=== PATIENT | female | born 1975 | race Caucasian/White ===

== ENCOUNTER → 2021-02-23 11:59 | Outpatient (BNVA) | payer OTHER, SELFPAY | PROVIDERS: PCP Internal Medicine; Visit Provider Physician Assistant ==

== ENCOUNTER → 2021-02-25 08:08 | Outpatient (BNVA) | payer OTHER, SELFPAY | PROVIDERS: PCP Internal Medicine; Visit Provider Surgery ==

== ENCOUNTER 2021-03-12 07:37 | Outpatient (REF) | payer OTHER, SELFPAY ==
--- NOTE | ~2021-03-12 | XR_ITS ---
EXAMINATION: XR CHEST CLINICAL INFORMATION: Morbid obesity due to excess calories. COMPARISON: 04/19/2018 portable chest. TECHNIQUE: 2 views of the chest were obtained. FINDINGS: The lungs are clear. The heart and mediastinal structures are unremarkable. Widening and malalignment of the left acromioclavicular joint is again seen without significant change. XR/XR chest 2V IMPRESSION: No acute cardiopulmonary process.
--- NOTE | 2021-03-12 07:58 | ECG_ITS ---
Test Reason : E66.01 MOR OBS Blood Pressure : / mmHG Vent. Rate : 062 BPM Atrial Rate : 062 BPM P-R Int : 178 ms QRS Dur : 072 ms QT Int : 424 ms P-R-T Axes : 065 050 049 degrees QTc Int : 430 ms Normal sinus rhythm Normal ECG When compared with ECG of 19-APR-2018 08:04, No significant change was found Referred By: Winston Hernandez Electronically Signed By:Zaire Malik
[2021-03-12 08:23] LABS: MANUAL DIFF FLAG NO
[2021-03-12 08:30] LABS: Basophils Percent Auto 0.4 % (0-2); Eosinophils Absolute Auto 0.1 X10*3/uL (0.0-0.4); Eosinophils Percent Auto 2.2 % (0-4); Hematocrit 44.9 % (37-47); Hemoglobin 14.3 g/dl (12.0-16.0); Imm Gran Abs Auto 0.02 X10*3/uL (0.00-0.03); Imm Gran Pct Auto 0.4 % (0.0-0.4); Lymphocytes Absolute Auto 2.6 X10*3/uL (1.2-4.9); Lymphocytes Percent Auto 55.3 % (20-40); Mean Corpuscular HGB Conc 31.8 g/dl (31.0-35.0); Mean Corpuscular Hemoglobin 28.4 pg (27.0-33.0); Mean Corpuscular Volume 89.3 fL (80-98); Mean Platelet Volume 11.2 fL (9.4-12.3); Monocytes Absolute Auto 0.4 X10*3/uL (0.1-1.2); Monocytes Percent Auto 9.5 % (2-11); Neutrophils Absolute Auto 1.5 X10*3/uL (2.0-8.3); Neutrophils Percent Auto 32.2 % (45-73); Platelet Count 215 X10*3/uL (160-400); Red Blood Count 5.03 X10*6/uL (4.20-5.50); Red Cell Distribution Width 12.4 % (11.0-16.0); White Blood Count 4.6 X10*3/uL (4.8-10.8)
[2021-03-12 08:40] LABS: Estimated Average Glucose 111 mg/dL; Hemoglobin A1c % 5.5 %
[2021-03-12 09:02] LABS: Alanine Aminotransferase 71 U/L (0-31); Albumin Level 4.4 g/dL (3.5-5.0); Alkaline Phosphatase 128 U/L (39-117); Anion Gap 12 (12-20); Aspartate Amino Transferase 54 U/L (5-31); Bilirubin Total 0.8 mg/dL (0.0-1.0); Blood Urea Nitrogen 24 mg/dL (9-16); C Reactive Protein 2.33 mg/dL (< or = 0.50); Carbon Dioxide 26 mmol/L (22-29); Chloride 107 mmol/L (96-108); Cholesterol 181 mg/dL; Estimated Glomerular Filt Rate > 60; Glucose Random 108 mg/dL (60-115); HDL Cholesterol 43 mg/dL; Iron 78 mcg/dL (30-160); LDL Cholesterol Calculated 119 mg/dl; Percent Iron Saturation 19 % (15-50); Potassium 4.1 mmol/L (3.3-5.1); Sodium 141 mmol/L (135-145); Total Iron Binding Capacity 410 mcg/dL (228-428); Total Protein 7.6 g/dL (6.5-8.0); Triglycerides 97 mg/dL; Unsaturated Iron Binding 332 ug/dL
[2021-03-12 09:28] LABS: Ferritin 74 ng/mL (10-250); TSH reflex Free T4 2.38 uIU/mL (0.32-4.0); Vitamin D 25-OH Total 14.9 ng/mL (>30)
[2021-03-12 09:32] LABS: Folate 8.5 ng/mL (> or = 4.0); Vitamin B12 381 pg/mL (200-900)
[2021-03-13 13:41] LABS: H Pylori Breath Test NOT DETECTED (NOT DETECTED)
[2021-03-13 13:42] LABS: Calcium (PTHI) 9.8 mg/dL (8.6-10.2); PTHI 60 pg/mL (14-64)
[2021-03-15 17:27] LABS: Zinc 77 mcg/dL (60-130)
[2021-03-16 06:11] LABS: Vitamin B1 10 nmol/L (8-30)
[2021-03-17 21:36] LABS: Vitamin A 33 mcg/dL (38-98)
== END 2021-03-12 07:38 | disposition home or self-care (01) ==
LOC: HO.LAB 07:37
PROVIDERS: PCP Internal Medicine; Visit Provider Surgery
DX: Z01.818 Encounter for other preprocedural examination (principal); E66.01 Morbid (severe) obesity due to excess calories; I10 Essential (primary) hypertension; J45.909 Unspecified asthma, uncomplicated; K21.9 Gastro-esophageal reflux disease without esophagitis; K76.0 Fatty (change of) liver, not elsewhere classified; R73.03 Prediabetes
CPT/HCPCS: 36415; 71046; 80053; 80061; 82306; 82607; 82728; 82746; 83013; 83036; 83525; 83540; 83970; 84425; 84443; 84590; 84630; 85025; 86140; 93005; 99211

== ENCOUNTER 2021-03-19 09:26 | Outpatient (REF) | payer OTHER, SELFPAY ==
--- NOTE | ~2021-03-19 | FL_ITS ---
EXAMINATION: FL UPPER GI SERIES CLINICAL INFORMATION: Bariatric service evaluation. E66.01 COMPARISON: None TECHNIQUE: Upper GI series is performed using fluoroscopic evaluation in addition to multiple fluoroscopic spot views. The patient is imaged both upright and prone and using both thick and thin barium sulfate along with effervescent granules. Fluoroscopy time: 1.2 minutes DAP: 29.136 Gycm2 Fluoroscopic spot images: 19 FINDINGS: There is normal esophageal motility. There is no obstruction, stricture, ulceration, or reflux. There is borderline herniation at the esophagogastric junction with prone Valsalva maneuver, approximately 1.2 thoracic vertebral body height above the diaphragm (using thoracic vertebrae as an internal reference). No overt or fixed hernia. The stomach shows no thickened folds or ulcer crater or outlet obstruction. The duodenal bulb is pliable and without ulcer crater or scarring. The post bulbar duodenum the jejunal mucosal pattern are unremarkable. FL/FL upper GI series IMPRESSION: 1. Borderline herniation at the esophagogastric junction with prone Valsalva maneuver. 2. Otherwise unremarkable exam.
--- NOTE | ~2021-03-19 | US_ITS ---
EXAMINATION: US COMPLETE ABDOMEN WITH LIVER ELASTOGRAPHY CLINICAL INFORMATION: Obesity COMPARISON: MRI abdomen 03/09/[address], the most recent of which was 06/30/2018 TECHNIQUE: Real-time imaging of the abdominal viscera. Noninvasive ultrasound liver fibrosis assessment is performed using Anjana ElastPQ point quantification shear wave elastography (pSWE) with a C5-2 MHz transducer. Multiple elastography samples are obtained. FINDINGS: PANCREAS: Normal. The visualized pancreatic head and body are normal in appearance. The remainder of the pancreas is obscured from visualization by the overlying bowel gas. ABDOMINAL AORTA: The proximal, middle, and distal aortic segments are normal in caliber. INFERIOR VENA CAVA: Visualized portions are normal. LIVER: The liver demonstrates increased echogenicity suggesting hepatic steatosis. There is a large mass in the right lobe of the liver measuring up to 8.3 cm in greatest dimension. Although in the past, a 3.5 cm liver mass was seen which was thought to be a hemangioma on MRI, given the significant increase in size, a repeat dynamic liver MRI is recommended. No intrahepatic biliary duct dilatation. The right lobe measures 17.5 cm in length. The left lobe measures 10.7 cm in length. Portal flow is hepatopedal. Shear wave liver elastography median stiffness is 1.1 m/s (reference: normal median stiffness is 1.3 m/s or less). IQR/median stiffness to assess sampling precision is 1.2 (reference: good quality data set is IQR/median stiffness of 0.15 or less). GALLBLADDER: Status post cholecystectomy. COMMON BILE DUCT: Normal in caliber measuring 0.5 cm in diameter. RIGHT KIDNEY: . No hydronephrosis. No renal calculi or focal parenchymal lesions. The kidney measures 10.1 cm in maximum dimension. LEFT KIDNEY: No hydronephrosis. 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 This has not been noted previously but in retrospect I believe this can be seen on the prior CT scan 3:314 where a 6 mm mass measures -40 Hounsfield units. No renal calculi or worrisome focal parenchymal lesions. The kidney measures 11.1 cm in maximum dimension. SPLEEN: Normal. The spleen measures 11.8 cm in maximum dimension. FREE FLUID: None. US/US abdomen comp w elastography IMPRESSION: 1. Mildly enlarged echogenic liver consistent with hepatic steatosis. 2. Liver elastography: Very limited due to sampling error but not suggestive of liver disease. 3. New or enlarging mass in the right lobe of the liver now 8.3 cm in size. Dynamic liver MRI is recommended for further evaluation. REFERENCE: Society of Radiologists in Ultrasound Liver Stiffness Thresholds (2020): LIVER STIFFNESS THRESHOLDS: *Liver Stiffness equal or less than 1.3 m/s: High probability of being normal. *Liver Stiffness less than 1.7 m/s: In the absence of other known clinical signs, rules out compensated advanced chronic liver disease. *Liver Stiffness 1.7-2.1 m/s: Suggestive of compensated advanced chronic liver disease but need further test for confirmation. *Liver Stiffness over 2.1 m/s: Rules in compensated advanced chronic liver disease. *Liver Stiffness over 2.4 m/s: Suggestive of clinically significant portal hypertension. QUALITY OF DATA SET: *IQR/Median value equal or less than 0.15 implies a quality data set. *IQR/Median value over 0.15 implies a poor quality data set. SIGNIFICANT CHANGE FROM PRIOR EXAM: Significant change if liver stiffness measurement is 10% or greater from prior exam. OTHER CONSIDERATIONS: The stage of liver fibrosis may be overestimated in the setting of acute hepatitis, liver inflammation, elevated liver function tests, hepatic vascular congestion, obstructive cholestasis, non-fasting state, and infiltrative diseases such as amyloidosis and lymphoma. In some patients with NAFLD, the liver stiffness thresholds for compensated advanced chronic liver disease may be lower. In causes other than viral hepatitis and NAFLD, liver stiffness thresholds are not well established.
== END 2021-03-19 09:27 | disposition home or self-care (01) ==
LOC: HO.US 09:26
PROVIDERS: PCP Internal Medicine; Visit Provider Surgery
DX: Z01.818 Encounter for other preprocedural examination (principal); E66.01 Morbid (severe) obesity due to excess calories; K21.9 Gastro-esophageal reflux disease without esophagitis; K76.0 Fatty (change of) liver, not elsewhere classified; I10 Essential (primary) hypertension; J45.909 Unspecified asthma, uncomplicated; R73.03 Prediabetes
CPT/HCPCS: 74240; 76705; 76981

== ENCOUNTER → 2021-03-20 08:16 | Outpatient (BNVA) | payer OTHER, SELFPAY | PROVIDERS: PCP Internal Medicine; Visit Provider Dietitian, Registered | DX: E66.01 Morbid (severe) obesity due to excess calories (principal); Z68.43 Body mass index [BMI] 50.0-59.9, adult | CPT/HCPCS: 97802 ==

== ENCOUNTER → 2021-03-23 07:48 | Outpatient (BNVA) | payer OTHER, SELFPAY | PROVIDERS: PCP Internal Medicine; Visit Provider Surgery ==

== ENCOUNTER 2021-03-24 13:28 | Emergency (ER) | payer OTHER, SELFPAY ==
[2021-03-24 13:54] VITALS: BP 136/70; PULSE 78; RESP 16; TEMP 37; O2SAT 99; BMI 51.5
--- NOTE | 2021-03-24 13:54 | ED_ITS ---
HPI - Skin/Abscess/Foreign Bdy General Chief complaint: Wound/Laceration <Norma Morales NP - Last Filed: 03/24/21 14:22> Stated complaint: open Blister <Norma Morales NP - Last Filed: 03/24/21 14:22> Time Seen by Provider: 03/24/21 13:54 <Norma Morales NP - Last Filed: 03/24/21 14:22> Source: patient <Norma Morales NP - Last Filed: 03/24/21 14:22> Mode of arrival: ambulatory <Norma Morales NP - Last Filed: 03/24/21 14:22> Limitations: no limitations <Norma Morales NP - Last Filed: 03/24/21 14:22> History of Present Illness HPI narrative: 45 yo female here with right breast swelling, redness and pain x several days. Subjective fevers last few days. Initially had a blister from tanning bed and then opened and now painful, swollen, red. Does not check blood sugars with recent diagnosis of diabetes. Making dietary changes first working with PCP. <Norma Morales NP - Last Filed: 03/24/21 14:22> Related Data Home medications: Home Medications Medication Instructions Recorded Confirmed albuterol sulfate 90 mcg/actuation 2 puff INHALATION Q6H PRN 02/25/21 02/25/21 aerosol inhaler apixaban 5 mg tablet 5 mg PO BID 02/25/21 02/25/21 buprenorphine HCl 8 mg sublingual 8 mg SUBLINGUAL DAILY 02/25/21 02/25/21 tablet diphenhydramine HCl 50 mg capsule 50 mg PO BEDTIME 02/25/21 02/25/21 gabapentin 600 mg tablet 600 mg PO BEDTIME 02/25/21 02/25/21 omeprazole 40 mg capsule,delayed 40 mg PO DAILY 02/25/21 02/25/21 release prazosin 5 mg capsule 10 mg PO BEDTIME 02/25/21 02/25/21 topiramate 200 mg tablet 200 mg PO BEDTIME 02/25/21 02/25/21 Previous Rx's Medication Instructions Recorded cholecalciferol (vitamin D3) 125 125 mcg PO DAILY #30 cap 03/21/21 mcg (5,000 unit) capsule mecobalamin (vitamin B12) 1,000 1,000 mcg SUBLINGUAL DAILY #30 tab 03/21/21 mcg disintegrating tablet,sublingual vitamin A palmitate 10,000 unit 10,000 unit PO .COMPLEX #30 cap 03/21/21 capsule doxycycline monohydrate 100 mg PO BID #14 cap 03/24/21 fluconazole [Diflucan] 150 mg PO Q3D #2 tab 03/24/21 <Norma Morales NP - Last Filed: 03/24/21 14:22> Allergies/Adverse reactions: Allergies Allergy/AdvReac Type Severity Reaction Status Date / Time Iodinated Contrast Media Allergy Severe ANAPHYLAXIS Unverified 02/25/21 15:14 [IV CONTRAST] Penicillins [PENICILLINS] Allergy Severe THROAT Unverified 02/25/21 15:14 SWELLING vancomycin [VANCOMYCIN] Allergy Unknown ITCHING Unverified 02/25/21 15:14 ketorolac [From TORADOL] AdvReac Unknown I CANT Unverified 02/25/21 15:14 HAVE IT IM ON METHADONE tramadol [From ULTRAM] AdvReac Unknown I CANT Unverified 02/25/21 15:14 HAVE IT IM ON METHADONE STEROIDS Allergy Intermediate GI BLEED Uncoded 02/25/21 15:14 <Norma Morales NP - Last Filed: 03/24/21 14:22> Review of Systems Review of Systems: Yes all other systems are reviewed and are negative <Norma Morales NP - Last Filed: 03/24/21 14:22> Constitutional: Constitutional: Reports no additional constitutional complaints, Denies body ache(s), Denies chills, Reports fever(s) (subjective ), Denies headache(s) and Denies weakness <Norma Morales NP - Last Filed: 03/24/21 14:22> Eyes: Eyes: Reports no additional eye complaints and Denies change in vision <Norma Morales NP - Last Filed: 03/24/21 14:22> ENT: Reports system reviewed and no additional complaints, except as documented, Denies dizziness, Denies headache(s), Denies nasal congestion, Denies nasal discharge and Denies neck pain <Norma Morales NP - Last Filed: 03/24/21 14:22> Cardiovascular: Cardiovascular: Reports no additional cardiovascular complaints, Denies chest pain, Denies leg edema and Denies dyspnea <Norma Morales NP - Last Filed: 03/24/21 14:22> Respiratory: Respiratory: Reports no additional respiratory complaints, Denies cough and Denies dyspnea <Norma Morales NP - Last Filed: 03/24/21 14:22> Gastrointestinal: Gastrointestinal: Reports no additional gastrointestinal complaints, Denies abdominal pain, Denies diarrhea, Denies nausea and Denies vomiting <Norma Morales NP - Last Filed: 03/24/21 14:22> Genitourinary: Genitourinary: Reports no additional female genitourinary complaints and Denies urinary incontinence <Norma Morales NP - Last Filed: 03/24/21 14:22> Musculoskeletal: Musculoskeletal: Reports no additional musculoskeletal complaints, Denies back pain, Denies arthralgias, Denies joint swelling, Denies neck pain, Denies numbness and Denies tingling <Norma Morales NP - Last Filed: 03/24/21 14:22> Integumentary/Breasts: Skin/Breast: Reports system reviewed and no additional complaints, except as docu, Reports swelling, Reports erythema and Denies rash <Norma Morales NP - Last Filed: 03/24/21 14:22> Neurologic: Reports system reviewed and no additional complaints, except as documented, Denies Abnormal speech present, Denies dizziness, Denies headache(s), Denies numbness, Denies tingling and Denies weakness <Noram Morales NP - Last Filed: 03/24/21 14:22> PMFSH Past Medical History Attestation statement: The following information was validated with the patient. <Norma Morales NP - Last Filed: 03/24/21 14:22> Source: old records reviewed and nursing notes reviewed <Norma Morales NP - Last Filed: 03/24/21 14:22> Medical History: Medical History Anxiety Asthma Depression Fibromyalgia GERD (gastroesophageal reflux disease) History of ETOH abuse Hypertension Insomnia Morbid obesity Prediabetes PTSD (post-traumatic stress disorder) Seizure Steatosis, liver <Norma Morales NP - Last Filed: 03/24/21 14:22> Surgical History: Surgical History History of lung surgery History of total hysterectomy Hx of cholecystectomy Hx of colonoscopy Hx of wisdom tooth extraction <Norma Morales NP - Last Filed: 03/24/21 14:22> Family History Family History: Family History Mother Diabetes Hypertension Father Alcohol abuse Brother No problems noted. Brother No problems noted. Son No problems noted. Daughter No problems noted. <Norma Morales NP - Last Filed: 03/24/21 14:22> Social History Social History: Social History Alcohol intake: former Substance Use Type: Crack/Cocaine <Norma Morales NP - Last Filed: 03/24/21 14:22> Physical Exam Vital Signs: Vital Signs: Last Vital Signs Temp 98.6 F 03/24/21 13:54 Pulse 78 03/24/21 13:54 Resp 16 03/24/21 13:54 BP 136/70 03/24/21 13:54 Pulse Ox 99 03/24/21 13:54 Body Mass Index 51.5 <Norma Morales NP - Last Filed: 03/24/21 14:22> Vital Signs: Last Vital Signs Temp 98.6 F 03/24/21 13:54 Pulse 78 03/24/21 13:54 Resp 16 03/24/21 13:54 BP 136/70 03/24/21 13:54 Pulse Ox 99 03/24/21 13:54 Body Mass Index 51.5 <Adama Canseco MD - Last Filed: 04/29/21 17:31> Const: General: cooperative, healthy appearing, comfortable and no acute distress <Norma Morales NP - Last Filed: 03/24/21 14:22> Orientation/consciousness: patient oriented x3 <Norma Morales NP - Last Filed: 03/24/21 14:22> Limitations: no limitations <Norma Morales NP - Last Filed: 03/24/21 14:22> HENMT: Head: Yes normal to inspection <Norma Morales NP - Last Filed: 03/24/21 14:22> Ears: hearing grossly normal bilaterally <Norma Morales NP - Last Filed: 03/24/21 14:22> General nose exam: Normal external nose present <Norma Morales NP - Last Filed: 03/24/21 14:22> Face and sinus: Yes normal facial exam <Norma Morales NP - Last Filed: 03/24/21 14:22> Mouth: Normal oral and palatal mucosa present <Norma Morales NP - Last Filed: 03/24/21 14:22> Throat: Yes posterior oropharynx normal <Norma Morales NP - Last Filed: 03/24/21 14:22> Eyes: General: appearance normal, both eyes and all related structures <Norma Morales INTER[employer] MARKETING EXECUTIVE - Last Filed: 03/24/21 14:22> Pupils: Equal, round and reactive pupils present <Norma Morales NP - Last Filed: 03/24/21 14:22> Neck: Neck: Yes normal visual inspection <Norma Morales NP - Last Filed: 03/24/21 14:22> Chest: Chest palpation & inspection: normal inspection of the chest <Norma Morales NP - Last Filed: 03/24/21 14:22> Resp: Effort & Inspection: normal respiratory effort <Norma Morales NP - Last Filed: 03/24/21 14:22> Auscultation: clear to auscultation bilaterally <Norma Morales NP - Last Filed: 03/24/21 14:22> Cardio: Rate: regular rate <Norma Morales NP - Last Filed: 03/24/21 14:22> Rhythm: regular rhythm <Norma Morales INTERNATIONAL MARKETING EXECUTIVE - Last Filed: 03/24/21 14:22> Peripheral pulses: Peripheral pulses 2+ throughout <Norma Morales NP - Last Filed: 03/24/21 14:22> GI: Inspection: Yes normal to inspection <Norma Morales NP - Last Filed: 03/24/21 14:22> Palpation (GI): Soft to palpation and nontender <Norma Morales INTERNATIONAL MARKETING EXECUTIVE - Last Filed: 03/24/21 14:22> Auscultation: normal bowel sounds <Norma Morales INTERNATIONAL MARKETING EXECUTIVE - Last Filed: 03/24/21 14:22> Back/Spine/Pelvis: Thoracic/Lumbar Spine: thoracic and lumbar spine normal to inspection <Norma Morales NP - Last Filed: 03/24/21 14:22> Skin: Other: just under the right breast there is a open abrasion with local erythema, swelling but no induration or fluctuance or drainage. <Norma Morales NP - Last Filed: 03/24/21 14:22> General skin exam: no rashes or lesions noted <Norma Morales INTERNATIONAL MARKETING EXECUTIVE - Last Filed: 03/24/21 14:22> Neuro: General: patient oriented x3, no focal motor deficits and normal sensation to monofilament <Norma Morales INTERNATIONAL MARKETING EXECUTIVE - Last Filed: 03/24/21 14:22> Cranial nerves: Yes Equal, round and reactive pupils present <Norma Morales INTERNATIONAL MARKETING EXECUTIVE - Last Filed: 03/24/21 14:22> Cognition (Neuro): normal cognition <Norma Morales NP - Last Filed: 03/24/21 14:22> Speech: No Abnormal speech present <Norma Morales NP - Last Filed: 03/24/21 14:22> Gait exam (Neuro): Normal gait present <Norma Morales NP - Last Filed: 03/24/21 14:22> Motor exam (neuro): 5/5 motor strength present throughout <Norma Morales INTERNATIONAL MARKETING EXECUTIVE - Last Filed: 03/24/21 14:22> Extrem: General: Yes normal to inspection <Norma Morales INTERNATIONAL MARKETING EXECUTIVE - Last Filed: 03/24/21 14:22> Course Course Course Narrative: 45 yo female here with very small local cellulitis under right breast with no systemic s/s infection. POC in triage 99. WIll treat with course of antibiotics, discussed wound care at home. Reviewed worrisome signs/symptoms with patient and when to return to ED. Comfortable with discharge home. <Norma Morales NP - Last Filed: 03/24/21 14:22> I have reviewed the chart <Adama Canseco MD - Last Filed: 04/29/21 17:31> MDM - Skin/Abscess/Foreign Bdy Lab Data Labs: Lab Results 03/24/21 Range/Units 13:59 POC Glucose 99 (60-115) mg/dL <Norma Morales NP - Last Filed: 03/24/21 14:22> Lab Results 03/24/21 Range/Units 13:59 POC Glucose 99 (60-115) mg/dL <Adama Canseco MD - Last Filed: 04/29/21 17:31> Discharge Plan Discharge Clinical Impression: Cellulitis <Norma Morales NP - Last Filed: 03/24/21 14:22> Patient Disposition: Home, Self-Care <Norma Morales NP - Last Filed: 03/24/21 14:22> Instructions: Cellulitis (ED) <Norma Morales NP - Last Filed: 03/24/21 14:22> Additional Instructions: Keep dry Return for increasing redness, swelling as discussed <Norma Morales NP - Last Filed: 03/24/21 14:22> Prescriptions: New doxycycline monohydrate 100 mg capsule 100 mg PO BID Qty: 14 RF: 0 fluconazole [Diflucan] 150 mg tablet 150 mg PO Q3D Qty: 2 RF: 0 No Action vitamin A palmitate 10,000 unit capsule 10,000 unit PO .COMPLEX Qty: 30 RF: 1 mecobalamin (vitamin B12) 1,000 mcg tablet,disintegrating 1,000 mcg sublingual DAILY Qty: 30 RF: 2 cholecalciferol (vitamin D3) 125 mcg (5,000 unit) capsule 125 mcg PO DAILY Qty: 30 RF: 2 Eliquis 5 mg tablet 5 mg PO BID RF: 0 gabapentin 600 mg tablet 600 mg PO BEDTIME RF: 0 buprenorphine HCl 8 mg tablet, sublingual 8 mg sublingual DAILY RF: 0 diphenhydramine HCl 50 mg capsule 50 mg PO BEDTIME RF: 0 topiramate [Topamax] 200 mg tablet 200 mg PO BEDTIME RF: 0 prazosin 5 mg capsule 10 mg PO BEDTIME RF: 0 albuterol sulfate 90 mcg/actuation HFA aerosol inhaler 2 puff inhalation Q6H PRNRF: 0 omeprazole 40 mg capsule,delayed release(DR/EC) 40 mg PO DAILY RF: 0 <Norma Morales NP - Last Filed: 03/24/21 14:22> Referrals: Dinorah Wood MD [Primary Care Provider] - 2 days <Norma Morales NP - Last Filed: 03/24/21 14:22> Interventions: ED Discharge Assessment Last Done: 03/24/21 14:09 <Norma Morales NP - Last Filed: 03/24/21 14:22> Discharge Date/Time: 03/24/21 14:10 <Norma Morales NP - Last Filed: 03/24/21 14:22>
[2021-03-25 16:12] LABS: Glucose, Whole Blood 99 mg/dL (60-115)
== END 2021-03-24 14:10 | disposition home or self-care (01) ==
LOC: HO.ED 14:05
PROVIDERS: Emergency Provider Emergency Medicine; PCP Internal Medicine
DX: S20.311A Abrasion of right front wall of thorax, initial encounter (principal); L03.818 Cellulitis of other sites; W89.1XXA Exposure to tanning bed, initial encounter; Y93.89 Activity, other specified; Y92.513 Shop (commercial) as the place of occurrence of the external cause; Y99.9 Unspecified external cause status
CPT/HCPCS: 82947; 99283

== ENCOUNTER → 2021-03-26 10:49 | Outpatient (BNVA) | payer OTHER, SELFPAY | PROVIDERS: PCP Internal Medicine; Visit Provider Physician Assistant ==

== ENCOUNTER 2021-03-26 12:18 | Outpatient (REF) | payer OTHER, SELFPAY ==
--- NOTE | ~2021-03-26 | MR_ITS ---
EXAMINATION: MR ABDOMEN WITHOUT AND WITH CONTRAST CLINICAL INFORMATION: Followup liver lesion increasing in size. COMPARISON: Previous ultrasound 03/19/2021, CT of the abdomen and pelvis June 2018 and MRI of the abdomen February 2018 TECHNIQUE: MR abdomen was performed without and with use of 10 mL intravenous Gadavist gadolinium contrast. Postcontrast images are performed in multiphase dynamic sequences. Imaging was performed in 3 planes. FINDINGS: LUNG BASES: The visualized lung bases are unremarkable. LIVER, GALLBLADDER, AND BILIARY TREE: There is fatty infiltration of the liver. The liver is slightly enlarged, right lobe measuring 18 cm in length. There is a 2.8 x 3.1 cm lesion in the right lobe of the liver. This is low signal on T1-weighted sequences, high signal on T2-weighted sequences and demonstrates gradual peripheral puddling enhancement compatible with a benign hemangioma. This is similar appearing to February 2018 exam. There is a second smaller lesion in the anterior segment of the right lobe of the liver measuring 1 cm. This is low signal on T1-weighted sequences, high signal on T2-weighted sequences and demonstrates delayed peripheral puddling enhancement. This is suggestive of a hemangioma, as well. This is not as well appreciated on prior exam. No other focal liver lesion is seen. The gallbladder has been removed. There is no biliary duct dilatation. PANCREAS: Unremarkable. SPLEEN: Normal. ADRENAL GLANDS: Normal. KIDNEYS AND URETERS: The kidneys are normal in size, shape, and enhance symmetrically. No hydronephrosis. No perinephric stranding. GASTROINTESTINAL TRACT: No bowel obstruction. No ascites or fluid collection. ABDOMINAL WALL: Right lateral abdominal wall/spigelian hernia containing fat. Small umbilical hernia containing fat. Supraumbilical or ventral hernia containing fat to the right of midline. LYMPH NODES: No lymphadenopathy. VASCULAR: Unremarkable. OSSEOUS STRUCTURES: Marrow signal normal. MR/MR abdomen wo/w con IMPRESSION: Fatty liver. Two liver hemangiomas not appreciably changed from February 2018 MRI. Multiple abdominal wall hernias containing fat.
== END 2021-03-26 12:19 | disposition home or self-care (01) ==
LOC: HO.MRI 12:18
PROVIDERS: Visit Provider Surgery
DX: R16.0 Hepatomegaly, not elsewhere classified (principal)
CPT/HCPCS: 74183; A9585

== ENCOUNTER 2021-03-26 13:22 | Emergency (ER) | payer OTHER, SELFPAY ==
--- NOTE | ~2021-03-26 | US_ITS ---
EXAMINATION: US VENOUS ULTRASOUND WITH DOPPLER LOWER EXTREMITY, RIGHT CLINICAL INFORMATION: DVT. Swelling. Pain. Edema. COMPARISON: None TECHNIQUE: Ultrasound of the deep veins is performed from the hip to the calf with compression sonography and color and pulse Doppler assessment. Spectral analysis with color-flow imaging is performed. FINDINGS: There is normal venous compression and respiratory variation and augmented flow. The visualized common femoral vein, superficial femoral vein, profunda femoral vein, popliteal vein, and the trifurcation region shows no evidence of deep venous thrombosis. There is no significant popliteal fossa cyst. Targeted ultrasound was performed in the area indicated by palpation at the anterior knee. There is a small volume of anechoic fluid anterior to the patella. If the patient's symptoms persist, followup ultrasound in 5 days 7 days might be of value to exclude proximal propagation from a non-visualized calf vein. US/US venous duplex LE RT IMPRESSION: 1. No DVT demonstrated in the right lower extremity. 2. Small volume of fluid anterior to the patella.
[2021-03-26 13:32] VITALS: BP 120/70; PULSE 90; RESP 18; TEMP 36.4; O2SAT 96; BMI 51.7
--- NOTE | 2021-03-26 15:49 | ED_ITS ---
HPI - Extremity Problem General Chief complaint: Extremity Problem Stated complaint: leg pain Time Seen by Provider: 03/26/21 14:15 Source: patient Mode of arrival: ambulatory Limitations: no limitations History of Present Illness HPI Narrative: 45 yo female with past medical history of asthma, anxiety, depression, fibromyalgia, gerd, former alcohol and substance abuse, pre- diabetes, seizure disorder, htn, fatty liver with mass (had MRI today to eval further) here with complaints of LE swelling bilateral for one month. She is currently in weight management and has been encouraged to walk more. She has been walking daily and has noticed LE swelling since this. No SOB, CP, cough, fevers or chills. H/o DVT in RLE on eliquis. Has not missed any does. Does have worsening right calf pain and swelling x 3-4 days. Related Data Home Medications Medication Instructions Recorded Confirmed albuterol sulfate 90 mcg/actuation 2 puff INHALATION Q6H PRN 02/25/21 02/25/21 aerosol inhaler apixaban 5 mg tablet 5 mg PO BID 02/25/21 02/25/21 buprenorphine HCl 8 mg sublingual 8 mg SUBLINGUAL DAILY 02/25/21 02/25/21 tablet diphenhydramine HCl 50 mg capsule 50 mg PO BEDTIME 02/25/21 02/25/21 gabapentin 600 mg tablet 600 mg PO BEDTIME 02/25/21 02/25/21 omeprazole 40 mg capsule,delayed 40 mg PO DAILY 02/25/21 02/25/21 release prazosin 5 mg capsule 10 mg PO BEDTIME 02/25/21 02/25/21 topiramate 200 mg tablet 200 mg PO BEDTIME 02/25/21 02/25/21 Previous Rx's Medication Instructions Recorded cholecalciferol (vitamin D3) 125 125 mcg PO DAILY #30 cap 03/21/21 mcg (5,000 unit) capsule mecobalamin (vitamin B12) 1,000 1,000 mcg SUBLINGUAL DAILY #30 tab 03/21/21 mcg disintegrating tablet,sublingual vitamin A palmitate 10,000 unit 10,000 unit PO .COMPLEX #30 cap 03/21/21 capsule doxycycline monohydrate 100 mg PO BID #14 cap 03/24/21 fluconazole [Diflucan] 150 mg PO Q3D #2 tab 03/24/21 Allergies Allergy/AdvReac Type Severity Reaction Status Date / Time Iodinated Contrast Media Allergy Severe ANAPHYLAXIS Unverified 02/25/21 15:14 [IV CONTRAST] Penicillins [PENICILLINS] Allergy Severe THROAT Unverified 02/25/21 15:14 SWELLING vancomycin [VANCOMYCIN] Allergy Unknown ITCHING Unverified 02/25/21 15:14 ketorolac [From TORADOL] AdvReac Unknown I CANT Unverified 02/25/21 15:14 HAVE IT IM ON METHADONE tramadol [From ULTRAM] AdvReac Unknown I CANT Unverified 02/25/21 15:14 HAVE IT IM ON METHADONE STEROIDS Allergy Intermediate GI BLEED Uncoded 02/25/21 15:14 Review of Systems Review of Systems: Yes all other systems are reviewed and are negative Constitutional: Constitutional: Reports no additional constitutional complaints, Denies body ache(s), Denies chills, Denies fever(s), Denies headache(s) and Denies weakness Eyes: Eyes: Reports no additional eye complaints and Denies change in vision ENT: Reports system reviewed and no additional complaints, except as documented, Denies dizziness, Denies headache(s), Denies nasal congestion, Denies nasal discharge and Denies neck pain Cardiovascular: Cardiovascular: Reports no additional cardiovascular complaints, Denies chest pain, Reports leg edema and Denies dyspnea Respiratory: Respiratory: Reports no additional respiratory complaints, Denies cough and Denies dyspnea Gastrointestinal: Gastrointestinal: Reports no additional gastrointestinal complaints, Denies abdominal pain, Denies diarrhea, Denies nausea and Denies vomiting Genitourinary: Genitourinary: Reports no additional female genitourinary complaints and Denies urinary incontinence Musculoskeletal: Musculoskeletal: Reports no additional musculoskeletal complaints, Denies back pain, Denies arthralgias, Denies joint swelling, Denies neck pain, Denies numbness and Denies tingling Integumentary/Breasts: Skin/Breast: Reports system reviewed and no additional complaints, except as docu, Reports swelling and Denies rash Neurologic: Reports system reviewed and no additional complaints, except as documented, Denies Abnormal speech present, Denies dizziness, Denies headache(s), Denies numbness, Denies tingling and Denies weakness PMFSH Past Medical History Attestation statement: The following information was validated with the patient. Source: old records reviewed and nursing notes reviewed Medical History Anxiety Asthma Depression Fibromyalgia GERD (gastroesophageal reflux disease) History of ETOH abuse Hypertension Insomnia Morbid obesity Prediabetes PTSD (post-traumatic stress disorder) Seizure Steatosis, liver Surgical History History of lung surgery History of total hysterectomy Hx of cholecystectomy Hx of colonoscopy Hx of wisdom tooth extraction Family History Family History Mother Diabetes Hypertension Father Alcohol abuse Brother No problems noted. Brother No problems noted. Son No problems noted. Daughter No problems noted. Social History Social History Alcohol intake: former Substance Use Type: Crack/Cocaine Advance Directives: No Advance Directives Information Provided: Yes Patient : No Physical Exam Vital Signs: Vital Signs: Last Vital Signs Temp 97.5 F 03/26/21 13:32 Pulse 90 03/26/21 13:32 Resp 18 03/26/21 13:32 BP 120/70 03/26/21 13:32 Pulse Ox 96 03/26/21 13:32 Body Mass Index 51.7 Const: General: cooperative, healthy appearing, comfortable and no acute distress Orientation/consciousness: patient oriented x3 Limitations: no limitations HENMT: Head: Yes normal to inspection Ears: hearing grossly normal bilaterally General nose exam: Normal external nose present Face and sinus: Yes normal facial exam Mouth: Normal oral and palatal mucosa present Throat: Yes posterior oropharynx normal Eyes: General: appearance normal, both eyes and all related structures Pupils: Equal, round and reactive pupils present Neck: Neck: Yes normal visual inspection Chest: Chest palpation & inspection: normal inspection of the chest Resp: Effort & Inspection: normal respiratory effort Auscultation: clear to auscultation bilaterally Cardio: Rate: regular rate Rhythm: regular rhythm Peripheral pulses: Peripheral pulses 2+ throughout GI: Inspection: Yes normal to inspection Palpation (GI): Soft to palpation and nontender Auscultation: normal bowel sounds Back/Spine/Pelvis: Thoracic/Lumbar Spine: thoracic and lumbar spine normal to inspection Skin: General skin exam: no rashes or lesions noted Neuro: General: patient oriented x3, no focal motor deficits and normal sensation to monofilament Cranial nerves: Yes Equal, round and reactive pupils present Cognition (Neuro): normal cognition Speech: No Abnormal speech present Gait exam (Neuro): Normal gait present Motor exam (neuro): 5/5 motor strength present throughout Extrem: Other: bilateral trace edema LE non pitting Right calf posterior pain No pain left calf General: Yes normal to inspection Course Course Course Narrative: 45 yo female here with LE swelling x 1 month with right posterior calf pain and concern from patient for DVT although she has been compliant with her eliquis so less likely. NO SOB or CP. On exam trace bilateral LE swelling with right calf pain. Will check labs, US 1730-US shows no DVT. Patient apparently eloped after returning from US and did not have any labs done. Went out to waiting room and unable to find patient. MDM - Extremity (Nontraumatic) MDM Narrative Medical decision making narrative: chf, liver disease, dependent edema, dvt Medical Records Attestation: I reviewed the patient's medical records. Lab Data Attestation: I reviewed the patient's lab results. Imaging Data Venous US: Attestation: I personally reviewed and interpreted this imaging study as follows: Radiologist's impression: FINDINGS: There is normal venous compression and respiratory variation and augmented flow. The visualized common femoral vein, superficial femoral vein, profunda femoral vein, popliteal vein, and the trifurcation region shows no evidence of deep venous thrombosis. There is no significant popliteal fossa cyst. Targeted ultrasound was performed in the area indicated by palpation at the anterior knee. There is a small volume of anechoic fluid anterior to the patella. If the patient's symptoms persist, followup ultrasound in 5 days 7 days might be of value to exclude proximal propagation from a non-visualized calf vein. US/US venous duplex LE RT IMPRESSION: 1. No DVT demonstrated in the right lower extremity. 2. Small volume of fluid anterior to the patella. Discharge Plan Discharge Clinical Impression: Lower extremity edema Patient Disposition: Elopement Prescriptions: No Action vitamin A palmitate 10,000 unit capsule 10,000 unit PO .COMPLEX Qty: 30 RF: 1 mecobalamin (vitamin B12) 1,000 mcg tablet,disintegrating 1,000 mcg sublingual DAILY Qty: 30 RF: 2 cholecalciferol (vitamin D3) 125 mcg (5,000 unit) capsule 125 mcg PO DAILY Qty: 30 RF: 2 doxycycline monohydrate 100 mg capsule 100 mg PO BID Qty: 14 RF: 0 fluconazole [Diflucan] 150 mg tablet 150 mg PO Q3D Qty: 2 RF: 0 Eliquis 5 mg tablet 5 mg PO BID RF: 0 gabapentin 600 mg tablet 600 mg PO BEDTIME RF: 0 buprenorphine HCl 8 mg tablet, sublingual 8 mg sublingual DAILY RF: 0 diphenhydramine HCl 50 mg capsule 50 mg PO BEDTIME RF: 0 topiramate [Topamax] 200 mg tablet 200 mg PO BEDTIME RF: 0 prazosin 5 mg capsule 10 mg PO BEDTIME RF: 0 albuterol sulfate 90 mcg/actuation HFA aerosol inhaler 2 puff inhalation Q6H PRNRF: 0 omeprazole 40 mg capsule,delayed release(DR/EC) 40 mg PO DAILY RF: 0
--- NOTE | 2021-03-26 16:59 | PC.NURSE ---
PT REFUSING TO REMAIN IN HER ASSIGNED ROOM AFTER RETURN FORM US. SHE STATES SHE WILL WAIT IN THE WR FOR RESULTS.
== END 2021-03-26 17:00 | disposition left against medical advice (07) ==
PROVIDERS: Emergency Provider Emergency Medicine; PCP Internal Medicine
DX: R60.0 Localized edema (principal); M79.661 Pain in right lower leg; J45.909 Unspecified asthma, uncomplicated; I10 Essential (primary) hypertension; Z79.899 Other long term (current) drug therapy
CPT/HCPCS: 93971; 99283; 99284

== ENCOUNTER 2021-04-01 10:49 | Outpatient (REF) | payer OTHER, SELFPAY ==
[2021-04-02 13:57] LABS: H Pylori Breath Test NOT DETECTED (NOT DETECTED)
== END 2021-04-01 10:50 | disposition home or self-care (01) ==
LOC: HO.LNP 10:49
PROVIDERS: Physician Assistant; PCP Internal Medicine; Visit Provider Physician Assistant
DX: E66.01 Morbid (severe) obesity due to excess calories (principal)
CPT/HCPCS: 83013; 99211

== ENCOUNTER → 2021-04-29 07:24 | Outpatient (BNVA) | payer OTHER, SELFPAY | PROVIDERS: PCP Internal Medicine; Visit Provider Surgery ==

== ENCOUNTER → 2021-06-04 17:33 | Outpatient (BNVA) | payer OTHER, SELFPAY | PROVIDERS: PCP Internal Medicine; Visit Provider Surgery ==

== ENCOUNTER → 2021-06-05 12:26 | Outpatient (BNVA) | payer OTHER, SELFPAY | PROVIDERS: PCP Internal Medicine; Visit Provider Physician Assistant ==

== ENCOUNTER 2021-06-09 07:50 | Inpatient (IN) | payer OTHER, SELFPAY ==
[2021-06-03 11:10] VITALS: BMI 47.7
[2021-06-05 13:15] LABS: MANUAL DIFF FLAG NO
[2021-06-05 13:28] LABS: Basophils Percent Auto 0.5 % (0-2); Eosinophils Absolute Auto 0.1 X10*3/uL (0.0-0.4); Eosinophils Percent Auto 1.1 % (0-4); Hematocrit 47.5 % (37-47); Hemoglobin 15.5 g/dl (12.0-16.0); Lymphocytes Absolute Auto 1.9 X10*3/uL (1.2-4.9); Lymphocytes Percent Auto 44.1 % (20-40); Mean Corpuscular HGB Conc 32.6 g/dl (31.0-35.0); Mean Corpuscular Hemoglobin 28.3 pg (27.0-33.0); Mean Corpuscular Volume 86.7 fL (80-98); Mean Platelet Volume 11.4 fL (9.4-12.3); Monocytes Absolute Auto 0.3 X10*3/uL (0.1-1.2); Monocytes Percent Auto 7.1 % (2-11); Neutrophils Absolute Auto 2.1 X10*3/uL (2.0-8.3); Neutrophils Percent Auto 47.2 % (45-73); Platelet Count 194 X10*3/uL (160-400); Red Blood Count 5.48 X10*6/uL (4.20-5.50); Red Cell Distribution Width 13.3 % (11.0-16.0); White Blood Count 4.4 X10*3/uL (4.8-10.8)
[2021-06-05 13:34] LABS: Prothrombin Time 11.5 SEC (9.9-13.0)
[2021-06-05 13:36] LABS: Alanine Aminotransferase 36 U/L (0-31); Albumin Level 4.5 g/dL (3.5-5.0); Alkaline Phosphatase 99 U/L (39-117); Anion Gap 13 (12-20); Aspartate Amino Transferase 29 U/L (5-31); Bilirubin Total 0.6 mg/dL (0.0-1.0); Blood Urea Nitrogen 17 mg/dL (9-16); Carbon Dioxide 24 mmol/L (22-29); Chloride 107 mmol/L (96-108); Cholesterol 191 mg/dL; Creatinine Clr Calc Pharmacy 86.2; Estimated Average Glucose 111 mg/dL; Estimated Glomerular Filt Rate > 60; Glucose Random 105 mg/dL (60-115); HDL Cholesterol 44 mg/dL; Hemoglobin A1c % 5.5 %; LDL Cholesterol Calculated 125 mg/dl; Potassium 4.4 mmol/L (3.3-5.1); Sodium 140 mmol/L (135-145); Total Protein 7.9 g/dL (6.5-8.0); Triglycerides 113 mg/dL
[2021-06-05 13:37] LABS: Partial Thromboplastin Time 34.3 SEC (24.1-38.0)
--- NOTE | 2021-06-08 21:27 | MHC.SHP ---
Pre-Procedural Eval Section A Date of Service: 06/08/21 The patient is an INPATIENT: Yes The History & Physical has been completed within 30 days and I have reviewed it.: No Section B Chief Complaint: Morbid Severe Obesity Relevant Family History (Specify if Yes): No Relevant Social History: None Present Medications: see Short Stay Collaborative assessment Medical History: No relevant PMH History of Previous Operations: No relevant previous surgery Allergies: Allergies Allergy/AdvReac Type Severity Reaction Status Date / Time Iodinated Contrast Media Allergy Severe ANAPHYLAXIS Unverified 06/04/21 19:09 [IV CONTRAST] Penicillins [PENICILLINS] Allergy Severe THROAT Unverified 06/04/21 19:09 SWELLING vancomycin [VANCOMYCIN] Allergy Intermediate ITCHING Unverified 06/04/21 19:09 STEROIDS Allergy Intermediate GI BLEED Uncoded 06/04/21 19:09 Review of Systems Sugical H&P ROS: Negative: Constitution, Cardiovascular, Respiratory, Neurological, Psychiatric, Hem-Onc, Allergic/Immunologic, Gastrointestinal, Genitourinary, Musculoskeletal, Integumentary, Endocrine and Eyes/Ears/Nose/Throat Exam Surgical H&P Exam: Normal: HEENT, Normal: Heart, Normal: Lungs, Normal: Extremities, Normal: Abdomen, Normal: Skin and Normal: Neurological Plan Diagnosis/Plan: Unchanged I have reviewed the history and physical and performed a pertinent physical examination on my patient. No changes have occurred unless specified.
[2021-06-09] VITALS (16 sets, daily range): BP systolic 122–156; BP diastolic 56–99; PULSE 69–82; RESP 16–20; TEMP 36.2–37.5; O2SAT 95–100
[2021-06-09 01:36] LABS: Insulin Level Total 19.2 uIU/mL
--- NOTE | 2021-06-09 09:06 | HO.ANESPROP2 ---
[facility] Active Problems Active Problems: All Active Problems (Updated 06/04/21 @ 19:11 by Winston Hernandez MD) Nightmares (Acute) Vitamin A deficiency (Acute) Vitamin B12 deficiency (Acute) Vitamin D deficiency (Acute) Liver mass (Acute) Insomnia (Acute) Steatosis, liver (Acute) Prediabetes (Acute) GERD (gastroesophageal reflux disease) (Acute) Fibromyalgia (Acute) Asthma (Acute) Depression (Acute) Anxiety (Acute) PTSD (post-traumatic stress disorder) (Acute) Hypertension (Acute) Morbid obesity (Acute) Past Medical History Medical History (Updated 06/04/21 @ 19:11 by Winston Hernandez MD) Anxiety Arthritis Asthma Back pain Depression DVT (deep venous thrombosis) Fibromyalgia GERD (gastroesophageal reflux disease) Hepatitis History of ETOH abuse History of substance abuse Hx MRSA infection Hypertension Insomnia Morbid obesity Prediabetes PTSD (post-traumatic stress disorder) Seizure Steatosis, liver Family History Family History Mother Diabetes Hypertension Father Alcohol abuse Brother No problems noted. Brother No problems noted. Son No problems noted. Daughter No problems noted. Surgical History Surgical History (Updated 06/03/21 @ 11:09 by Stephanie Suarez RN) History of bronchoscopy History of total hysterectomy Hx of cholecystectomy Hx of colonoscopy Hx of wisdom tooth extraction Social History Social History (Updated 06/03/21 @ 11:17 by Stephanie Suarez RN) Household Members: None Housing: Apartment Are you a primary care aide to a significant other at home: No Do you presently have visiting nurse or other home services: No Alcohol intake: former Patient Tobacco Use Status: Former Tobacco user Quit Date: 2000 Tobacco use type: Cigarette Years Smoked: 20 Substance Use Type: Crack/Cocaine Substance Use Type Other:: clean since 11/2019 Have you been hit, kicked, punched, or otherwise hurt by someone within the past year? If so, by whom?: No Are you DNR?: No Advance Directives: No Advance Directives Information Provided: No (does not have a HCP-states children know her wishes) Advance Directives on File: No Recently lost weight without trying: No Eating poorly because of decreased appetite: No Nutrition Risks: No Nutritional Risk Patient : No (had hysterectomy) : No Poor oral hygiene: No Meds Allergies Allergy/AdvReac Type Severity Reaction Status Date / Time Iodinated Contrast Media Allergy Severe ANAPHYLAXIS Unverified 06/04/21 19:09 [IV CONTRAST] Penicillins [PENICILLINS] Allergy Severe THROAT Unverified 06/04/21 19:09 SWELLING vancomycin [VANCOMYCIN] Allergy Intermediate ITCHING Unverified 06/04/21 19:09 STEROIDS Allergy Intermediate GI BLEED Uncoded 06/04/21 19:09 Home Medications Medication Instructions Recorded Confirmed Last Taken Type albuterol sulfate 90 mcg/actuation 2 puff INHALATION Q6H PRN 02/25/21 06/04/21 Unknown History aerosol inhaler buprenorphine HCl 8 mg sublingual 8 mg SUBLINGUAL DAILY 02/25/21 06/04/21 Unknown History tablet diphenhydramine HCl 50 mg capsule 50 mg PO BEDTIME 02/25/21 06/04/21 Unknown History gabapentin 600 mg tablet 600 mg PO BEDTIME 02/25/21 06/04/21 Unknown History omeprazole 40 mg capsule,delayed 40 mg PO DAILY PRN 02/25/21 06/04/21 Unknown History release prazosin 5 mg capsule 10 mg PO BEDTIME 02/25/21 06/04/21 Unknown History topiramate 200 mg tablet (Topamax) 200 mg PO BEDTIME 02/25/21 06/04/21 Unknown History vitamin A palmitate 10,000 unit 10,000 unit PO DAILY 06/03/21 06/04/21 Unknown History capsule Exam Exam Date and Time: June 09, 2021 0906 Height,Weight and Vital Signs: Height 5 ft 1 in Weight 114.759 kg Pertinent Lab Results Pertinent Lab Results: Laboratory Tests 06/05/21 06/05/21 06/05/21 12:10 12:10 12:10 WBC 4.4 L RBC 5.48 Hgb 15.5 Hct 47.5 H MCV 86.7 MCH 28.3 MCHC 32.6 RDW 13.3 Plt Count 194 MPV 11.4 Immature Gran % (Auto) 0.0 Neut % (Auto) 47.2 Lymph % (Auto) 44.1 H [place] % (Auto) 7.1 Eos % (Auto) 1.1 Baso % (Auto) 0.5 Lymph # (Auto) 1.9 [place] # (Auto) 0.3 Eos # (Auto) 0.1 Baso # (Auto) 0.0 Abs Immat Gran (auto) 0.00 Absolute Neuts (auto) 2.1 Absolute Nucleated RBC 0.000 Nucleated RBC % (auto) 0.0 PT 11.5 INR 1.0 APTT 34.3 Sodium 140 Potassium 4.4 Chloride 107 Carbon Dioxide 24 Anion Gap 13 BUN 17 H Creatinine 0.96 Estim Creat Clear Calc 86.2 Estimated GFR > 60 Random Glucose 105 Estimat Average Glucose Hemoglobin A1c % Total Insulin Calcium 10.0 Total Bilirubin 0.6 AST 29 D ALT 36 H Alkaline Phosphatase 99 D C-Reactive Protein 0.60 H Total Protein 7.9 Albumin 4.5 Triglycerides 113 Cholesterol 191 LDL Cholesterol, Calc 125 HDL Cholesterol 44 TSH 1.90 Blood Type Antibody Screen 06/05/21 06/05/21 06/05/21 12:10 12:10 12:10 WBC RBC Hgb Hct MCV MCH MCHC RDW Plt Count MPV Immature Gran % (Auto) Neut % (Auto) Lymph % (Auto) [place] % (Auto) Eos % (Auto) Baso % (Auto) Lymph # (Auto) [place] # (Auto) Eos # (Auto) Baso # (Auto) Abs Immat Gran (auto) Absolute Neuts (auto) Absolute Nucleated RBC Nucleated RBC % (auto) PT INR APTT Sodium Potassium Chloride Carbon Dioxide Anion Gap BUN Creatinine Estim Creat Clear Calc Estimated GFR Random Glucose Estimat Average Glucose 111 Hemoglobin A1c % 5.5 Total Insulin 19.2 Calcium Total Bilirubin AST ALT Alkaline Phosphatase C-Reactive Protein Total Protein Albumin Triglycerides Cholesterol LDL Cholesterol, Calc HDL Cholesterol TSH Blood Type O Positive Antibody Screen NEGATIVE Airway Mallampati Class: II TM Dist: >3cm Neck ROM: Full
[2021-06-09] MEDS: levoFLOXacin/D5W 500 MG/100 ML PIGGYBACK 100 MG IV (09:13)
[2021-06-09] MEDS: Lactated Ringers 1,000 ML 100 ML IVCONT (09:14)
[2021-06-09] MEDS: Lactated Ringers 1,000 ML 999 ML IV (09:14)
[2021-06-09 09:20] LABS: COVID-19 Test Negative (Negative); IDNOW Serial# 55D5AD1C
--- NOTE | 2021-06-09 09:24 | PC.NURSE ---
Addendum entered by Santi Jackson RN 06/09/21 11:27: Dr. Yusuf at bedside. Verbal Orders received for Clindamycin 900mg IV to be given for pre op antibiotics. Addendum entered by Santi Jackson RN 06/09/21 09:38: Pt reporting itching and burning to Right arm where Levaquin IV is infusing. IV stopped at this time. Dr. Yusuf notified. awaiting new orders at this time. Original Note: Levaquin 500mg IV ordered and running. after about 5minutes patient reports itchiness to left upper arm above IV site that Levaquin is infusing through, IV stopped at this time. Dr. Hernandez and Dr. Yusuf notified. Dr. Yusuf at bedside to assess patient. Per Dr. Yusuf IV levaquin switch to secondary IV site on right forearm. pt educated on signs and symptoms of reaction and to notify this RN is reaction of itching reoccurs. Orders received form Dr. Yusuf to stop IV if patient reports itching.
--- NOTE | 2021-06-09 11:08 | PM.PNGS ---
Subjective Subjective Date of Service: 06/10/21 Interval history: Patient has mild incisional pain but was able to ambulate and use the incentive spirometer. She is tolerating phase 1 bariatric diet. Physical Exam Vital Signs: Vital Signs: Last Vital Signs Temp 97.2 F 06/09/21 09:16 Pulse 82 06/09/21 09:16 Resp 18 06/09/21 09:16 BP 142/99 H 06/09/21 09:16 Pulse Ox 95 06/09/21 09:16 Body Mass Index 47.7 GI: Inspection: Yes normal to inspection and Yes incision (clean, dry and intact) Extrem: Right lower extremity: normal to inspection (no calf tenderness) Left lower extremity: normal to inspection (no calf tenderness) Procedures Date of Service Date of Service: 06/10/21 Progress Note: A&P Assessment and plan (1) Morbid obesity: Status: Acute Assessment and Plan: s/p laparoscopic sleeve gastrectomy, and gastropexy Doing well Check am labs, If OK, will discharge patient home (2) Hypertension: Status: Acute (3) PTSD (post-traumatic stress disorder): Status: Acute (4) Anxiety: Status: Acute (5) Depression: Status: Acute (6) Asthma: Status: Acute (7) Fibromyalgia: Status: Acute (8) GERD (gastroesophageal reflux disease): Status: Acute (9) Prediabetes: Status: Acute (10) Steatosis, liver: Status: Acute (11) Diaphragmatic hernia: Status: Acute (12) DVT (deep venous thrombosis): Status: Acute (13) History of ETOH abuse: Status: Acute (14) History of substance abuse: Status: Acute (15) S/P laparoscopic sleeve gastrectomy: Status: Acute (16) Status post repair of paraesophageal diaphragmatic hernia: Status: Acute Fall Risk Details Current Medications: Current Medications Generic Name Dose Route Start Last Admin Trade Name Freq PRN Reason Stop Dose Admin Hydromorphone HCl 0.5 mg 06/09/21 09:07 Hydromorphone Hcl 0.5 Mg/0.5 Ml Syringe IVPUSH Q5M PRN Pain, Severe (Pain Scale 7-10) Protocol Lactated Ringer's 1,000 mls @ 100 mls/hr 06/09/21 09:15 06/09/21 09:14 Lr IVCONT 100 mls/hr .Q10H CELSA Administration Ondansetron HCl 4 mg 06/09/21 09:07 Ondansetron Hcl 4 Mg/2 Ml Vial IVPUSH ONCE PRN Nausea and Vomiting Time Spent With Patient Time: Total time spent is greater than 50% in coordination of care (as documented) at patient's floor/unit and/or counseling patient: Time with patient: less than 15 minutes Quality Stroke Does the patient have a stroke diagnosis?: No VTE Prior VTE?: Yes VTE Risk Level:: Surgical - moderate VTE Device Contraindication: N/A - Device Ordered VTE Drug Contraindication: Treatment Not Indicated
--- NOTE | 2021-06-09 11:09 | P.BOP_ITS ---
Brief Operative Note Date of Service: 06/09/21 Pre-op diagnosis: Morbid obesity and comorbidities (see below) Post-op diagnosis: same Procedure: INITIAL PATIENT BMI ON PRESENTATION AT OUR OFFICE: 53.2 kg/m2 LAST BMI BEFORE SURGERY: 48.2 kg/m2 COMORBIDITIES: Hyperinsulinemia, hypertension, GERD, history of DVT, depression, anxiety, PTSD, insomnia, fibromyalgia, diaphragmatic hernia, liver steatosis, asthma The patient participated in an intensive weekly lifestyle ?intervention and exercise program during which the patient ?has lost between the initial office visit and the last preoperative visit 30 lbs, or 10.64% of initial actual body weight. The patient met the BMI-criteria for bariatric surgery based on the BMI on initial presentation. The patient should not be penalized for achieving such weight loss because ?it is not sustainable long-term without surgical intervention and it was achieved in preparation for bariatric surgery ?under my direction and based on my published research ([email or web address] and? [email or web address] ) ?that a 10% preoperative weight loss improves long-term weight loss after surgery and reduces perioperative complications.? Insurance carriers such as [facility] have endorsed my recommendations ?and have included in their policies criteria to include a 10% preoperative weight loss requirement. PROCEDURE: Esophago-gastroscopy, laparoscopic repair of incarcerated diaphragmatic hernia, laparoscopic sleeve gastrectomy and laparoscopic gastropexy INDICATIONS: This is a 45 year-old female who was electively scheduled for laparoscopic, possibly open sleeve gastrectomy. The risks and complications of the procedure were discussed with the patient in advance, particularly the possibility of ; pulmonary embolism; staple line leak; bleeding; GERD; cardiac, pulmonary, or renal complications; as well as long-term problems such as insufficient weight loss, vitamin deficiency, strictures, or ulcers. The patient understood all the risks, and was in agreement to proceed with surgery. DESCRIPTION OF PROCEDURE: After informed consent was obtained from the patient, the patient was given preoperative antibiotics, and was transferred to the operating room. After successful induction of general anesthesia, pneumatic compressive devices were placed on both lower extremities. An upper endoscopy was performed next. The oropharynx and esophagus appeared to be within normal limits. There was a diaphragmatic hernia present of moderate size consistent with the findings of the preoperative upper GI. The stomach was entered. Then after all fluid and air were suctioned and the stomach was fully decompressed, the scope was withdrawn and secured in the mid esophagus. The patient was then prepped and draped in the usual sterile manner, and abdominal access was established at the right upper quadrant with the Lynne technique. A 12 mm blunt port was inserted, and the abdomen was insufflated with CO2 to a pressure of 15 mmHg. Under direct visualization, additional ports were placed, specifically two 5 mm Versi-step ports to the left upper quadrant, and a 5 mm Versi-Step port to the right upper quadrant. 1% lidocaine plain was used to infiltrate all port sites as well as all fascia defects. Following that, the patient was placed in a steep reverse Trendelenburg position. An additional 5 mm port was placed to the right flank for the Mediflex retractor that was used to retract the left lobe of the liver. The gastro-esophageal fat pad was opened with the ultrasonic device (Thunderbeat, Olympus) and the anterior esophagus and hiatus were exposed. The angle of His was opened with the ultrasonic device the fundus of the stomach from any diaphragmatic and splenic attachments. I then opened the gastrocolic ligament between the transverse colon and the greater curvature of the stomach with the ultrasonic device to enter the lesser sac and facilitate the ligation of the short gastric vessels. I started at a mid-point along the greater curvature and using the Thunderbeat, all short gastric vessels were divided all the way to the angle of His until the left robbie was completely dissected at its entirety. I then divided the gastro-colic ligament distally to a distance of about 3-4 cm proximal to the esophagus. There was an obvious significant-sized hiatal hernia. I continued dissecting along the hiatus toward the left robbie and the angle of His. I fully mobilized the fat pad that was incarcerated in the hernia. I then continued by dissecting even further into the posterior retro-esophageal space all the way to the angle of His. I continued to mobilize the esophagus into the mediastinum circumferentially. Both vagal nerves were seen and preserved. At that point, I was able to have at least 3 to 5 cm of esophagus into the abdomen.? After I completely mobilized the esophagus from both the left and right robbie and I had a good mobilization of the esophagus circumferentially, I closed the hernia defect with three interrupted #0 Surgidac sutures using the Endo Stitch device, two of which were placed posterior and one anterior to the esophagus. ? The stomach was then divided transversely with one Endo NEGIN-45 purple, one NEGIN- 45 orange and three NEGIN-60 articulating orange loads using the AEON stapler and loads. Every effort was made that the gastric sleeve had a tubular shape and an even caliber throughout. Once the sleeve resection was completed, the staple line of the gastric sleeve was reinforced with Hemoclips. The resected stomach was retrieved without difficulty from the Lynne port. A gastropexy was then performed in order to prevent postoperative GERD and partial gastric volvulus. Several interrupted 2.0 Surgidac sutures were placed between the sleeve's staple line and the previously divided greater omentum and gastro-colic ligament using the Endo-Stitch device. ?An upper endoscopy was performed. There was no narrowing at the GE junction. The scope was easily advanced all the way to the pylorus which was clearly visualized. There was no narrowing anywhere and the sleeve's caliber was even throughout. The sleeve's staple line was inspected and there was no evidence of ischemia, bleeding or dehiscence. At that point the gastroscope was withdrawn from the patient?s mouth while we were decompressing the bowel and the stomach from any remaining air. I looked into the lesser sac to see how the sleeve was situating and it was situating well. There was no bleeding from the staple line, spleen, or short gastric vessels. The Mediflex retractor was removed, and the undersurface of the liver was inspected and there was no bleeding. The patient was placed in supine position. I closed the fascial defect of the 12 mm port site with a figure of eight #1 Polysorb suture. Then 100 cc 0.25 % Marcaine plain with 10 mg of Dexamethasone were used to infiltrate the fascial closure as well as all skin incisions. At this point, the abdomen was deflated, all ports were removed under direct vision, and no bleeding was noted from any of the port sites. The skin incisions were irrigated with saline and were closed with 4-0 absorbable monofilament sutures. Steri-Strips and OpSites were used to cover all incisions. The patient was extubated and was transferred in stable condition to the recovery room for further care. I was present and performed all hdez parts of the procedure. Ms. Singh was the stonecutter assistant. There were no residents to assist with this case. Ranjit Hernandez MD, PhD, FACS Surgeon: Winston Hernandez MD Anesthesia: GETA, local and other (TAP block) Was an Rooming House Keeper used for this Procedure?: No Rooming House Keeper: Stella Singh Estimated blood loss (mL): 10 Urine output (mL): 0 (No Guerra to record) Pathology: other (Stomach) Condition: stable Disposition: PACU
[2021-06-09] MEDS: HYDROmorphone HCl 0.5 MG/0.5 ML SYRINGE IVPUSH ×4 (14:03→14:43)
--- NOTE | 2021-06-09 14:17 | PM.DS ---
DS: Providers Provider Date of Service: 06/10/21 Date of admission: 06/09/21 07:50 Primary care physician: Dinorah Wood MD DS: Diagnosis Discharge Diagnosis (1) Morbid obesity: Status: Acute (2) Hypertension: Status: Acute (3) PTSD (post-traumatic stress disorder): Status: Acute (4) Anxiety: Status: Acute (5) Depression: Status: Acute (6) Asthma: Status: Acute (7) Fibromyalgia: Status: Acute (8) GERD (gastroesophageal reflux disease): Status: Acute (9) Prediabetes: Status: Acute (10) Steatosis, liver: Status: Acute (11) Diaphragmatic hernia: Status: Acute (12) DVT (deep venous thrombosis): Status: Acute (13) History of ETOH abuse: Status: Acute (14) History of substance abuse: Status: Acute (15) S/P laparoscopic sleeve gastrectomy: Status: Acute (16) Status post repair of paraesophageal diaphragmatic hernia: Status: Acute DS: Medications Discharge Medications Home Medications: Home Medications Medication Instructions Recorded Confirmed albuterol sulfate 90 mcg/actuation 2 puff INHALATION Q6H PRN 02/25/21 06/04/21 aerosol inhaler buprenorphine HCl 8 mg sublingual 8 mg SUBLINGUAL DAILY 02/25/21 06/04/21 tablet diphenhydramine HCl 50 mg capsule 50 mg PO BEDTIME 02/25/21 06/04/21 gabapentin 600 mg tablet 600 mg PO BEDTIME 02/25/21 06/04/21 omeprazole 40 mg capsule,delayed 40 mg PO DAILY PRN 02/25/21 06/04/21 release prazosin 5 mg capsule 10 mg PO BEDTIME 02/25/21 06/04/21 topiramate 200 mg tablet (Topamax) 200 mg PO BEDTIME 02/25/21 06/04/21 vitamin A palmitate 10,000 unit 10,000 unit PO DAILY 06/03/21 06/04/21 capsule Previous Rx's Medication Instructions Recorded cholecalciferol (vitamin D3) 125 125 mcg PO DAILY #30 cap 03/21/21 mcg (5,000 unit) capsule mecobalamin (vitamin B12) 1,000 1,000 mcg SUBLINGUAL DAILY #30 tab 03/21/21 mcg disintegrating tablet,sublingual ondansetron HCl 4 mg tablet 4 mg PO Q12H #20 tab 06/05/21 (Zofran) pantoprazole 40 mg tablet,delayed 40 mg PO DAILY #30 tab 06/05/21 release polyethylene glycol 3350 17 gram 17 g PO DAILY #14 ea 06/05/21 oral powder packet (Miralax) prazosin 5 mg capsule 10 mg PO BEDTIME #30 cap 06/05/21 sucralfate 100 mg/mL oral 10 ml PO BID #400 ml 06/05/21 suspension DS: Summary Hospital Course Hospital Course: ADMITTING DIAGNOSIS: morbid obesity, HTN, Seizure do, PTSD, GERD, Fibromyalgia, Asthma DISCHARGE DIAGNOSIS: same, s/p laparoscopic sleeve gastrectomy and repair diaphragmatic hernia PAST SURGICAL HISTORY: Hysterectomy, Lap Cholecystectomy PROCEDURE: upper endoscopy, laparoscopic sleeve gastrectomy and repair of diaphragmatic hernia hernia DISCHARGE SUMMARY: History of Present Illness: The patient is a 45 year-old woman with a BMI of 53.2 kg/m2 and associated co-morbidities as described above. The patient had extensive work-up,lost 30 lbs preoperatively and was electively scheduled for laparoscopic, possible open sleeve gastrectomy and gastropexy. Risks and complications of the surgery were discussed with the patient in advance, particularly the possibility of , pulmonary embolism, anastomotic leak, bleeding, bowel injury, GERD, cardiac, renal or pulmonary complications. The patient understood all the risks and was in agreement with the surgical plan. Hospital Course: The patient underwent an uneventful laparoscopic sleeve gastrectomy with gastropexy and repair of diaphragmatic hernia on the day of admission. Postoperatively, the patient was transferred to the surgical floor. The patient received IV Acetaminophen and IV dilaudid for pain control. Patient was started on bariatric phase 1 diet POD #0. On postoperative day one, the patient was feeling well without nausea, vomiting, fevers, or tachycardia. The patient had some mild incisional pain and the abdomen was soft. On the morning of postoperative day one, the patient was continued on 1 ounce of water or ice every half hour. During the day, the patient did fairly well, having some incisional pain, but able to ambulate adequately and to tolerate liquids well. Since the patient is doing well, we decided that the patient was ready to be discharged. The patient was given instructions to follow-up with me next week and to call my office for any fever over 101, persistent abdominal pain, nausea, vomiting, GERD, symptoms of DVT such as calf tenderness, or leg swelling, or pulmonary embolism such as chest pain or shortness of breath. The patient was also instructed to drink 40-60 ounces of liquids per day using the 1-ounce cups. The patient had been given prescriptions for Tylenol for pain, Zofran prn for nausea, and pantoprazole and carafate previously. The patient was encouraged to ambulate and use the incentive spirometer. The patient was allowed to shower, but no baths, and encouraged to stay active at home. All of these instructions were given to the patient personally. All questions were answered and the patient understood all instructions, the instructions were also given to the patient in print. Time Spent with Patient Time attestation: Total time spent providing and/or coordinating discharge services: Discharge coordination time: Less than 30 minutes Quality: Stroke Does the patient have a stroke diagnosis?: No Physical Exam Vital Signs: Vital Signs: Last Vital Signs Temp 97.6 F 06/09/21 13:58 Pulse 74 06/09/21 14:08 Resp 20 06/09/21 14:08 BP 141/93 H 06/09/21 14:08 Pulse Ox 100 06/09/21 14:08 Body Mass Index 47.7 DS: Data Data Completed and Pending Pending studies at discharge: Pending at discharge 06/09/21 13:02 Surgical [PTH] Routine Labs on day of discharge: Laboratory Results - last 24 hr 06/05/21 06/09/21 12:10 08:39 Total Insulin 19.2 COVID-19 ([facility]) Negative COVID-19 Clin Com See Note Discharge Plan Discharge Anticipated Discharge Date/Time: 06/10/21 10:00 Patient Disposition: Home, Self-Care Discharge Diagnosis: s/p sleeve gastrectomy Referrals: Dinorah Wood MD [Primary Care Provider] - 1 Week Discharge Medications: Continued ondansetron HCl [Zofran] 4 mg tablet 4 mg PO Q12H Qty: 20 RF: 0 pantoprazole 40 mg tablet,delayed release (DR/EC) 40 mg PO DAILY Qty: 30 RF: 2 sucralfate 100 mg/mL suspension 10 ml PO BID Qty: 400 RF: 2 gabapentin 600 mg tablet 600 mg PO BEDTIME RF: 0 buprenorphine HCl 8 mg tablet, sublingual 8 mg sublingual DAILY RF: 0 diphenhydramine HCl 50 mg capsule 50 mg PO BEDTIME RF: 0 topiramate [Topamax] 200 mg tablet 200 mg PO BEDTIME RF: 0 prazosin 5 mg capsule 10 mg PO BEDTIME RF: 0 albuterol sulfate 90 mcg/actuation HFA aerosol inhaler 2 puff inhalation Q6H PRN (Reason: Wheezing) RF: 0 Discontinued mecobalamin (vitamin B12) 1,000 mcg tablet,disintegrating 1,000 mcg sublingual DAILY Qty: 30 RF: 2 cholecalciferol (vitamin D3) 125 mcg (5,000 unit) capsule 125 mcg PO DAILY Qty: 30 RF: 2 polyethylene glycol 3350 [Miralax] 17 gram powder in packet 17 g PO DAILY Qty: 14 RF: 0 prazosin 5 mg capsule 10 mg PO BEDTIME Qty: 30 RF: 0 vitamin A palmitate 10,000 unit capsule 10,000 unit PO DAILY RF: 0 omeprazole 40 mg capsule,delayed release(DR/EC) 40 mg PO DAILY PRN (Reason: Acid Reflux) RF: 0 Discharge Orders: Discharge Order (Routine); Ordered 06/10/21 Ordered By: Winston Hernandez Diet: other Activity on Discharge: No heavy lifting Stand Alone Forms: Patient Portal Discharge page Care Plan Goals: weight loss Health Concerns: obesity Plan of Treatment: No tub baths, sex or returning to work until discussed at first post op appointment. No exercise, alcohol, tobacco or illegal drug use. Continue to use incentive spirometer hourly while awake. Walk in home for 5- 10 minutes every 2 hours during the first week. Continue phase 1 diet today and start phase 2 diet tomorrow morning. Follow all instructions in the bariatric handbook and call with any questions. The patient's medical history has been reviewed and they are considered low risk for post op DVT and therefore DVT prophylaxis is not considered necessary. Travel after surgery was reviewed. The patient has not disclosed any travel plans during the first 30 days after surgery and they have been advised that within the first 30 days after surgery any bus, plane, train or car travel over 2 hours in duration is contraindicated due to the possibility of developing blood clots from immobility. Any travel, needs to include periods of ambulation of 10 minutes in duration every 2 hours. The patient was instructed to discuss any plans for travel during this period with their bariatric surgeon. Assessment: s/p sleeve gastrectomy Discharge Date/Time: 06/10/21 09:31
[2021-06-09] MEDS: HYDROmorphone HCl 2 MG/ML VIAL 1 MG IVPUSH (14:28)
[2021-06-09 14:52] LABS: Hematocrit 44.2 % (37-47); Hemoglobin 14.5 g/dl (12.0-16.0)
[2021-06-09 15:12] LABS: Anion Gap 15 (12-20); Blood Urea Nitrogen 20 mg/dL (9-16); Calcium 9.3 mg/dL (8.4-10.2); Carbon Dioxide 23 mmol/L (22-29); Chloride 103 mmol/L (96-108); Creatinine Clr Calc Pharmacy 71.9; Estimated Glomerular Filt Rate 51; Glucose Random 121 mg/dL (60-115); Potassium 4.2 mmol/L (3.3-5.1); Sodium 137 mmol/L (135-145)
[2021-06-09] MEDS: Lactated Ringers 1,000 ML 125 ML IVCONT ×2 (17:00→21:48)
[2021-06-09] MEDS: HYDROmorphone HCl 0.5 MG/0.5 ML SYRINGE 0.25 MG IVPUSH ×2 (18:13→22:14)
[2021-06-09] MEDS: diphenhydrAMINE HCL 25 MG TABLET 50 MG PO (22:15)
[2021-06-09] MEDS: Topiramate 100 MG TABLET 200 MG PO (22:15)
[2021-06-09] MEDS: ondansetron HCL 4 MG/2 ML VIAL IVPUSH (22:57)
[2021-06-09] MEDS: Clindamycin Phosphate/D5W 900 MG/50 ML PIGGYBACK 50 MG IV (22:58)
[2021-06-10] MEDS: HYDROmorphone HCl 0.5 MG/0.5 ML SYRINGE 0.25 MG IVPUSH ×2 (02:18→06:34)
[2021-06-10 03:27] VITALS: BP 142/70; PULSE 67; RESP 16; TEMP 37.2; O2SAT 95
[2021-06-10] MEDS: Lactated Ringers 1,000 ML 125 ML IVCONT (06:34)
[2021-06-10 07:18] LABS: MANUAL DIFF FLAG NO
[2021-06-10 07:28] LABS: Hematocrit 41.2 % (37-47); Hemoglobin 13.6 g/dl (12.0-16.0); Imm Gran Abs Auto 0.02 X10*3/uL (0.00-0.03); Imm Gran Pct Auto 0.3 % (0.0-0.4); Lymphocytes Percent Auto 13.1 % (20-40); Mean Corpuscular Hemoglobin 28.2 pg (27.0-33.0); Mean Corpuscular Volume 85.3 fL (80-98); Mean Platelet Volume 11.4 fL (9.4-12.3); Monocytes Absolute Auto 0.3 X10*3/uL (0.1-1.2); Monocytes Percent Auto 3.4 % (2-11); Neutrophils Absolute Auto 6.2 X10*3/uL (2.0-8.3); Neutrophils Percent Auto 83.2 % (45-73); Platelet Count 157 X10*3/uL (160-400); Red Blood Count 4.83 X10*6/uL (4.20-5.50); Red Cell Distribution Width 13.2 % (11.0-16.0); White Blood Count 7.4 X10*3/uL (4.8-10.8)
[2021-06-10] MEDS: Famotidine/PF 20 MG/2 ML VIAL IVPUSH (07:41)
[2021-06-10] MEDS: ondansetron HCL 4 MG/2 ML VIAL IVPUSH (07:41)
[2021-06-10 07:45] LABS: Anion Gap 12 (12-20); Blood Urea Nitrogen 13 mg/dL (9-16); Carbon Dioxide 23 mmol/L (22-29); Chloride 104 mmol/L (96-108); Creatinine Clr Calc Pharmacy 100.9; Estimated Glomerular Filt Rate > 60; Glucose Random 113 mg/dL (60-115); Potassium 4.1 mmol/L (3.3-5.1); Sodium 135 mmol/L (135-145)
[2021-06-10] MEDS: 0.9 % Sodium Chloride Flush 3 ML SYRINGE IVFLUSH (07:45)
[2021-06-10 07:57] VITALS: BP 125/59; PULSE 68; RESP 16; TEMP 36.4; O2SAT 97
--- NOTE | 2021-06-10 09:27 | HO.POSTANES ---
Post Anesthesia Evaluation Post Anesthesia Evaluation Vital Signs: Vital Signs Temp Pulse Resp BP Pulse Ox 06/10/21 07:57 97.6 F 68 16 125/59 L 97 06/10/21 03:27 99 F 67 16 142/70 H 95 06/09/21 23:29 99.5 F 77 16 137/66 97 Anesthesia: General Endotracheal-GETA Mental Status: Awake Pain Control: Satisfactory Nausea/Vomiting: None Hydration: Adequate Anesthesia-Related Issues: No Anes. Related Issues
--- NOTE | 2021-06-10 09:34 | MHC.CM.PN ---
EMR REVIEWED, PT ADMITTED S/P LAP SLEEVE GASTRECTOMY AND HERNIA REPAIR, CM MET W/PT WHO IS INDEPENDENT, HAS NO DME AND NO HOME SERVICES, PT VERIFIES PCP JAIR SCHULTZ, PT PROVIDED INFORMATION ON HCP AND IS CURRENTLY DECLINING ASSISTANCE TO COMPLETE. D/C PLAN: HOME TODAY SELF-CARE, PT TO ARRANGE TRANSPORT
== END 2021-06-10 09:31 | disposition home or self-care (01) | DRG 403 ==
LOC: HO.SSSA 14:16 → HO.S3 15:11
PROVIDERS: Physician Assistant; Admitting Provider Surgery; PCP Internal Medicine; Visit Provider Surgery
PROC: 0DB64Z3 Excision of Stomach, Percutaneous Endoscopic Approach, Vertical (ICD-10-PCS; CPT 43845; principal; 2021-06-09 10:10)
DX: E66.01 Morbid (severe) obesity due to excess calories (principal); K76.0 Fatty (change of) liver, not elsewhere classified; K44.0 Diaphragmatic hernia with obstruction, without gangrene; I10 Essential (primary) hypertension; Z20.822 Contact with and (suspected) exposure to COVID-19; K21.9 Gastro-esophageal reflux disease without esophagitis; Z86.718 Personal history of other venous thrombosis and embolism; M79.7 Fibromyalgia; Z68.42 Body mass index [BMI] 45.0-49.9, adult; Z87.891 Personal history of nicotine dependence; Z88.0 Allergy status to penicillin; Z79.899 Other long term (current) drug therapy
CPT/HCPCS: 36415; 80048; 80053; 80061; 83036; 83525; 84443; 85014; 85018; 85025; 85610; 85730; 86140; 86850; 86900; 86901; 87635; 88307; 88342; 99024; A4649; J0131; J1100; J1170; J1956; J2250; J2405; J3010; Q0163

== ENCOUNTER 2021-06-14 16:04 | Emergency (ER) | payer OTHER, SELFPAY ==
--- NOTE | ~2021-06-14 | CT_ITS ---
EXAMINATION: CT ABDOMEN AND PELVIS WITHOUT CONTRAST CLINICAL INFORMATION: abd pain, s/p gastric sleeve 06/10, diarrhea, fever . COMPARISON: 06/30/2018. TECHNIQUE: Multidetector volumetric imaging was performed from the superior aspect of the liver through the pubic symphysis without contrast per request. Sagittal and coronal reformatted images were obtained on the technologist workstation. This CT examination was performed using dose optimization techniques as appropriate, variously including the following: *Automated exposure control *Adjustment of mA and/or kV according to patient size (this includes techniques or standardized protocols for targeted exams where dose is matched to indication/reason for exam; i.e. extremities or head) *Use of iterative reconstruction technique DLP: 1345 mGy-cm. FINDINGS: LUNG BASES: Tiny left effusion and minimal basilar atelectasis LIVER, GALLBLADDER, BILIARY TREE: The non-contrast liver is normal in size, shape, and attenuation. No focal hepatic lesion or biliary ductal dilatation is present. Gallbladder is surgically absent PANCREAS: Unremarkable. SPLEEN: Unremarkable. ADRENAL GLANDS: Unremarkable. KIDNEYS AND URETERS: The kidneys are normal in size, shape, and attenuation. No hydronephrosis, hydroureter, or calculi seen. No perinephric stranding. BLADDER: Unremarkable. GASTROINTESTINAL TRACT: Few scattered colonic diverticula are seen but I do not appreciate any colonic wall thickening or pericolonic inflammatory change. Visualized small bowel is unremarkable. Postoperative changes from the patient's recent gastric sleeve surgery are noted. I do not appreciate any evidence for abnormal collection or significant soft tissue stranding along the gastric postoperative margin. ABDOMINAL WALL: There is soft tissue stranding and postoperative changes along the anterior abdominal wall. LYMPHOVASCULAR STRUCTURES: No lymphadenopathy. The aorta is unremarkable.. PELVIC VISCERA: Presumably surgically absent OSSEUS STRUCTURES: Degenerative changes more so at L5/S1 CT/CT abdomen pelvis wo con IMPRESSION: Postoperative changes status post gastric sleeve surgery. I do not appreciate any acute intra-abdominal process otherwise. Postoperative changes along the intra-abdominal wall.
[2021-06-14 16:10] VITALS: BP 164/98; PULSE 110; RESP 20; TEMP 36.9; O2SAT 98; BMI 46.6
[2021-06-14 17:32] VITALS: BP 139/98; PULSE 90; RESP 12; TEMP 36.9; O2SAT 98
[2021-06-14 17:44] LABS: Glucose Urine UA NEG (NEG); Leukocyte Esterase Urine NEG (NEG); Nitrite Urine NEG (NEG); PH 5.5 (5.0-8.0); Specific Gravity - Urine 1.015 (1.005-1.025); Urine Blood NEG (NEG); Urine Ketones NEG (NEG); Urine Protein NEG (NEG-TRACE)
[2021-06-14 17:48] LABS: Appearance Urine CLEAR; Color Urine YELLOW; UPreg QC Valid YES; Urine Pregnancy NEGATIVE (NEGATIVE)
[2021-06-14 18:00] VITALS: BP 147/98; PULSE 88; RESP 16; O2SAT 98
[2021-06-14 18:01] LABS: Amphetamine Screen Urine Not Detected (Not Detect); Barbiturates, Urine Not Detected (Not Detect); Benzodiazepines Screen Urine Not Detected (Not Detect); Cannabinoid Screen Urine Not Detected (Not Detect); Cocaine Screen Urine Not Detected (Not Detect); Fentanyl, urine Not Detected (Not Detect); Opiate Screen Urine Not Detected (Not Detect); Phencyclidine Screen Urine Not Detected (Not Detect)
[2021-06-14 18:05] LABS: MANUAL DIFF FLAG NO
[2021-06-14] MEDS: Morphine Sulfate 4 MG/ML CARTRIDGE IVPUSH (18:09)
[2021-06-14] MEDS: ondansetron HCL 4 MG/2 ML VIAL IVPUSH (18:09)
[2021-06-14] MEDS: 0.9 % Sodium Chloride 1,000 ML 999 ML IVCONT ×2 (18:10→22:16)
[2021-06-14 18:11] LABS: Basophils Percent Auto 0.5 % (0-2); Eosinophils Absolute Auto 0.2 X10*3/uL (0.0-0.4); Hematocrit 47.4 % (37-47); Hemoglobin 16.2 g/dl (12.0-16.0); Imm Gran Abs Auto 0.01 X10*3/uL (0.00-0.03); Imm Gran Pct Auto 0.2 % (0.0-0.4); Lymphocytes Absolute Auto 1.9 X10*3/uL (1.2-4.9); Lymphocytes Percent Auto 31.3 % (20-40); Mean Corpuscular HGB Conc 34.2 g/dl (31.0-35.0); Mean Corpuscular Hemoglobin 28.7 pg (27.0-33.0); Monocytes Absolute Auto 0.4 X10*3/uL (0.1-1.2); Monocytes Percent Auto 7.2 % (2-11); Neutrophils Absolute Auto 3.4 X10*3/uL (2.0-8.3); Neutrophils Percent Auto 56.8 % (45-73); Platelet Count 225 X10*3/uL (160-400); Red Blood Count 5.64 X10*6/uL (4.20-5.50); Red Cell Distribution Width 13.5 % (11.0-16.0)
[2021-06-14 18:18] LABS: Lactic Acid 1.3 mmol/L (0.5-2.0)
[2021-06-14 18:20] LABS: Ethanol < 10 mg/dL
[2021-06-14 18:22] LABS: Alanine Aminotransferase 37 U/L (0-31); Albumin Level 4.7 g/dL (3.5-5.0); Alkaline Phosphatase 99 U/L (39-117); Anion Gap 16 (12-20); Aspartate Amino Transferase 24 U/L (5-31); Bilirubin Direct 0.3 mg/dL (0.0-0.5); Bilirubin Total 0.9 mg/dL (0.0-1.0); Blood Urea Nitrogen 10 mg/dL (9-16); Calcium 10.2 mg/dL (8.4-10.2); Carbon Dioxide 22 mmol/L (22-29); Chloride 107 mmol/L (96-108); Creatinine Clr Calc Pharmacy 95.9; Estimated Glomerular Filt Rate > 60; Glucose Random 113 mg/dL (60-115); Lipase 18 U/L (8-78); Magnesium 2.1 mg/dL (1.6-2.6); Potassium 3.9 mmol/L (3.3-5.1); Sodium 141 mmol/L (135-145); Total Protein 8.4 g/dL (6.5-8.0)
[2021-06-14 18:29] LABS: COVID-19 Test Negative (Negative)
--- NOTE | 2021-06-14 18:49 | ED_ITS ---
HPI - Abdominal Pain General Chief Complaint: Abdominal Pain Stated Complaint: abd pain Time Seen by Provider: 06/14/21 17:20 Source: patient Mode of arrival: ambulatory Limitations: no limitations History of Present Illness HPI narrative: 45 y/o female with history of morbid obesity s/p laproscopic gastric sleeve w/ gastroplexy and repair of diaphragmatic hernia who presents to the ED with acute onset of lower abdominal pain that woke up her up from sleep at 2am today. She reports the pain is sharp and cramping. She feels better when she is curled up with her legs in, worse with her legs out straight or laying flat. She had a temp of 100 today. She has had ongoing diarrhea since before the surgery, no change in stools. MD elicited complaint: abdominal pain Pertinent past history: other (s/p recent gastric sleeve) Onset (ago): hour(s) (18) Pain Consistency: constant Location: RLQ and LLQ Severity: severe Pain scale (0-10): 10 Quality: cramping, stabbing and sharp Radiation: RUQ Migration to: no migration Exacerbating factors: movement Relieving factors: nothing Associated symptoms: nausea, diarrhea and fever Related Data Home Medications Medication Instructions Recorded Confirmed albuterol sulfate 90 mcg/actuation 2 puff INHALATION Q6H PRN 02/25/21 06/04/21 aerosol inhaler buprenorphine HCl 8 mg sublingual 8 mg SUBLINGUAL DAILY 02/25/21 06/04/21 tablet diphenhydramine HCl 50 mg capsule 50 mg PO BEDTIME 02/25/21 06/04/21 gabapentin 600 mg tablet 600 mg PO BEDTIME 02/25/21 06/04/21 prazosin 5 mg capsule 10 mg PO BEDTIME 02/25/21 06/04/21 topiramate 200 mg tablet (Topamax) 200 mg PO BEDTIME 02/25/21 06/04/21 Previous Rx's Medication Instructions Recorded ondansetron HCl 4 mg tablet 4 mg PO Q12H #20 tab 06/05/21 (Zofran) pantoprazole 40 mg tablet,delayed 40 mg PO DAILY #30 tab 06/05/21 release sucralfate 100 mg/mL oral 10 ml PO BID #400 ml 06/05/21 suspension fondaparinux 2.5 mg/0.5 mL 2.5 mg SUBCUT DAILY 10 Days #5 ml 06/14/21 subcutaneous solution syringe (Arixtra) oxycodone 5 mg tablet 5 mg PO Q6H PRN #8 tab 06/14/21 Allergies Allergy/AdvReac Type Severity Reaction Status Date / Time Iodinated Contrast Media Allergy Severe ANAPHYLAXIS Verified 06/09/21 09:18 [IV CONTRAST] Penicillins [PENICILLINS] Allergy Severe THROAT Verified 06/09/21 09:18 SWELLING vancomycin [VANCOMYCIN] Allergy Intermediate ITCHING Verified 06/09/21 09:18 STEROIDS Allergy Intermediate GI BLEED Uncoded 06/04/21 19:09 Review of Systems Review of Systems Constitutional: No Fever, No Chills ENT/Mouth: No sore throat, No Rhinorrhea, No Swallowing Difficulty Cardiovascular: No Chest Pain, No SOB, No Orthopnea, No Edema Respiratory: No Cough, No Sputum, No Wheezing, No dyspnea Gastrointestinal: + Nausea, No Vomiting, + Diarrhea, + abdominal Pain, No Hematochezia, No Melena Genitourinary: No Dysuria, No Urinary Frequency, No Hematuria Musculoskeletal: No joint pain, No Myalgias Skin: No Skin Lesions, No rash Neuro: No Weakness, No Numbness, No Dizziness, No Headache Psych: + Anxiety/Panic, No Depression Heme/Lymph: No Bruising, No Lymphadenopathy Endocrine: No Polyuria, No Polydipsia Physical Exam Vital Signs: Vital Signs: Last Vital Signs Temp 98.5 F 06/14/21 17:32 Pulse 75 06/14/21 21:49 Resp 16 06/14/21 21:49 BP 154/91 H 06/14/21 21:49 Pulse Ox 98 06/14/21 19:10 Body Mass Index 46.6 Appearance: Alert. Oriented X3. Appears uncomfortable Eyes: Pupils equal, round and reactive to light. ENT: Pharynx normal. Neck: Normal inspection. Neck supple. CVS: Normal heart rate and rhythm. Pulses normal. Respiratory: No respiratory distress. Breath sounds normal. Abdomen: morbidly obese, multiple surgical scars in the upper abdomen, mildly tender, small amount of ecchymosis surrounding, +BS x4 Skin: Skin warm and dry. Normal skin color. Normal skin turgor. No rashes. Extremities: No lower extremity edema. Neuro: Oriented X 3. No motor deficit. No sensory deficit. Course Course Course Narrative: 45 y/o female with history of morbid obesity s/p recent gastric sleeve on 06/09 presenting with severe 10/10 lower abdominal pain that radiates up into her right abdomen. No vomiting, diarrhea unchanged. No fevers, no skin changes. Will give IVF, zofran, morphine, and check labs and CT scan. Reevaluation(s) Reevaluation #1: Labs, CT and UA are unremarkable. She continues to have severe pain, will give dose of IV dilaudid and reassess. TT Charles DOUGLAS tower control operator Canelo Yen for recs, ?admission for pain control, will discuss. Reevaluation #2: Spoke with Canelo DOUGLAS from [facility] - recommended checking DDIMER to help assess for possible mesenteric vein thrombosis, a very rare complication of gastric sleeve surgery. DDIMER was 700, most likely still reactive from surgery, other cases have been 5,000+. Will trend a repeat DDIMER per [facility] recs. PO oxycodone ordered for continued pain but overall improving. Reevaluation #3: Pain is better. She feels well enough to go home. Will give short course of PO oxycodone with plan to continue PO tylenol and f/u with Dr. Guardado tomorrow. She has his number and he called her here in the ER [facility]. He is recommend 10 days of arixtra as well which was sent to her pharmacy. Stable for d/c home with close outpatient follow up. Consultations Consultation #1: [facility]ariat[facility] - Canelo DOUGLAS-Nicole MDM - Abdominal Pain Lab Data Result diagrams: 06/14/21 17:57 06/14/21 17:57 Labs: Lab Results 06/14/21 06/14/21 06/14/21 Range/Units 17:35 17:35 17:35 WBC (4.8-10.8) X10*3/uL RBC (4.20-5.50) X10*6/uL Hgb (12.0-16.0) g/dl Hct (37-47) % MCV (80-98) fL MCH (27.0-33.0) pg MCHC (31.0-35.0) g/dl RDW (11.0-16.0) % Plt Count (160-400) X10*3/uL MPV (9.4-12.3) fL Immature Gran % (Auto) (0.0-0.4) % Neut % (Auto) (45-73) % Lymph % (Auto) (20-40) % Eddy % (Auto) (2-11) % Eos % (Auto) (0-4) % Baso % (Auto) (0-2) % Lymph # (Auto) (1.2-4.9) X10*3/uL Eddy # (Auto) (0.1-1.2) X10*3/uL Eos # (Auto) (0.0-0.4) X10*3/uL Baso # (Auto) (0.0-0.2) X10*3/uL Abs Immat Gran (auto) (0.00-0.03) X10*3/uL Absolute Neuts (auto) (2.0-8.3) X10*3/uL Absolute Nucleated RBC (0.0-0.012) X10*3/uL Nucleated RBC % (auto) (0.0-0.2) /100WBC D-Dimer NG/ML Sodium (135-145) mmol/L Potassium (3.3-5.1) mmol/L Chloride (96-108) mmol/L Carbon Dioxide (22-29) mmol/L Anion Gap (12-20) BUN (9-16) mg/dL Creatinine (0.5-1.4) mg/dL Estim Creat Clear Calc Estimated GFR Random Glucose (60-115) mg/dL Lactic Acid (0.5-2.0) mmol/L Calcium (8.4-10.2) mg/dL Magnesium (1.6-2.6) mg/dL Total Bilirubin (0.0-1.0) mg/dL Direct Bilirubin (0.0-0.5) mg/dL AST (5-31) U/L ALT (0-31) U/L Alkaline Phosphatase (39-117) U/L Total Protein (6.5-8.0) g/dL Albumin (3.5-5.0) g/dL Lipase (8-78) U/L Urine Color YELLOW Urine Appearance CLEAR Urine pH 5.5 (5.0-8.0) Ur Specific [place] 1.015 (1.005-1.025) Urine Protein NEG (NEG-TRACE) MG/DL Urine Glucose (UA) NEG (NEG) MG/DL Urine Ketones NEG (NEG) MG/DL Urine Blood NEG (NEG) Urine Nitrite NEG (NEG) Ur Leukocyte Esterase NEG (NEG) Urine Test NEGATIVE (NEGATIVE) Urine Opiates Screen Not Detected (Not Detect) Urine Fentanyl Screen Not Detected (Not Detect) Ur Barbiturates Screen Not Detected (Not Detect) Ur Phencyclidine Scrn Not Detected (Not Detect) Ur Amphetamines Screen Not Detected (Not Detect) U Benzodiazepines Scrn Not Detected (Not Detect) Urine Cocaine Screen Not Detected (Not Detect) U Marijuana (THC) Screen Not Detected (Not Detect) Ethyl Alcohol mg/dL COVID-19 ([facility]) (Negative) COVID-19 Clin Com 06/14/21 06/14/21 06/14/21 Range/Units 17:57 17:57 17:57 WBC 6.0 (4.8-10.8) X10*3/uL RBC 5.64 H (4.20-5.50) X10*6/uL Hgb 16.2 H (12.0-16.0) g/dl Hct 47.4 H (37-47) % MCV 84.0 (80-98) fL MCH 28.7 (27.0-33.0) pg MCHC 34.2 (31.0-35.0) g/dl RDW 13.5 (11.0-16.0) % Plt Count 225 D (160-400) X10*3/uL MPV 11.0 (9.4-12.3) fL Immature Gran % (Auto) 0.2 (0.0-0.4) % Neut % (Auto) 56.8 (45-73) % Lymph % (Auto) 31.3 (20-40) % Eddy % (Auto) 7.2 (2-11) % Eos % (Auto) 4.0 (0-4) % Baso % (Auto) 0.5 (0-2) % Lymph # (Auto) 1.9 (1.2-4.9) X10*3/uL Eddy # (Auto) 0.4 (0.1-1.2) X10*3/uL Eos # (Auto) 0.2 (0.0-0.4) X10*3/uL Baso # (Auto) 0.0 (0.0-0.2) X10*3/uL Abs Immat Gran (auto) 0.01 (0.00-0.03) X10*3/uL Absolute Neuts (auto) 3.4 (2.0-8.3) X10*3/uL Absolute Nucleated RBC 0.000 (0.0-0.012) X10*3/uL Nucleated RBC % (auto) 0.0 (0.0-0.2) /100WBC D-Dimer NG/ML Sodium 141 (135-145) mmol/L Potassium 3.9 (3.3-5.1) mmol/L Chloride 107 (96-108) mmol/L Carbon Dioxide 22 (22-29) mmol/L Anion Gap 16 (12-20) BUN 10 (9-16) mg/dL Creatinine 0.85 (0.5-1.4) mg/dL Estim Creat Clear Calc 95.9 Estimated GFR > 60 Random Glucose 113 (60-115) mg/dL Lactic Acid 1.3 (0.5-2.0) mmol/L Calcium 10.2 D (8.4-10.2) mg/dL Magnesium 2.1 (1.6-2.6) mg/dL Total Bilirubin 0.9 (0.0-1.0) mg/dL Direct Bilirubin 0.3 (0.0-0.5) mg/dL AST 24 (5-31) U/L ALT 37 H (0-31) U/L Alkaline Phosphatase 99 (39-117) U/L Total Protein 8.4 H (6.5-8.0) g/dL Albumin 4.7 (3.5-5.0) g/dL Lipase 18 (8-78) U/L Urine Color Urine Appearance Urine pH (5.0-8.0) Ur Specific [place] (1.005-1.025) Urine Protein (NEG-TRACE) MG/DL Urine Glucose (UA) (NEG) MG/DL Urine Ketones (NEG) MG/DL Urine Blood (NEG) Urine Nitrite (NEG) Ur Leukocyte Esterase (NEG) Urine Test (NEGATIVE) Urine Opiates Screen (Not Detect) Urine Fentanyl Screen (Not Detect) Ur Barbiturates Screen (Not Detect) Ur Phencyclidine Scrn (Not Detect) Ur Amphetamines Screen (Not Detect) U Benzodiazepines Scrn (Not Detect) Urine Cocaine Screen (Not Detect) U Marijuana (THC) Screen (Not Detect) Ethyl Alcohol mg/dL COVID-19 ([facility]) (Negative) COVID-19 Clin Com 06/14/21 06/14/21 06/14/21 Range/Units 17:57 17:57 19:46 WBC (4.8-10.8) X10*3/uL RBC (4.20-5.50) X10*6/uL Hgb (12.0-16.0) g/dl Hct (37-47) % MCV (80-98) fL MCH (27.0-33.0) pg MCHC (31.0-35.0) g/dl RDW (11.0-16.0) % Plt Count (160-400) X10*3/uL MPV (9.4-12.3) fL Immature Gran % (Auto) (0.0-0.4) % Neut % (Auto) (45-73) % Lymph % (Auto) (20-40) % Eddy % (Auto) (2-11) % Eos % (Auto) (0-4) % Baso % (Auto) (0-2) % Lymph # (Auto) (1.2-4.9) X10*3/uL Eddy # (Auto) (0.1-1.2) X10*3/uL Eos # (Auto) (0.0-0.4) X10*3/uL Baso # (Auto) (0.0-0.2) X10*3/uL Abs Immat Gran (auto) (0.00-0.03) X10*3/uL Absolute Neuts (auto) (2.0-8.3) X10*3/uL Absolute Nucleated RBC (0.0-0.012) X10*3/uL Nucleated RBC % (auto) (0.0-0.2) /100WBC D-Dimer 700 NG/ML Sodium (135-145) mmol/L Potassium (3.3-5.1) mmol/L Chloride (96-108) mmol/L Carbon Dioxide (22-29) mmol/L Anion Gap (12-20) BUN (9-16) mg/dL Creatinine (0.5-1.4) mg/dL Estim Creat Clear Calc Estimated GFR Random Glucose (60-115) mg/dL Lactic Acid (0.5-2.0) mmol/L Calcium (8.4-10.2) mg/dL Magnesium (1.6-2.6) mg/dL Total Bilirubin (0.0-1.0) mg/dL Direct Bilirubin (0.0-0.5) mg/dL AST (5-31) U/L ALT (0-31) U/L Alkaline Phosphatase (39-117) U/L Total Protein (6.5-8.0) g/dL Albumin (3.5-5.0) g/dL Lipase (8-78) U/L Urine Color Urine Appearance Urine pH (5.0-8.0) Ur Specific [place] (1.005-1.025) Urine Protein (NEG-TRACE) MG/DL Urine Glucose (UA) (NEG) MG/DL Urine Ketones (NEG) MG/DL Urine Blood (NEG) Urine Nitrite (NEG) Ur Leukocyte Esterase (NEG) Urine Test (NEGATIVE) Urine Opiates Screen (Not Detect) Urine Fentanyl Screen (Not Detect) Ur Barbiturates Screen (Not Detect) Ur Phencyclidine Scrn (Not Detect) Ur Amphetamines Screen (Not Detect) U Benzodiazepines Scrn (Not Detect) Urine Cocaine Screen (Not Detect) U Marijuana (THC) Screen (Not Detect) Ethyl Alcohol < 10 mg/dL COVID-19 ([facility]) Negative (Negative) COVID-19 Clin Com See Note 06/14/21 Range/Units 23:03 WBC (4.8-10.8) X10*3/uL RBC (4.20-5.50) X10*6/uL Hgb (12.0-16.0) g/dl Hct (37-47) % MCV (80-98) fL MCH (27.0-33.0) pg MCHC (31.0-35.0) g/dl RDW (11.0-16.0) % Plt Count (160-400) X10*3/uL MPV (9.4-12.3) fL Immature Gran % (Auto) (0.0-0.4) % Neut % (Auto) (45-73) % Lymph % (Auto) (20-40) % Eddy % (Auto) (2-11) % Eos % (Auto) (0-4) % Baso % (Auto) (0-2) % Lymph # (Auto) (1.2-4.9) X10*3/uL Eddy # (Auto) (0.1-1.2) X10*3/uL Eos # (Auto) (0.0-0.4) X10*3/uL Baso # (Auto) (0.0-0.2) X10*3/uL Abs Immat Gran (auto) (0.00-0.03) X10*3/uL Absolute Neuts (auto) (2.0-8.3) X10*3/uL Absolute Nucleated RBC (0.0-0.012) X10*3/uL Nucleated RBC % (auto) (0.0-0.2) /100WBC D-Dimer 692 NG/ML Sodium (135-145) mmol/L Potassium (3.3-5.1) mmol/L Chloride (96-108) mmol/L Carbon Dioxide (22-29) mmol/L Anion Gap (12-20) BUN (9-16) mg/dL Creatinine (0.5-1.4) mg/dL Estim Creat Clear Calc Estimated GFR Random Glucose (60-115) mg/dL Lactic Acid (0.5-2.0) mmol/L Calcium (8.4-10.2) mg/dL Magnesium (1.6-2.6) mg/dL Total Bilirubin (0.0-1.0) mg/dL Direct Bilirubin (0.0-0.5) mg/dL AST (5-31) U/L ALT (0-31) U/L Alkaline Phosphatase (39-117) U/L Total Protein (6.5-8.0) g/dL Albumin (3.5-5.0) g/dL Lipase (8-78) U/L Urine Color Urine Appearance Urine pH (5.0-8.0) Ur Specific [place] (1.005-1.025) Urine Protein (NEG-TRACE) MG/DL Urine Glucose (UA) (NEG) MG/DL Urine Ketones (NEG) MG/DL Urine Blood (NEG) Urine Nitrite (NEG) Ur Leukocyte Esterase (NEG) Urine Test (NEGATIVE) Urine Opiates Screen (Not Detect) Urine Fentanyl Screen (Not Detect) Ur Barbiturates Screen (Not Detect) Ur Phencyclidine Scrn (Not Detect) Ur Amphetamines Screen (Not Detect) U Benzodiazepines Scrn (Not Detect) Urine Cocaine Screen (Not Detect) U Marijuana (THC) Screen (Not Detect) Ethyl Alcohol mg/dL COVID-19 ([facility]) (Negative) COVID-19 Clin Com Critical Care Time Critical Care Time Critical Care Time: Yes Total Critical Care Time: 40 Attestation: I have personally provided critical care time exclusive of time spent on separately billable procedures. Time includes review of lab data, radiology results, discussion with consultants, and monitoring for potential decompensation. Intervention performed as documented. Discharge Plan Discharge Clinical Impression: Abdominal pain Patient Disposition: Home, Self-Care Instructions: Acute Abdominal Pain (ED) Additional Instructions: Follow up with Dr. Hernandez tomorrow. Take the prescribed medication as needed for severe pain. Continue taking your liquid tylenol as directed. If you develop new or worsening symptoms call 911 or come back to the ER for further evaluation. Prescriptions: New oxycodone 5 mg tablet 5 mg PO Q6H PRN (Reason: pain) Qty: 8 RF: 0 fondaparinux [Arixtra] 2.5 mg/0.5 mL syringe 2.5 mg subcut DAILY 10 Days Qty: 5 RF: 0 No Action ondansetron HCl [Zofran] 4 mg tablet 4 mg PO Q12H Qty: 20 RF: 0 pantoprazole 40 mg tablet,delayed release (DR/EC) 40 mg PO DAILY Qty: 30 RF: 2 sucralfate 100 mg/mL suspension 10 ml PO BID Qty: 400 RF: 2 gabapentin 600 mg tablet 600 mg PO BEDTIME RF: 0 buprenorphine HCl 8 mg tablet, sublingual 8 mg sublingual DAILY RF: 0 diphenhydramine HCl 50 mg capsule 50 mg PO BEDTIME RF: 0 topiramate [Topamax] 200 mg tablet 200 mg PO BEDTIME RF: 0 prazosin 5 mg capsule 10 mg PO BEDTIME RF: 0 albuterol sulfate 90 mcg/actuation HFA aerosol inhaler 2 puff inhalation Q6H PRN (Reason: Wheezing) RF: 0 Referrals: Winston Hernandez MD [Physician] - 1 day Interventions: ED Discharge Assessment Last Done: 06/14/21 23:47 Discharge Date/Time: 06/14/21 23:48 [facility] Past Medical History Medical History (Updated 06/15/21 @ 00:02 by Rachel Guillen) Anxiety Arthritis Asthma Back pain Depression Diaphragmatic hernia DVT (deep venous thrombosis) Fibromyalgia GERD (gastroesophageal reflux disease) Hepatitis History of ETOH abuse History of substance abuse Hx MRSA infection Hypertension Insomnia Morbid obesity Prediabetes PTSD (post-traumatic stress disorder) Seizure Steatosis, liver Surgical History (Updated 06/09/21 @ 13:46 by Winston Hernandez MD) History of bronchoscopy History of total hysterectomy Hx of cholecystectomy Hx of colonoscopy Hx of wisdom tooth extraction Family History Family History Mother Diabetes Hypertension Father Alcohol abuse Brother No problems noted. Brother No problems noted. Son No problems noted. Daughter No problems noted. Social History Social History (Updated 06/03/21 @ 11:17 by Stephanie Suarez RN) Household Members: None Housing: Apartment Are you a primary respiratory care program director to a significant other at home: No Do you presently have visiting nurse or other home services: No Alcohol intake: former Patient Tobacco Use Status: Former Tobacco user Quit Date: 2000 Tobacco use type: Cigarette Years Smoked: 20 Substance Use Type: Crack/Cocaine Advance Directives: No Advance Directives Information Provided: No service: No Current occupational status: disabled
[2021-06-14 19:10] VITALS: BP 151/87; PULSE 73; RESP 20; O2SAT 98
[2021-06-14] MEDS: HYDROmorphone HCl 1 MG/ML SYRINGE IVPUSH (19:14)
--- NOTE | 2021-06-14 19:15 | PC.NURSE ---
Medicated per DEC. VSS. Awaiting plan from ED PA as she consults with GI.
[2021-06-14 20:01] LABS: D Dimer 700 NG/ML
[2021-06-14] MEDS: oxyCODONE HCl Immed Release 5 MG TABLET PO (21:46)
[2021-06-14] MEDS: Acetaminophen 325 MG TABLET 975 MG PO (21:46)
[2021-06-14 21:49] VITALS: BP 154/91; PULSE 75; RESP 16
--- NOTE | 2021-06-14 21:54 | PC.NURSE ---
Pt medicated per DEC. IV removed, VSS. Pt aware of plan for discharge.
--- NOTE | 2021-06-14 22:15 | PC.NURSE ---
IV reestablished, IVF infusing per MAR. Plan to hydrate and repeat DDimer.
--- NOTE | 2021-06-14 23:05 | PC.NURSE ---
IVFs infused, DDimer redrawn. Pt resting in bed, anxious for discharge.
[2021-06-14 23:21] LABS: D Dimer 692 NG/ML
== END 2021-06-14 23:48 | disposition home or self-care (01) ==
PROVIDERS: Physician Assistant; Emergency Provider Internal Medicine; PCP Internal Medicine
DX: R10.31 Right lower quadrant pain (principal); R10.32 Left lower quadrant pain; Z79.899 Other long term (current) drug therapy; Z20.822 Contact with and (suspected) exposure to COVID-19; Z98.84 Bariatric surgery status
CPT/HCPCS: 36415; 74176; 80048; 80076; 80307; 81003; 81025; 82077; 83605; 83690; 83735; 85025; 85379; 87040; 87635; 96365; 96375; 99285; 99291; J1170; J2270; J2405

== ENCOUNTER → 2021-06-17 09:00 | Outpatient (BNVA) | payer OTHER, SELFPAY | PROVIDERS: PCP Internal Medicine; Referring Provider Internal Medicine; Visit Provider Surgery | DX: E66.01 Morbid (severe) obesity due to excess calories (principal); Z68.42 Body mass index [BMI] 45.0-49.9, adult | CPT/HCPCS: 99212 ==

== ENCOUNTER 2021-07-09 15:27 | Emergency (ER) | payer OTHER, SELFPAY ==
--- NOTE | 2021-07-09 | ECG_ITS ---
Test Reason : CHEST PAIN Blood Pressure : / mmHG Vent. Rate : 092 BPM Atrial Rate : 092 BPM P-R Int : 156 ms QRS Dur : 080 ms QT Int : 360 ms P-R-T Axes : 052 046 033 degrees QTc Int : 445 ms Normal sinus rhythm Possible Left atrial enlargement Nonspecific T wave abnormality Cannot rule out Anterior infarct , age undetermined Abnormal ECG When compared with ECG of 12-MAR-2021 08:15, Vent. rate has increased BY 30 BPM Nonspecific T wave abnormality now evident in Inferior leads Nonspecific T wave abnormality now evident in Anterolateral leads Referred By: Generic ED Physician Electronically Signed By:ARJUN JENNINGS
--- NOTE | ~2021-07-09 | CT_ITS ---
EXAMINATION: CT ABDOMEN AND PELVIS WITHOUT CONTRAST CLINICAL INFORMATION: Nausea and abdominal distention. History of gastric sleeve. COMPARISON: 06/14/2021 TECHNIQUE: Multidetector volumetric imaging was performed from the superior aspect of the liver through the pubic symphysis. Sagittal and coronal reformatted images were obtained on the technologist's workstation. This CT examination was performed using dose optimization techniques as appropriate, variously including the following: *Automated exposure control *Adjustment of mA and/or kV according to patient size (this includes techniques or standardized protocols for targeted exams where dose is matched to indication/reason for exam; i.e. extremities or head) *Use of iterative reconstruction technique DLP: 1147 mGy-cm FINDINGS: LUNG BASES: Normal. No pulmonary consolidation or pleural effusion at either lung base. LIVER: Diffuse hepatic steatosis. A 3.5 cm area of relative increased attention in the right hepatic lobe corresponds to the hemangioma which is better depicted on MR imaging from 03/26/2021. No acute abnormalities in the liver. GALLBLADDER AND BILIARY TREE: Gallbladder is surgically absent. No bile duct dilatation. PANCREAS: Normal. No edema, pancreatic ductal dilatation or mass. SPLEEN: Normal. ADRENAL GLANDS: Normal. KIDNEYS AND URETERS: The kidneys have normal size and cortical thickness. No perinephric fluid collection. No urolithiasis or hydroureteronephrosis. Small, 0.6 cm focus of fat attenuation (angiomyolipoma) in the lateral lower pole of the left kidney. BLADDER: Normal. No calculi or wall thickening. BOWEL AND PERITONEUM: No dilated bowel loops. No gastric wall thickening or perigastric fluid, status post gastric sleeve procedure. The appendix is normal. No pericolonic fat stranding, ascites or pneumoperitoneum. ABDOMINAL WALL: A few foci of gas in superficial subcutaneous tissues of the left abdominal wall are likely from recent medication injections. Mild postoperative stranding of subcutaneous tissues in the midline of the upper abdominal wall. No abdominal wall abscess. Again noted is a fat-containing hernia in the anterior right abdominal wall (image 45, series 3). VASCULATURE: Unremarkable. LYMPH NODES: No pathologic sized lymph nodes in the abdomen or pelvis. No inguinal lymphadenopathy. PELVIC VISCERA: Uterus is surgically absent. Multiple phleboliths within the pelvis. No adnexal mass. No pelvic free fluid. SKELETAL: Degenerative disc disease at the lumbosacral junction. No suspicious osseous lesions. CT/CT abdomen pelvis wo con IMPRESSION: * No acute imaging abnormalities in the abdomen or pelvis compared to 06/14/2021. No evidence of inflammatory change or obstruction along the gastrointestinal tract, status post sleeve gastrectomy. * Diffuse hepatic steatosis. The hemangioma in the region of junction of segments 7 and 8 is better shown on MR images from 03/26/2021. * Stable fat-containing hernia in the anterior right abdominal wall. 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
[2021-07-09 15:39] VITALS: BP 146/107; PULSE 92; RESP 20; TEMP 36.7; O2SAT 100; BMI 40.4
--- NOTE | 2021-07-09 15:44 | PC.NURSE ---
paged for ekg to be performed
--- NOTE | 2021-07-09 18:12 | P.CONGS_ITS ---
History of Present Illness Consult details Consult date: 07/09/21 Reason for consult: other Narrative: Pt called Dr Hernandez earlier today with compliant of left shoulder, arm, neck and chest pain. She was advised to go to the ER for further care and work-up. (I was able to evaluate her prior to her admission into the ER and she had not yet been evaluated by the ED staff) S/P LSG with HH repair on 06/09/21. She has been tolerating 2 Celebrate 4:1 shakes with 2 scoops in 8 oz water, 1 pure protein shake with 1 scoop in 8 oz water and 1/2 zone perfect bar. She had 2 significant and forceful sneezing episodes yesterday at approximately 3pm and 6 pm. She developed significant left shoulder pain around 8 pm, described as sharp and stabbing. She took her prescribed 600 mg gabapentin, tried a hot shower, ice and had no significant relief. Throughout the night and into today the pain then radiated down her left arm and then up toards her neck and then around/under her left breast towards her chest. She did have associated nausea without vomiting or diaphoresis. No complaints of shortness of breath. She experienced a numbness and weakness to her left hand and felt as though her left hand was cooler than her right without noticible swelling or significant discoloration. She called Dr Hernandez and was directed to the ER. Initial VS were positive for elevated blood pressure and she felt anxious. Review of Systems Constitutional: Constitutional: Reports as per HPI Eyes: Eyes: Reports no additional eye complaints ENT: Reports system reviewed and no additional complaints, except as documented Cardiovascular: Cardiovascular: Reports as per HPI Respiratory: Respiratory: Reports no additional respiratory complaints Gastrointestinal: Gastrointestinal: Reports no additional gastrointestinal complaints, Denies abdominal pain, Denies change in stool character and Reports nausea Genitourinary: Genitourinary: Reports no additional female genitourinary complaints Musculoskeletal: Musculoskeletal: Reports as per HPI Integumentary/Breasts: Skin/Breast: Reports system reviewed and no additional complaints, except as docu Neurologic: Reports as per HPI Psychiatric: Psychiatric: Reports no additional psychiatric complaints PMFSH Past Medical History Medical History Anxiety Arthritis Asthma Back pain Depression Diaphragmatic hernia DVT (deep venous thrombosis) Fibromyalgia GERD (gastroesophageal reflux disease) Hepatitis History of ETOH abuse History of substance abuse Hx MRSA infection Hypertension Insomnia Morbid obesity Prediabetes PTSD (post-traumatic stress disorder) Seizure Steatosis, liver Family History Family History Mother Diabetes Hypertension Father Alcohol abuse Brother No problems noted. Brother No problems noted. Son No problems noted. Daughter No problems noted. Surgical History Surgical History History of bronchoscopy History of sleeve gastrectomy History of total hysterectomy Hx of cholecystectomy Hx of colonoscopy Hx of wisdom tooth extraction Social History Social History Household Members: None Housing: Apartment Are you a primary behavioral health care coordinator to a significant other at home: No Do you presently have visiting nurse or other home services: No Alcohol intake: former Patient Tobacco Use Status: Former Tobacco user Quit Date: 2000 Tobacco use type: Cigarette Years Smoked: 20 Substance Use Type: Crack/Cocaine Advance Directives: Yes Advance Directives Information Provided: Yes Advance Directives on File: No Patient : No service: No Current occupational status: disabled Meds Allergies Allergy/AdvReac Type Severity Reaction Status Date / Time Iodinated Contrast Media Allergy Severe ANAPHYLAXIS Verified 07/09/21 15:39 [IV CONTRAST] Penicillins [PENICILLINS] Allergy Severe THROAT Verified 07/09/21 15:39 SWELLING vancomycin [VANCOMYCIN] Allergy Intermediate ITCHING Verified 07/09/21 15:39 STEROIDS Allergy Intermediate GI BLEED Uncoded 06/17/21 09:09 Home Medications Medication Instructions Recorded Confirmed Last Taken Type albuterol sulfate 90 mcg/actuation 2 puff INHALATION Q6H PRN 02/25/21 06/04/21 Unknown History aerosol inhaler buprenorphine HCl 8 mg sublingual 8 mg SUBLINGUAL DAILY 02/25/21 06/04/21 Unknown History tablet diphenhydramine HCl 50 mg capsule 50 mg PO BEDTIME 02/25/21 06/04/21 Unknown History gabapentin 600 mg tablet 600 mg PO BEDTIME 02/25/21 06/04/21 Unknown History prazosin 5 mg capsule 10 mg PO BEDTIME 02/25/21 06/04/21 Unknown History topiramate 200 mg tablet (Topamax) 200 mg PO BEDTIME 02/25/21 06/04/21 Unknown History Physical Exam Vital Signs: Vital Signs: Last Vital Signs Temp 98.1 F 07/09/21 15:39 Pulse 92 07/09/21 15:39 Resp 20 07/09/21 15:39 BP 146/107 H 07/09/21 15:39 Pulse Ox 100 07/09/21 15:39 Body Mass Index 40.4 Const: General: no acute distress Orientation/consciousness: patient navdeep ented x3 Neck: Neck: Yes normal visual inspection and Yes other (decreased rotational ROM, tender left trapezius with muscle spasm) Cardio: Rate: regular rate Rhythm: regular rhythm Peripheral pulses: other (B equal radial/ulner pulses) GI: Palpation (GI): Soft to palpation and nontender Auscultation: normal bowel sounds Neuro: General: patient oriented x3 Motor exam (neuro): Other motor observations present (decr, strength left plastic finisher) Extrem: Right upper extremity: full ROM and normal capillary refill Left upper extremity: normal capillary refill and shoulder/upper arm Details: abnormal ROM Details: pain with active ROM Details: in ADduction, in ABduction, in extension and in flexion Results Labs Labs: All other labs normal. Assessment and Plan (1) Left upper limb pain: Status: Acute likely secondary to brachial plexus neuropathy from trapezius muscle spasm (2) Chest pain: Status: Acute unclear etiology, NE needs to be ruled out, possibly secondary to above. No evidence of rash to suggest HZV (3) Neck pain on left side: Status: Acute likely secondary to muscle spasm (4) S/P laparoscopic sleeve gastrectomy: Status: Acute S/p LSG with hiatal hernia repair 06/09/21. Continue meal plan as directed. There does not appear to be a correlation at this time based on pt H&P to suggest intra-abdominal etiology or problem. Certainly if further information warrents, an abdominal/pelvic CT with oral and IV contrast could be ordered for further abdominal evaluation. Certainly no contrast if evidence of ANGELO. Please do hesitate to call the bariatric team if any further questions or concerns. Procedures Date of Service Date of Service: 07/09/21
[2021-07-09 20:50] LABS: MANUAL DIFF FLAG NO
[2021-07-09 21:01] LABS: Basophils Percent Auto 0.4 % (0-2); Eosinophils Absolute Auto 0.2 X10*3/uL (0.0-0.4); Eosinophils Percent Auto 3.4 % (0-4); Hematocrit 44.5 % (37-47); Hemoglobin 15.1 g/dl (12.0-16.0); Imm Gran Abs Auto 0.01 X10*3/uL (0.00-0.03); Imm Gran Pct Auto 0.2 % (0.0-0.4); Lymphocytes Absolute Auto 2.7 X10*3/uL (1.2-4.9); Lymphocytes Percent Auto 53.8 % (20-40); Mean Corpuscular HGB Conc 33.9 g/dl (31.0-35.0); Mean Corpuscular Hemoglobin 28.7 pg (27.0-33.0); Mean Corpuscular Volume 84.4 fL (80-98); Mean Platelet Volume 12.1 fL (9.4-12.3); Monocytes Absolute Auto 0.6 X10*3/uL (0.1-1.2); Neutrophils Absolute Auto 1.6 X10*3/uL (2.0-8.3); Neutrophils Percent Auto 31.2 % (45-73); Platelet Count 156 X10*3/uL (160-400); Red Blood Count 5.27 X10*6/uL (4.20-5.50); Red Cell Distribution Width 15.1 % (11.0-16.0); White Blood Count 5.1 X10*3/uL (4.8-10.8)
[2021-07-09 21:06] LABS: Anion Gap 17 (12-20); Blood Urea Nitrogen 10 mg/dL (9-16); Calcium 9.5 mg/dL (8.4-10.2); Carbon Dioxide 23 mmol/L (22-29); Chloride 104 mmol/L (96-108); Estimated Glomerular Filt Rate > 60; Glucose Random 93 mg/dL (60-115); Potassium 3.3 mmol/L (3.3-5.1); Sodium 141 mmol/L (135-145)
[2021-07-09 21:11] LABS: Troponin-I High Sensitivity 7.1 ng/L (<3.5-17.0)
[2021-07-09 22:01] LABS: Appearance Urine CLEAR; Color Urine YELLOW; Glucose Urine UA NEG (NEG); Leukocyte Esterase Urine NEG (NEG); Nitrite Urine NEG (NEG); Urine Blood NEG (NEG); Urine Ketones 40 MG/DL (NEG); Urine Protein NEG (NEG-TRACE)
--- NOTE | 2021-07-09 22:01 | ED.CHESTPAIN ---
HPI - Chest Pain General Chief Complaint: Chest Pain Stated Complaint: CHEST AND L ARM PAIN Time Seen by Provider: 07/09/21 16:01 Source: patient Mode of arrival: ambulatory History of Present Illness HPI narrative: 45-year-old female with some chronic pain history but is status post a prior repair of paraesophageal diaphragmatic hernia as well as laparoscopic sleeve gastrectomy on 05/09 and now presents with nausea, abdominal bloating since last night that is not been associated with fevers but she describes chills as well as pain radiating up into her left shoulder and down the left arm. She denies any associated new cough for sore throat and denies any dysuria and has continued to pass flatus and have loose stools the latter of which she describes has been ongoing since her surgery. She denies any vomiting. Related Data Home Medications Medication Instructions Recorded Confirmed albuterol sulfate 90 mcg/actuation 2 puff INHALATION Q6H PRN 02/25/21 06/04/21 aerosol inhaler buprenorphine HCl 8 mg sublingual 8 mg SUBLINGUAL DAILY 02/25/21 06/04/21 tablet diphenhydramine HCl 50 mg capsule 50 mg PO BEDTIME 02/25/21 06/04/21 gabapentin 600 mg tablet 600 mg PO BEDTIME 02/25/21 06/04/21 prazosin 5 mg capsule 10 mg PO BEDTIME 02/25/21 06/04/21 topiramate 200 mg tablet (Topamax) 200 mg PO BEDTIME 02/25/21 06/04/21 Previous Rx's Medication Instructions Recorded ondansetron HCl 4 mg tablet 4 mg PO Q12H #20 tab 06/05/21 (Zofran) pantoprazole 40 mg tablet,delayed 40 mg PO DAILY #30 tab 06/05/21 release sucralfate 100 mg/mL oral 10 ml PO BID #400 ml 06/05/21 suspension fondaparinux 2.5 mg/0.5 mL 2.5 mg SUBCUT DAILY 10 Days #5 ml 06/14/21 subcutaneous solution syringe (Arixtra) oxycodone 5 mg tablet 5 mg PO Q6H PRN #8 tab 06/14/21 fondaparinux 2.5 mg/0.5 mL 2.5 mg SUBCUT Q24H #5 ml 06/26/21 subcutaneous solution syringe Allergies Allergy/AdvReac Type Severity Reaction Status Date / Time Iodinated Contrast Media Allergy Severe ANAPHYLAXIS Verified 07/09/21 15:39 [IV CONTRAST] Penicillins [PENICILLINS] Allergy Severe THROAT Verified 07/09/21 15:39 SWELLING vancomycin [VANCOMYCIN] Allergy Intermediate ITCHING Verified 07/09/21 15:39 STEROIDS Allergy Intermediate GI BLEED Uncoded 06/17/21 09:09 Review of Systems Review of Systems: Pertinent positives and negatives as stated in HPI 10 point review of systems otherwise negative. PMFSH Past Medical History Source: nursing notes reviewed Medical History Anxiety Arthritis Asthma Back pain Depression Diaphragmatic hernia DVT (deep venous thrombosis) Fibromyalgia GERD (gastroesophageal reflux disease) Hepatitis History of ETOH abuse History of substance abuse Hx MRSA infection Hypertension Insomnia Morbid obesity Prediabetes PTSD (post-traumatic stress disorder) Seizure Steatosis, liver Surgical History History of bronchoscopy History of sleeve gastrectomy History of total hysterectomy Hx of cholecystectomy Hx of colonoscopy Hx of wisdom tooth extraction Family History Family History Mother Diabetes Hypertension Father Alcohol abuse Brother No problems noted. Brother No problems noted. Son No problems noted. Daughter No problems noted. Social History Social History Household Members: None Housing: Apartment Are you a primary cattle care worker to a significant other at home: No Do you presently have visiting nurse or other home services: No Alcohol intake: former Patient Tobacco Use Status: Former Tobacco user Quit Date: 2000 Tobacco use type: Cigarette Years Smoked: 20 Substance Use Type: Crack/Cocaine service: No Current occupational status: disabled Physical Exam Vital Signs: Vital Signs: Last Vital Signs Temp 98.1 F 07/09/21 15:39 Pulse 92 07/09/21 15:39 Resp 20 07/09/21 15:39 BP 146/107 H 07/09/21 15:39 Pulse Ox 100 07/09/21 15:39 Body Mass Index 40.4 VITAL SIGNS: Reviewed. GENERAL: Well developed, well nourished, in no acute distress. HEAD: Normocephalic/atraumatic EYES: PERRLA, EOMI EARS: Ext canals without abnormality NOSE: Nares patent bilateral OROPHARYNX: no oral lesions noted, posterior pharynx clear NECK: Supple, no adenopathy LUNGS: Normal breath sounds. No adventitious sounds or accessory muscle use. SpO2<100>, no chest wall crepitus or tenderness on palpation CARDIOVASCULAR: Regular rate and rhythm without noted murmurs, no JVD or lower extremity edema. ABDOMEN: Obese, Soft, non-tender, non-distended with bowel sounds, left-sided CVA tenderness SKIN: Inspection of the skin reveals no rashes NEUROLOGIC: Alert and oriented x 4. Strength and sensation to light touch were grossly intact x 4. Course Course Course Narrative: 45-year-old female with Surgical history of gastric sleeve will rule out SBO, possible pyelo. Less likely felt to be cardiac or pulmonary in etiology. Review of all investigations without acute findings patient left prior to receiving results. MDM - Chest Pain Lab Data Result diagrams: 07/09/21 20:44 07/09/21 20:44 Labs: Lab Results 07/09/21 07/09/21 07/09/21 Range/Units 20:44 20:44 20:44 WBC 5.1 (4.8-10.8) X10*3/uL RBC 5.27 (4.20-5.50) X10*6/uL Hgb 15.1 (12.0-16.0) g/dl Hct 44.5 (37-47) % MCV 84.4 (80-98) fL MCH 28.7 (27.0-33.0) pg MCHC 33.9 (31.0-35.0) g/dl RDW 15.1 (11.0-16.0) % Plt Count 156 L D (160-400) X10*3/uL MPV 12.1 (9.4-12.3) fL Immature Gran % (Auto) 0.2 (0.0-0.4) % Neut % (Auto) 31.2 L (45-73) % Lymph % (Auto) 53.8 H (20-40) % Sharkey % (Auto) 11.0 (2-11) % Eos % (Auto) 3.4 (0-4) % Baso % (Auto) 0.4 (0-2) % Lymph # (Auto) 2.7 (1.2-4.9) X10*3/uL Sharkey # (Auto) 0.6 (0.1-1.2) X10*3/uL Eos # (Auto) 0.2 (0.0-0.4) X10*3/uL Baso # (Auto) 0.0 (0.0-0.2) X10*3/uL Abs Immat Gran (auto) 0.01 (0.00-0.03) X10*3/uL Absolute Neuts (auto) 1.6 L (2.0-8.3) X10*3/uL Absolute Nucleated RBC 0.000 (0.0-0.012) X10*3/uL Nucleated RBC % (auto) 0.0 (0.0-0.2) /100WBC Sodium 141 (135-145) mmol/L Potassium 3.3 (3.3-5.1) mmol/L Chloride 104 (96-108) mmol/L Carbon Dioxide 23 (22-29) mmol/L Anion Gap 17 (12-20) BUN 10 (9-16) mg/dL Creatinine 0.86 (0.5-1.4) mg/dL Estim Creat Clear Calc 87.0 Estimated GFR > 60 Random Glucose 93 (60-115) mg/dL Calcium 9.5 D (8.4-10.2) mg/dL Troponin I High Sens 7.1 (<3.5-17.0) ng/L Urine Color Urine Appearance Urine pH (5.0-8.0) Ur Specific [place] (1.005-1.025) Urine Protein (NEG-TRACE) MG/DL Urine Glucose (UA) (NEG) MG/DL Urine Ketones (NEG) MG/DL Urine Blood (NEG) Urine Nitrite (NEG) Ur Leukocyte Esterase (NEG) Urine Test (NEGATIVE) 07/09/21 07/09/21 Range/Units 21:53 21:53 WBC (4.8-10.8) X10*3/uL RBC (4.20-5.50) X10*6/uL Hgb (12.0-16.0) g/dl Hct (37-47) % MCV (80-98) fL MCH (27.0-33.0) pg MCHC (31.0-35.0) g/dl RDW (11.0-16.0) % Plt Count (160-400) X10*3/uL MPV (9.4-12.3) fL Immature Gran % (Auto) (0.0-0.4) % Neut % (Auto) (45-73) % Lymph % (Auto) (20-40) % Sharkey % (Auto) (2-11) % Eos % (Auto) (0-4) % Baso % (Auto) (0-2) % Lymph # (Auto) (1.2-4.9) X10*3/uL Sharkey # (Auto) (0.1-1.2) X10*3/uL Eos # (Auto) (0.0-0.4) X10*3/uL Baso # (Auto) (0.0-0.2) X10*3/uL Abs Immat Gran (auto) (0.00-0.03) X10*3/uL Absolute Neuts (auto) (2.0-8.3) X10*3/uL Absolute Nucleated RBC (0.0-0.012) X10*3/uL Nucleated RBC % (auto) (0.0-0.2) /100WBC Sodium (135-145) mmol/L Potassium (3.3-5.1) mmol/L Chloride (96-108) mmol/L Carbon Dioxide (22-29) mmol/L Anion Gap (12-20) BUN (9-16) mg/dL Creatinine (0.5-1.4) mg/dL Estim Creat Clear Calc Estimated GFR Random Glucose (60-115) mg/dL Calcium (8.4-10.2) mg/dL Troponin I High Sens (<3.5-17.0) ng/L Urine Color YELLOW Urine Appearance CLEAR Urine pH 6.0 (5.0-8.0) Ur Specific [place] 1.020 (1.005-1.025) Urine Protein NEG (NEG-TRACE) MG/DL Urine Glucose (UA) NEG (NEG) MG/DL Urine Ketones 40 (NEG) MG/DL Urine Blood NEG (NEG) Urine Nitrite NEG (NEG) Ur Leukocyte Esterase NEG (NEG) Urine Test NEGATIVE (NEGATIVE) ECG Data ECG #1: Attestation: I personally reviewed and interpreted this ECG as follows: Prior ECG tracings: available for review (04/08/2021) Interpretation: Normal sinus rhythm, HR-92, no STEMI, ND/QRS/QTC are within normal limits. Discharge Plan Discharge Clinical Impression: Atypical chest pain, Abdominal discomfort Patient Disposition: Elopement Prescriptions: No Action ondansetron HCl [Zofran] 4 mg tablet 4 mg PO Q12H Qty: 20 RF: 0 pantoprazole 40 mg tablet,delayed release (DR/EC) 40 mg PO DAILY Qty: 30 RF: 2 sucralfate 100 mg/mL suspension 10 ml PO BID Qty: 400 RF: 2 fondaparinux 2.5 mg/0.5 mL syringe 2.5 mg subcut Q24H Qty: 5 RF: 0 oxycodone 5 mg tablet 5 mg PO Q6H PRN (Reason: pain) Qty: 8 RF: 0 fondaparinux [Arixtra] 2.5 mg/0.5 mL syringe 2.5 mg subcut DAILY 10 Days Qty: 5 RF: 0 gabapentin 600 mg tablet 600 mg PO BEDTIME RF: 0 buprenorphine HCl 8 mg tablet, sublingual 8 mg sublingual DAILY RF: 0 diphenhydramine HCl 50 mg capsule 50 mg PO BEDTIME RF: 0 topiramate [Topamax] 200 mg tablet 200 mg PO BEDTIME RF: 0 prazosin 5 mg capsule 10 mg PO BEDTIME RF: 0 albuterol sulfate 90 mcg/actuation HFA aerosol inhaler 2 puff inhalation Q6H PRN (Reason: Wheezing) RF: 0 Interventions: ED Discharge Assessment Last Done: 07/09/21 22:50 Discharge Date/Time: 07/09/21 23:10
[2021-07-09 22:04] LABS: UPreg QC Valid YES; Urine Pregnancy NEGATIVE (NEGATIVE)
--- NOTE | 2021-07-09 23:08 | PC.NURSE ---
PT WAITING FOR CT RESULTS. PT HAS DIFFICULT PERIPHERAL ACCESS. ATTEMPT X 3 BY TWO RN'S. PT REPORTS SHE FEELS SHE CAN HYDRATE AT HOME, REFUSED ANOTHER ATTEMPT. PT UPSET ABOUT BEING IN HALLWAY BED, AND HAVING LABS DRAWN BEFORE IV ATTEMPT. PT PREFERS TO WAIT IN WR FOR UBER BEFORE BEING DISCHARGED, [employer] POLICY OFFICER SIDNEY WAS AT BEDSIDE SPEAKING WITH PATIENT. EXPLAINED TO PT THAT LABS WERE DRAWN SEPERATELY 90 MINUTES EARLIER THAT IV ATTEMPT, TO HAVE THE AVAILABLE FOR PROVIDER. RN WAS NOT AVAILABLE TO START IV EARLIER.
== END 2021-07-09 23:10 | disposition left against medical advice (07) ==
PROVIDERS: Emergency Provider Student in an Organized Health Care Education/Training Program; PCP Internal Medicine
DX: R07.9 Chest pain, unspecified (principal); M79.602 Pain in left arm; M54.2 Cervicalgia; R05 Cough; Z98.84 Bariatric surgery status; Z79.899 Other long term (current) drug therapy; F17.210 Nicotine dependence, cigarettes, uncomplicated; Z71.6 Tobacco abuse counseling
CPT/HCPCS: 36415; 74176; 80048; 81003; 81025; 84484; 85025; 93005; 96360; 99283; 99284

== ENCOUNTER → 2021-07-15 08:09 | Outpatient (BNVA) | payer OTHER, SELFPAY | PROVIDERS: PCP Internal Medicine; Visit Provider Surgery | DX: E66.01 Morbid (severe) obesity due to excess calories (principal); Z68.41 Body mass index [BMI] 40.0-44.9, adult | CPT/HCPCS: 99212 ==

== ENCOUNTER → 2021-08-17 08:05 | Outpatient (BNVA) | payer OTHER, SELFPAY | PROVIDERS: PCP Internal Medicine; Visit Provider Surgery | DX: E66.01 Morbid (severe) obesity due to excess calories (principal); Z68.37 Body mass index [BMI] 37.0-37.9, adult; Z98.84 Bariatric surgery status | CPT/HCPCS: 99212 ==

== ENCOUNTER → 2021-09-16 08:03 | Outpatient (BNVA) | payer OTHER, SELFPAY | PROVIDERS: PCP Internal Medicine; Visit Provider Surgery ==

== ENCOUNTER → 2021-10-13 08:00 | Outpatient (BNVA) | payer OTHER, SELFPAY | PROVIDERS: PCP Internal Medicine; Visit Provider Physician Assistant ==

== ENCOUNTER → 2021-10-26 08:08 | Outpatient (BNVA) | payer OTHER, SELFPAY | PROVIDERS: PCP Internal Medicine; Visit Provider Physician Assistant ==

== ENCOUNTER 2023-08-04 18:43 | Emergency (ER) | payer OTHER, SELFPAY ==
--- NOTE | ~2023-08-04 | XR_ITS ---
EXAMINATION: XR LUMBOSACRAL SPINE CLINICAL INFORMATION: Low back pain. COMPARISON: None available. TECHNIQUE: Three views of the lumbosacral spine. FINDINGS: There is normal lumbar lordosis. The vertebral heights, alignment and disc heights are normal. No visible acute fracture, dislocation or subluxation seen. There is mild bilateral L5-S1 facet joint arthropathy. The SI joints are symmetrical and normal. The paravertebral soft tissues are normal. XR/XR lumbar spine 2-3V IMPRESSION: Mild bilateral L5-S1 facet joint arthropathy. No visible acute fracture, dislocation or subluxation seen.
--- NOTE | ~2023-08-04 | CT_ITS ---
EXAMINATION: CT ABDOMEN AND PELVIS WITHOUT CONTRAST CLINICAL INFORMATION: Right flank pain. COMPARISON: Multiple priors, most recent CT abdomen/pelvis dated 07/09/2021. TECHNIQUE: Multidetector volumetric imaging was performed from the superior aspect of the liver through the pubic symphysis. Sagittal and coronal reformatted images were obtained on the technologist's workstation. This CT examination was performed using dose optimization techniques as appropriate, variously including the following: *Automated exposure control. *Adjustment of mA and/or kV according to patient size (this includes techniques or standardized protocols for targeted exams where dose is matched to indication/reason for exam; i.e. extremities or head). *Use of iterative reconstruction technique. DLP: 873 mGy-cm FINDINGS: LUNG BASES: The visualized lung bases are unremarkable. LIVER, GALLBLADDER, AND BILIARY TREE: The liver is normal in size and shape. Diffuse parenchymal hypoattenuation, consistent with steatosis. Redemonstration of a hyperdense focus within the right hepatic lobe, poorly evaluated but unchanged and likely indicating a hemangioma seen on prior imaging. No new focal hepatic lesion or biliary ductal dilatation is present. Status post cholecystectomy. PANCREAS: Unremarkable. SPLEEN: Unremarkable. ADRENAL GLANDS: Unremarkable. KIDNEYS AND URETERS: The kidneys are normal in size, shape, and attenuation. No hydronephrosis, hydroureter, or calculi seen. No perinephric stranding. BLADDER: Unremarkable. No wall thickening or inflammatory change. No calcification. GASTROINTESTINAL TRACT: Status post sleeve gastrectomy. No small or large bowel obstruction. No bowel wall thickening or inflammatory change. Unremarkable appendix. PERITONEAL CAVITY: No intra-abdominal free air or free fluid. No intra-abdominal mass or organized fluid collection/abscess formation. ABDOMINAL WALL: No significant hernia is appreciated. LYMPH NODES: No significant lymphadenopathy. VASCULAR: Unremarkable. PELVIC VISCERA: Status post hysterectomy. Phleboliths within the pelvis. OSSEOUS STRUCTURES: Unremarkable. CT/CT abdomen pelvis wo IV con IMPRESSION: 1. No renal or ureteral stone. No hydronephrosis or hydroureter. Unremarkable urinary bladder. 2. No bowel wall thickening or inflammatory change. No small or large bowel obstruction. Unremarkable appendix. 3. No intra-abdominal mass, lymphadenopathy, or ascites. 4. Additional chronic findings are unchanged. Fleischner guidelines were followed.
[2023-08-04 18:46] VITALS: BP 151/104; PULSE 100; RESP 20; TEMP 36.6; O2SAT 98; BMI 44.5
--- NOTE | 2023-08-04 18:48 | ED.GENADULT ---
HPI - General Adult General Chief complaint: General Medical Stated complaint: kidney/ hip pain. back to r flank Time Seen by Provider: 08/04/23 19:27 Source: patient Mode of arrival: ambulatory Limitations: no limitations History of Present Illness HPI narrative: Patient morbidly obese complaining of low back pain for last 2 days history of pain in the past but this time she feels little different stronger pain localized in lower lumbar and right lower back no nausea no vomiting no paresthesia no new leg weakness no urinary complaints history of kidney stone no hematuria pain get worse on ambulation and movement Related Data Home Medications Medication Instructions Recorded Confirmed albuterol sulfate 90 mcg/actuation 2 puff inhalation Q6H PRN Wheezing 02/25/21 06/04/21 aerosol inhaler buprenorphine HCl 8 mg sublingual 8 mg sublingual DAILY 02/25/21 06/04/21 tablet diphenhydramine HCl 50 mg capsule 50 mg PO BEDTIME 02/25/21 06/04/21 gabapentin 600 mg tablet 600 mg PO BEDTIME 02/25/21 06/04/21 prazosin 5 mg capsule 10 mg PO BEDTIME 02/25/21 06/04/21 topiramate 200 mg tablet (Topamax) 200 mg PO BEDTIME 02/25/21 06/04/21 Previous Rx's Medication Instructions Recorded ondansetron HCl 4 mg tablet 4 mg PO Q12H nausea and vomiting 06/05/21 (Zofran) #20 tabs pantoprazole 40 mg tablet,delayed 40 mg PO DAILY #30 tabs 06/05/21 release sucralfate 100 mg/mL oral 10 ml PO BID #400 mL 06/05/21 suspension fondaparinux 2.5 mg/0.5 mL 2.5 mg (0.5 mL) subcut DAILY 10 06/14/21 subcutaneous solution syringe days #5 mL (Arixtra) oxycodone 5 mg tablet 5 mg PO Q6H PRN pain #8 tabs 06/14/21 fondaparinux 2.5 mg/0.5 mL 2.5 mg (0.5 mL) subcut Q24H #5 mL 06/26/21 subcutaneous solution syringe cyclobenzaprine 10 mg tablet 10 mg PO Q8H #20 tabs 08/04/23 tramadol 50 mg tablet 50 mg PO Q6H PRN pain #20 tabs 08/04/23 Allergies Allergy/AdvReac Type Severity Reaction Status Date / Time Iodinated Contrast Media Allergy Severe ANAPHYLAXIS Verified 08/04/23 18:45 [IV CONTRAST] Penicillins [PENICILLINS] Allergy Severe THROAT Verified 08/04/23 18:45 SWELLING vancomycin [VANCOMYCIN] Allergy Intermediate ITCHING Verified 08/04/23 18:45 STEROIDS Allergy Intermediate GI BLEED Uncoded 06/17/21 09:09 Review of Systems Review of Systems: Yes all other systems are reviewed and are negative PMFSH Past Medical History Medical History Anxiety Arthritis Asthma Back pain Depression Diaphragmatic hernia DVT (deep venous thrombosis) Fibromyalgia GERD (gastroesophageal reflux disease) Hepatitis History of ETOH abuse History of substance abuse Hx MRSA infection Hypertension Insomnia Morbid obesity Prediabetes PTSD (post-traumatic stress disorder) Seizure Steatosis, liver Surgical History History of bronchoscopy History of sleeve gastrectomy History of total hysterectomy Hx of cholecystectomy Hx of colonoscopy Hx of wisdom tooth extraction Family History Family History Mother Diabetes Hypertension Father Alcohol abuse Brother No problems noted. Brother No problems noted. Son No problems noted. Daughter No problems noted. Social History Social History Household Members: None Housing: Apartment Are you a primary director of managed care to a significant other at home: No Do you presently have visiting nurse or other home services: No Alcohol intake: former Patient Tobacco Use Status: Former Tobacco user Quit Date: 2000 Tobacco use type: Cigarette Years Smoked: 20 Smoked in Last 30 Days: No Use of substances other than those prescribed or required for medical reasons: No Advance Directives: No Advance Directives Information Provided: No service: No Current occupational status: disabled Physical Exam ED Vital Signs: Vital Signs - 24 hr 08/04/23 18:46 08/04/23 19:30 08/04/23 20:12 Temperature 97.9 F 98.4 F Pulse Rate 100 90 80 Respiratory Rate 20 17 16 Blood Pressure 151/104 H 143/99 H 138/92 H Pulse Oximetry 98 97 97 Oxygen Delivery Method Room Air Room Air Room Air BMI result Body Mass Index 44.5 Appearance: Alert. Oriented X3. No acute distress. Obese Eyes: PERRLA, No Nystagmus ENT: Pharynx normal. Oral Mucosa moist Neck: Normal inspection. Neck supple. CVS: Normal heart rate and rhythm. Pulses normal. Respiratory: No respiratory distress. Equal air entry bilateral, Abdomen: Soft and nontender. Bowel sounds are present, no mass palpable, no CVA tenderness Skin: Skin warm and dry. Normal skin color. Normal skin turgor. back: Diffuse tenderness mid lumbar area and right iliac crest area patient able to ambulate SLR negative bilaterally Extremities: No lower extremity edema. No calf tenderness Neuro: Oriented X 3. No motor deficit. No sensory deficit.No cerebellar signs , cranial nerves II-XII intact Course Course Course Narrative: RME- 47-year-old female presents for evaluation of right flank pain that radiates around the right hip and right groin. She reports a history of kidney stones and states this feels similar. Plan for labs, UA, CT abdomen pelvis without contrast Medications Administered Discontinued Medications Generic Name Dose Route Start Last Admin Trade Name Brettq PRN Reason Stop Dose Admin Morphine Sulfate 15 mg 08/04/23 19:35 08/04/23 19:51 Morphine Sulfate Immed Release 15 Mg Tablet PO 08/04/23 19:36 15 mg ONCE ONE Administration Medical Decision Making Medical Decision Making [facility] Narrative: Patient's lab workup CT scan x-ray negative for acute patient felt better after pain medication Differential Diagnosis Differential Diagnoses: The differential diagnosis associated with the presentation includes Kidney stone/lumbar strain/sciatica Lab Data [facility] Lab Attestation statement: I reviewed the patient's lab results. 08/04/23 19:08 08/04/23 19:08 Labs: Lab Results 08/04/23 Range/Units 19:08 WBC 5.6 (4.8-10.8) X10*3/uL RBC 5.25 (4.20-5.50) X10*6/uL Hgb 15.3 (12.0-16.0) g/dl Hct 45.4 (37.0-47.0) % MCV 86.5 (80.0-98.0) fL MCH 29.1 (27.0-33.0) pg MCHC 33.7 (31.0-35.0) g/dl RDW 12.6 (11.0-16.0) % Plt Count 237 (160-400) X10*3/uL MPV 10.6 (9.4-12.3) fL Immature Gran % (Auto) 0.2 (0.0-0.4) % Neut % (Auto) 46.4 (45-73) % Lymph % (Auto) 44.8 H (20-40) % [place] % (Auto) 7.7 (2-11) % Eos % (Auto) 0.5 (0-4) % Baso % (Auto) 0.4 (0-2) % Lymph # (Auto) 2.5 (1.2-4.9) X10*3/uL [place] # (Auto) 0.4 (0.1-1.2) X10*3/uL Eos # (Auto) 0.0 (0.0-0.4) X10*3/uL Baso # (Auto) 0.0 (0.0-0.2) X10*3/uL Abs Immat Gran (auto) 0.01 (0.00-0.03) X10*3/uL Absolute Neuts (auto) 2.6 (2.0-8.3) x10*3/uL Absolute Nucleated RBC 0.000 (0.0-0.012) X10*3/uL Nucleated RBC % (auto) 0.0 (0.0-0.2) /100WBC Sodium 140 (135-145) mmol/L Potassium 3.9 (3.3-5.1) mmol/L Chloride 110 H (96-108) mmol/L Carbon Dioxide 19 L (22-29) mmol/L Anion Gap 15 (12-20) BUN 9 (9-16) mg/dL Creatinine 0.86 (0.5-1.4) mg/dL Estim Creat Clear Calc 90.2 Estimated GFR > 60 Random Glucose 105 (60-115) mg/dL Calcium 9.7 (8.4-10.2) mg/dL Urine Color Yellow Urine Appearance Clear Urine pH 5.5 (5.0-9.0) Ur Specific [place] <= 1.005 (1.005-1.025) Urine Protein Negative (Neg-Trace) mg/dL Urine Glucose (UA) Negative (Negative) mg/dL Urine Ketones Negative (Negative) mg/dL Urine Blood Negative (Negative) Urine Nitrite Negative (Negative) Ur Leukocyte Esterase Negative (Negative) Urine RBC 0-2 (0-2) /HPF Urine WBC 0-5 (0-5) /HPF Ur Squamous Epith Cells 0-2 (0-2) /HPF Urine Bacteria None Seen (None Seen) Hyaline Casts 0-2 (0-2) /LPF Radiology Impression Discussion of test interpretation with radiology: I have reviewed the radiologist's reading. Discharge Plan Discharge Clinical Impression: Low back pain Patient Disposition: Home, Self-Care Instructions: Acute Low Back Pain (ED), Chronic Back Pain (DC) Additional Instructions: Rest, apply ice pack Take pain medication and muscle relaxer as prescribed Your x-ray showed arthritis of lumbar spine CT scan is negative for kidney stones Prescriptions: New cyclobenzaprine 10 mg tablet 10 mg PO Q8H Qty: 20 0RF tramadol 50 mg tablet 50 mg PO Q6H PRN (Reason: pain) Qty: 20 0RF No Action ondansetron HCl [Zofran] 4 mg tablet 4 mg PO Q12H Qty: 20 0RF pantoprazole 40 mg tablet,delayed release (DR/EC) 40 mg PO DAILY Qty: 30 2RF sucralfate 100 mg/mL suspension 10 ml PO BID Qty: 400 2RF fondaparinux 2.5 mg/0.5 mL syringe 2.5 mg subcut Q24H Qty: 5 0RF oxycodone 5 mg tablet 5 mg PO Q6H PRN (Reason: pain) Qty: 8 0RF fondaparinux [Arixtra] 2.5 mg/0.5 mL syringe 2.5 mg subcut DAILY 10 Days Qty: 5 0RF gabapentin 600 mg tablet 600 mg PO BEDTIME buprenorphine HCl 8 mg tablet, sublingual 8 mg sublingual DAILY diphenhydramine HCl 50 mg capsule 50 mg PO BEDTIME topiramate [Topamax] 200 mg tablet 200 mg PO BEDTIME prazosin 5 mg capsule 10 mg PO BEDTIME albuterol sulfate 90 mcg/actuation HFA aerosol inhaler 2 puff inhalation Q6H PRN (Reason: Wheezing)
[2023-08-04 19:14] LABS: Basophils Percent Auto 0.4 % (0-2); Eosinophils Percent Auto 0.5 % (0-4); Hematocrit 45.4 % (37.0-47.0); Hemoglobin 15.3 g/dl (12.0-16.0); Imm Gran Abs Auto 0.01 X10*3/uL (0.00-0.03); Imm Gran Pct Auto 0.2 % (0.0-0.4); Lymphocytes Absolute Auto 2.5 X10*3/uL (1.2-4.9); Lymphocytes Percent Auto 44.8 % (20-40); MANUAL DIFF FLAG NO; Mean Corpuscular HGB Conc 33.7 g/dl (31.0-35.0); Mean Corpuscular Hemoglobin 29.1 pg (27.0-33.0); Mean Corpuscular Volume 86.5 fL (80.0-98.0); Mean Platelet Volume 10.6 fL (9.4-12.3); Monocytes Absolute Auto 0.4 X10*3/uL (0.1-1.2); Monocytes Percent Auto 7.7 % (2-11); Neutrophils Absolute Auto 2.6 x10*3/uL (2.0-8.3); Neutrophils Percent Auto 46.4 % (45-73); Platelet Count 237 X10*3/uL (160-400); Red Blood Count 5.25 X10*6/uL (4.20-5.50); Red Cell Distribution Width 12.6 % (11.0-16.0); White Blood Count 5.6 X10*3/uL (4.8-10.8)
[2023-08-04 19:16] LABS: Appearance Urine Clear; Color Urine Yellow; Glucose Urine UA Negative (Negative); Leukocyte Esterase Urine Negative (Negative); Nitrite Urine Negative (Negative); PH 5.5 (5.0-9.0); Specific Gravity - Urine <= 1.005 (1.005-1.025); Urine Blood Negative (Negative); Urine Ketones Negative (Negative); Urine Protein Negative (Neg-Trace)
[2023-08-04 19:18] LABS: Bacteria Urine None Seen (None Seen); Hyaline Casts Urine 0-2 /LPF (0-2); RBC Urine 0-2 /HPF (0-2); Squamous Epithelial Cell Urine 0-2 /HPF (0-2); WBC Urine 0-5 /HPF (0-5)
[2023-08-04 19:28] LABS: Anion Gap 15 (12-20); Blood Urea Nitrogen 9 mg/dL (9-16); Calcium 9.7 mg/dL (8.4-10.2); Carbon Dioxide 19 mmol/L (22-29); Chloride 110 mmol/L (96-108); Creatinine Clr Calc Pharmacy 90.2; Estimated Glomerular Filt Rate > 60; Glucose Random 105 mg/dL (60-115); Potassium 3.9 mmol/L (3.3-5.1); Sodium 140 mmol/L (135-145)
[2023-08-04 19:30] VITALS: BP 143/99; PULSE 90; RESP 17; TEMP 36.9; O2SAT 97
[2023-08-04] MEDS: Morphine Sulfate Immed Release 15 MG TABLET PO (19:51)
[2023-08-04 20:12] VITALS: BP 138/92; PULSE 80; RESP 16; O2SAT 97
[2023-08-04] MEDS: Cyclobenzaprine HCl 10 MG TABLET PO (21:10)
== END 2023-08-04 21:13 | disposition home or self-care (01) ==
PROVIDERS: Physician Assistant; Emergency Provider Internal Medicine
DX: M54.50 Low back pain, unspecified (principal); R10.2 Pelvic and perineal pain; Z87.891 Personal history of nicotine dependence; Z79.899 Other long term (current) drug therapy
CPT/HCPCS: 36415; 72100; 74176; 80048; 81001; 85025; 99284

== ENCOUNTER 2023-10-28 14:09 | Emergency (ER) | payer OTHER, SELFPAY ==
--- NOTE | ~2023-10-28 | XR_ITS ---
EXAMINATION: XR CHEST CLINICAL INFORMATION: Leg swelling, SOB, HUITRON and orthopnea. COMPARISON: None available. TECHNIQUE: 2 views of the chest were obtained. FINDINGS: No significant abnormality is noted involving the heart, lungs, mediastinum, bony thorax or soft tissues. XR/XR chest 2V IMPRESSION: Unremarkable chest examination.
--- NOTE | ~2023-10-28 | US_ITS ---
EXAMINATION: US VENOUS ULTRASOUND WITH DOPPLER LOWER EXTREMITY, RIGHT CLINICAL INFORMATION: Question DVT COMPARISON: None available. TECHNIQUE: Ultrasound of the deep veins is performed from the hip to the calf with compression sonography and color and pulse Doppler assessment. Spectral analysis with color-flow imaging is performed. FINDINGS: There is normal venous compression and respiratory variation and augmented flow. The visualized common femoral vein, superficial femoral vein, profunda femoral vein, popliteal vein, and the trifurcation region shows no evidence of deep venous thrombosis. There is no significant popliteal fossa cyst. If the patient's symptoms persist, followup ultrasound in 5 days 7 days might be of value to exclude proximal propagation from a non-visualized calf vein. US/US venous duplex LE RT IMPRESSION: No DVT demonstrated in the right lower extremity.
[2023-10-28 15:05] VITALS: BP 151/104; PULSE 88; RESP 18; TEMP 36; O2SAT 99; BMI 45.3
--- NOTE | 2023-10-28 15:06 | ED_ITS ---
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 Noticed swelling and pain in the right calf area for last 2 days no prolonged rest or any surgery patient ambulatory no shortness of breath Related Data Home Medications Medication Instructions Recorded Confirmed albuterol sulfate 90 mcg/actuation 2 puff inhalation Q6H PRN Wheezing 02/25/21 06/04/21 aerosol inhaler buprenorphine HCl 8 mg sublingual 8 mg sublingual DAILY 02/25/21 06/04/21 tablet diphenhydramine HCl 50 mg capsule 50 mg PO BEDTIME 02/25/21 06/04/21 gabapentin 600 mg tablet 600 mg PO BEDTIME 02/25/21 06/04/21 prazosin 5 mg capsule 10 mg PO BEDTIME 02/25/21 06/04/21 topiramate 200 mg tablet (Topamax) 200 mg PO BEDTIME 02/25/21 06/04/21 Previous Rx's Medication Instructions Recorded ondansetron HCl 4 mg tablet 4 mg PO Q12H nausea and vomiting 06/05/21 (Zofran) #20 tabs pantoprazole 40 mg tablet,delayed 40 mg PO DAILY #30 tabs 06/05/21 release sucralfate 100 mg/mL oral 10 ml PO BID #400 mL 06/05/21 suspension fondaparinux 2.5 mg/0.5 mL 2.5 mg (0.5 mL) subcut DAILY 10 06/14/21 subcutaneous solution syringe days #5 mL (Arixtra) oxycodone 5 mg tablet 5 mg PO Q6H PRN pain #8 tabs 06/14/21 fondaparinux 2.5 mg/0.5 mL 2.5 mg (0.5 mL) subcut Q24H #5 mL 06/26/21 subcutaneous solution syringe cyclobenzaprine 10 mg tablet 10 mg PO Q8H #20 tabs 08/04/23 tramadol 50 mg tablet 50 mg PO Q6H PRN pain #20 tabs 10/26/23 Allergies Allergy/AdvReac Type Severity Reaction Status Date / Time Iodinated Contrast Media Allergy Severe ANAPHYLAXIS Verified 10/28/23 15:05 [IV CONTRAST] Penicillins [PENICILLINS] Allergy Severe THROAT Verified 10/28/23 15:05 SWELLING vancomycin [VANCOMYCIN] Allergy Intermediate ITCHING Verified 10/28/23 15:05 STEROIDS Allergy Intermediate GI BLEED Uncoded 06/17/21 09:09 Review of Systems 2 Review of Systems: Yes all other systems are reviewed and are negative PMFSH Past Medical History Onset Date is defined in the Problem List Problems that require an onset date and time if occurred within 24 hrs of arrival to the ED Aortic Dissection and Rupture; Neurologic impairment; Cardiopulmonary Arrest; Endotracheal Intubation; Insertion or Replacement of Mechanical Circulatory Assist Device Medical History Anxiety Arthritis Asthma Back pain Depression Diaphragmatic hernia DVT (deep venous thrombosis) Fibromyalgia GERD (gastroesophageal reflux disease) Hepatitis History of ETOH abuse History of substance abuse Hx MRSA infection Hypertension Insomnia Morbid obesity Prediabetes PTSD (post-traumatic stress disorder) Seizure Steatosis, liver Surgical History History of bronchoscopy History of sleeve gastrectomy History of total hysterectomy Hx of cholecystectomy Hx of colonoscopy Hx of wisdom tooth extraction Family History Family History Mother Diabetes Hypertension Father Alcohol abuse Brother No problems noted. Brother No problems noted. Son No problems noted. Daughter No problems noted. Social History Social History Household Members: None Housing: Apartment Are you a primary healthcare liaison to a significant other at home: No Do you presently have visiting nurse or other home services: No Alcohol intake: former Patient Tobacco Use Status: Former Tobacco user Quit Date: 2000 Tobacco use type: Cigarette Years Smoked: 20 Advance Directives: No Advance Directives Information Provided: No service: No Current occupational status: disabled Physical Exam 2 Vital Signs: Vital Signs: Last Vital Signs Temp 97.0 F 10/28/23 20:53 Pulse 90 10/28/23 20:53 Resp 16 10/28/23 20:53 BP 170/97 H 10/28/23 20:53 Pulse Ox 95 10/28/23 20:53 O2 Del Method Room Air 10/28/23 20:53 BMI result Body Mass Index 45.3 Appearance: Alert. Oriented X3. No acute distress. ENT: Pharynx normal. Oral Mucosa moist Neck: Normal inspection. Neck supple. CVS: Normal heart rate and rhythm. Pulses normal. Respiratory: No respiratory distress. Equal air entry bilateral, no wheezing/rales/rhonchi Abdomen: Soft and nontender. Bowel sounds are present, no mass palpable, no CVA tenderness Skin: Skin warm and dry. Normal skin color. Normal skin turgor. Extremities: No lower extremity edema. + mild calf tenderness, Homans sign negative Neuro: Oriented X 3. No motor deficit. No sensory deficit.No cerebellar signs , cranial nerves II-XII intact Course Course Course Narrative: RME- 15:06PM 47yoF with a PMHx of DVT's presenting to the ER with complaints of right leg swelling/pain that started yesterday. She thought it could have been related to sleeping with her door open. She reports a blood clot was in the same leg in the past. She is currently not on any blood thinners. Reports prior history of drug usage has been sober for 4 years. Reports shortness of breath, HUITRON, Orthopnea. Denies any chest pain. Plan: Labs including BNP, troponin, chest x-ray, EKG and Ultrasound of right lower extremity ordered at this time. Patient will be sent back to the waiting room to be evaluated in ED Medications Administered Discontinued Medications Generic Name Dose Route Start Last Admin Trade Name Freq PRN Reason Stop Dose Admin Ibuprofen 600 mg 10/28/23 21:58 10/28/23 22:29 Ibuprofen 600 Mg Tablet PO 10/28/23 21:59 600 mg ONCE ONE Administration Medical Decision Making Medical Decision Making [facility] Narrative: Patient's right calf pain Homans sign negative no significant swelling noticed history of DVT in the past Doppler done which was negative for DVT advised patient to follow with rheumatology Differential Diagnosis Differential Diagnoses: The differential diagnosis associated with the presentation includes DVT Lab Data [facility] Lab Attestation statement: I reviewed the patient's lab results. 10/28/23 15:49 10/28/23 15:49 Labs: Lab Results 10/28/23 Range/Units 15:49 WBC 5.2 (4.8-10.8) X10*3/uL RBC 5.06 (4.20-5.50) X10*6/uL Hgb 14.8 (12.0-16.0) g/dl Hct 44.0 (37.0-47.0) % MCV 87.0 (80.0-98.0) fL MCH 29.2 (27.0-33.0) pg MCHC 33.6 (31.0-35.0) g/dl RDW 13.5 (11.0-16.0) % Plt Count 256 (160-400) X10*3/uL MPV 10.4 (9.4-12.3) fL Immature Gran % (Auto) 0.4 (0.0-0.4) % Neut % (Auto) 44.8 L (45-73) % Lymph % (Auto) 46.2 H (20-40) % [place] % (Auto) 6.6 (2-11) % Eos % (Auto) 1.4 (0-4) % Baso % (Auto) 0.6 (0-2) % Lymph # (Auto) 2.4 (1.2-4.9) X10*3/uL [place] # (Auto) 0.3 (0.1-1.2) X10*3/uL Eos # (Auto) 0.1 (0.0-0.4) X10*3/uL Baso # (Auto) 0.0 (0.0-0.2) X10*3/uL Abs Immat Gran (auto) 0.02 (0.00-0.03) X10*3/uL Absolute Neuts (auto) 2.3 (2.0-8.3) x10*3/uL Absolute Nucleated RBC 0.000 (0.0-0.012) X10*3/uL Nucleated RBC % (auto) 0.0 (0.0-0.2) /100WBC PT 10.4 L (11.1-13.3) SEC INR 0.9 (0.9-1.1) Sodium 142 (135-145) mmol/L Potassium 4.1 (3.3-5.1) mmol/L Chloride 107 (96-108) mmol/L Carbon Dioxide 28 (22-29) mmol/L Anion Gap 11 L (12-20) BUN 14 (9-16) mg/dL Creatinine 0.79 (0.5-1.4) mg/dL Estim Creat Clear Calc 99.3 Estimated GFR > 60 Random Glucose 94 (60-115) mg/dL Calcium 9.7 (8.4-10.2) mg/dL Magnesium 2.0 (1.6-2.6) mg/dL Total Bilirubin 0.6 (0.0-1.0) mg/dL AST 28 (5-31) U/L ALT 36 H (0-31) U/L Alkaline Phosphatase 96 (39-117) U/L Troponin I High Sens < 2.7 (<3.5-17.0) ng/L B-Natriuretic Peptide 20 (<100) pg/mL Total Protein 7.9 (6.5-8.0) g/dL Albumin 4.6 (3.5-5.0) g/dL Independent Interpretation I performed an independent interpretation of an: Ultrasound Interpretation: Negative Radiology Impression Discussion of test interpretation with radiology: I have reviewed the radiologist's reading. Discharge Plan Discharge Clinical Impression: Leg pain, right Patient Disposition: Home, Self-Care Instructions: Leg Pain (ED) Additional Instructions: Your test for blood clots is negative Tylenol/Motrin for pain Follow-up with pre press manager for further workup Prescriptions: No Action ondansetron HCl [Zofran] 4 mg tablet 4 mg PO Q12H Qty: 20 0RF pantoprazole 40 mg tablet,delayed release (DR/EC) 40 mg PO DAILY Qty: 30 2RF sucralfate 100 mg/mL suspension 10 ml PO BID Qty: 400 2RF fondaparinux 2.5 mg/0.5 mL syringe 2.5 mg subcut Q24H Qty: 5 0RF oxycodone 5 mg tablet 5 mg PO Q6H PRN (Reason: pain) Qty: 8 0RF fondaparinux [Arixtra] 2.5 mg/0.5 mL syringe 2.5 mg subcut DAILY 10 Days Qty: 5 0RF cyclobenzaprine 10 mg tablet 10 mg PO Q8H Qty: 20 0RF tramadol 50 mg tablet 50 mg PO Q6H PRN (Reason: pain) Qty: 20 0RF gabapentin 600 mg tablet 600 mg PO BEDTIME buprenorphine HCl 8 mg tablet, sublingual 8 mg sublingual DAILY diphenhydramine HCl 50 mg capsule 50 mg PO BEDTIME topiramate [Topamax] 200 mg tablet 200 mg PO BEDTIME prazosin 5 mg capsule 10 mg PO BEDTIME albuterol sulfate 90 mcg/actuation HFA aerosol inhaler 2 puff inhalation Q6H PRN (Reason: Wheezing) Referrals: Julio Stroud MD [Physician] - 1 week Interventions: ED Discharge Assessment Last Done: 10/28/23 22:32 Discharge Date/Time: 10/28/23 22:32
--- NOTE | 2023-10-28 15:08 | ECG_ITS ---
Test Reason : SWELLING Blood Pressure : / mmHG Vent. Rate : 086 BPM Atrial Rate : 086 BPM P-R Int : 154 ms QRS Dur : 080 ms QT Int : 362 ms P-R-T Axes : 052 014 047 degrees QTc Int : 433 ms Normal sinus rhythm Normal ECG When compared with ECG of 09-JUL-2021 16:32, No significant change was found Referred By: Lynn Mathis Electronically Signed By:NIKO IVORY
[2023-10-28 16:05] LABS: MANUAL DIFF FLAG NO
[2023-10-28 16:14] LABS: Basophils Percent Auto 0.6 % (0-2); Eosinophils Absolute Auto 0.1 X10*3/uL (0.0-0.4); Eosinophils Percent Auto 1.4 % (0-4); Hemoglobin 14.8 g/dl (12.0-16.0); Imm Gran Abs Auto 0.02 X10*3/uL (0.00-0.03); Imm Gran Pct Auto 0.4 % (0.0-0.4); Lymphocytes Absolute Auto 2.4 X10*3/uL (1.2-4.9); Lymphocytes Percent Auto 46.2 % (20-40); Mean Corpuscular HGB Conc 33.6 g/dl (31.0-35.0); Mean Corpuscular Hemoglobin 29.2 pg (27.0-33.0); Mean Platelet Volume 10.4 fL (9.4-12.3); Monocytes Absolute Auto 0.3 X10*3/uL (0.1-1.2); Monocytes Percent Auto 6.6 % (2-11); Neutrophils Absolute Auto 2.3 x10*3/uL (2.0-8.3); Neutrophils Percent Auto 44.8 % (45-73); Platelet Count 256 X10*3/uL (160-400); Red Blood Count 5.06 X10*6/uL (4.20-5.50); Red Cell Distribution Width 13.5 % (11.0-16.0); White Blood Count 5.2 X10*3/uL (4.8-10.8)
[2023-10-28 16:15] LABS: INTERNATIONAL NORM RATIO 0.9 (0.9-1.1); Prothrombin Time 10.4 SEC (11.1-13.3)
[2023-10-28 16:20] LABS: Alanine Aminotransferase 36 U/L (0-31); Albumin Level 4.6 g/dL (3.5-5.0); Alkaline Phosphatase 96 U/L (39-117); Anion Gap 11 (12-20); Aspartate Amino Transferase 28 U/L (5-31); Bilirubin Total 0.6 mg/dL (0.0-1.0); Blood Urea Nitrogen 14 mg/dL (9-16); Calcium 9.7 mg/dL (8.4-10.2); Carbon Dioxide 28 mmol/L (22-29); Chloride 107 mmol/L (96-108); Creatinine Clr Calc Pharmacy 99.3; Estimated Glomerular Filt Rate > 60; Glucose Random 94 mg/dL (60-115); Potassium 4.1 mmol/L (3.3-5.1); Sodium 142 mmol/L (135-145); Total Protein 7.9 g/dL (6.5-8.0)
[2023-10-28 16:26] LABS: B Type Natriuretic Peptide 20 pg/mL (<100)
[2023-10-28 16:32] LABS: Troponin-I High Sensitivity < 2.7 ng/L (<3.5-17.0)
[2023-10-28 18:39] VITALS: BP 154/109; PULSE 92; RESP 20; TEMP 36.1; O2SAT 99
[2023-10-28 20:53] VITALS: BP 170/97; PULSE 90; RESP 16; TEMP 36.1; O2SAT 95
--- NOTE | 2023-10-28 22:28 | MHC.EDTECH ---
PATIENT REFUSED VITALS ,RN AWARE.
[2023-10-28] MEDS: Ibuprofen 600 MG TABLET PO (22:29)
--- NOTE | 2023-10-28 22:29 | PC.NURSE ---
upon return from u/s pt given ibuprofen. Dr. Hamilton to bedside verbal d/c instructions pt stated she will f/u with pcp and left without d/c paperwork/vitals. pt axox4 ambulatory with steady gait.
== END 2023-10-28 22:32 | disposition home or self-care (01) ==
PROVIDERS: Physician Assistant Medical; Emergency Provider Internal Medicine
DX: M79.604 Pain in right leg (principal); R06.02 Shortness of breath; I10 Essential (primary) hypertension; Z86.718 Personal history of other venous thrombosis and embolism
CPT/HCPCS: 36415; 71046; 80053; 83735; 83880; 84484; 85025; 85610; 93005; 93971; 99284

== ENCOUNTER → 2023-10-28 15:08 | Outpatient (BNV) | payer OTHER, SELFPAY | PROVIDERS: Emergency Provider Internal Medicine; Visit Provider Internal Medicine | DX: R22.41 Localized swelling, mass and lump, right lower limb (principal) | CPT/HCPCS: 93010 ==

== ENCOUNTER 2024-04-07 09:30 | Emergency (ER) | payer OTHER, SELFPAY ==
--- NOTE | ~2024-04-07 | CT_ITS ---
EXAMINATION: CT abdomen pelvis wo IV con CLINICAL INFORMATION: Reason for Exam RLQ pain COMPARISON: Prior CT July 2023 TECHNIQUE: Multidetector volumetric imaging was performed from the superior aspect of the liver through the pubic symphysis a noncontrasted CT Sagittal and coronal reformatted images were obtained on the technologist's workstation. This CT examination was performed using dose optimization techniques as appropriate, variously including the following: *Automated exposure control *Adjustment of mA and/or kV according to patient size (this includes techniques or standardized protocols for targeted exams where dose is matched to indication/reason for exam; i.e. extremities or head) *Use of iterative reconstruction technique DLP: 819 mGy-cm FINDINGS: LOWER THORAX: Included lung bases are clear. HEPATOBILIARY: Heterogeneous liver texture, diffusely hypodense suggesting hepatic steatosis, liver is enlarged 25 x 17 cm. GALLBLADDER: Has been removed. SPLEEN: Top normal in size 12.2 cm. PANCREAS: No focal mass or ductal dilatation. STOMACH AND GASTROINTESTINAL TRACT: Postsurgical changes partial gastrectomy. There is no bowel distention or thickening. No CT evidence of appendicitis. ADRENALS: No adrenal nodules. KIDNEYS/URETERS: No hydronephrosis, stones or solid mass lesions. Small 8 mm hypodense lesion in the middle pole left kidney the attenuation of its matrix is bilateral facet suggesting a small AML. Unchanged from prior exam. URINARY BLADDER: Partially decompressed. PELVIC VISCERA: Unremarkable PERITONEUM: No free air or fluid. LYMPH NODES: No lymphadenopathy. VASCULAR:Abdominal aorta normal in size, no aneurysm found. BONES, ABDOMINAL WALL AND SOFT TISSUES: Age-appropriate changes of the spine and skeletal system, no destructive osteolytic or osteosclerotic bone lesion found CT/CT abdomen pelvis wo IV con IMPRESSION: 1. No CT evidence of acute intra-abdominal process to explain patient's pain symptoms. No evidence of appendicitis. 2. Stable 8 mm hypodense lesion middle pole left kidney unchanged from prior exam suggesting a small AML. 3. Hepatomegaly, diffusely hypodense liver suggesting hepatic steatosis. 4. Postsurgical changes partial gastrectomy. 5. Status post cholecystectomy.
[2024-04-07 09:48] VITALS: BP 110/78; PULSE 86; RESP 18; TEMP 36.8; O2SAT 99; BMI 45.4
--- NOTE | 2024-04-07 10:41 | ED_ITS ---
HPI - Female Genitourinary General Chief complaint: Urogenital-Female Stated complaint: abdominal pain Time Seen by Provider: 04/07/24 10:27 Source: patient Mode of arrival: ambulatory Limitations: no limitations History of Present Illness ED Provider: DR. Ching HPI Narrative: 48-year-old female history of recurrent UTI came in for evaluation of RLQ tenderness and right flank pain. Patient was self diagnosed with UTI had dysuria, frequency urination and self- treated buy [id number] medication, felt better for awhile and made an appointment with her OBGYN doctor in 2 weeks, come to the emergency department for worsening of pain in the right lower quadrant and right flank pain, no fever, no chills persistence of frequency urination and dysuria. Abdominal surgery is significant for total hysterectomy and tubal ligation. Related Data Home Medications ?Medication ?Instructions ?Recorded ?Confirmed albuterol sulfate 90 mcg/actuation 2 puff inhalation Q6H PRN Wheezing 02/25/21 06/04/21 aerosol inhaler buprenorphine HCl 8 mg sublingual 8 mg sublingual DAILY 02/25/21 06/04/21 tablet diphenhydramine HCl 50 mg capsule 50 mg PO BEDTIME 02/25/21 06/04/21 gabapentin 600 mg tablet 600 mg PO BEDTIME 02/25/21 06/04/21 prazosin 5 mg capsule 10 mg PO BEDTIME 02/25/21 06/04/21 topiramate 200 mg tablet (Topamax) 200 mg PO BEDTIME 02/25/21 06/04/21 Previous Rx's ?Medication ?Instructions ?Recorded ondansetron HCl 4 mg tablet 4 mg PO Q12H nausea and vomiting 06/05/21 (Zofran) #20 tabs pantoprazole 40 mg tablet,delayed 40 mg PO DAILY #30 tabs 06/05/21 release sucralfate 100 mg/mL oral 10 ml PO BID #400 mL 06/05/21 suspension fondaparinux 2.5 mg/0.5 mL 2.5 mg (0.5 mL) subcut DAILY 10 06/14/21 subcutaneous solution syringe days #5 mL (Arixtra) oxycodone 5 mg tablet 5 mg PO Q6H PRN pain #8 tabs 06/14/21 fondaparinux 2.5 mg/0.5 mL 2.5 mg (0.5 mL) subcut Q24H #5 mL 06/26/21 subcutaneous solution syringe cyclobenzaprine 10 mg tablet 10 mg PO Q8H #20 tabs 08/04/23 tramadol 50 mg tablet 50 mg PO Q6H PRN pain #20 tabs 08/04/23 levofloxacin 750 mg tablet 750 mg PO DAILY #10 tabs 04/07/24 phenazopyridine 100 mg tablet 100 mg PO TID PRN pain 6 doses #6 04/07/24 (Pyridium) tabs Allergies Allergy/AdvReac Type Severity Reaction Status Date / Time Iodinated Contrast Media Allergy Severe ANAPHYLAXIS Verified 04/07/24 09:49 [IV CONTRAST] Penicillins [PENICILLINS] Allergy Severe THROAT Verified 04/07/24 09:49 SWELLING vancomycin [VANCOMYCIN] Allergy Intermediate ITCHING Verified 04/07/24 09:49 STEROIDS Allergy Intermediate GI BLEED Uncoded 04/07/24 09:48 Review of Systems 2 Review of Systems: All other systems are reviewed and are negative Constitutional: Reports as per HPI and Reports no additional constitutional complaints Eyes: Reports as per HPI and Reports no additional eye complaints Reports system reviewed and no additional complaints, except as documented Cardiovascular: Reports as per HPI and Reports no additional cardiovascular complaints Respiratory: Reports as per HPI and Reports no additional respiratory complaints Gastrointestinal: Reports as per HPI and Reports no additional gastrointestinal complaints Genitourinary: Reports no additional female genitourinary complaints Musculoskeletal: Reports no additional musculoskeletal complaints Skin/Breast: Reports system reviewed and no additional complaints, except as docu Psychiatric: Reports no additional psychiatric complaints Endocrine: Reports no additional endocrine complaints Hematologic/Lymphatic: Reports no additional hematologic/lymphatic complaints Allergic/Immunologic: Reports no additional allergic/immunologic complaints Reports system reviewed and no additional complaints, except as documented and Reports Abnormal speech present FOR[facility]LY [facility] Past Medical History Medical History Diaphragmatic hernia History of substance abuse Hx MRSA infection Arthritis Back pain DVT (deep venous thrombosis) Hepatitis Insomnia Seizure History of ETOH abuse Steatosis, liver Prediabetes GERD (gastroesophageal reflux disease) Fibromyalgia Asthma Depression Anxiety PTSD (post-traumatic stress disorder) Hypertension Morbid obesity Surgical History History of sleeve gastrectomy History of bronchoscopy Hx of wisdom tooth extraction Hx of cholecystectomy History of total hysterectomy Hx of colonoscopy Family History Family History Mother Diabetes Hypertension Father Alcohol abuse Brother No problems noted. Brother No problems noted. Son No problems noted. Daughter No problems noted. Social History Social History Household Members: None Housing: Apartment Are you a primary career placement specialist to a significant other at home: No Do you presently have visiting nurse or other home services: No Alcohol intake: former Patient Tobacco Use Status: Former Tobacco user Tobacco use type: Cigarette Years Smoked: 20 Advance Directives: No Advance Directives Information Provided: Yes Do you have a plan to hurt others: No Plan service: No Current occupational status: disabled Physical Exam 2 Vital Signs: Vital Signs: Last Vital Signs Temp 97.6 F 04/07/24 13:51 Pulse 62 04/07/24 13:51 Resp 18 04/07/24 13:51 BP 130/80 04/07/24 13:51 Pulse Ox 97 04/07/24 13:51 O2 Del Method Room Air 04/07/24 13:51 BMI result Body Mass Index 45.4 Vital signs have been reviewed and appear to be correct. Blood pressure elevated. Heart rate normal. Respiratory rate normal. Temperature normal. Oxygen saturation normal. Appearance: Alert. Oriented X3. No acute distress. Head: Normal external exam. Normocephalic. Atraumatic. No [place] signs noted. No raccoon eyes noted Eyes: PERRLA. EOMI. Conjunctiva and sclera normal. Eyelids normal. ENT: TM's Normal. Pharynx normal. Uvula midline. Moist mucous membranes. No trismus noted. No drooling noted. No muffled voice noted. Neck: Normal inspection. Neck supple. FROM. No adenopathy. Thyroid Normal. No meningeal signs. No neck mass noted. CVS: Normal heart rate and rhythm. Heart sound normal. No murmurs noted. Pulses normal throughout. Respiratory: No respiratory distress. Painless inspiration. Breath sounds normal. No wheezes/rales/rhonchi noted. Chest nontender. No accessory muscle usage noted or decreased air movement noted. Abdomen: Soft, RLQ tenderness, no rebound tenderness. Bowel sounds normal in all 4 quadrants. No distention noted. No organomegaly noted. No visible injury noted. Back: R CVA tenderness. Full range of motion noted. Skin: Skin warm and dry. Normal skin color. Normal skin turgor. No rashes/lesions/lacerations noted. Extremities: No lower extremity edema. Extremities exhibit normal range of motion. Extremities nontender. Neuro: Oriented X 3. Cranial nerve exam: II-XII are grossly intact No motor deficit. No sensory deficit. Reflexes normal. Course Reevaluation(s) Reevaluation #1: Untreated UTI for 2 weeks now with right pyelonephritis, no sepsis, patient feels better after treated with fluids and [address] abdomen pelvis is revealing no acute intra-abdominal pathology. Will start the patient on Levaquin for 10 days, Pyridium, instructed to drink plenty of fluids. Time: 14:31 Medications Administered Discontinued Medications Generic Name Dose Route Start Last Admin Trade Name Freq PRN Reason Stop Dose Admin Levofloxacin 750 mg in 150 mls @ 100 mls/hr 04/07/24 10:40 04/07/24 13:15 Levaquin IV 04/07/24 12:09 Infused ONCE ONE Infusion Ketorolac Tromethamine 30 mg 04/07/24 11:23 04/07/24 11:50 Ketorolac Tromethamine 30 Mg/Ml Vial IVPUSH 04/07/24 11:24 30 mg ONCE ONE Administration Morphine Sulfate 2 mg 04/07/24 12:30 04/07/24 12:38 Morphine Sulfate 2 Mg/Ml Cartridge IVPUSH 04/07/24 12:31 2 mg ONCE ONE Administration Protocol Phenazopyridine HCl 100 mg 04/07/24 11:23 04/07/24 11:49 Phenazopyridine Hcl 100 Mg Tablet PO 04/07/24 11:24 100 mg ONCE ONE Administration Medical Decision Making Differential Diagnosis Differential Diagnoses: The differential diagnosis associated with the presentation includes (Obstructive uropathy, pyelonephritis, UTI, acute appendicitis, colitis, diverticulitis, pancreatitis, electrolyte derangement, severe anemia.) Admission/Observation Consideration of admission/observation: Escalation of care including admission/observation considered Lab Data MDM Lab Attestation statement: I reviewed the patient's lab results. 04/07/24 11:04 04/07/24 10:15 Labs: Lab Results 04/07/24 04/07/24 04/07/24 Range/Units 10:15 11:04 11:10 WBC 4.2 L (4.8-10.8) X10*3/uL RBC 4.35 (4.20-5.50) X10*6/uL Hgb 13.0 (12.0-16.0) g/dl Hct 39.4 (37.0-47.0) % MCV 90.6 (80.0-98.0) fL MCH 29.9 (27.0-33.0) pg MCHC 33.0 (31.0-35.0) g/dl RDW 14.0 (11.0-16.0) % Plt Count 201 (160-400) X10*3/uL MPV 10.0 (9.4-12.3) fL Immature Gran % (Auto) 0.5 H (0.0-0.4) % Neut % (Auto) 48.5 (45-73) % Lymph % (Auto) 40.0 (20-40) % [place] % (Auto) 8.6 (2-11) % Eos % (Auto) 1.7 (0-4) % Baso % (Auto) 0.7 (0-2) % Lymph # (Auto) 1.7 (1.2-4.9) X10*3/uL [place] # (Auto) 0.4 (0.1-1.2) X10*3/uL Eos # (Auto) 0.1 (0.0-0.4) X10*3/uL Baso # (Auto) 0.0 (0.0-0.2) X10*3/uL Abs Immat Gran (auto) 0.02 (0.00-0.03) X10*3/uL Absolute Neuts (auto) 2.0 (2.0-8.3) x10*3/uL Absolute Nucleated RBC 0.000 (0.0-0.012) X10*3/uL Nucleated RBC % (auto) 0.0 (0.0-0.2) /100WBC Sodium 141 (135-145) mmol/L Potassium 4.3 (3.3-5.1) mmol/L Chloride 118 H (96-108) mmol/L Carbon Dioxide 15 L (22-29) mmol/L Anion Gap 12 (12-20) BUN 12 (9-16) mg/dL Creatinine 0.79 (0.5-1.4) mg/dL Estim Creat Clear Calc 98.3 Estimated GFR > 60 Random Glucose 115 (60-115) mg/dL Calcium 8.7 D (8.4-10.2) mg/dL Total Bilirubin 0.3 (0.0-1.0) mg/dL AST 42 H (5-31) U/L ALT 51 H (0-31) U/L Alkaline Phosphatase 77 (39-117) U/L Total Protein 6.3 L (6.5-8.0) g/dL Albumin 3.4 L (3.5-5.0) g/dL Urine Color Yellow Urine Appearance Cloudy Urine pH 5.5 (5.0-9.0) Ur Specific [place] 1.025 (1.005-1.025) Urine Protein Negative (Neg-Trace) mg/dL Urine Glucose (UA) Negative (Negative) mg/dL Urine Ketones Negative (Negative) mg/dL Urine Blood Negative (Negative) Urine Nitrite Negative (Negative) Ur Leukocyte Esterase Large (3+) H (Negative) Urine RBC 0-2 (0-2) /HPF Urine WBC >50 H (0-5) /HPF Ur Squamous Epith Cells 3-5 (0-2) /HPF Urine Bacteria 1+ (None Seen) Hyaline Casts 0-2 (0-2) /LPF Independent Interpretation I performed an independent interpretation of an: CT Scan (Abdomen and pelvis:1. No CT evidence of acute intra-abdominal process to explain patient's pain symptoms. No evidence of appendicitis. 2. Stable 8 mm hypodense lesion middle pole left kidney unchanged from prior exam suggesting a small AML. 3. Hepatomegaly, diffusely hypodense liver suggestin) Radiology Impression Discussion of test interpretation with radiology: I have reviewed the radiologist's reading. Discharge Plan Discharge Clinical Impression: Pyelonephritis of right kidney Patient Disposition: Home, Self-Care Instructions: Kidney Infection (ED) Additional Instructions: Drink plenty of fluids. Use ibuprofen 200 mg tablet every 6 hours if needed for pain ([id number]). Prescriptions: New levofloxacin 750 mg tablet 750 mg PO DAILY Qty: 10 0RF phenazopyridine [Pyridium] 100 mg tablet 100 mg PO TID PRN (Reason: pain) Qty: 6 0RF No Action ondansetron HCl [Zofran] 4 mg tablet 4 mg PO Q12H Qty: 20 0RF pantoprazole 40 mg tablet,delayed release (DR/EC) 40 mg PO DAILY Qty: 30 2RF sucralfate 100 mg/mL suspension 10 ml PO BID Qty: 400 2RF fondaparinux 2.5 mg/0.5 mL syringe 2.5 mg subcut Q24H Qty: 5 0RF oxycodone 5 mg tablet 5 mg PO Q6H PRN (Reason: pain) Qty: 8 0RF fondaparinux [Arixtra] 2.5 mg/0.5 mL syringe 2.5 mg subcut DAILY 10 Days Qty: 5 0RF cyclobenzaprine 10 mg tablet 10 mg PO Q8H Qty: 20 0RF tramadol 50 mg tablet 50 mg PO Q6H PRN (Reason: pain) Qty: 20 0RF gabapentin 600 mg tablet 600 mg PO BEDTIME buprenorphine HCl 8 mg tablet, sublingual 8 mg sublingual DAILY diphenhydramine HCl 50 mg capsule 50 mg PO BEDTIME topiramate [Topamax] 200 mg tablet 200 mg PO BEDTIME prazosin 5 mg capsule 10 mg PO BEDTIME albuterol sulfate 90 mcg/actuation HFA aerosol inhaler 2 puff inhalation Q6H PRN (Reason: Wheezing) Print Language: [place]
[2024-04-07 10:47] LABS: Alanine Aminotransferase 51 U/L (0-31); Albumin Level 3.4 g/dL (3.5-5.0); Alkaline Phosphatase 77 U/L (39-117); Anion Gap 12 (12-20); Aspartate Amino Transferase 42 U/L (5-31); Bilirubin Total 0.3 mg/dL (0.0-1.0); Blood Urea Nitrogen 12 mg/dL (9-16); Calcium 8.7 mg/dL (8.4-10.2); Carbon Dioxide 15 mmol/L (22-29); Chloride 118 mmol/L (96-108); Creatinine Clr Calc Pharmacy 98.3; Estimated Glomerular Filt Rate > 60; Glucose Random 115 mg/dL (60-115); Potassium 4.3 mmol/L (3.3-5.1); Sodium 141 mmol/L (135-145); Total Protein 6.3 g/dL (6.5-8.0)
[2024-04-07 11:16] LABS: Basophils Percent Auto 0.7 % (0-2); Eosinophils Absolute Auto 0.1 X10*3/uL (0.0-0.4); Eosinophils Percent Auto 1.7 % (0-4); Hematocrit 39.4 % (37.0-47.0); Imm Gran Abs Auto 0.02 X10*3/uL (0.00-0.03); Imm Gran Pct Auto 0.5 % (0.0-0.4); Lymphocytes Absolute Auto 1.7 X10*3/uL (1.2-4.9); Mean Corpuscular Hemoglobin 29.9 pg (27.0-33.0); Mean Corpuscular Volume 90.6 fL (80.0-98.0); Monocytes Absolute Auto 0.4 X10*3/uL (0.1-1.2); Monocytes Percent Auto 8.6 % (2-11); Neutrophils Percent Auto 48.5 % (45-73); Platelet Count 201 X10*3/uL (160-400); Red Blood Count 4.35 X10*6/uL (4.20-5.50); White Blood Count 4.2 X10*3/uL (4.8-10.8)
[2024-04-07 11:18] LABS: Appearance Urine Cloudy; Color Urine Yellow; Glucose Urine UA Negative (Negative); Leukocyte Esterase Urine Large (3+) (Negative); Nitrite Urine Negative (Negative); PH 5.5 (5.0-9.0); Specific Gravity - Urine 1.025 (1.005-1.025); UMIC TRIGGER UACC YES; Urine Blood Negative (Negative); Urine Ketones Negative (Negative); Urine Protein Negative (Neg-Trace)
[2024-04-07] MEDS: levoFLOXacin/D5W 750 MG/150 ML PIGGYBACK 100 MG IV (11:20)
[2024-04-07 11:28] LABS: Bacteria Urine 1+ (None Seen); Hyaline Casts Urine 0-2 /LPF (0-2); RBC Urine 0-2 /HPF (0-2); UACC Culture Trigger YES; WBC Urine >50 /HPF (0-5)
[2024-04-07] MEDS: Phenazopyridine HCL 100 MG TABLET PO (11:49)
[2024-04-07] MEDS: Ketorolac Tromethamine 30 MG/ML VIAL IVPUSH (11:50)
--- NOTE | 2024-04-07 12:30 | PC.NURSE ---
pt a&ox4, vss, 20G PIV R AC, medicated per MAR for 8/10 lower abd/pelvic pain, cont's to report pain, provider aware.
[2024-04-07 12:38] VITALS: RESP 16
[2024-04-07] MEDS: Morphine Sulfate 2 MG/ML CARTRIDGE IVPUSH (12:38)
[2024-04-07 13:51] VITALS: BP 130/80; PULSE 62; RESP 18; TEMP 36.4; O2SAT 97
[2024-04-07 15:03] VITALS: BP 145/93; PULSE 64; RESP 16; TEMP 36.7; O2SAT 100
[2024-04-07] MEDS: oxyCODONE HCl Immed Release 5 MG TABLET PO (15:04)
[2024-04-07 15:12] VITALS: BP 145/93; PULSE 64; RESP 16; TEMP 36.7; O2SAT 100
== END 2024-04-07 15:12 | disposition home or self-care (01) ==
PROVIDERS: Emergency Provider Emergency Medicine
DX: N12 Tubulo-interstitial nephritis, not specified as acute or chronic (principal); R10.31 Right lower quadrant pain; Z79.899 Other long term (current) drug therapy
CPT/HCPCS: 36415; 74176; 80053; 81001; 85025; 87040; 87086; 87088; 87186; 96365; 96366; 96375; 99284; 99285; J1885; J1956; J2270

== ENCOUNTER 2025-02-07 15:19 | Emergency (ER) | payer OTHER, SELFPAY ==
--- NOTE | ~2025-02-07 | XR_ITS ---
CLINICAL HISTORY: back pain 3 views lumbar spine Comparison: CR/NE/SR - XR LUMBAR SPINE 2-3V - 08/04/23 19:48 EDT Findings: Normal alignment. No acute fractures or dislocation. Moderate degenerative disc disease at L5-S1. Mild degenerative disc disease at L4-L5. Facet osteoarthritis at L4-L5 and L5-S1. No significant change since the prior study. IMPRESSION: No acute findings. This document has been electronically signed by: Adriana Wood MD on 02/07/2025 17:00:28
[2025-02-07 16:27] VITALS: BP 131/89; PULSE 84; RESP 16; TEMP 36.9; O2SAT 96; BMI 39.3
--- NOTE | 2025-02-07 16:43 | ED.GENADULT ---
HPI - General Adult General Chief complaint: Back Pain/Injury Stated complaint: lower back pain Time Seen by Provider: 02/07/25 20:05 Source: patient Limitations: no limitations History of Present Illness ED Provider: Stephanie Guerra PA-C HPI narrative: 49-year-old female with significant arthritis of the lumbar spine, morbid obesity, fibromyalgia, hypertension, anxiety and depression presents with low back strain. 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 Patient now having radiation of pain down the right lower extremity and into her groin. Patient was also having muscle spasms with certain movements. Patient denies paresthesia, weakness of lower extremity, urinary retention or bowel incontinence. Related Data Home Medications ?Medication ?Instructions ?Recorded ?Confirmed albuterol sulfate 90 mcg/actuation 2 puff inhalation Q6H PRN Wheezing 02/25/21 06/04/21 aerosol inhaler buprenorphine HCl 8 mg sublingual 8 mg sublingual DAILY 02/25/21 06/04/21 tablet diphenhydramine HCl 50 mg capsule 50 mg PO BEDTIME 02/25/21 06/04/21 gabapentin 600 mg tablet 600 mg PO BEDTIME 02/25/21 06/04/21 prazosin 5 mg capsule 10 mg PO BEDTIME 02/25/21 06/04/21 topiramate 200 mg tablet (Topamax) 200 mg PO BEDTIME 02/25/21 06/04/21 Previous Rx's ?Medication ?Instructions ?Recorded ondansetron HCl 4 mg tablet 4 mg PO Q12H nausea and vomiting 06/05/21 (Zofran) #20 tabs pantoprazole 40 mg tablet,delayed 40 mg PO DAILY #30 tabs 06/05/21 release sucralfate 100 mg/mL oral 10 ml PO BID #400 mL 06/05/21 suspension fondaparinux 2.5 mg/0.5 mL 2.5 mg (0.5 mL) subcut DAILY 10 06/14/21 subcutaneous solution syringe days #5 mL (Arixtra) oxycodone 5 mg tablet 5 mg PO Q6H PRN pain #8 tabs 06/14/21 fondaparinux 2.5 mg/0.5 mL 2.5 mg (0.5 mL) subcut Q24H #5 mL 06/26/21 subcutaneous solution syringe cyclobenzaprine 10 mg tablet 10 mg PO Q8H #20 tabs 08/04/23 tramadol 50 mg tablet 50 mg PO Q6H PRN pain #20 tabs 08/04/23 levofloxacin 750 mg tablet 750 mg PO DAILY #10 tabs 04/07/24 phenazopyridine 100 mg tablet 100 mg PO TID PRN pain 6 doses #6 04/07/24 (Pyridium) tabs meloxicam 15 mg tablet 15 mg PO DAILY PRN pain #7 tabs 02/07/25 methocarbamol 750 mg tablet 1,500 mg (2 x 750 mg) PO Q8H PRN 02/07/25 pain, moderate #20 tabs Allergies Allergy/AdvReac Type Severity Reaction Status Date / Time Iodinated Contrast Media Allergy Severe ANAPHYLAXIS Verified 02/07/25 16:32 [IV CONTRAST] Penicillins [PENICILLINS] Allergy Severe THROAT Verified 02/07/25 16:32 SWELLING vancomycin [VANCOMYCIN] Allergy Intermediate ITCHING Verified 02/07/25 16:32 STEROIDS Allergy Intermediate GI BLEED Uncoded 04/07/24 09:48 Review of Systems Review of Systems: Yes all other systems are reviewed and are negative Constitutional: Constitutional: Denies fatigue and Denies fever(s) Cardiovascular: Cardiovascular: Denies chest pain and Denies dyspnea Respiratory: Respiratory: Denies cough and Denies dyspnea Gastrointestinal: Gastrointestinal: Denies abdominal pain, Denies nausea and Denies vomiting Genitourinary: Genitourinary: Reports dysuria Musculoskeletal: Musculoskeletal: Reports back pain, Denies muscle weakness, Denies numbness, Reports radiating pain into limb and Denies tingling Neurologic: Denies numbness and Denies tingling Endocrine: Endocrine: Denies fatigue PMFSH Past Medical History Attestation statement: The following information was validated with the patient. Medical History Diaphragmatic hernia History of substance abuse Hx MRSA infection Arthritis Back pain DVT (deep venous thrombosis) Hepatitis Insomnia Seizure History of ETOH abuse Steatosis, liver Prediabetes GERD (gastroesophageal reflux disease) Fibromyalgia Asthma Depression Anxiety PTSD (post-traumatic stress disorder) Hypertension Morbid obesity Surgical History History of sleeve gastrectomy History of bronchoscopy Hx of wisdom tooth extraction Hx of cholecystectomy History of total hysterectomy Hx of colonoscopy Family History Family History Mother Diabetes Hypertension Father Alcohol abuse Brother No problems noted. Brother No problems noted. Son No problems noted. Daughter No problems noted. Social History Social History Household Members: None Housing: Apartment Are you a primary home care administrator to a significant other at home: No Do you presently have visiting nurse or other home services: No Alcohol intake: former Patient Tobacco Use Status: Former Tobacco user Tobacco use type: Cigarette Years Smoked: 20 Smoked in Last 30 Days: No Use of substances other than those prescribed or required for medical reasons: No Advance Directives: No Advance Directives Information Provided: No Do you have a plan to hurt others: No Plan service: No Current occupational status: disabled Physical Exam ED Vital Signs: Vital Signs - 24 hr 02/07/25 16:27 02/07/25 19:38 02/07/25 20:00 Temperature 98.5 F 97.0 F Pulse Rate 84 90 76 Respiratory Rate 16 16 18 Blood Pressure 131/89 160/97 H 188/105 H Pulse Oximetry 96 100 100 Oxygen Delivery Method Room Air Room Air 02/07/25 21:45 Temperature 98.5 F Pulse Rate 75 Respiratory Rate 18 Blood Pressure 165/99 H Pulse Oximetry 100 Oxygen Delivery Method Room Air BMI result Body Mass Index 39.3 Const Other: Alert Orientation/consciousness: patient oriented x3 Resp Effort & Inspection: normal respiratory effort Cardio Other: Normal peripheral perfusion Skin Other: Warm dry no rash Neuro General: patient oriented x3, gait normal, no focal motor deficits and CN's II-XI intact bilaterally Psych Other: Cooperative Course Course Course Narrative: RME: 49 yold female presents to the ED for low back pain after hearing pop in back while crawling into dog kettle. patient also states dysuria. labs, xray, uA Ordered. positive low spine tendernessl Medications Administered Discontinued Medications Generic Name Dose Route Start Last Admin Trade Name Freq PRN Reason Stop Dose Admin Ketorolac Tromethamine 15 mg 02/07/25 21:27 02/07/25 21:37 Ketorolac Tromethamine 15 Mg/Ml Vial IM 02/07/25 21:28 15 mg ONCE ONE Administration Methocarbamol 1,500 mg 02/07/25 21:27 02/07/25 21:37 Methocarbamol 750 Mg Tablet PO 02/07/25 21:28 1,500 mg ONCE ONE Administration Medical Decision Making Medical Decision Making MDM Narrative: 49-year-old female with significant arthritis of the lumbar spine, morbid obesity, fibromyalgia, hypertension, anxiety and depression presents with low back strain. 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 Patient now having radiation of pain down the right lower extremity and into her groin. Patient was also having muscle spasms with certain movements. Patient denies paresthesia, weakness of lower extremity, urinary retention or bowel incontinence. Problem: Chronic pain, morbid obesity History: Per patient I have considered the following differential diagnoses: Lumbar strain, lumbar radiculopathy, cauda equina, compression fracture Plan: Labs and imaging ordered from triage, no acute injury. She is having radicular symptoms without red flag signs symptoms concerning for cord compression. We will treat with anti-inflammatories and muscle relaxant. The patient states she is having dysuria, however her urine is not infected, we will send with Pyridium. I have independently reviewed the following tests: Labs: No leukocytosis, not anemic, urine not infected not X-ray lumbar spine:Findings: Normal alignment. No acute fractures or dislocation. Moderate degenerative disc disease at L5-S1. Mild degenerative disc disease at L4-L5. Facet osteoarthritis at L4-L5 and L5-S1. No significant change since the prior study. IMPRESSION: No acute findings. Lab Data 02/07/25 17:00 02/07/25 17:00 Labs: Lab Results 02/07/25 Range/Units 17:00 WBC 8.4 (4.8-10.8) X10*3/uL RBC 4.81 (4.20-5.50) X10*6/uL Hgb 14.3 (12.0-16.0) g/dl Hct 42.1 (37.0-47.0) % MCV 87.5 (80.0-98.0) fL MCH 29.7 (27.0-33.0) pg MCHC 34.0 (31.0-35.0) g/dl RDW 12.9 (11.0-16.0) % Plt Count 282 D (160-400) X10*3/uL MPV 10.4 (9.4-12.3) fL Immature Gran % (Auto) 0.2 (0.0-0.4) % Neut % (Auto) 53.8 (45-73) % Lymph % (Auto) 37.7 (20-40) % [place] % (Auto) 6.0 (2-11) % Eos % (Auto) 1.6 (0-4) % Baso % (Auto) 0.7 (0-2) % Lymph # (Auto) 3.2 (1.2-4.9) X10*3/uL [place] # (Auto) 0.5 (0.1-1.2) X10*3/uL Eos # (Auto) 0.1 (0.0-0.4) X10*3/uL Baso # (Auto) 0.1 (0.0-0.2) X10*3/uL Abs Immat Gran (auto) 0.02 (0.00-0.03) X10*3/uL Absolute Neuts (auto) 4.5 (2.0-8.3) x10*3/uL Absolute Nucleated RBC 0.000 (0.0-0.012) X10*3/uL Nucleated RBC % (auto) 0.0 (0.0-0.2) /100WBC Sodium 139 (135-145) mmol/L Potassium 3.8 (3.3-5.1) mmol/L Chloride 108 (96-108) mmol/L Carbon Dioxide 22 (22-29) mmol/L Anion Gap 13 (12-20) BUN 23 H (9-16) mg/dL Creatinine 1.03 (0.5-1.4) mg/dL Estim Creat Clear Calc 76.7 Estimated GFR 57 Random Glucose 87 (60-115) mg/dL Calcium 9.6 D (8.4-10.2) mg/dL Total Bilirubin 0.7 (0.0-1.0) mg/dL AST 37 H (5-31) U/L ALT 37 H (0-31) U/L Alkaline Phosphatase 90 (39-117) U/L Total Protein 7.6 (6.5-8.0) g/dL Albumin 4.5 (3.5-5.0) g/dL Beta HCG, Quant 4 mIU/mL Urine Color Dark Yellow Urine Appearance Clear Urine pH 5.0 (5.0-9.0) Ur Specific Nenzel >= 1.030 H (1.005-1.025) Urine Protein 30 (1+) H (Neg-Trace) mg/dL Urine Glucose (UA) Negative (Negative) mg/dL Urine Ketones Trace (Negative) mg/dL Urine Blood Negative (Negative) Urine Nitrite Negative (Negative) Ur Leukocyte Esterase Negative (Negative) Urine RBC 0-2 (0-2) /HPF Urine WBC 0-5 (0-5) /HPF Ur Squamous Epith Cells 3-5 (0-2) /HPF Urine Bacteria None Seen (None Seen) Hyaline Casts 6-10 (0-2) /LPF Discharge Plan Discharge Clinical Impression: Lumbar radiculopathy, right Patient Disposition: Home, Self-Care Instructions: Lumbar Radiculopathy (ED) Additional Instructions: All of your screening labs were normal, you do not have a urinary tract infection. Use the Pyridium as needed for urinary pain. To note this medication will cause your urine return bright orange, it will resolve. Use the meloxicam as directed, take it with food, this is an anti-inflammatory. Use the methocarbamol, this is a muscle relaxant, as needed for further pain. To note this medication will cause drowsiness do not drive or operate machinery while taking this medication. Follow up with your primary care provider as needed. Prescriptions: New meloxicam 15 mg tablet 15 mg PO DAILY PRN (Reason: pain) Qty: 7 0RF methocarbamol 750 mg tablet 1,500 mg PO Q8H PRN (Reason: pain, moderate) Qty: 20 0RF No Action ondansetron HCl [Zofran] 4 mg tablet 4 mg PO Q12H Qty: 20 0RF pantoprazole 40 mg tablet,delayed release (DR/EC) 40 mg PO DAILY Qty: 30 2RF sucralfate 100 mg/mL suspension 10 ml PO BID Qty: 400 2RF fondaparinux 2.5 mg/0.5 mL syringe 2.5 mg subcut Q24H Qty: 5 0RF oxycodone 5 mg tablet 5 mg PO Q6H PRN (Reason: pain) Qty: 8 0RF fondaparinux [Arixtra] 2.5 mg/0.5 mL syringe 2.5 mg subcut DAILY 10 Days Qty: 5 0RF cyclobenzaprine 10 mg tablet 10 mg PO Q8H Qty: 20 0RF tramadol 50 mg tablet 50 mg PO Q6H PRN (Reason: pain) Qty: 20 0RF levofloxacin 750 mg tablet 750 mg PO DAILY Qty: 10 0RF phenazopyridine [Pyridium] 100 mg tablet 100 mg PO TID PRN (Reason: pain) Qty: 6 0RF gabapentin 600 mg tablet 600 mg PO BEDTIME buprenorphine HCl 8 mg tablet, sublingual 8 mg sublingual DAILY diphenhydramine HCl 50 mg capsule 50 mg PO BEDTIME topiramate [Topamax] 200 mg tablet 200 mg PO BEDTIME prazosin 5 mg capsule 10 mg PO BEDTIME albuterol sulfate 90 mcg/actuation HFA aerosol inhaler 2 puff inhalation Q6H PRN (Reason: Wheezing) Interventions: ED Discharge Assessment Last Done: 02/07/25 21:45 Discharge Date/Time: 02/07/25 21:46 Print Language: Brazilian
[2025-02-07 17:06] LABS: MANUAL DIFF FLAG NO
[2025-02-07 17:07] LABS: Basophils Absolute Auto 0.1 X10*3/uL (0.0-0.2); Basophils Percent Auto 0.7 % (0-2); Eosinophils Absolute Auto 0.1 X10*3/uL (0.0-0.4); Eosinophils Percent Auto 1.6 % (0-4); Hematocrit 42.1 % (37.0-47.0); Hemoglobin 14.3 g/dl (12.0-16.0); Imm Gran Abs Auto 0.02 X10*3/uL (0.00-0.03); Imm Gran Pct Auto 0.2 % (0.0-0.4); Lymphocytes Absolute Auto 3.2 X10*3/uL (1.2-4.9); Lymphocytes Percent Auto 37.7 % (20-40); Mean Corpuscular Hemoglobin 29.7 pg (27.0-33.0); Mean Corpuscular Volume 87.5 fL (80.0-98.0); Mean Platelet Volume 10.4 fL (9.4-12.3); Monocytes Absolute Auto 0.5 X10*3/uL (0.1-1.2); Neutrophils Absolute Auto 4.5 x10*3/uL (2.0-8.3); Neutrophils Percent Auto 53.8 % (45-73); Platelet Count 282 X10*3/uL (160-400); Red Blood Count 4.81 X10*6/uL (4.20-5.50); Red Cell Distribution Width 12.9 % (11.0-16.0); White Blood Count 8.4 X10*3/uL (4.8-10.8)
[2025-02-07 17:08] LABS: Appearance Urine Clear; Color Urine Dark Yellow; Glucose Urine UA Negative (Negative); Leukocyte Esterase Urine Negative (Negative); Nitrite Urine Negative (Negative); Specific Gravity - Urine >= 1.030 (1.005-1.025); UMIC TRIGGER UACC YES; Urine Blood Negative (Negative); Urine Ketones Trace mg/dL (Negative); Urine Protein 30 (1+) mg/dL (Neg-Trace)
[2025-02-07 17:25] LABS: Alanine Aminotransferase 37 U/L (0-31); Albumin Level 4.5 g/dL (3.5-5.0); Alkaline Phosphatase 90 U/L (39-117); Anion Gap 13 (12-20); Aspartate Amino Transferase 37 U/L (5-31); Bilirubin Total 0.7 mg/dL (0.0-1.0); Blood Urea Nitrogen 23 mg/dL (9-16); Calcium 9.6 mg/dL (8.4-10.2); Carbon Dioxide 22 mmol/L (22-29); Chloride 108 mmol/L (96-108); Creatinine Clr Calc Pharmacy 76.7; Estimated Glomerular Filt Rate 57; Glucose Random 87 mg/dL (60-115); Potassium 3.8 mmol/L (3.3-5.1); Sodium 139 mmol/L (135-145); Total Protein 7.6 g/dL (6.5-8.0)
[2025-02-07 17:26] LABS: HCG Quantitative 4 mIU/mL
[2025-02-07 18:37] LABS: Bacteria Urine None Seen (None Seen); RBC Urine 0-2 /HPF (0-2); WBC Urine 0-5 /HPF (0-5)
[2025-02-07 19:38] VITALS: BP 160/97; PULSE 90; RESP 16; TEMP 36.1; O2SAT 100
[2025-02-07 20:00] VITALS: BP 188/105; PULSE 76; RESP 18; O2SAT 100
--- OUTSIDE RECORDS SUMMARY | 2025-02-07 20:34 | XMS_ITS | Clinical Summary ---
Author Organization [employer] Address [address] [place] [address] Care Team Providers Care Cabin Service Agent Name Role Phone Unavailable Primary Care Provider Unavailabl e Allergies Active Allergy Reactions Criticality Noted Date Comments Buprenorphine-Naloxone 07/10/2024 reports mouth sores Corticosteroids Unknown 02/16/2024 Hepatitis B Vac Recombinant Unknown 07/10/20 Iodinated Contrast Media Unknown 07/10/2024 Ioversol 12/21/2017 Other Reaction(s): Slow respiration Penicillin G Unknown 12/09/2017 Penicillin V 07/10/2024 Penicillins Swelling 01/31/2023 Medications clotrimazole (Lotrimin) 1 % cream Apply topically every 12 (twelve) hours. 01/17/20 18 Active hydrOXYzine pamoate (Vistaril) 50 MG capsule 1 capsule in the morning and 1 capsule at noon and 1 capsule in the evening. Active hydrOXYzine HCl (Atarax) 25 MG tablet Take 1 tablet by mouth every 6 (six) hours. Active lactulose (Chronulac) 10 GM/15ML solution 15 mL in the morning. 04/05/20 19 Active loratadine (Claritin) 10 MG tablet 1 tablet in the morning. 07/03/20 19 Active methadone (Methadose) 40 MG dispersible tablet Take 1 tablet by mouth at bed time. Active methadone (Dolophine) 10 MG/5ML solution 48 mL in the morning. Active mirtazapine (Remeron) 7.5 MG tablet 1 tablet in the morning. 05/10/20 19 Active nicotine polacrilex (Nicorette) 2 MG gum 1 piece as needed Mouth/Throat upt to 8 times per day Active prazosin (Minipress) 2 MG capsule 3 capsules. Active rOPINIRole (Requip) 0.5 MG tablet 1 tablet in the morning and 1 tablet at noon and 1 tablet in the evening. Active venlafaxine XR (Effexor XR) 75 MG 24 hr capsule 1 capsule in the morning. 07/19/20 Active prazosin (Minipress) 5 MG capsule 01/29/20 Active cloNIDine (Catapres) 0.2 MG tablet 01/28/20 Active gabapentin (Neurontin) 600 MG tablet 01/28/20 Active topiramate (Topamax) 100 MG tablet 01/28/20 Active fluticasone (Flonase) 50 MCG/ACT nasal spray 01/19/20 Active doxepin (SINEquan) 10 MG capsule 02/03/20 Active busPIRone (Buspar) 10 MG tablet 01/28/20 Active azithromycin (Zithromax) 250 MG tablet Take two tabs on day one followed by one tablet once daily from day two until gone. 6 tablet 02/24/20 Active Albuterol Sulfate (ProAir RespiClick) 108 (90 Base) MCG/ACT aerosol powder Inhale. 08/28/20 Active atorvastatin (Lipitor) 20 MG tablet Take 20 mg by mouth Once per day. 12/26/19 Active cholecalciferol (Vitamin D-3) 50 MCG (2000 UT) capsule Take 2,000 Units by mouth Once per day. 12/26/19 25 Active cyanocobalamin (Vitamin B-12) 1000 MCG tablet Take 1,000 mcg by mouth Once per day. 12/26/19 25 Active SUMAtriptan (Imitrex) 50 MG tablet Take 50 mg by mouth 1 (one) time if needed. 12/26/19 25 026 Active acetaminophen (Tylenol 8 Hour) 650 MG ER tablet Take 1 tablet (650 mg) by mouth every 8 (eight) hours if needed for mild pain. Do not crush, chew, or split. 30 tablet 01/22/20 25 Active ibuprofen 600 MG tabletIndicatio ns:Alveolitis of maxilla,History of tooth extraction, unspecified edentulism class Take 1 tablet (600 mg) by mouth 3 times daily. 30 tablet 01/22/20 25 Active chlorhexidine (Peridex) 0.12 % solution Swish 15 mL morning and night for 1 minute. Spit, do not swallow. Do not eat or drink for 30 minutes following use. 473 mL 01/22/20 Active ibuprofen 600 MG tabletIndicatio ns:Pain due to dental caries Take 1 tablet (600 mg) by mouth 3 times daily. 30 tablet 01/08/20 25 025 Discontinued clindamycin (Cleocin) 300 MG capsuleIndicati ons:Pain due to dental caries Take 1 capsule (300 mg) by mouth 4 times daily for 7 days. 28 capsule 01/08/20 25 025 azithromycin (Zithromax) 250 MG tablet Take two tablets on day one followed by one tablet from day two until gone. 6 tablet 01/16/20 25 025 ibuprofen 600 MG tablet Take 1 tablet (600 mg) by mouth 3 times daily for 5 days. 15 tablet 01/16/20 25 025 acetaminophen (Tylenol) 500 MG tablet Take 1 tablet (500 mg) by mouth every 8 (eight) hours if needed for mild pain for up to 5 days. 15 tablet 01/16/20 25 025 clindamycin (Cleocin) 300 MG capsule Take 1 capsule (300 mg) by mouth 4 times daily for 7 days. 28 capsule 01/22/20 025 traMADol (Ultram) 50 MG tabletIndicatio ns:Alveolitis of maxilla,History of tooth extraction, unspecified edentulism class,Pain, dental Take 1 tablet (50 mg) by mouth every 6 (six) hours if needed for severe pain for up to 5 days. 15 tablet 01/22/20 25 025 oxyCODONE-aceta minophen (Percocet) 5-325 MG tabletIndicatio ns:Alveolitis of maxilla,History of tooth extraction, unspecified edentulism class,Pain, dental Take 1 tablet by mouth every 6 (six) hours if needed for severe pain for up to 5 days. 15 tablet 01/22/20 25 025 Discontinued oxyCODONE-aceta minophen (Percocet) 5-325 MG tabletIndicatio ns:Alveolitis of maxilla,History of tooth extraction, unspecified edentulism class,Pain, dental Take 1 tablet by mouth every 6 (six) hours if needed for severe pain for up to 5 days. 15 tablet 01/22/20 25 01/26/ 025 Active Problems Problem Noted Date Diagnosed Date Alveolitis of maxilla 01/21/2025 History of tooth extraction 01/21/2025 Pain, dental 01/21/2025 Xerostomia 07/11/2024 Dental plaque 07/11/2024 Missing teeth, acquired 07/11/2024 Localized gingival recession 07/11/2024 Pain due to dental caries 07/11/2024 Tooth sensitivity 07/11/2024 Encounters Date Type Department Care Team Description 01/21/2025 11:30 AM EDT Office Visit [facility] [address] [facility] [address] Yohannes Recio DDS Alveolitis of maxilla (Primary Dx); History of tooth extraction, unspecified edentulism class; Pain, dental 01/15/2025 10:00 AM EDT Office Visit [facility] [address] [place] [address] Erasmo Bryan DDS Pain, dental (Primary Dx); Acute apical periodontitis of pulpal origin; Pain due to dental caries 01/07/2025 1:00 PM EDT Office Visit [facility] [address] [place] [address] Yohannes Recio DDS Pain due to dental caries (Primary Dx) 12/28/2024 Telephone [facility] [address] [place] [address] Erasmo Bryan DDS cx same day ; unable to post insurance from Last 3 Months Social History Tobacco Use Types Packs/Day Years Used Date Smoking Tobacco: Former Cigarettes 3 20 0 01/18/1998 - 01/18/2018 Smokeless Tobacco: Never Alcohol Use Standard Drinks/Week Comments Not Currently 20 (1 standard drink = 0.6 oz pu re alcohol) Comments Unknown Sex and Gender Information Value Date Recorded Sex Assigned at Female 08/09/2022 10:33 AM EDT Legal Sex Female 10:33 AM EDT Gender Identity Female 01/31/2023 11:25 AM EDT Sexual Orientation Straight 01/31/2023 11 :25 AM EDT Last Filed Vital Signs Vital Sign Reading Time Taken Comments Blood Pressure 110/72 01/21/2025 10:57 AM EDT Pulse 65 01/21/2025 10:57 AM EDT Temperature - - Respiratory Rate - - Oxygen Saturation - - Inhaled Oxygen Concentration - - Weight - - Height - - Body Mass Index - - Plan of Treatment Upcoming Encounters Date Type Department Care Team (Late st Contact Info) Description 02/12/2025 9:00 AM EDT Office Visit [facility] [address] [place] [address] RandiSwapna sanchezErasmo, DDS [address] [place] [address] 02/19/2025 9:00 AM EDT Office Visit [facility] [address] [place] [address] Yohannes Recio, DD [address] [place] [address] 06/28/2025 3:00 PM EDT Office Visit [facility] [address] [place] [address] Chele Dowellaris [address] [place] [address] Health Maintenance Due Date Last Done Comments CT Colonography 1974 Colonoscopy 1974 Colorectal Cancer Screening 1974 Depression Screening 1974 FIT DNA/Cologuard 1974 FIT 1974 FOBT 1974 HIV Screening 1974 Lipid Panel 1974 SDOH Screening 1974 Sigmoidoscopy 1974 Alcohol/Substance Use Screening 1986 Family Planning (PISQ) 1989 Pap Smear 1995 Cervical Cancer Screening 2004 HPV/Cotest 2004 Mammogram 2014 Hepatitis B Vaccines (3 of 3 - 19+ 3-dose series) 05/21/2019 03/26/2019, 05/04/2018 Hepatitis A Vaccines (2 of 2 - Risk 2-dose series) 09/25/2019 03/26/2019 Pneumococcal Vaccine: 50+ Years (2 of 2 - PCV) 04/05/2020 04/05/2019 Dental Oral Exam 08/27/2023 02/23/2023 COVID-19 Vaccine (3 - 2023-2 5 season) 2024 07/23/2021, 06/29/2021 Influenza Vaccine (#1) 2024 , 06/19/2019 Lung Cancer Screening 2024 Zoster Vaccines (1 of 2) 2024 Dental Prophylaxis 01/10/2025 07/11/2024 Dental X-Ray: Bitewings 01/16/2026 01/16/20 25, 02/23/2023 Tobacco Screening 01/21/2026 01/21/2025 DTaP/Tdap/Td Vaccines (2 - T d or Tdap) 10/10/2026 10/10/2016 Dental X-Ray: Full Mouth 01/23/2028 025, 02/23/2023 RSV Patients and Patients Aged 60 years or older (1 - 1-dose 75+ series) 2049 HIB Vaccines Aged Out No longer eligi ble based on patient's age to complete this topic HPV Vaccines Aged Out No longer eligi ble based on patient's age to complete this topic IPV Vaccines Aged Out No longer eligi ble based on patient's age to complete this topic Meningococcal Vaccine Aged Out No clark ophelia eligible based on patient's age to complete this topic RSV under 20 months Aged Out No longe r eligible based on patient's age to complete this topic Rotavirus Vaccines Aged Out No longer eligible based on patient's age to complete this topic Procedures Procedure Name Priority Date/Time Associated Diagnosis Comments CASE PRESENTATION, DETAILED AND EXTENSIVE TREATMENT PLANNING Routine 01/21/2025 11:30 AM EDT PANORAMIC RADIOGRAPHIC IMAGE Routine 01/21/2025 11:30 AM EDT PALLIATIVE (EMERGENCY) TREATMENT OF DENTAL PAIN - MINOR PROCEDURE Routine 01/21/2025 11:30 AM EDT CASE PRESENTATION, DETAILED AND EXTENSIVE TREATMENT PLANNING Routine 01/15/2025 10:00 AM EDT 15 EXTRACTION, ERUPTED TOOTH OR EXPOSED ROOT (ELEVATION/FORCEPS REMOVAL) Routine 01/15/2025 10:00 AM EDT Acute apical periodontitis of pulpal origin 15 LIMITED ORAL EVALUATION - PROBLEM FOCUSED Routine 01/15/2025 10:00 AM EDT BITEWING - SINGLE RADIOGRAPHIC IMAGE Routine 01/15/2025 10:00 AM EDT 15 INTRAORAL - PERIAPICAL FIRST RADIOGRAPHIC IMAGE Routine 01/15/2025 10:00 AM EDT LIMITED ORAL EVALUATION - PROBLEM FOCUSED Routine 01/07/2025 1:00 PM EDT INTRAORAL - PERIAPICAL EACH ADDITIONAL RADIOGRAPHIC IMAGE Routine 01/07/2025 1:00 PM EDT CASE PRESENTATION, DETAILED AND EXTENSIVE TREATMENT PLANNING Routine 01/07/2025 1:00 PM EDT INTRAORAL - PERIAPICAL FIRST RADIOGRAPHIC IMAGE Routine 01/07/2025 1:00 PM EDT PROPHYLAXIS - ADULT Routine 07/11/2024 9 :00 AM EDT Xerostomia Dental plaque Dental caries COMPREHENSIVE ORAL EVALUATION - NEW OR ESTABLISHED PATIENT Routine 02/23/2023 2:00 PM EDT from Last 3 Months or Most Recently Relevant to Health Maintenance Insurance [facility] MEDICAID STAND ADULT
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
--- OUTSIDE RECORDS SUMMARY | 2025-02-07 20:34 | XMS_ITS | Encounter Summary ---
Author Organization [employer] Address [address] [facility] [address] [place] [address] Care Team Providers Care Tree Trimmer Name Role Phone Unavailable Primary Care Provider Unavailabl e Encounter Details Date Type Department Care Team (Late st Contact Info) Description 08/12/2023 Telephone [facility] ADULT DENTAL [address] [place], [place] [phone] Erasmo Bryan DDS [address] [place] [address] Social History Tobacco Use Types Packs/Day Years [...] Orientation Straight 01/31/2023 11 :25 AM EDT documented as of this encounter Miscellaneous Notes * Telephone Encounter - Eileen Rosales - 08/12/2023 12:06 PM EDT Patient called for emergency visit we had nothing open .patient will call Tuesday morning she only wants [place] documented in this encounter Plan of Treatment Upcoming Encounters Date Type Department Care Team (Late Contact Info) Description 02/12/2025 9:00 AM EDT Office Visit [facility] ADULT DENTAL [address] [place] [address] Erasmo Bryan DDS [address] [place] [address] 02/19/2025 9:00 AM EDT Office Visit [facility] ADULT DENTAL [address] [place], [place] [phone] Yohannes Recio DDS [address] [place], [place] [phone] 06/28/2025 3:00 PM EDT Office Visit [facility] ADULT DENTAL [address] [place], [place] [phone] Gerri Dowell [address] [place], [place] [phone] documented as of this encounter Visit Diagnoses Not on filedocumented in this encounter
--- OUTSIDE RECORDS SUMMARY | 2025-02-07 20:34 | XMS_ITS | Encounter Summary ---
Author Organization [employer] Address [address] [facility] [address] [place] [address] Care Team Providers Care Press Tender Star Signal Name Role Phone Unavailable Primary Care Provider Unavailabl e Reason for Visit * Reason Onset Date Comments Appointment 02/07/2023 Encounter Details Date Type Department Care Team (Late st Contact Info) Description 02/07/2023 Telephone [facility] ADULT DENTAL [address] [place], [place] [phone] Erasmo Bryan DDS [address] [place], [place] [phone] Appointment Social History Tobacco Use Types Packs/Day Years [...] Orientation Straight 01/31/2023 11 :25 AM EDT COVID-19 Exposure Response Date Recorded In the last 10 days, have yo u been in contact with someone who was confirmed or suspected to have Coronavirus/COVID-19? No / Unsure 02/08/2023 10:20 AM EDT documented as of this encounter Miscellaneous Notes * Telephone Encounter - Iesha Huggins - 02/07/2023 3:28 PM EDT Afia Mayfield 1975 Patient was seen on 02/04/2023 for Extraction and stated that medication that was given to her is not working and that her gums are swollen and she also having a lot of pain please advise documented in this encounter Plan of Treatment Upcoming Encounters Date Type Department Care Team (Late st Contact Info) Description 02/12/2025 9:00 AM EDT Office Visit [facility] ADULT DENTAL [address] [place] [address] Erasmo Bryan DDS [address] [place] [address] 02/19/2025 9:00 AM EDT Office Visit [facility] ADULT DENTAL [address] [place] [address] Yohannes Recio DDS [address] [place] [address] 06/28/2025 3:00 PM EDT Office Visit [facility] ADULT DENTAL [address] [place] [address] Gerri Dowell [address] [place] [address] documented as of this encounter Visit Diagnoses Not on filedocumented in this encounter
--- OUTSIDE RECORDS SUMMARY | 2025-02-07 20:34 | XMS_ITS | Encounter Summary ---
Author Organization [employer] Address [address] [place] [address] 7 [place] [address] Care Team Providers Care Web Content Specialist Name Role Phone Unavailable Primary Care Provider Unavailabl e Reason for Visit * Reason Onset Date Comments cx same day 12/28/2024 unable to post insurance 12/28/2024 Encounter Details Date Type Department Care Team ([facility] st Contact Info) Description 12/28/2024 Telephone [facility] ADULT DENTAL [address] [place], [place] [phone] Erasmo Bryan DDS [address] [place], [place] [phone] cx same day ; unable to post insurance Social History Tobacco Use Types Packs/Day Years [...] encounter Miscellaneous Notes * Telephone Encounter - Farzaneh Lira - 01/07/2025 8:55 AM EDT Patient is coming in for 1pm dental emergency. Unable to post insurance portal not running [facility] * Telephone Encounter - Farzaneh Lira - 12/28/2024 11:36 AM EDT Patient called in to cancel appt same day due to fever. Patient has been informed that she will receive a call from office to rs appt after waiting period. Patient understood DR documented in this encounter Plan of Treatment Upcoming Encounters Date Type Department Care Team (Late st Contact Info) Description 02/12/2025 9:00 AM EDT Office Visit [facility] ADULT DENTAL [address] [place] [address] Erasmo Bryan DD [address] [place] [address] 02/19/2025 9:00 AM EDT Office Visit [facility] ADULT DENTAL [address] [place] [address] Yohannes Recio DDS [address] [place] [address] 06/28/2025 3:00 PM EDT Office Visit [facility] [address] [facility] [place] [address] Gerri Dowell [address] [place] [address] documented as of this encounter Visit Diagnoses Not on filedocumented in this encounter
--- OUTSIDE RECORDS SUMMARY | 2025-02-07 20:34 | XMS_ITS | Encounter Summary ---
Author Organization [employer] Address [address] [place] [address] 7 [place] [address] Care Team Providers Care Predatory Animal Hunter Name Role Phone Unavailable Primary Care Provider Unavailabl e Reason for Visit * Reason Onset Date Comments New Patient Appt 05/12/2023 Encounter Details Date Type Department Care Team (Late st Contact Info) Description 05/12/2023 Telephone [facility] MEDICINE [address] [place], [place] [phone] Oswald Gifford MD [address] [place], [place] [phone] New Patient Appt Social History Tobacco Use Types Packs/Day Years [...] encounter Miscellaneous Notes * Telephone Encounter - Sugar Zhou - 05/12/2023 3:54 PM EDT New Patients Par Sugar Zamorano called to schedule New patient appt, pt did not answer left voicemail to give a call at [phone]. documented in this encounter Plan of Treatment Upcoming Encounters Date Type Department Care Team (Late Contact Info) Description 02/12/2025 9:00 AM EDT Office Visit [facility] ADULT DENTAL [address] [facility] [place] [address] Erasmo Bryan, DDS 230 [facility] [place] [address] 02/19/2025 9:00 AM EDT Office Visit [facility] ADULT DENTAL [address] [facility] [place] [address] Yohannes Recio DDS [address] [facility] [place] [address] 06/28/2025 3:00 PM EDT Office Visit [facility] ADULT DENTAL [address] [facility] [place] [address] Gerri Dowell 230 [facility] [place] [address] documented as of this encounter Visit Diagnoses Not on filedocumented in this encounter
[2025-02-07] MEDS: Ketorolac Tromethamine 15 MG/ML VIAL IM (21:37)
[2025-02-07] MEDS: methocarbamoL 750 MG TABLET 1500 MG PO (21:37)
[2025-02-07 21:45] VITALS: BP 165/99; PULSE 75; RESP 18; TEMP 36.9; O2SAT 100
== END 2025-02-07 21:46 | disposition home or self-care (01) ==
PROVIDERS: Emergency Provider Internal Medicine; PCP Internal Medicine
DX: M54.16 Radiculopathy, lumbar region (principal); M54.50 Low back pain, unspecified; I10 Essential (primary) hypertension; Z79.899 Other long term (current) drug therapy
CPT/HCPCS: 36415; 72100; 80053; 81001; 84702; 85025; 96372; 99284; J1885

== ENCOUNTER → 2025-02-07 16:35 | Outpatient (BNV) | payer OTHER, SELFPAY | PROVIDERS: PCP Internal Medicine; Visit Provider Radiology Diagnostic Radiology | DX: M54.50 Low back pain, unspecified (principal) | CPT/HCPCS: 72100 ==

== ENCOUNTER 2025-02-19 09:42 | Emergency (ER) | payer OTHER, SELFPAY ==
[2025-02-19 10:15] VITALS: BP 131/65; PULSE 66; RESP 18; TEMP 36.4; O2SAT 100; BMI 44.2
[2025-02-19 10:43] LABS: MANUAL DIFF FLAG NO
[2025-02-19 10:44] LABS: Basophils Percent Auto 0.8 % (0-2); Eosinophils Absolute Auto 0.1 X10*3/uL (0.0-0.4); Eosinophils Percent Auto 2.5 % (0-4); Hematocrit 41.6 % (37.0-47.0); Hemoglobin 13.9 g/dl (12.0-16.0); Imm Gran Abs Auto 0.01 X10*3/uL (0.00-0.03); Imm Gran Pct Auto 0.2 % (0.0-0.4); Lymphocytes Absolute Auto 2.7 X10*3/uL (1.2-4.9); Lymphocytes Percent Auto 50.5 % (20-40); Mean Corpuscular HGB Conc 33.4 g/dl (31.0-35.0); Mean Corpuscular Hemoglobin 29.4 pg (27.0-33.0); Mean Corpuscular Volume 87.9 fL (80.0-98.0); Mean Platelet Volume 10.7 fL (9.4-12.3); Monocytes Absolute Auto 0.4 X10*3/uL (0.1-1.2); Monocytes Percent Auto 7.4 % (2-11); Neutrophils Percent Auto 38.6 % (45-73); Platelet Count 229 X10*3/uL (160-400); Red Blood Count 4.73 X10*6/uL (4.20-5.50); Red Cell Distribution Width 13.2 % (11.0-16.0); White Blood Count 5.3 X10*3/uL (4.8-10.8)
[2025-02-19 11:23] LABS: Alanine Aminotransferase 34 U/L (0-31); Albumin Level 4.2 g/dL (3.5-5.0); Anion Gap 12 (12-20); Aspartate Amino Transferase 33 U/L (5-31); Bilirubin Total 0.5 mg/dL (0.0-1.0); Blood Urea Nitrogen 17 mg/dL (9-16); Calcium 9.5 mg/dL (8.4-10.2); Carbon Dioxide 21 mmol/L (22-29); Chloride 111 mmol/L (96-108); Creatinine Clr Calc Pharmacy 88.8; Estimated Glomerular Filt Rate > 60; Glucose Random 103 mg/dL (60-115); Potassium 4.2 mmol/L (3.3-5.1); Sodium 140 mmol/L (135-145); Total Protein 7.1 g/dL (6.5-8.0)
[2025-02-19 11:59] LABS: Appearance Urine Clear; Color Urine Yellow; Glucose Urine UA Negative (Negative); Leukocyte Esterase Urine Negative (Negative); Nitrite Urine Negative (Negative); PH 5.5 (5.0-9.0); Specific Gravity - Urine 1.015 (1.005-1.025); Urine Blood Negative (Negative); Urine Ketones Negative (Negative); Urine Protein Negative (Neg-Trace)
--- NOTE | 2025-02-19 11:59 | ED.FEMALEGU ---
HPI - Female Genitourinary General Chief complaint: Urogenital-Female Stated complaint: Lower back pain R side, sent by Time Seen by Provider: 02/19/25 11:06 Source: patient Mode of arrival: ambulatory Limitations: no limitations History of Present Illness ED Provider: Dr. 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 She told me she was here last week and had a negative urinalysis. She was here almost two weeks ago after hurting her back while bending. MD elicited complaint: dysuria, UTI and back pain Related Data Home Medications ?Medication ?Instructions ?Recorded ?Confirmed albuterol sulfate 90 mcg/actuation 2 puff inhalation Q6H PRN Wheezing 02/25/21 06/04/21 aerosol inhaler buprenorphine HCl 8 mg sublingual 8 mg sublingual DAILY 02/25/21 06/04/21 tablet diphenhydramine HCl 50 mg capsule 50 mg PO BEDTIME 02/25/21 06/04/21 gabapentin 600 mg tablet 600 mg PO BEDTIME 02/25/21 06/04/21 prazosin 5 mg capsule 10 mg PO BEDTIME 02/25/21 06/04/21 topiramate 200 mg tablet (Topamax) 200 mg PO BEDTIME 02/25/21 06/04/21 Previous Rx's ?Medication ?Instructions ?Recorded ondansetron HCl 4 mg tablet 4 mg PO Q12H nausea and vomiting 06/05/21 (Zofran) #20 tabs pantoprazole 40 mg tablet,delayed 40 mg PO DAILY #30 tabs 06/05/21 release sucralfate 100 mg/mL oral 10 ml PO BID #400 mL 06/05/21 suspension fondaparinux 2.5 mg/0.5 mL 2.5 mg (0.5 mL) subcut DAILY 10 06/14/21 subcutaneous solution syringe days #5 mL (Arixtra) oxycodone 5 mg tablet 5 mg PO Q6H PRN pain #8 tabs 06/14/21 fondaparinux 2.5 mg/0.5 mL 2.5 mg (0.5 mL) subcut Q24H #5 mL 06/26/21 subcutaneous solution syringe cyclobenzaprine 10 mg tablet 10 mg PO Q8H #20 tabs 08/04/23 tramadol 50 mg tablet 50 mg PO Q6H PRN pain #20 tabs 08/04/23 levofloxacin 750 mg tablet 750 mg PO DAILY #10 tabs 04/07/24 phenazopyridine 100 mg tablet 100 mg PO TID PRN pain 6 doses #6 04/07/24 (Pyridium) tabs meloxicam 15 mg tablet 15 mg PO DAILY PRN pain #7 tabs 02/07/25 methocarbamol 750 mg tablet 1,500 mg (2 x 750 mg) PO Q8H PRN 02/07/25 pain, moderate #20 tabs acetaminophen 325 mg tablet 325 mg PO QID PRN pain #90 tabs 02/19/25 (Tylenol) lidocaine 5 % topical patch 1 patch topical DAILY back pain 02/19/25 #30 ea prednisone 20 mg tablet 60 mg (3 x 20 mg) PO DAILY Asthma 02/19/25 5 days #15 tabs Allergies Allergy/AdvReac Type Severity Reaction Status Date / Time Iodinated Contrast Media Allergy Severe ANAPHYLAXIS Verified 02/19/25 10:17 [IV CONTRAST] Penicillins [PENICILLINS] Allergy Severe THROAT Verified 02/19/25 10:17 SWELLING vancomycin [VANCOMYCIN] Allergy Intermediate ITCHING Verified 02/19/25 10:17 STEROIDS Allergy Intermediate GI BLEED Uncoded 04/07/24 09:48 Review of Systems Review of Systems: Review of systems: General: Patient denies any fever chills recent illness or falls Musculoskeletal: back pain denies body aches or other injuries HEENT: denies headache, runny nose, ear pain Respiratory: denies shortness of breath, cough Cardiovascular: no chest pain or palpitations : dysuria, frequency Abdomen: no nausea vomiting denies abdominal pain Extremities: no swelling, no pain Skin: no diaphoresis Yes all other systems are reviewed and are negative PMFSH Past Medical History Medical History Diaphragmatic hernia History of substance abuse Hx MRSA infection Arthritis Back pain DVT (deep venous thrombosis) Hepatitis Insomnia Seizure History of ETOH abuse Steatosis, liver Prediabetes GERD (gastroesophageal reflux disease) Fibromyalgia Asthma Depression Anxiety PTSD (post-traumatic stress disorder) Hypertension Morbid obesity Surgical History History of sleeve gastrectomy History of bronchoscopy Hx of wisdom tooth extraction Hx of cholecystectomy History of total hysterectomy Hx of colonoscopy Family History Family History Mother Diabetes Hypertension Father Alcohol abuse Brother No problems noted. Brother No problems noted. Son No problems noted. Daughter No problems noted. Social History Social History Household Members: None Housing: Apartment Are you a primary manager home healthcare to a significant other at home: No Do you presently have visiting nurse or other home services: No Alcohol intake: former Patient Tobacco Use Status: Former Tobacco user Tobacco use type: Cigarette Years Smoked: 20 Smoked in Last 30 Days: No Use of substances other than those prescribed or required for medical reasons: No Advance Directives: No Advance Directives Information Provided: Yes service: No Current occupational status: disabled Physical Exam Vital Signs: Vital Signs: Last Vital Signs Temp 97.6 F 02/19/25 10:15 Pulse 66 02/19/25 10:15 Resp 18 02/19/25 10:15 BP 131/65 02/19/25 10:15 Pulse Ox 100 02/19/25 10:15 O2 Del Method Room Air 02/19/25 10:15 BMI result Body Mass Index 44.2 General: Well-appearing well-nourished in no signs of distress HEENT: Normocephalic atraumatic Neck: No signs of JVD, no masses no tenderness or lymphadenopathy Cardiovascular: Regular rate and rhythm Respiratory: Clear to auscultation bilaterally Abdomen: Soft nontender no masses CVA tenderness on the right she also stated the right side of her abdomen hurt but had no outward signs of pain with palpation. Extremities: Normal pedal pulses no signs of edema Skin: Dry warm no rashes Back: No tenderness full ROM Course Course Course Narrative: urine and labs are all unremarkable patient looks well think it is most likely back strain start the patient short course of prednisone and he can use Flexeril at night to help her sleep Medical Decision Making Medical Decision Making MDM Narrative: Sound like it could be pyelo vs UTI she is non toxic in appearance and pain is reproducible. I will check a ua and labs no indication for imaging as she has no fever WBC count and looks well. Differential Diagnosis Differential Diagnoses: The differential diagnosis associated with the presentation includes UTI pyelonephritis back strain radiculopathy Lab Data [facility] Lab Attestation statement: I reviewed the patient's lab results. 02/19/25 10:37 02/19/25 10:37 Labs: Lab Results 02/19/25 02/19/25 Range/Units 10:37 11:49 WBC 5.3 (4.8-10.8) X10*3/uL RBC 4.73 (4.20-5.50) X10*6/uL Hgb 13.9 (12.0-16.0) g/dl Hct 41.6 (37.0-47.0) % MCV 87.9 (80.0-98.0) fL MCH 29.4 (27.0-33.0) pg MCHC 33.4 (31.0-35.0) g/dl RDW 13.2 (11.0-16.0) % Plt Count 229 (160-400) X10*3/uL MPV 10.7 (9.4-12.3) fL Immature Gran % (Auto) 0.2 (0.0-0.4) % Neut % (Auto) 38.6 L (45-73) % Lymph % (Auto) 50.5 H (20-40) % [place] % (Auto) 7.4 (2-11) % Eos % (Auto) 2.5 (0-4) % Baso % (Auto) 0.8 (0-2) % Lymph # (Auto) 2.7 (1.2-4.9) X10*3/uL [place] # (Auto) 0.4 (0.1-1.2) X10*3/uL Eos # (Auto) 0.1 (0.0-0.4) X10*3/uL Baso # (Auto) 0.0 (0.0-0.2) X10*3/uL Abs Immat Gran (auto) 0.01 (0.00-0.03) X10*3/uL Absolute Neuts (auto) 2.0 (2.0-8.3) x10*3/uL Absolute Nucleated RBC 0.000 (0.0-0.012) X10*3/uL Nucleated RBC % (auto) 0.0 (0.0-0.2) /100WBC Sodium 140 (135-145) mmol/L Potassium 4.2 (3.3-5.1) mmol/L Chloride 111 H (96-108) mmol/L Carbon Dioxide 21 L (22-29) mmol/L Anion Gap 12 (12-20) BUN 17 H (9-16) mg/dL Creatinine 0.85 (0.5-1.4) mg/dL Estim Creat Clear Calc 88.8 Estimated GFR > 60 Random Glucose 103 (60-115) mg/dL Calcium 9.5 (8.4-10.2) mg/dL Total Bilirubin 0.5 (0.0-1.0) mg/dL AST 33 H (5-31) U/L ALT 34 H (0-31) U/L Alkaline Phosphatase 88 (39-117) U/L Total Protein 7.1 (6.5-8.0) g/dL Albumin 4.2 (3.5-5.0) g/dL Urine Color Yellow Urine Appearance Clear Urine pH 5.5 (5.0-9.0) Ur Specific [place] 1.015 (1.005-1.025) Urine Protein Negative (Neg-Trace) mg/dL Urine Glucose (UA) Negative (Negative) mg/dL Urine Ketones Negative (Negative) mg/dL Urine Blood Negative (Negative) Urine Nitrite Negative (Negative) Ur Leukocyte Esterase Negative (Negative) Radiology Impression Discussion of test interpretation with radiology: I have reviewed the radiologist's reading. Discharge Plan Discharge Clinical Impression: Back pain Patient Disposition: Home, Self-Care Instructions: Back Pain (ED) Additional Instructions: You were seen today for back pain. You were started on prednisone and will need to follow up with your doctor. Prescriptions: New acetaminophen [Tylenol] 325 mg tablet 325 mg PO QID PRN (Reason: pain) Qty: 90 0RF prednisone 20 mg tablet 60 mg PO DAILY 5 Days Qty: 15 0RF lidocaine 5 % adhesive patch,medicated 1 patch topical DAILY Qty: 30 0RF Rx Instructions: leave on most painful area for up to 12 hrs No Action ondansetron HCl [Zofran] 4 mg tablet 4 mg PO Q12H Qty: 20 0RF pantoprazole 40 mg tablet,delayed release (DR/EC) 40 mg PO DAILY Qty: 30 2RF sucralfate 100 mg/mL suspension 10 ml PO BID Qty: 400 2RF fondaparinux 2.5 mg/0.5 mL syringe 2.5 mg subcut Q24H Qty: 5 0RF oxycodone 5 mg tablet 5 mg PO Q6H PRN (Reason: pain) Qty: 8 0RF fondaparinux [Arixtra] 2.5 mg/0.5 mL syringe 2.5 mg subcut DAILY 10 Days Qty: 5 0RF cyclobenzaprine 10 mg tablet 10 mg PO Q8H Qty: 20 0RF tramadol 50 mg tablet 50 mg PO Q6H PRN (Reason: pain) Qty: 20 0RF meloxicam 15 mg tablet 15 mg PO DAILY PRN (Reason: pain) Qty: 7 0RF methocarbamol 750 mg tablet 1,500 mg PO Q8H PRN (Reason: pain, moderate) Qty: 20 0RF levofloxacin 750 mg tablet 750 mg PO DAILY Qty: 10 0RF phenazopyridine [Pyridium] 100 mg tablet 100 mg PO TID PRN (Reason: pain) Qty: 6 0RF gabapentin 600 mg tablet 600 mg PO BEDTIME buprenorphine HCl 8 mg tablet, sublingual 8 mg sublingual DAILY diphenhydramine HCl 50 mg capsule 50 mg PO BEDTIME topiramate [Topamax] 200 mg tablet 200 mg PO BEDTIME prazosin 5 mg capsule 10 mg PO BEDTIME albuterol sulfate 90 mcg/actuation HFA aerosol inhaler 2 puff inhalation Q6H PRN (Reason: Wheezing) Print Language: Slovenian
--- OUTSIDE RECORDS SUMMARY | 2025-02-19 12:32 | XMS_ITS | Encounter Summary ---
Author Organization [employer] Address [address] [facility] 7t [place] [address] Care Team Providers Care Linen Supervisor Name Role Phone Unavailable Primary Care Provider Unavailabl e Reason for Visit * Reason Comments Dental Exam Follow up Encounter Details Date Type Department Care Team (Late st Contact Info) Description 02/19/2025 9:00 AM EDT Office Visit [facility] ADULT DENTAL [address] [place], [place] [phone] Yohannes Recio DDS [address] [place], [place] [phone] Bone spicules of jaw (Primary Dx) Social History Tobacco Use Types Packs/Day Years [...] AM EDT documented as of this encounter Last Filed Vital Signs Vital Sign Reading Time Taken Comments Blood Pressure 100/78 02/19/2025 8:27 AM EDT Pulse 68 02/19/2025 8:27 AM EDT Temperature - - Respiratory Rate - - Oxygen Saturation - - Inhaled Oxygen Concentration - - Weight - - Height - - Body Mass Index - - documented in this encounter Progress Notes * Yohannes Recio DDS - 02/19/2025 9:00 AM EDT Pt presents with history of extraction of # 15 / post op follow up with chief complaint I feel something here pointing to buccal on extracted site # 15 region . On PA x ray taken / showed NSF healing is taking place normally. Very small bone spiculae, removed with cotton pliers after applying Benzocaine 20 % topical anesthesia and infiltrating 2 % Lidocaine with 1:100 K epi. Pt was dismissed walking in a good spirit. [place] Referred back to Dr. Bryan Yolk Spray Drier Kait Recio documented in this encounter Plan of Treatment Upcoming Encounters Date Type Department Care Team (Late st Contact Info) Description 06/28/2025 3:00 PM EDT Office Visit [facility] ADULT DENTAL [address] [place], [place] [phone] Delmer, Gerri [address] [place] [address] Scheduled Orders Name Type Priority Associated Diagnoses Orde r Schedule CONSULTATION - DIAGNOSTIC SERVICE PROVIDED BY DENTIST OR PHYSICIAN OTHER THAN REQUESTING DENTIST OR PHYSICIAN Dental Routine 1 Occurrenc es starting 02/19/2025 DENTURE IMPRESSION Dental Routine 1 Occu rrences starting 02/19/2025 documented as of this encounter Procedures Procedure Name Priority Date/Time Associated Diagnosis Comments NO CHARGE - REDO PROCEDURE Routine 02/19/2025 9:00 AM EDT 14 INTRAORAL - PERIAPICAL FIRST RADIOGRAPHIC IMAGE Routine 02/19/2025 9:00 AM EDT documented in this encounter Visit Diagnoses Diagnosis Bone spicules of jaw- Primary documented in this encounter
--- OUTSIDE RECORDS SUMMARY | 2025-02-19 12:32 | XMS_ITS | Encounter Summary ---
Author Organization [employer] [facility] Address [address] [facility] [address] [place] [address] Care Team Providers Care Engineering Professionals Name Role Phone Unavailable Primary Care Provider Unavailabl e Reason for Visit * Reason Onset Date Comments cx and rs appt 08/14/2024 Encounter Details Date Type Department Care Team (Late st Contact Info) Description 08/14/2024 Telephone [facility] ADULT DENT[facility] [address] [place] [address] Erasmo Bryan DDS [address] [place], [place] [phone] cx and rs appt Social History Tobacco Use Types Packs/Day Years [...] * Telephone Encounter - Farzaneh Lira - 08/14/2024 9:46 AM EST Patient woke up sick this morning with a bad sore throat and called in to cancel and rs appt. Currently provider does not have any appts available Please reach out to patient for elliott MONTERO documented in this encounter Plan of Treatment Upcoming Encounters Date Type Department Care Team (Late st Contact Info) Description 06/28/2025 3:00 PM EDT Office Visit [facility] ADULT DENTAL [address] [place] [address] Gerri Dowell [address] [place] [address] documented as of this encounter Visit Diagnoses Not on filedocumented in this encounter
--- OUTSIDE RECORDS SUMMARY | 2025-02-19 12:32 | XMS_ITS | Encounter Summary ---
Author Organization [employer] Address [address] [facility] [address]t [place] [address] Care Team Providers Care Finisher Fine Diamond Dies Name Role Phone Unavailable Primary Care Provider Unavailabl e Reason for Visit * Reason Onset Date Comments Appointment 02/07/2023 Encounter Details Date Type Department Care Team ([facility] st Contact Info) Description 02/07/2023 Telephone [facility] ADULT DENTAL [address] [place], [place] [phone] Erasmo Bryan DDS [address] [place], [place] [phone] Appointment Social History Tobacco Use Types Packs/Day [...] Description 06/28/2025 3:00 PM EDT Office Visit [facility] ADULT DENTAL [address] [place] [address] Gerri Dowell [address] [place] [address] documented as of this encounter Visit Diagnoses Not on filedocumented in this encounter
--- OUTSIDE RECORDS SUMMARY | 2025-02-19 12:32 | XMS_ITS | Encounter Summary ---
Author Organization [employer] Address [address] [facility] [address] [place] [address] Care Team Providers Care Stereotyper Helper Name Role Phone Unavailable Primary Care Provider Unavailabl e Reason for Visit * Reason Onset Date Comments New Patient Appt 05/12/2023 Encounter Details Date Type Department Care Team (Late st Contact Info) Description 05/12/2023 Telephone [facility] MEDICINE [address] [place] [address] Oswald Gifford MD [address] [place], [place] [phone] New Patient Appt Social History Tobacco Use [...] encounter Miscellaneous Notes * Telephone Encounter - Suagr Zhou - 05/12/2023 3:54 PM EDT New Patients Par Sugar Zamorano called to schedule New patient appt, pt did not answer left voicemail to give a call at [phone]. documented in this encounter Plan of Treatment Upcoming Encounters Date Type Department Care Team (Late st Contact Info) Description 06/28/2025 3:00 PM EDT Office Visit [facility] ADULT DENTAL [address] [place] [address] Gerri Dowell [address] [place], [place] [phone] documented as of this encounter Visit Diagnoses Not on filedocumented in this encounter
--- OUTSIDE RECORDS SUMMARY | 2025-02-19 12:32 | XMS_ITS | Encounter Summary ---
Author Organization [employer] Address [address] [facility] 7[address] [place] [address] Care Team Providers Care Die Finisher Forging Name Role Phone Unavailable Primary Care Provider Unavailabl e Encounter Details Date Type Department Care Team (Late st Contact Info) Description 08/12/2023 Telephone [facility] ADULT DENTAL [address] [place], [place] [phone] Erasmo Bryan DDS [address] [place], [place] [phone] Social History Tobacco Use Types Packs/Day Years [...] will call Tuesday morning she only wants Katja documented in this encounter Plan of Treatment Upcoming Encounters Date Type Department Care Team (Late Contact Info) Description 06/28/2025 3:00 PM EDT Office Visit [facility] ADULT DENTAL [address] [place], [place] [phone] Gerri Dowell [address] [place] [address] documented as of this encounter Visit Diagnoses Not on filedocumented in this encounter
--- OUTSIDE RECORDS SUMMARY | 2025-02-19 12:32 | XMS_ITS | Encounter Summary ---
Author Organization [employer] Address [address] [facility] 7[address] [place] [address] Care Team Providers Care Gullet Slitter Name Role Phone Unavailable Primary Care Provider Unavailabl e Reason for Visit * Reason Onset Date Comments cx same day 12/28/2024 unable to post insurance 12/28/2024 Encounter Details Date Type Department Care Team (Late st Contact Info) Description 12/28/2024 Telephone [facility] ADULT DENTAL 230 [place], [place] [phone] Erasmo Bryan DDS [address] [place], [place] [phone] cx same day ; unable to post [...] Unable to post insurance portal not running PAR aung MONTERO * Telephone Encounter - Farzaneh Lira - 12/28/2024 11:36 AM EDT Patient called in to cancel appt same day due to fever. Patient has been informed that she will receive a call from office to appt after waiting period. Patient understood DR documented in this encounter Plan of Treatment Upcoming Encounters Date Type Department Care Team (Late st Contact Info) Description 06/28/2025 3:00 PM EDT Office Visit [facility] ADULT DENTAL 230 [place], [place] [phone] Gerri Dowell 230 [place] [address] documented as of this encounter Visit Diagnoses Not on filedocumented in this encounter
--- OUTSIDE RECORDS SUMMARY | 2025-02-19 12:33 | XMS_ITS | Clinical Summary ---
Author Organization [address] Address [address] [place] [phone] Phone Care Team Providers Care Ship Manager Name Role Phone Herman Smiley MD Primary Care Provider [phone] Allergies Active Allergy Reactions Criticality Noted Date [...] disease without esophagi tis 12/24/2024 Rheumatoid arthritis ([facility] V24, [facility] V28) 12/24/2024 Mild intermittent asthma [...] migrainosus, not intract able 09/09/2023 Bipolar disorder ([facility] V24, [facility] V28) 10/2022 Anxiety and depression 09/09/2023 PTSD (post-traumatic stress disorder) 09/09/2023 Primary stress urinary incontinence 09/05/2023 Encounters Date Type Department Care Team Description 02/18/2025 Telephone Adult Medicine [address] [phone] Donna Burger MA FOUL SMELLING URINE; Back Pain; Abdominal Pain 01/02/2025 Telephone Adult Medicine [address] [phone] Herman Smiley MD fyi 12/25/2024 3:00 PM EDT Office Visit Adult [address] [phone] Herman Smiley MD Physical exam (Primary Dx); Mixed hyperlipidemia; Migraine without aura and without status migrainosus, not intractable; Gastroesophageal reflux disease without esophagitis; Constipation, unspecified constipation type; Mild intermittent asthma without complication; Rheumatoid arthritis, involving unspecified site, unspecified whether rheumatoid factor present ([facility] V24, [facility] V28); Bipolar affective disorder, current episode mixed, current episode severity unspecified ([facility] V24, [facility] V28); Chronic hepatitis C without hepatic coma ([facility] V24, [facility] V28); Encounter for screening mammogram for malignant neoplasm of breast; Encounter for gynecological examination without abnormal finding; B12 deficiency; Need for vaccination against Streptococcus pneumoniae 11/30/2024 Telephone Adult [address] [phone] Herman Smiley MD Medication Problem 11/29/2024 1:00 PM EST Office Visit [address] [phone] Jocelyn Phipps PA Acute otitis externa of left ear, unspecified type (Primary Dx); Acute bilateral low back pain without sciatica 11/27/[address] [phone] Herman Smiley MD Otitis Media from Last 3 Months Immunizations Name Administration Dates Next Due HepB-CpG (Heplisav-B) 18yo and older 03/26/2019 Hepatitis B (Pneeido-M-Wlorl , Recombivax HB-Adult) 19yo and older 05/04/2018 Pneumococcal polysaccharide 23 valent (Pneumovax 23) 2yo and older 04/05/2019 Tdap Tetanus diptheria acell ular pertussis (Boostrix; Adacel) 7yo and older 10/10/2016 Surgical History Surgery Date Site/Laterality Comments OTHER SURGICAL HISTORY 1997 PROCEDURE: CT LIG/TRNSXJ FLP TUBE ABDL/VAG APPR UNI/BI; COMMENT: [facility] CHOLECYSTECTOMY 2011 PROCEDURE: CT LAPAROSCOPY SURG CHOLECYSTECTOMY; COMMENT: CT CARPAL TUNNEL RELEASE 02/06/2018 Right PROCEDURE: CT NEUROPLASTY &/TRANSPOS MEDIAN NRV CARPAL TUNNE LEG SURGERY 06/22/2017 PROCEDURE: HISTORICAL LEG SURGERY; COMMENT: [place] HYSTERECTOMY PROCEDURE: HISTORICAL HYSTERECTOMY Medical History Medical [...] 11:00 AM EDT Office Visit Adult Medicine [place] - [address] [phone] Herman Smiley MD [address] [place] [address] 08/03/2025 10:00 AM EDT Appointment Radiology Department - [address] [phone] Health Maintenance Due Date Last Done Comments [...] (07/26/2024) Depression Screening Abstracted us Historical Provider HEALTH MAINTENANCE Final Result * (ABNORMAL) Lipid [...] AM EDT Narrative 04/26/2018 4:56 PM EDT [facility] Diagnostic Imaging Department [address] [place] [address] Patient: ??DRAKE RAY ?/Age/Sex: 1975 - 42 - F Unit#: ??[id number] ? Location/Status: ??SPDIMAM/REG CLI ? Mnemonic/Ordering Site: ??DIGSC/SPMAM Ordering Physician: ??ARABELLA BEAR CNM [facility] Screening Digital - 04/21/18848 EXAM: [facility] Screening Digital EXAM DATE AND TIME: 04/21/2018 8:51 AM HISTORY: ??Screening. Mother, maternal grandmother and maternal cousin have had breast carcinoma. COM[facility] [place] [place] TECHNIQUE: CC and MLO views of both breasts were obtained using full field digital mammography. Bilateral digital breast tomosynthesis was performed in the MLO projection. Computer aided detection with the LSEO.2-H was employed. TISSUE DENSITY: c. The breasts [...] Routine screening mammogram BILATERAL in 1 year. 38066, [address]332 3341F, 7070F Dictating Physician: ??KATY JOHNSON MD Electronically Signed by: ??KATY JOHNSON MD Dic Date/Time: ??04/26/181654 Sign date/Time: ??04/26/181655 Procedure Note Katy Johnson MD - 09/28/2022 [facility] Diagnostic Imaging Department [address] [place] [address] Patient: DRAKE RAY./Age/Sex: 1975 - 42 - F Unit#: [id number] [facility]Ordering [facility]: [facility] Ordering Physician: ARABELLA BEAR CNM [facility] Screening Digital - 04/21/18 - 0849 EXAM: [facility] Screening Digital EXAM DATE AND TIME: 04/21/2018 8:51 AM HISTORY: Screening. Mother, maternal grandmother and maternal cousin havehad breast carcinoma. COMPARISON: 01/22/14 ([facility] [place]) TECHNIQUE: CC and MLO views of both breasts were obtained using fullfield digital mammography. Bilateral digital breast tomosynthesis was performedin the MLO projection. Computer aided detection with the LSEO.2-Vikias employed. TISSUE DENSITY: c. The breasts are [...] Routine screening mammogram BILATERAL in 1 year. 64665, 48551 3341F, 7025F Dictating Physician: KATY JOHNSON MD Electronically Signed by: KATY JOHNSON MD Dic Date/Time: 04/26/181654 Sign date/Time: 04/26/181655 Arabella Bear [facility] IMG BI PROCEDURES Final Result * Hepatitis C Screening (02/24/2018) Hepatitis C Screening Abstracted Historical Provider HEALTH MAINTENANCE Final Result * Pap smear (02/24/2018) 02/24/2018 Narrative HISTORICAL TESTING LAB RESULTING AGENCY - 03/01/2018 11:50 AM EDT [id number] THINPREP PAP, IMAGED: NEGATIVE FOR SQUAMOUS INTRAEPITHELIAL [...] RESULTING AGENCY * HIV Screening (02/23/2018) Pathologist [facility] HIV Screening Abstracted us Historical Provider HEALTH MAINTENANCE Final Result from Last 3 Months or Most Recently Relevant to Health Maintenance [place] [address] [address] [place] [address] PLAN Care Teams Ship Manager Relationship Specialty Start Date End Date Herman Smiley MD [address] [place] [phone] PCP - General 03/18/23
--- OUTSIDE RECORDS SUMMARY | 2025-02-19 12:33 | XMS_ITS | Clinical Summary ---
Author Organization [employer] Address [address] [facility] [address] [place] [address] Care Team Providers Care Orthotics Prosthetics Technician Name Role Phone Unavailable Primary Care Provider [...] two until gone. 6 tablet 02/24/20 Active Additional Information Patient not taking.Reported on 02/19/2025 Albuterol Sulfate (ProAir RespiClick) 108 (90 Base) [...] daily. 30 tablet 01/08/20 25 025 Discontinued azithromycin (Zithromax) 250 MG tablet Take two [...] 5 days. 15 tablet 01/22/20 25 025 Active Problems Problem Noted Date Diagnosed Date Bone spicules of jaw 02/19/2025 Alveolitis of maxilla 01/21/2025 History of tooth extraction 01/21/2025 Pain, dental 01/21/2025 Xerostomia 07/11/2024 Dental plaque 07/11/2024 Missing teeth, acquired 07/11/2024 Localized gingival recession 07/11/2024 Pain due to dental caries 07/11/2024 Tooth sensitivity 07/11/2024 Encounters Date Type Department Care Team Description 02/19/2025 9:00 AM EDT Office Visit [facility] [address] [place] [address] Yohannes Recio DDS Bone spicules of jaw (Primary Dx) 01/21/2025 11:30 AM EDT Office Visit [facility] [address] [place] [address] Yohannes Recio DDS Alveolitis of maxilla (Primary Dx); History of tooth extraction, unspecified edentulism class; Pain, dental 01/15/2025 10:00 AM EDT Office Visit [facility] [address] [place] [address] Erasmo Bryan DDS Pain, dental (Primary Dx); Acute apical periodontitis of pulpal origin; Pain due to dental caries 01/07/2025 1:00 PM EDT Office Visit [facility] [address] [place] [address] Yohannes Recio DDS Pain due to dental caries (Primary Dx) 12/28/2024 Telephone [facility] [address] [place] [address] Erasmo Bryan DDS cx same day ; [...] Description 06/28/2025 3:00 PM EDT Office Visit [facility] [address] [place] [address] [place], Gerri [address] [place] [address] Health Maintenance Due Date Last Done Comments [...] Bitewings 01/16/2026 01/16/20 25, 02/23/2023 Tobacco Screening 02/19/2026 02/19/2025 DTaP/Tdap/Td Vaccines (2 - T d or [...] RADIOGRAPHIC IMAGE Routine 02/19/2025 9:00 AM EDT CASE PRESENTATION, DETAILED AND EXTENSIVE [...] Most Recently Relevant to Health Maintenance Insurance [facility] C3 DENTAL-[facility] MEDICAID STAND ADULT
--- OUTSIDE RECORDS SUMMARY | 2025-02-19 12:33 | XMS_ITS | Encounter Summary ---
Author Organization [facility] [place] [address] Care Team Providers Care Robot Technician Name Role Phone Herman Smiley MD Primary Care Provider [phone] Reason for Visit * Reason Onset Date Comments FOUL SMELLING URINE 02/18/2025 Back Pain 02/18/2025 Abdominal Pain 02/18/2025 Encounter Details Date Type Department Care Team (Late st Contact Info) Description 02/18/2025 Telephone Adult Medicine [address] [phone] Donna Burger MA FOUL SMELLING URINE; Back Pain; Abdominal Pain Social History Tobacco Use Types Packs/Day Years Used Date Smoking Tobacco: Former Smokeless Tobacco: Never Alcohol Use Standard Drinks/Week Comments Not Currently 0 (1 standard drink = 0.6 oz pur e alcohol) Comments No Sex and Gender Information Value Date Recorded Sex Assigned at Not on file Legal Sex Female 7:54 PM EST Gender Identity Not on file Sexual Orientation Not on file documented as of this encounter Progress Notes * Kofi Jaimes RN - 02/18/2025 11:38 AM EDT Called and spoke with pt. Pt c/o bilat flank pain and lower abd pain since Tuesday with foul smelling urine tried otc pyridium and cransbery juice no relief pt c/o fever and n/v also. No appts today left advised to go to local uc or er for evaluation today. * Donna Burger MA - 02/18/2025 10:44 AM EDT Patient call requires triage: Symptoms patient is presenting: Foul Smelling Urine/Back Pain/Abdominal Pain How long has patient had these symptoms?: started last night.Patient thinks she has a kidney infection For ALL patients calling to schedule any appointment (routine, sick visit, follow up, consult, etc.) in the outpatient setting please ask the following questions: Do you have fever of higher than 101, sore throat with difficulty swallowing or severe shortness ofbreath? no If YES to any of these above symptoms, send a message to triage and do not book. Red dot. If no, an audio or video visit should be booked. Have you had close contact with someone with Coronavirus in the last 14 days? no Have you traveled abroad? no Have you traveled recently to another state outside of [place], [place], [place], [place], [place], [place], [place]? no o If yes, did you quarantine for 14 days or have a negative covid test? no If yes to any of the above, patient is not to be scheduled in office until after 14 day quarantine or negative covid test. If pain or injury related was it due to an accident at work or from a motor vehicle accident? If yes, date of accident/Injury: No If yes, gather 3rd constitution party insurance information Third Green Party Information: not applicable PCP: Herman Smiley MD Payor: [employer] PLAN / Plan: [email or web address] MEDICAID / Product Type: *No Product type* / documented in this encounter Plan of Treatment Upcoming Encounters Date Type Department Care Team (Late st Contact Info) Description 03/27/2025 11:00 AM EDT Office Visit Adult Medicine [address] [phone] Herman Smiley MD [address] [place] [address] 08/03/2025 10:00 AM EDT Appointment Radiology Department - [address] [phone] documented as of this encounter Visit Diagnoses Not on filedocumented in this encounter Care Teams Robot Technician Relationship Specialty Start Date End Date Herman Smiley MD [address] [place] [phone] PCP - General 03/18/23 documented as of this encounter
[2025-02-19 12:51] LABS: Alkaline Phosphatase 88 U/L (39-117)
[2025-02-19] MEDS: Acetaminophen 325 MG TABLET 650 MG PO (13:13)
[2025-02-19 13:27] VITALS: BP 131/65; PULSE 66; RESP 18; TEMP 36.4; O2SAT 100
--- NOTE | 2025-02-19 13:27 | PC.NURSE ---
Pt up for D/C Pt medicated per MAR, however Pt refuses Prednisone. She states it will cause her to need hospitalization. Pt advised ED provider will be consulted--Pt declines and wishes to leave at this time. Pt takes ordered Tylenol and leaves ED. Dr. Cohen aware of Pts refusal of Prednisone.
== END 2025-02-19 13:27 | disposition home or self-care (01) ==
PROVIDERS: Emergency Provider Student in an Organized Health Care Education/Training Program; PCP Internal Medicine
DX: M54.50 Low back pain, unspecified (principal); E11.9 Type 2 diabetes mellitus without complications; I10 Essential (primary) hypertension; J45.909 Unspecified asthma, uncomplicated; Z79.899 Other long term (current) drug therapy
CPT/HCPCS: 36415; 80053; 81003; 85025; 99283; 99285

== ENCOUNTER 2025-03-18 10:57 | Outpatient (AMB) | payer OTHER, SELFPAY ==
--- NOTE | 2025-03-18 10:08 | A.OFFVIS_ITS ---
VS Expanded 03/18/25 10:10 Height 5 ft 1 in Weight 235 lb BMI 44.4 Intake Visit Reasons: TV PO LSG 06/09/2021 Allergies Iodinated Contrast Media [IV CONTRAST] Allergy (Severe, Verified 02/19/25 10:17) ANAPHYLAXIS Penicillins [PENICILLINS] Allergy (Severe, Verified 02/19/25 10:17) THROAT SWELLING vancomycin [VANCOMYCIN] Allergy (Intermediate, Verified 02/19/25 10:17) ITCHING STEROIDS Allergy (Intermediate, Uncoded 04/07/24 09:48) GI BLEED Medication List - Last Reconciled 03/18/25 by STELLA Mendez acetaminophen (Tylenol) 325 mg PO QID PRN albuterol sulfate 90 mcg/actuation 2 puffs inhalation Q6H PRN clonidine HCl 0.3 mg PO TID cyclobenzaprine 10 mg PO Q8H diphenhydramine HCl 50 mg PO BEDTIME gabapentin 600 mg PO BEDTIME lidocaine 5% 1 patch topical DAILY pantoprazole 40 mg PO DAILY prazosin 10 mg PO BEDTIME topiramate (Topamax) 200 mg PO BEDTIME HPI Comments Details: This?is a?49?yo F who is s/p LSG with hiatal hernia repair on?06/09/2021. Has not been seen in our office since 2020. At last visit in Sep 2021 weight/BMI- 203.8/38.4. No complaints of nausea, emesis, abdominal pain or reflux, or constipation. I'm stuck at my weight Present meal plan includes: coffee 11:30am shake- 30g [employer] meal 6:30pm- still feels restriction, I can only really eat chicken eats at nighttime after she takes meds- gets hungry Exercise routine includes: my back went out so can't exercise PFSH Medical History Diaphragmatic hernia History of substance abuse Hx MRSA infection Arthritis Back pain DVT (deep venous thrombosis) Hepatitis Insomnia Seizure History of ETOH abuse Steatosis, liver Prediabetes GERD (gastroesophageal reflux disease) Fibromyalgia Asthma Depression Anxiety PTSD (post-traumatic stress disorder) Hypertension Morbid obesity Surgical History History of sleeve gastrectomy History of bronchoscopy Hx of wisdom tooth extraction Hx of cholecystectomy History of total hysterectomy Hx of colonoscopy Family History Mother Diabetes Hypertension Father Alcohol abuse Brother No problems noted. Brother No problems noted. Son No problems noted. Daughter No problems noted. Social History Household Members: None Housing: Apartment Are you a primary medicare compliance auditor to a significant other at home: No Do you presently have visiting nurse or other home services: No Alcohol intake: former Patient Tobacco Use Status: Former Tobacco user Tobacco use type: Cigarette Years Smoked: 20 service: No Current occupational status: disabled Telehealth Telehealth Telehealth Platform: Telephone Location of provider rendering services: other Location of patient: address on file Patient Identification confirmed using: Name, : Yes Telehealth method: voice only Patient verbally consented to treatment: Yes Patient verbally consented to billing insurance company: Yes Patient informed of any privacy concerns related to visit: Yes Minutes spent on Phone/Video with Pt.: 20 Assessment & Plan Assessment & Plan (1) S/P laparoscopic sleeve gastrectomy: Code(s): Z98.84 - Bariatric surgery status Category: Surgical (2) Morbid obesity: Code(s): E66.01 - Morbid (severe) obesity due to excess calories Category: Medical Plan Sent pt download info for [facility]. Encouraged her to follow structured nutrition plan as her current plan is not adequate for weight loss. She recently had bloodwork done by PCP. Encouraged pt to text me between visits with any questions. If at next visit she is not making progress with weight loss can consider GLP1 agonists. RTC 6-8w.
[2025-03-18 10:10] VITALS: BMI 44.4
--- OUTSIDE RECORDS SUMMARY | 2025-03-18 12:29 | XMS_ITS | Encounter Summary ---
Author Organization [employer] [facility] Address [address] [facility] [address] [place] [address] Care Team Providers Care Associate Publisher Name Role Phone Unavailable Primary Care Provider Unavailabl e Reason for Visit * Reason Onset Date Comments cx and rs appt 08/14/2024 Encounter Details Date Type Department Care Team (Late st Contact Info) Description 08/14/2024 Telephone [facility] [address] [place] [address] Erasmo Bryan DDS [address] [place], [place] [phone] cx and rs appt Social History Tobacco [...] Description 06/28/2025 3:00 PM EDT Office Visit [facility] [address] [place] [address] Gerri Dowell [address] [place] [address] documented as of this encounter Visit Diagnoses Not on filedocumented in this encounter
== END 2025-03-18 11:00 | disposition home or self-care (01) ==
LOC: HO.HBS 10:57
PROVIDERS: PCP Internal Medicine; Visit Provider Physician Assistant Surgical
DX: E66.01 Morbid (severe) obesity due to excess calories (principal); Z68.41 Body mass index [BMI] 40.0-44.9, adult; Z90.3 Acquired absence of stomach [part of]; Z98.84 Bariatric surgery status
CPT/HCPCS: 99214; G2211

== ENCOUNTER 2025-05-15 09:26 | Outpatient (AMB) | payer OTHER, SELFPAY ==
--- NOTE | 2025-05-15 09:08 | MHC.OFFVISWM ---
VS Expanded 05/15/25 09:10 Height 5 ft 1 in Weight 240 lb BMI 45.3 Intake Visit Reasons: TELEPHONE PO LSG 06/09/21 Allergies Iodinated Contrast Media (IV CONTRAST) Allergy (Severe, Verified 02/19/25 10:17) ANAPHYLAXIS Penicillins (PENICILLINS) Allergy (Severe, Verified 02/19/25 10:17) THROAT SWELLING vancomycin (VANCOMYCIN) Allergy (Intermediate, Verified 02/19/25 10:17) ITCHING STEROIDS Allergy (Intermediate, Uncoded 04/07/24 09:48) GI BLEED Medication List - Last Reconciled 05/15/25 by STELLA Mendez acetaminophen (Tylenol) 325 mg PO QID PRN albuterol sulfate 90 mcg/actuation 2 puffs inhalation Q6H PRN clonidine HCl 0.3 mg PO TID cyclobenzaprine 10 mg PO Q8H diphenhydramine HCl 50 mg PO BEDTIME gabapentin 600 mg PO TID pantoprazole 40 mg PO DAILY prazosin 10 mg PO BEDTIME topiramate (Topamax) 200 mg PO BEDTIME HPI Comments Details: This?is a?49?yo F who is s/p LSG 06/09/2021. Presents for 4 year post op visit. Weight increase of 5lbs since last OV 2mo ago. No complaints of nausea, emesis, abdominal pain or reflux, or constipation. Has had to have biopsies done on thyroid recently- supposed to get results today. I've been getting in a lot of protein Present meal plan includes: taking powdered shake with water, sometimes blueberries 1 egg, protein waffles- 30g protein per pt Exercise routine includes: walks 30-45min 3x/day (with dogs) PFSH Medical History Diaphragmatic hernia History of substance abuse Hx MRSA infection Arthritis Back pain DVT (deep venous thrombosis) Hepatitis Insomnia Seizure History of ETOH abuse Steatosis, liver Prediabetes GERD (gastroesophageal reflux disease) Fibromyalgia Asthma Depression Anxiety PTSD (post-traumatic stress disorder) Hypertension Morbid obesity Surgical History History of sleeve gastrectomy History of bronchoscopy Hx of wisdom tooth extraction Hx of cholecystectomy History of total hysterectomy Hx of colonoscopy Family History Mother Diabetes Hypertension Father Alcohol abuse Brother No problems noted. Brother No problems noted. Son No problems noted. Daughter No problems noted. Social History Household Members: None Housing: Apartment Are you a primary early breastfeeding care specialist to a significant other at home: No Do you presently have visiting nurse or other home services: No Alcohol intake: former Patient Tobacco Use Status: Former Tobacco user Tobacco use type: Cigarette Years Smoked: 20 service: No Current occupational status: disabled Telehealth Telehealth Telehealth Platform: Telephone Location of provider rendering services: practice address Location of patient: address on file Patient Identification confirmed using: Name, : Yes Telehealth method: voice only Patient verbally consented to treatment: Yes Patient verbally consented to billing insurance company: Yes Patient informed of any privacy concerns related to visit: Yes Minutes spent on Phone/Video with Pt.: 15 Assessment & Plan Assessment & Plan (1) S/P laparoscopic sleeve gastrectomy: Code(s): Z98.84 - Bariatric surgery status Category: Surgical (2) Morbid obesity: Code(s): E66.01 - Morbid (severe) obesity due to excess calories Category: Medical Plan Pt is interested in starting GLP1. Reviewed contraindications, discussed dosing. Discussed need for adequate protein intake while on GLP1s as well as frequent communication with our office. Pt will check in with me weekly and is aware that subsequent Rx will be dependent on frequent communication. She will text me when she gets her thyroid biopsy results back.
[2025-05-15 09:10] VITALS: BMI 45.3
--- OUTSIDE RECORDS SUMMARY | 2025-05-15 09:47 | XMS_ITS | Encounter Summary ---
Author Organization [employer] [facility] Address [address] [facility] [address] [place] [address] Care Team Providers Care Electric Mule Operator Name Role Phone Unavailable Primary Care Provider Unavailabl e Reason for Visit * Reason Onset Date Comments cx and rs appt 08/14/2024 Encounter Details Date Type Department Care Team (Late st Contact Info) Description 08/14/2024 Telephone [facility] [address] [place] [address] Erasmo Bryan DDS [address] [place], [place] [phone] cx and rs appt Social History Tobacco [...] Care Team (Late st Contact Info) Description 05/17/2025 9:00 AM EDT Office Visit [facility] [address] [place] [address] Erasmo Bryan, JUAN JOSE [address] [place] [address] 06/28/2025 3:00 PM EDT Office Visit [facility] [address] [place], [place] [phone] Gerri Dowell [address] [place], [place] [phone] documented as of this encounter Visit Diagnoses Not on filedocumented in this encounter
--- OUTSIDE RECORDS SUMMARY | 2025-05-15 09:47 | XMS_ITS ---
Author Name [facility] Organization Unknown Care Team Organization Name Specialty Phone Email Start Date End Da te [facility] Darlin Hwang Primary Care 04/14/2023 4
== END 2025-05-15 09:36 | disposition home or self-care (01) ==
LOC: HO.HBS 09:26
PROVIDERS: PCP Internal Medicine; Visit Provider Physician Assistant Surgical
DX: E66.01 Morbid (severe) obesity due to excess calories (principal); Z68.42 Body mass index [BMI] 45.0-49.9, adult; Z90.3 Acquired absence of stomach [part of]; Z98.84 Bariatric surgery status
CPT/HCPCS: 98013

== ENCOUNTER 2025-05-18 09:17 | Emergency (ER) | payer OTHER, SELFPAY ==
--- NOTE | 2025-05-18 | ECG_ITS ---
Test Reason : CP Blood Pressure : */* mmHG Vent. Rate : 76 BPM Atrial Rate : 76 BPM P-R Int : 158 ms QRS Dur : 80 ms QT Int : 404 ms P-R-T Axes : 56 28 50 degrees QTcB Int : 454 ms Normal sinus rhythm Cannot rule out Anterior infarct , age undetermined Abnormal ECG When compared with ECG of 28-Oct-2023 17:54, No significant change was found Referred By: Generic ED Physician Electronically Signed By: NIKO IVORY
--- NOTE | ~2025-05-18 | US_ITS ---
CLINICAL HISTORY: right calf pain, pain behind right knee, hx dvt le Venous duplex ultrasound right lower extremity Comparison: None provided Findings: The visualized deep veins are fully compressible with normal Doppler color flow and spectral tracings. IMPRESSION: 1. Negative for right lower extremity deep vein thrombosis. This document has been electronically signed by: Evi Merrill MD on 05/18/2025 11:00:42
--- NOTE | ~2025-05-18 | XR_ITS ---
CLINICAL HISTORY: chest pain 2 view chest x-ray Comparison: CR/SR - XR CHEST 2 VIEWS - 10/28/23 15:33 EST Findings: The lungs are clear. Normal size heart. No acute fracture. IMPRESSION: 1. No acute findings. This document has been electronically signed by: Zak Nicolas MD on 05/18/2025 13:26:20
--- NOTE | ~2025-05-18 | NM_ITS ---
CLINICAL HISTORY: dyspnea, chest pain, hx of thromboemboli and CA --- Additional Notes or Special Instructions: high risk [place] Score NM on-call contacted at 1445 NM Lung Perfusion Comparison: CR - XR CHEST 2V - 05/18/25 12:42 EDT Findings: 3.94 mCi technetium 99m MAA used. No perfusion defects. IMPRESSION: No perfusion defects. This document has been electronically signed by: Jesse Rogers MD on 05/18/2025 18:06:13
[2025-05-18 09:41] VITALS: BP 151/80; PULSE 81; RESP 18; TEMP 36.8; O2SAT 93; BMI 45.2
[2025-05-18 10:14] LABS: Hematocrit 40.2 % (37.0-47.0); Hemoglobin 13.7 g/dl (12.0-16.0); Imm Gran Abs Auto 0.01 X10*3/uL (0.00-0.03); Imm Gran Pct Auto 0.3 % (0.0-0.4); Lymphocytes Absolute Auto 2.2 X10*3/uL (1.2-4.9); MANUAL DIFF FLAG NO; Mean Corpuscular HGB Conc 34.1 g/dl (31.0-35.0); Mean Corpuscular Hemoglobin 29.5 pg (27.0-33.0); Mean Corpuscular Volume 86.6 fL (80.0-98.0); NRBC Abs Auto 0.000 X10*3/uL (0.0-0.012); NRBC Pct Auto 0.0 /100WBC (0.0-0.2); Platelet Count 222 X10*3/uL (160-400); Red Blood Count 4.64 X10*6/uL (4.20-5.50); White Blood Count 3.7 X10*3/uL (4.8-10.8)
[2025-05-18 10:21] LABS: INTERNATIONAL NORM RATIO 0.9 (0.9-1.1); Prothrombin Time 10.3 SEC (10.9-12.4)
[2025-05-18 10:29] LABS: Alanine Aminotransferase 32 U/L (0-31); Albumin Level 4.5 g/dL (3.5-5.0); Alkaline Phosphatase 83 U/L (39-117); Anion Gap 11 (12-20); Aspartate Amino Transferase 31 U/L (5-31); Blood Urea Nitrogen 13 mg/dL (9-16); Calcium 9.0 mg/dL (8.4-10.2); Carbon Dioxide 26 mmol/L (22-29); Chloride 109 mmol/L (96-108); Creatinine Clr Calc Pharmacy 93.3; Estimated Glomerular Filt Rate > 60; Magnesium 2.0 mg/dL (1.6-2.6); Potassium 3.4 mmol/L (3.3-5.1); Sodium 143 mmol/L (135-145); Total Protein 7.3 g/dL (6.5-8.0)
[2025-05-18 10:36] LABS: Troponin-I High Sensitivity < 2.7 ng/L (<3.5-17.0)
--- OUTSIDE RECORDS SUMMARY | 2025-05-18 11:49 | XMS_ITS | Encounter Summary ---
Author Organization [facility] Address [address] [place] [address] Care Team Providers Care Natural Fabricator Name Role Phone Herman Smiley MD Primary Care Provider [phone] Reason for Referral * Consultation (Routine) - Closed Specialty Diagnoses / Procedures Referred By Lenin torres Referred To Contact Pain Medicine Diagnoses Chronic right-sided low back pain without sciatica Herman Smiley MD [address] [place] [phone] Phone: tel: fax: Matteo Cueva [address] [place] [address] [place] [address] fax: Referral ID Status Reason Start Date Expiration Date V isits Requested Visits Authorized [id number] Closed Specialty Services Required 05/17/2025 05/17/2026 1 1 Reason for Visit * Reason Onset Date Comments Advice Only 05/17/2025 Cancer 05/17/2025 Encounter Details Date Type Department Care Team (Late st Contact Info) Description 05/17/2025 Telephone Adult Medicine [address] [phone] Herman Smiley MD [address] [place] [address] [phone] Advice Only; Cancer Social History Tobacco Use Types Packs/Day Years Used Date Smoking Tobacco: Former Smokeless Tobacco: Never Alcohol Use Standard Drinks/Week Comments Not Currently 0 (1 standard drink = 0.6 oz pur e alcohol) Housing Instability Answer Date Recorde d Are you worried that in the next 2 months you may not have stable housing? Patient declined 04/02/2025 Food Access & Nutrition Answer Date Rec orded Do you have access to a vari ety of food including fruits and vegetables? Yes 04/02/2025 Access to Healthcare Answer Date Record ed Within the last 3 months, ho w many times did you visit the emergency department for your medical care? 2 04/02/2025 Health Literacy Answer Date Recorded How often do you need to hav e someone help you when you read instructions, pamphlets, or other written material from your doctor or pharmacy? Patient declined 04/02/2025 Caregiver: How often do you need to have someone help you when you read instructions, pamphlets, or other written material from your doctor or pharmacy? Not on file 025 Financial Risk Answer Date Recorded How hard is it for you to pa y for the very basics like food, housing, medical care, and air conditioning / heating? Patient declined 04/02/2025 Transportation Answer Date Recorded Has the lack of transportati on kept you from meetings, work, or from getting things needed for daily living? Yes Has the lack of transportati on kept you from medical appointments or from getting medications? No 04/02/2025 Social Isolation Answer Date Recorded How often do you feel lonely or isolated from those around you? Patient declined 04/02/2025 Food Risk Answer Date Recorded Within the past 12 months we worried whether our food would run out before we got money to buy more. Patient declined 025 Within the past 12 months th e food we bought just didn't last and we didn't have money to get more. Patient declined 03/11 Dependent Care Answer Date Recorded Do you need help finding or paying for care for your loved ones. For example, early childhood lead teacher or elderly care for an older adult? Patient declined 04/02/2025 Education Answer Date Recorded Do you think completing more education or training, like finishing a GED, going to college, or learning a trade, would be helpful for you? Patient declined 04/02/2025 Employment and Income Answer Date Recor ded During the last four weeks, have you been actively looking for work? Patient declined 04/02/2025 Living Situation Answer Date Recorded What is your living situation? 0 04/02/2025 Comments No Sex and Gender Information Value Date Recorded Sex Assigned at Not on file Legal Sex Female 7:54 PM EST Gender Identity Not on file Sexual Orientation Not on file documented as of this encounter Progress Notes * Kofi Jaimes RN - 05/17/2025 2:08 PM EDT Called pt advised referral placed * Herman Smiley MD - 05/17/2025 1:56 PM EDT Pain management referral is ordered. * Kofi Jaimes RN - 05/17/2025 12:24 PM EDT Called and spoke with pt. Pt doesn't have questions about thyroid CA discussed with endo and waiting call from surgeon pt looking for liver results and hep c results discuss with pt. Pt sts having a hard time sleeping pt does have a therapist and psychiatrist is in contact with them. Pt sts was referred to pain management in nov for back pain sts unable to do cortisone shots. Sts that all this placed would offer is asking for a different referral to another pain management. Please review and advise * Tomas Block - 05/17/2025 12:11 PM EDT Patient was recently diagnosed with thyroid cancer , states that she is worried , would like to speak to nurse or provider about what can be done , please advise patient as soon as possible documented in this encounter Plan of Treatment Upcoming Encounters Date Type Department Care Team (Late st Contact Info) Description 05/22/2025 10:30 AM EDT Clinical Support [address] [phone] 06/19/2025 10:30 AM EDT Clinical Support Adult [address] [phone] 07/17/2025 10:30 AM EDT Clinical Support [address] [phone] 08/03/2025 10:00 AM EDT Appointment Radiology Department [address] [phone] 08/06/2025 10:30 AM EDT Office Visit [address] [phone] Jocelyn Phipps PA [address] [place] [address] Scheduled Referrals Name Type Priority Associated Diagnoses Order Schedule Ambulatory referral to Pain Medicine Outpatient Referral Routine Chronic right-sided low back pain without sciatica 1 Occurrences starting 05/17/2025 until 05/17/2026 documented as of this encounter Visit Diagnoses Diagnosis Chronic right-sided low back pain without sciatica- Primary documented in this encounter Additional Health Concerns Assessment Noted Time PHQ-9 Depression Total Score: 0 04/02/20 3:38 PM EDT documented as of this encounter Care Teams Natural Fabricator Relationship Specialty Start Date End Date Herman Smilye MD [address] [place] [address] PCP - General 03/18/23 documented as of this encounter
[2025-05-18 11:51] VITALS: BP 163/108; PULSE 75; RESP 16; TEMP 36.4; O2SAT 100
--- NOTE | 2025-05-18 12:00 | ED.GENADULT ---
HPI - General Adult General Chief complaint: General Medical Stated complaint: CP Time Seen by Provider: 05/18/25 11:59 Source: patient, RN notes reviewed and old records reviewed Mode of arrival: ambulatory Limitations: no limitations History of Present Illness ED Provider: Sanjiv HPI narrative: Patient is a 49-year-old female with history of asthma, GERD, fibromyalgia, recent diagnosis of thyroid cancer, sees surgeon on the and plan is for surgical resection as well as radiation, DVT in 2019 of right lower extremity not currently anticoagulated, status post lap sleeve gastrectomy, status post repair of paraesophageal diaphragmatic hernia, hypertension, obesity presenting to the emergency department with complaint of midsternal chest pain radiating under left breast and up to left side of neck and shoulder which woke her from sleep at 4:00 a.m. today. She describes the pain as a squeezing sensation which waxes and wanes but never fully resolves. Also complains of recent nausea and diarrhea. States that her voice is more hoarse than normal since this morning and she is now having difficulty swallowing, states she tried to drink some fluid this morning and vomited it as she was unable to swallow. She is managing her secretions without difficulty during assessment. Also complains of pain to right calf and behind right knee for the past 2 days. States that she had leg swelling recently and had elevated her leg, then developed the calf and right posterior knee pain. States chest pain is 8/10 and complains of associated dyspnea, HUITRON and palpitations as well as headache and fatigue. MD complaint: chest pain, calf pain Related Data Home Medications ?Medication ?Instructions ?Recorded ?Confirmed albuterol sulfate 90 mcg/actuation 2 puff inhalation Q6H PRN Wheezing 02/25/21 03/18/25 aerosol inhaler diphenhydramine HCl 50 mg capsule 50 mg PO BEDTIME 02/25/21 03/18/25 prazosin 5 mg capsule 10 mg PO BEDTIME 02/25/21 03/18/25 topiramate 200 mg tablet (Topamax) 200 mg PO BEDTIME 02/25/21 03/18/25 clonidine HCl 0.3 mg tablet 0.3 mg PO TID 03/18/25 03/18/25 gabapentin 600 mg tablet 600 mg PO TID 05/15/25 05/15/25 Previous Rx's ?Medication ?Instructions ?Recorded pantoprazole 40 mg tablet,delayed 40 mg PO DAILY #30 tabs 06/05/21 release cyclobenzaprine 10 mg tablet 10 mg PO Q8H #20 tabs 08/04/23 acetaminophen 325 mg tablet 325 mg PO QID PRN pain #90 tabs 02/19/25 (Tylenol) Allergies Allergy/AdvReac Type Severity Reaction Status Date / Time Iodinated Contrast Media (IV Allergy Severe ANAPHYLAXIS Verified 05/18/25 09:47 CONTRAST) Penicillins (PENICILLINS) Allergy Severe THROAT Verified 05/18/25 09:47 SWELLING vancomycin (VANCOMYCIN) Allergy Intermediate ITCHING Verified 05/18/25 09:47 STEROIDS Allergy Intermediate GI BLEED Uncoded 05/18/25 09:47 Review of Systems Review of Systems: as per hpi Yes all other systems are reviewed and are negative Constitutional: Constitutional: Reports as per HPI PMFSH Past Medical History Medical History Diaphragmatic hernia History of substance abuse Hx MRSA infection Arthritis Back pain DVT (deep venous thrombosis) Hepatitis Insomnia Seizure History of ETOH abuse Steatosis, liver Prediabetes GERD (gastroesophageal reflux disease) Fibromyalgia Asthma Depression Anxiety PTSD (post-traumatic stress disorder) Hypertension Morbid obesity Surgical History History of sleeve gastrectomy History of bronchoscopy Hx of wisdom tooth extraction Hx of cholecystectomy History of total hysterectomy Hx of colonoscopy Family History Family History Mother Diabetes Hypertension Father Alcohol abuse Brother No problems noted. Brother No problems noted. Son No problems noted. Daughter No problems noted. Social History Social History Household Members: None Housing: Apartment Are you a primary hearing care practitioner to a significant other at home: No Do you presently have visiting nurse or other home services: No Alcohol intake: former Patient Tobacco Use Status: Former Tobacco user Tobacco use type: Cigarette Years Smoked: 20 Smoked in Last 30 Days: No Use of substances other than those prescribed or required for medical reasons: No Substance Use Type: Former Substance User Advance Directives: No Advance Directives Information Provided: Yes service: No Current occupational status: disabled Physical Exam ED Vital Signs: Vital Signs - 24 hr 05/18/25 09:41 05/18/25 11:51 05/18/25 16:34 Temperature 98.2 F 97.5 F 97.1 F Pulse Rate 81 75 74 Respiratory Rate 18 16 11 L Blood Pressure 151/80 H 163/108 H 176/83 H Pulse Oximetry 93 100 96 Oxygen Delivery Method Room Air Room Air Room Air BMI result Body Mass Index 45.2 Vital signs have been reviewed and appear to be correct. Blood pressure elevated. Heart rate normal. Respiratory rate normal. Temperature normal. Oxygen saturation normal. Const General: cooperative and no acute distress Nutritional Appearance: obese Orientation/consciousness: oriented to person, oriented to place, oriented to time and patient oriented x3 Limitations: no limitations HENMT Head: Yes normocephalic and Yes atraumatic Ears: external ears normal General nose exam: Normal external nose present Face and sinus: Yes face symmetric Mouth: Normal oral and palatal mucosa present, lip normal, tongue normal, oropharynx normal, moist mucous membranes, audible dysphonia, no drooling and no trismus Throat: Yes posterior oropharynx normal, Yes uvula midline, No peritonsillar mass and No uvular edema Eyes Pupils: Equal, round and reactive pupils present Neck Neck: Yes normal visual inspection, Yes no lymphadenopathy and Yes supple Resp Effort & Inspection: normal respiratory effort and able to speak in complete sentences Auscultation: clear to auscultation bilaterally Cardio Rate: regular rate Rhythm: regular rhythm Heart sounds: S1 normal heart sound present and S2 normal heart sound present GI Palpation (GI): Soft to palpation and nontender Auscultation: normoactive bowel sounds General: Yes no CVA tenderness Back/Spine/Pelvis Back: no CVA tenderness Skin General skin exam: elasticity normal and turgor normal Neuro General: oriented to person, oriented to place, oriented to time, patient oriented x3, moves all extremities, no focal motor deficits and CN's II-XI intact bilaterally Cranial nerves: Yes Equal, round and reactive pupils present Cognition (Neuro): normal cognition Extrem General: Yes full ROM, Yes no pedal edema and Yes no calf tenderness Right lower extremity: lower leg Details: normal to inspection, tenderness Location: of the posterior calf and no edema; no erythema and no palpable cords and foot Details: vascular exam Details: dorsalis pedis pulse present, posterior tibial pulse present and normal capillary refill Left lower extremity: foot Details: vascular exam Details: dorsalis pedis pulse present, posterior tibial pulse present and normal capillary refill Psych Mental Status: mental status grossly normal Affect: normal affect Thought process: Normal thought process present Medications Administered Discontinued Medications Generic Name Dose Route Start Last Admin Trade Name Dharmesh PRN Reason Stop Dose Admin Ketorolac Tromethamine 30 mg 05/18/25 16:07 05/18/25 16:09 Ketorolac Tromethamine 30 Mg/Ml Vial IVPUSH 05/18/25 16:08 30 mg ONCE ONE Administration Morphine Sulfate 4 mg 05/18/25 12:22 05/18/25 12:56 Morphine Sulfate 4 Mg/Ml Cartridge IVPUSH 05/18/25 12:23 4 mg ONCE ONE Administration Protocol Morphine Sulfate 2 mg 05/18/25 17:57 05/18/25 18:09 Morphine Sulfate 2 Mg/Ml Cartridge IVPUSH 05/18/25 17:58 2 mg ONCE ONE Administration Protocol Ondansetron HCl 4 mg 05/18/25 12:22 05/18/25 12:56 Ondansetron Hcl 4 Mg/2 Ml Vial IVPUSH 05/18/25 12:23 4 mg ONCE ONE Administration Medical Decision Making Medical Decision Making [facility] Narrative: Patient is a 49-year-old female with history of asthma, GERD, fibromyalgia, recent diagnosis of thyroid cancer, sees surgeon on the and plan is for surgical resection as well as radiation, DVT in 2020 of right lower extremity not currently anticoagulated, status post lap sleeve gastrectomy, status post repair of paraesophageal diaphragmatic hernia, hypertension, obesity presenting to the emergency department with complaint of midsternal chest pain radiating under left breast and up to left side of neck and shoulder which woke her from sleep at 4:00 a.m. today. On exam patient is awake, A+Ox3, BP elevated, VS otherwise WNL, afebrile, normal neurological exam without focal deficits, physical exam findings as above. Given reported symptoms and physical exam findings, initial differential includes but is not limited to ACS/CA, PE, GERD, fibromyalgia, mass/metastasis, musculoskeletal pain. EKG shows normal sinus rhythm, no significant change from prior. Given prior DVT, thyroid CA, and report of dyspnea/CP, high suspicion for PE. Case discussed with Dr. Wilkins, attending MD, who is in agreement with this. Unable to obtain CTA chest due to anaphylactic reaction to contrast dye. Labs notable for negative troponin x 2, normal TSH, no other significant abnormalities. U/S RLQ negative for DVT. X-ray chest notable for no evidence of pneumonia, pneumothorax. My interpretation is in agreement with the radiologist's interpretation. Added d-dimer which was negative, however, patient is high risk based on [place] score (15). Stat VQ scan ordered to rule out PE. VQ scan is without evidence of perfusion defects. Results discussed with patient and all questions answered. Patient able to tolerate PO food and fluids in the ED without difficulty. Advised follow up with PCP on Tuesday. Return precautions discussed. Patient verbalized understanding of and agreement with plan. Differential Diagnosis Differential Diagnoses: The differential diagnosis associated with the presentation includes As per [facility] Admission/Observation Consideration of admission/observation: Escalation of care including admission/observation considered Lab Data [facility] Lab Attestation statement: I reviewed the patient's lab results. [facility] 05/18/25 10:09 05/18/25 10:08 Labs: Lab Results 05/18/25 05/18/25 05/18/25 Range/Units 10:08 10:09 12:07 WBC 3.7 L (4.8-10.8) X10*3/uL RBC 4.64 (4.20-5.50) X10*6/uL Hgb 13.7 (12.0-16.0) g/dl Hct 40.2 (37.0-47.0) % MCV 86.6 (80.0-98.0) fL MCH 29.5 (27.0-33.0) pg MCHC 34.1 (31.0-35.0) g/dl RDW 13.3 (11.0-16.0) % Plt Count 222 (160-400) X10*3/uL MPV 9.9 (9.4-12.3) fL Immature Gran % (Auto) 0.3 (0.0-0.4) % Neut % (Auto) 30.9 L (45-73) % Lymph % (Auto) 58.3 H (20-40) % Nuckolls % (Auto) 7.3 (2-11) % Eos % (Auto) 2.4 (0-4) % Baso % (Auto) 0.8 (0-2) % Lymph # (Auto) 2.2 (1.2-4.9) X10*3/uL [place]olls # (Auto) 0.3 (0.1-1.2) X10*3/uL Eos # (Auto) 0.1 (0.0-0.4) X10*3/uL Baso # (Auto) 0.0 (0.0-0.2) X10*3/uL Abs Immat Gran (auto) 0.01 (0.00-0.03) X10*3/uL Absolute Neuts (auto) 1.2 L (2.0-8.3) x10*3/uL Absolute Nucleated RBC 0.000 (0.0-0.012) X10*3/uL Nucleated RBC % (auto) 0.0 (0.0-0.2) /100WBC PT 10.3 L (10.9-12.4) SEC INR 0.9 (0.9-1.1) D-Dimer High Sensitivty 163 NG/ML Sodium 143 (135-145) mmol/L Potassium 3.4 (3.3-5.1) mmol/L Chloride 109 H (96-108) mmol/L Carbon Dioxide 26 (22-29) mmol/L Anion Gap 11 L (12-20) BUN 13 (9-16) mg/dL Creatinine 0.82 (0.5-1.4) mg/dL Estim Creat Clear Calc 93.3 Estimated GFR > 60 Random Glucose 99 (60-115) mg/dL Calcium 9.0 (8.4-10.2) mg/dL Magnesium 2.0 (1.6-2.6) mg/dL Total Bilirubin 0.5 (0.0-1.0) mg/dL AST 31 (5-31) U/L ALT 32 H (0-31) U/L Alkaline Phosphatase 83 (39-117) U/L Troponin I High Sens < 2.7 < 2.7 (<3.5-17.0) ng/L Total Protein 7.3 (6.5-8.0) g/dL Albumin 4.5 (3.5-5.0) g/dL TSH 1.44 (0.32-4.0) uIU/mL Urine Color Urine Appearance Urine pH (5.0-9.0) Ur Specific [place] (1.005-1.025) Urine Protein (Neg-Trace) mg/dL Urine Glucose (UA) (Negative) mg/dL Urine Ketones (Negative) mg/dL Urine Blood (Negative) Urine Nitrite (Negative) Ur Leukocyte Esterase (Negative) 05/18/25 Range/Units 14:15 WBC (4.8-10.8) X10*3/uL RBC (4.20-5.50) X10*6/uL Hgb (12.0-16.0) g/dl Hct (37.0-47.0) % MCV (80.0-98.0) fL MCH (27.0-33.0) pg MCHC (31.0-35.0) g/dl RDW (11.0-16.0) % Plt Count (160-400) X10*3/uL MPV (9.4-12.3) fL Immature Gran % (Auto) (0.0-0.4) % Neut % (Auto) (45-73) % Lymph % (Auto) (20-40) % Nuckolls % (Auto) (2-11) % Eos % (Auto) (0-4) % Baso % (Auto) (0-2) % Lymph # (Auto) (1.2-4.9) X10*3/uL [place]olls # (Auto) (0.1-1.2) X10*3/uL Eos # (Auto) (0.0-0.4) X10*3/uL Baso # (Auto) (0.0-0.2) X10*3/uL Abs Immat Gran (auto) (0.00-0.03) X10*3/uL Absolute Neuts (auto) (2.0-8.3) x10*3/uL Absolute Nucleated RBC (0.0-0.012) X10*3/uL Nucleated RBC % (auto) (0.0-0.2) /100WBC PT (10.9-12.4) SEC INR (0.9-1.1) D-Dimer High Sensitivty NG/ML Sodium (135-145) mmol/L Potassium (3.3-5.1) mmol/L Chloride (96-108) mmol/L Carbon Dioxide (22-29) mmol/L Anion Gap (12-20) BUN (9-16) mg/dL Creatinine (0.5-1.4) mg/dL Estim Creat Clear Calc Estimated GFR Random Glucose (60-115) mg/dL Calcium (8.4-10.2) mg/dL Magnesium (1.6-2.6) mg/dL Total Bilirubin (0.0-1.0) mg/dL AST (5-31) U/L ALT (0-31) U/L Alkaline Phosphatase (39-117) U/L Troponin I High Sens (<3.5-17.0) ng/L Total Protein (6.5-8.0) g/dL Albumin (3.5-5.0) g/dL TSH (0.32-4.0) uIU/mL Urine Color Yellow Urine Appearance Clear Urine pH 6.5 (5.0-9.0) Ur Specific [place] 1.010 (1.005-1.025) Urine Protein Negative (Neg-Trace) mg/dL Urine Glucose (UA) Negative (Negative) mg/dL Urine Ketones Negative (Negative) mg/dL Urine Blood Negative (Negative) Urine Nitrite Negative (Negative) Ur Leukocyte Esterase Negative (Negative) Independent Interpretation I performed an independent interpretation of an: Plain X-Ray and Vq/Perfusion Scan Interpretation: CXR without evidence of pneumothorax or pneumonia. U/S RLE without evidence of DVT. VQ scan without perfusion defects. Radiology Impression Discussion of test interpretation with radiology: I have reviewed the radiologist's reading. Radiologist Impression: 2 view chest x-ray Comparison: CR/SR - XR CHEST 2 VIEWS - 10/28/23 15:33 EST Findings: The lungs are clear. Normal size heart. No acute fracture. IMPRESSION: 1. No acute findings. Venous duplex ultrasound right lower extremity Comparison: None provided Findings: The visualized deep veins are fully compressible with normal Doppler color flow and spectral tracings. IMPRESSION: 1. Negative for right lower extremity deep vein thrombosis. CLINICAL HISTORY: dyspnea, chest pain, hx of thromboemboli and CA --- Additional Notes or Special Instructions: high risk [place] Score NM on-call contacted at 1445 NM Lung Perfusion Comparison: CR - XR CHEST 2V - 05/18/25 12:42 EDT Findings: 3.94 mCi technetium 99m MAA used. No perfusion defects. IMPRESSION: No perfusion defects. External Record Review External record reviewed: Inpatient record, Office record and Outpatient record Critical Care Time Critical Care Time Critical Care Time: Yes Total Critical Care Time: 40 Attestation: I have personally provided critical care time exclusive of time spent on separately billable procedures. Time includes review of lab data, radiology results, discussion with consultants, and monitoring for potential decompensation. Intervention performed as documented. Discharge Plan Discharge Clinical Impression: Chest pain, Dyspnea Patient Disposition: Home, Self-Care Instructions: Chest Pain (DC) Additional Instructions: You were evaluated in the emergency department today for chest pain and shortness of breath. Your evaluation including chest x-ray, V/Q scan, labs, and ultrasound did not show evidence of any conditions requiring emergent medical treatment at this time. Your ultrasound did not show evidence of a DVT (blood clot) of your right leg. If your leg pain and swelling persists for greater than 7 days, you should follow up with your primary care provider as you may need a repeat ultrasound. We recommend that you follow-up with your primary care provider on Tuesday. Return to the emergency department if you experience worsening or uncontrolled chest pain, shortness of breath, lightheadedness, feeling faint, loss of consciousness, nausea, vomiting, or any other concerning symptoms. Prescriptions: No Action pantoprazole 40 mg tablet,delayed release (DR/EC) 40 mg PO DAILY Qty: 30 2RF cyclobenzaprine 10 mg tablet 10 mg PO Q8H Qty: 20 0RF acetaminophen [Tylenol] 325 mg tablet 325 mg PO QID PRN (Reason: pain) Qty: 90 0RF diphenhydramine HCl 50 mg capsule 50 mg PO BEDTIME topiramate [Topamax] 200 mg tablet 200 mg PO BEDTIME prazosin 5 mg capsule 10 mg PO BEDTIME albuterol sulfate 90 mcg/actuation HFA aerosol inhaler 2 puff inhalation Q6H PRN (Reason: Wheezing) gabapentin 600 mg tablet 600 mg PO TID clonidine HCl 0.3 mg tablet 0.3 mg PO TID Print Language: Maori
[2025-05-18 12:39] LABS: Troponin-I High Sensitivity < 2.7 ng/L (<3.5-17.0)
[2025-05-18 14:08] LABS: D Dimer High Sensitivity 163 NG/ML
[2025-05-18 14:23] LABS: Appearance Urine Clear; Glucose Urine UA Negative (Negative); PH 6.5 (5.0-9.0); Specific Gravity - Urine 1.010 (1.005-1.025)
[2025-05-18 16:34] VITALS: BP 176/83; PULSE 74; RESP 11; TEMP 36.2; O2SAT 96
[2025-05-18 18:37] VITALS: BP 164/85; PULSE 74; RESP 16; TEMP 36.2; O2SAT 96
== END 2025-05-18 18:38 | disposition home or self-care (01) ==
PROVIDERS: Registered Nurse Emergency; Emergency Provider Emergency Medicine Emergency Medical Services; PCP Internal Medicine
DX: R07.9 Chest pain, unspecified (principal); M79.604 Pain in right leg; R06.00 Dyspnea, unspecified; Z87.891 Personal history of nicotine dependence
CPT/HCPCS: 36415; 71046; 78580; 80053; 81003; 83735; 84443; 84484; 85025; 85379; 85610; 93005; 93971; 96374; 96375; 96376; 99285; A9540; J1885; J2270; J2405

== ENCOUNTER → 2025-05-18 09:22 | Outpatient (BNV) | payer OTHER, SELFPAY | PROVIDERS: Emergency Provider Emergency Medicine Emergency Medical Services; PCP Internal Medicine; Visit Provider Internal Medicine | DX: R94.31 Abnormal electrocardiogram [ECG] [EKG] (principal); R07.9 Chest pain, unspecified | CPT/HCPCS: 93010 ==

== ENCOUNTER → 2025-05-18 10:15 | Outpatient (BNV) | payer OTHER, SELFPAY | PROVIDERS: Emergency Provider Emergency Medicine Emergency Medical Services; PCP Internal Medicine; Visit Provider Radiology Diagnostic Radiology | DX: R06.00 Dyspnea, unspecified (principal); M79.661 Pain in right lower leg; R07.9 Chest pain, unspecified | CPT/HCPCS: 71046; 78580; 93971 ==

== ENCOUNTER 2025-06-11 09:07 | Outpatient (AMB) | payer OTHER, SELFPAY ==
--- NOTE | 2025-06-11 09:32 | A.OFFVIS_ITS ---
Vital Signs 06/11/25 09:43 Height 5 ft 1 in Weight 236 lb 6 oz BMI 44.7 BP 165/92 H Blood Pressure Location Rt brachial Position Sitting Pulse 84 Pulse Source Pulse Oximeter Pulse Oximetry (%) 97 Oxygen Delivery Method Room Air Intake Visit Reasons: CHRONIC RIGHT SIDED LOW BACK PAIN Intake Note: Pain today 7.510 Equipment Cleaner And Tester Required: No Accompanied by: Self / Same As Patient Allergies Iodinated Contrast Media (IV CONTRAST) Allergy (Severe, Verified 06/11/25 09:41) ANAPHYLAXIS Penicillins (PENICILLINS) Allergy (Severe, Verified 06/11/25 09:41) THROAT SWELLING vancomycin (VANCOMYCIN) Allergy (Intermediate, Verified 06/11/25 09:41) ITCHING prednisone Allergy (Unknown, Verified 06/11/25 09:49) gi bleed STEROIDS Allergy (Intermediate, Uncoded 05/18/25 09:47) GI BLEED HPI Comments Details: The patient is a 49-year-old female presenting with chronic low back pain. The pain is described as stabbing and radiating, primarily located in the lower back, extending to the hips and slightly to the groin on both sides. The pain is constant, worsens with cold weather and movements, walking, lifting, prolonged sitting and is partially alleviated by heat therapy and oral and topical medications. She has completed physical therapy in 2023 with worsening of her symptoms. The patient reports the pain affects her daily activities, personal care, and sleep, with a severity of 8/10 at night and upon awakening and 4/10 after a shower. She has tried physical therapy and injections in the past, which provided no lasting relief. The patient has a history of fibromyalgia, sleeve gastrectomy, anxiety, depression, seizures, h/o MRSA infection, bipolar disorder, PTSD, and rheumatoid arthritis, which may contribute to her overall health status. She has a history of alcohol use disorder, currently in remission for 5.5 years, and has undergone rehabilitation. The patient is currently managing her pain with gabapentin, prescribed by her Psychiatrist, and reports a history of using oxycodone and tramadol. She is allergic to steroids, which causes swelling and gastrointestinal bleeding, and is also allergic to iodine contrast. The patient has been diagnosed with degenerative disc disease and facet arthritis, as confirmed by an x-ray in February 2025. She is currently dealing with active thyroid cancer, with surgery scheduled for 08/26/25. - Onset and Timing: Chronic, constant pain, worse at night and upon waking. - Quality and Character: Stabbing, radiating, aching, hurting, burning, sharp, throbbing, pulling, twisting - Primary Location: Lower back, extending to hips and groin and buttocks - Exacerbating Factors: Cold weather, movement, walking, prolonged sitting, bending, lifting - Relieving Factors: Heat, Tylenol, cyclobenzaprine and topical medications, hot shower. - Interference: Affects daily activities, personal care, and sleep. - Affect: Pain impacts daily activities and sleep, contributing to anxiety and depression. - Analgesia: Current pain level is 8/10 at night, reduced to 4/10 after a sh ower; managed with gabapentin. - Adverse Effects: Allergic reactions to steroids causing swelling and gastrointestinal bleeding. - Activities of Daily Living: Pain interferes with personal care and daily functioning. - Aberrant Drug Related Behaviors: History of alcohol use disorder, currently in remission; no current misuse of prescribed medications. Oswestry Low Back Pain Disability Score=37 [facility] Medical History (Updated 06/12/25 @ 10:17 by MARILUZ Arthur) Rheumatoid arthritis Primary stress urinary incontinence Migraine without status migrainosus, not intractable Hepatitis C antibody positive GERD with apnea without esophagitis Constipation Venereal disease Disorder of liver Chronic gastric ulcer Anemia Diaphragmatic hernia History of substance abuse Hx MRSA infection Arthritis Back pain DVT (deep venous thrombosis) Hepatitis Insomnia Seizure History of ETOH abuse Steatosis, liver Prediabetes GERD (gastroesophageal reflux disease) Fibromyalgia Asthma Depression Anxiety PTSD (post-traumatic stress disorder) Hypertension Morbid obesity Surgical History (Updated 06/11/25 @ 09:35 by Tash Denton) H/O: hysterectomy History of surgery on lower extremity History of carpal tunnel release History of sleeve gastrectomy History of bronchoscopy Hx of wisdom tooth extraction Hx of cholecystectomy History of total hysterectomy Hx of colonoscopy Family History Mother Diabetes Hypertension Father Alcohol abuse Brother No problems noted. Brother No problems noted. Son No problems noted. Daughter No problems noted. Social History (Updated 06/11/25 @ 09:36 by Tash Denton) Household Members: None Housing: Apartment Are you a primary career coordinator to a significant other at home: No Do you presently have visiting nurse or other home services: No Alcohol intake: former Patient Tobacco Use Status: Former Tobacco user Tobacco use type: Cigarette Years Smoked: 20 Substance Use Type: Crack/Cocaine and Former Substance User Substance Use Type Other:: cocaine service: No Current occupational status: disabled Review of Systems Const Details: - Musculoskeletal: Reports chronic low back pain, muscle spasms in back and legs. - Neurological: Reports migraines. Denies bladder or bowel dysfunction or saddle anesthesia. - Psychiatric: Reports anxiety, depression, PTSD, and bipolar disorder. Reports h/o seizures. - Endocrine: Reports active thyroid cancer. All systems reviewed & are unremarkable except as noted in HPI and below Physical Exam Vital Signs: Last Vital Signs Pulse 84 06/11/25 09:43 BP 165/92 H 06/11/25 09:43 Pulse Ox 97 06/11/25 09:43 Oxygen Delivery Method Room Air 06/11/25 09:43 BMI result Body Mass Index 44.7 General: Appears afebrile. Morbidly obese. Alert and oriented. Mood and affect appropriate. Follows and participates in conversation appropriately. Respiratory effort is unlabored. No cough. Able to transition from sit to stand unassisted. Ambulates with bilaterally normal heel strike and toe off. General: Yes no CVA tenderness Back/Spine/Pelvis Other: Limited lumbar ROM due to pain. Lumbar extension and axial rotations reproduce [id number] pain. Lumbar flexion and bending reproduces [id number] pain. No midline tenderness in thoracic or lumbar spine. Demonstrates 5/5 strength of quadriceps bilaterally as well as flexion/dorsiflexion of bilateral feet against resistance. 2+ pedal pulses bilaterally. Straight leg rise with dorsiflexion negative bilaterally. +2 patellar and achilles reflexes bilater ally. Facet loading test positive bilaterally. Jamel sign, Rafael?s, Gaenslen, Pelvic compression and Stinchfield tests are positive bilaterally, right>left. No groin pain with I/E hip rotations. Valsalva maneuver negative. Multiple widespread TTPs 16/16 bilaterally, including upper and lower extremities. Back: no CVA tenderness Cervical Spine: cervical ROM normal, cervical muscular tenderness, No Cervical spine scars present and No Cervical spine tenderness Thoracic/Lumbar Spine: thoracic and lumbar spine normal to inspection, No Thoracic/lumbar spine scar(s), Lasegue's sign negative, straight leg raise negative bilaterally, pain with thoraco-lumbar ROM, paraspinal muscle tenderness, thoraco-lumbar ROM limited, No thoracic spinal tenderness and lumbar spinal tenderness at L4 and at L5 Pelvis: buttock tenderness bilaterally Sacroiliac joints: bilaterally tender to palpation Extrem General: Yes capillary refill normal, Yes no clubbing, cyanosis or edema and Yes no calf tenderness Results Reviewed Results Reviewed: XR lumbar spine 2-3V 02/07/25 CLINICAL HISTORY: back pain 3 views lumbar spine Comparison: CR/SC/SR - XR LUMBAR SPINE 2-3V - 08/04/23 19:48 EDT Findings: Normal alignment. No acute fractures or dislocation. Moderate degenerative disc disease at L5-S1. Mild degenerative disc disease at L4-L5. Facet osteoarthritis at L4-L5 and L5-S1. No significant change since the prior study. IMPRESSION: No acute findings. Assessment & Plan Assessment & Plan (1) Fibromyalgia: Code(s): M79.7 - Fibromyalgia Category: Medical (2) Lumbosacral spondylosis: Code(s): M47.817 - Spondylosis without myelopathy or radiculopathy, lumbosacral region Category: Medical (3) Lumbar degenerative disc disease: Code(s): M51.369 - Other intervertebral disc degeneration, lumbar region without mention of lumbar back pain or lower extremity pain Category: Medical (4) Morbid obesity: Code(s): E66.01 - Morbid (severe) obesity due to excess calories Category: Medical (5) Sacroiliac joint pain: Code(s): M53.3 - Sacrococcygeal disorders, not elsewhere classified Category: Medical Plan Patient's chronic low back pain is predominately axial in nature, facet- mediated, localized to lower back without radicular symptoms and with sacroiliac joint pain components. We are considering lumbar medial branch blocks as a diagnostic intervention for potential RFA procedure for a longer term pain management. We also reviewed Sprint PNS trial, however will avoid due to BMI>40 and h/o seizures. Schedule diagnostic bilateral L3-L4 DR L5 medial branch blocks with local and fluoroscopy. Expectations, risks and benefits were reviewed. Patient is aware she will be contacted to schedule this procedure. Given the patient's allergies to steroids and iodine contrast, non-steroidal and non-iodine contrast options will be utilized. The patient is advised to remain active for 6 hours following the diagnostic injections to accurately assess the effectiveness of the treatment. The patient will continue to manage her pain with gabapentin and is encouraged to maintain communication with her Psychiatrist for ongoing mental health support. All questions and concerns have been answered and patient agreed with the treatment plan. Follow up after injections and sooner as needed. Patient Instructions: - Stay active for 6 hours after receiving diagnostic injections to help assess their effectiveness. - Continue taking gabapentin as prescribed by your Psychiatrist. - continue daily physical activity as tolerated, adequate hydration, weight loss, and good posture. - Review the information provided on lumbar medial branch blocks and radiofrequency ablation. Patient was informed and verbally consented to the use of an ambient scribe for clinic note documentation during this visit. Coding Level of Care Code New Pt Level 4 (94966) Diagnoses Fibromyalgia M79.7 Lumbosacral spondylosis M47.817 Lumbar degenerative disc disease M51.369 Morbid obesity E66.01 Sacroiliac joint pain M53.3
[2025-06-11 09:43] VITALS: BP 165/92; PULSE 84; O2SAT 97; BMI 44.7
--- OUTSIDE RECORDS SUMMARY | 2025-06-11 09:59 | XMS_ITS | Encounter Summary ---
Author Organization [employer] Address [address] [facility] [address] [place] [address] Care Team Providers Care Global Marketing Specialist Name Role Phone Unavailable Primary Care Provider Unavailabl e Reason for Visit * Reason Onset Date Comments cx same day 12/28/2024 unable to post insurance 12/28/2024 Encounter Details Date Type Department Care Team (Late st Contact Info) Description 12/28/2024 Telephone [facility] [address] [place], [place] [phone] Erasmo Bryan DDS [address], [place] [phone] cx same day ; unable to post [...] Description 06/28/2025 3:00 PM EDT Office Visit [facility] [address], [place] [phone] Gerri Dowell [address] [place] [address] documented as of this encounter Visit Diagnoses Not on filedocumented in this encounter
--- OUTSIDE RECORDS SUMMARY | 2025-06-11 09:59 | XMS_ITS | Encounter Summary ---
Author Organization [employer] Address [address] [facility] [address] [place] [address] Care Team Providers Care Pyrotechnics Press Tender Name Role Phone Unavailable Primary Care Provider Unavailabl e Reason for Visit * Reason Onset Date Comments New Patient Appt 05/12/2023 Encounter Details Date Type Department Care Team (Late st Contact Info) Description 05/12/2023 Telephone [facility] [address] [place] [address] Oswald Gifford MD [address] [place], [place] [phone] New Patient Appt Social History Tobacco Use [...] left voicemail to give a call at [phone]. documented in this encounter Plan of Treatment Upcoming Encounters Date Type Department Care Team (Late st Contact Info) Description 06/28/2025 3:00 PM EDT Office Visit [facility] [address] [place] [address] Gerri Dowell [address] [place], [place] [phone] documented as of this encounter Visit Diagnoses Not on filedocumented in this encounter
--- OUTSIDE RECORDS SUMMARY | 2025-06-11 09:59 | XMS_ITS | Encounter Summary ---
Author Organization [employer] [facility] Address [address] [facility] [address] [place] [address] Care Team Providers Care Associate Professor Of Church Music Name Role Phone Unavailable Primary Care Provider Unavailabl e Reason for Visit * Reason Onset Date Comments cx and rs appt 08/14/2024 Encounter Details Date Type Department Care Team (Late st Contact Info) Description 08/14/2024 Telephone [facility] [address] [place] [address] Erasmo Bryan DDS [address] [place], [place] [phone] cx and rs appt Social History Tobacco [...] Visit [facility] [address] [place] [address] Gerri Dowell [address] [place] [address] documented as of this encounter Visit Diagnoses Not on filedocumented in this encounter
--- OUTSIDE RECORDS SUMMARY | 2025-06-11 09:59 | XMS_ITS | Encounter Summary ---
Author Organization [employer] Address [address] [facility] [address] [place] [address] Care Team Providers Care Splicer Helper Name Role Phone Unavailable Primary Care Provider Unavailabl e Reason for Visit * Reason Onset Date Comments rs no show visit 03/11/2025 Encounter Details Date Type Department Care Team (Late st Contact Info) Description 03/11/2025 Telephone [facility] [address] [place], [place] [phone] Erasmo Bryan DDS [address] [place], [place] [phone] rs no show visit Social History Tobacco Use Types Packs/Day Years [...] * Telephone Encounter - Farzaneh Lira - 03/11/2025 12:16 PM EDT Patient called in looking to rs a no show appt. Patient has been informed there is a waiting periodprior to rs a no show appt. Patient asked how long the waiting period is. Explained to patient thatit is a 60 day wait. IF she doesn't hear back by 04/15 which is the 60 day sachin she can certainly call in and we can check in on a visit. Patient asked if she is having an emergency with pain on the teeth that needed to be extracted. It was explained to patient that she is able to call in the morning for an emergency visit. However it is not guaranteed that work would be done same day. Emergency visits deal with the pain not necessarily the dental work. DR documented in this encounter Plan of Treatment Upcoming Encounters Date Type Department Care Team (Late st Contact Info) Description 06/28/2025 3:00 PM EDT Office Visit [facility] [address] [place] [address] Gerri Dowell [address] [place] [address] documented as of this encounter Visit Diagnoses Not on filedocumented in this encounter
--- OUTSIDE RECORDS SUMMARY | 2025-06-11 09:59 | XMS_ITS | Encounter Summary ---
Author Organization [employer] Address [address] [facility] [address] [place] [address] Care Team Providers Care Green Prize Packer Name Role Phone Unavailable Primary Care Provider Unavailabl e Reason for Visit * Reason Onset Date Comments Appointment 02/07/2023 Encounter Details Date Type Department Care Team ([facility] st Contact Info) Description 02/07/2023 Telephone [facility] [address] [place], [place] [phone] Erasmo Bryan DDS [address] [place], [place] [phone] Appointment Social History Tobacco Use Types Packs/Day [...] Description 06/28/2025 3:00 PM EDT Office Visit [facility] [address] [place] [address] Gerri Dowell [address] [place] [address] documented as of this encounter Visit Diagnoses Not on filedocumented in this encounter
--- OUTSIDE RECORDS SUMMARY | 2025-06-11 09:59 | XMS_ITS | Encounter Summary ---
Author Organization [employer] Address [address] [facility] [address] [place] [address] Care Team Providers Care Glass Cutting Machine Feeder Name Role Phone Unavailable Primary Care Provider Unavailabl e Encounter Details Date Type Department Care Team (Late st Contact Info) Description 08/12/2023 Telephone [facility] [address] [place], [place] [phone] Erasmo Bryan DDS [address] [place], [place] [phone] Social History Tobacco Use Types Packs/Day Years [...] 06/28/2025 3:00 PM EDT Office Visit [facility] [address] [place], [place] [phone] Gerri Dowell [address] [place] [address] documented as of this encounter Visit Diagnoses Not on filedocumented in this encounter
--- OUTSIDE RECORDS SUMMARY | 2025-06-11 10:00 | XMS_ITS | Clinical Summary ---
Author Organization [address] Address [address] [place] [phone] Phone Care Team Providers Care Manager Respiratory Care Name Role Phone Herman Smiley MD Primary Care Provider [phone] Allergies Active Allergy Reactions Criticality Noted Date [...] Leeanne Coronado Active incontinence pad, liner, disp padIndications:P rimary stress urinary incontinence 5 each 1 (one) time each day if needed (as neded). 150 each 11 09/21/20 24 025 Active ofloxacin (FLOXIN) 0.3 % otic solution Administer 4 drops into each ear 2 (two) times a day. 10 mL 11/29/19 25 Active atorvastatin (LIPITOR) 20 mg tablet Take 1 tablet (20 mg total) by mouth 1 (one) time each day. 90 tablet 1 12/26/19 25 Active SUMAtriptan (IMITREX) 50 mg tablet Take 1 tablet (50 mg total) by mouth 1 (one) time if needed for migraine. May repeat dose once in 2 hours if no relief. Do not exceed 2 doses in 24 hours. 9 tablet 5 02/26/20 25 026 Active senna-docusate (PERICOLACE) 8.6-50 mg per tablet Take 1 tablet by mouth 1 (one) time each day. 180 each 1 02/26/20 25 Active fluticasone propionate (FLONASE) 50 mcg/actuation nasal spray Administer 2 sprays into each nostril 1 (one) time each day. Shake gently. Before first use, prime pump. After use, clean tip and replace cap. 16 g 02/26/20 25 Active albuterol HFA (Proventil HFA) 90 mcg/actuation inhalerIndicatio ns:Mild intermittent asthma without complication Inhale 2 puffs by mouth every 4 (four) hours if needed for wheezing or shortness of breath. 6.7 g 3 03/27/20 25 026 Active lactulose (CHRONULAC) solution Take 10 mL (6.6667 g total) by mouth 1 (one) time each day if needed (constipation ). 300 mL 03/27/20 25 Active diclofenac (VOLTAREN) 1 % topical gel APPLY 2 GRAMS TOPICALLY 2 (TWO) TIMES A DAY. 100 g 04/30/20 25 Active chlorhexidine (PERIDEX) 0.12 % solution Swish 15 mL morning and night for 1 minute. Spit, do not swallow. Do not eat or drink for 30 minutes following use. 01/22/20 25 Active ibuprofen (ADVIL,MOTRIN) 600 mg tablet Take 1 tablet (600 mg total) by mouth. 01/22/20 25 Active cyclobenzaprine (FLEXERIL) 5 mg tablet TAKE 1 TABLET BY MOUTH TWICE A DAY NEEDED FOR MUSCLE SPASMS 45 tablet 3 05/29/20 25 Active Vitamin D3 50 mcg (2,000 unit) capsule TAKE 1 CAPSULE BY MOUTH DAILY 90 capsule 1 05/29/20 25 Active omeprazole (PriLOSEC) [address] capsule TAKE 1 CAPSULE BY MOUTH DAILY (DON'T CRUSH OR CHEW) 90 capsule 1 05/29/20 25 Active Pain Reliever, acetam-aspirin, 250-250-65 mg per tablet TAKE 1 TABLET BY MOUTH EVERY 6 (SIX) HOURS IF NEEDED FOR HEADACHES. 90 tablet 3 05/29/20 25 Active polyethylene glycol (PEG) 17 gram/dose oral powder DISSOLVE 17 GRAMS IN 8OZ OF LIQUID AND DRINK BY MOUTH DAILY 1530 g 1 05/29/20 25 Active cyanocobalamin (VITAMIN B-12) 1,000 mcg tablet TAKE 1 TABLET BY MOUTH DAILY 90 tablet 1 05/29/20 25 Active cholecalciferol (VITAMIN D-3) 50 mcg (2,000 unit) capsule Take 1 capsule (2,000 Units total) by mouth 1 (one) time each day. 90 each 1 12/26/19 025 Discontinued cyanocobalamin (VITAMIN B-12) 1,000 mcg tablet Take 1 tablet (1,000 mcg total) by mouth 1 (one) time each day. 90 tablet 1 12/26/19 025 Discontinued omeprazole (PriLOSEC) [address] capsule Take 1 capsule (40 mg total) by mouth 1 (one) time each day. Do not crush or chew. 90 each 1 12/26/19 025 Discontinued polyethylene glycol (MIRALAX) 17 gram packet Take 17 g by mouth 1 (one) time each day. 1530 g 12/26/19 025 Discontinued cyclobenzaprine (FLEXERIL) 5 mg tablet Take 1 tablet (5 mg total) by mouth 2 (two) times a day if needed for muscle spasms. for muscle spasms 45 tablet 3 02/26/20 025 Discontinued aspirin-acetamin ophen-caffeine (Excedrin Migraine) 250-250-65 mg per tablet Take 1 tablet by mouth every 6 (six) hours if needed for headaches. 90 tablet 1 03/27/20 025 Discontinued Hospital, Clinic, or Other Facility Administered Medication Ordered Dose Route Frequency Start Date End Date Status cyanocobalamin (VITAMIN B-12) injection 1,000 mcgIndications:B12 deficiency 1000 mcg IM See admin instructions 02/25/2025 Active Active Problems Problem Noted Date Diagnosed Date Constipation 03/27/2025 B12 deficiency 03/27/2025 Chronic right-sided low back pain without sciati ca 03/27/2025 Hepatitis C antibody positive 03/27/2025 Gastroesophageal reflux disease without esophagi tis 12/24/2024 Rheumatoid arthritis ([facility] V24, [facility] V28) 12/24/2024 Mild intermittent asthma without complication [...] migrainosus, not intract able 09/09/2023 Bipolar disorder ([facility] V24, [facility] V28) 120 10/2022 Anxiety and depression 09/09/2023 PTSD (post-traumatic stress disorder) 09/09/2023 Primary stress urinary incontinence 09/05/2023 Encounters Date Type Department Care Team Description 05/22/2025 10:30 AM EDT Clinical Support Adult Medicine [address] [phone] B12 deficiency (Primary Dx) 05/21/2025 Telephone [facility] [address] [phone] Grace Hastings MD 05/17/2025 Telephone Adult Medicine [address] [phone] Herman Smiley MD 05/15/2025 11:40 AM EDT Telemedicine Endocrinology [address] [phone] Grace Hastings MD Thyroid cancer (CMS/HCC V24, CMS/HCC V28) (Primary Dx) 05/08/2025 9:30 AM EDT Lab Draw Station - [address] Rheumatoid arthritis, involving unspecified site, unspecified whether rheumatoid factor present (CMS/HCC V24, CMS/HCC V28); Hepatitis C antibody positive; Chronic hepatitis C without hepatic coma ([facility]/HCC V24, CMS/HCC V28); B12 deficiency 05/08/2025 8:20 AM EDT Office Visit Endocrinology [address] [phone] Grace Hastings MD Nodular goiter (Primary Dx) 04/24/2025 11:00 AM EDT Consult Endocrinology [address] [phone] Grace Hastings MD Multiple thyroid nodules 04/24/2025 10:30 AM EDT Clinical Support Adult Medicine [address] [phone] B12 deficiency (Primary Dx) 04/17/2025 10:30 AM EDT Clinical Support [address] [phone] B12 deficiency (Primary Dx) 04/10/2025 10:30 AM EDT Clinical Support [address] [phone] B12 deficiency (Primary Dx) 04/03/2025 3:30 PM EDT Clinical Support [address] [phone] B12 deficiency (Primary Dx) 04/03/2025 3:11 PM EDT - 04/03/2025 11:59 PM EDT Hospital Encounter Radiology Department - [address] [phone] Goiter Discharge Disposition: Home or Self Care 03/27/2025 11:00 AM EDT Office Visit Adult Medicine [address] [phone] Herman Smiley MD Chronic right-sided low back pain without sciatica (Primary Dx); Rheumatoid arthritis, involving unspecified site, unspecified whether rheumatoid factor present (CMS/HCC V24, CMS/HCC V28); Constipation, unspecified constipation type; Gastroesophageal reflux disease without esophagitis; Migraine without aura and without status migrainosus, not intractable; Mixed hyperlipidemia; Mild intermittent asthma without complication; B12 deficiency; Bipolar affective disorder, current episode mixed, current episode severity unspecified (CMS/HCC V24, CMS/HCC V28); Hepatitis C antibody positive; Goiter from Last 3 Months Immunizations Name Administration Dates Next Due HepB-CpG (Heplisav-B) 18yo and older 03/26/2019 Hepatitis B (Ixukhwt-Y-Tfrye , Recombivax HB-Adult) 19yo and older 05/04/2018 Pneumococcal polysaccharide 23 valent (Pneumovax 23) 2yo and older 04/05/2019 Tdap Tetanus diptheria acell ular pertussis (Boostrix; Adacel) 7yo and older 10/10/2016 Surgical History Surgery Date Site/Laterality Comments OTHER SURGICAL HISTORY 1996 PROCEDURE: [place] LIG/TRNSXJ FLP TUBE ABDL/VAG APPR UNI/BI; COMMENT: [facility] [place] CHOLECYSTECTOMY 2011 PROCEDURE: [place] LAPAROSCOPY SURG CHOLECYSTECTOMY; COMMENT: CT CARPAL TUNNEL RELEASE 02/06/2018 Right PROCEDURE: [place] NEUROPLASTY &/TRANSPOS MEDIAN NRV CARPAL TUNNE LEG SURGERY 06/22/2017 PROCEDURE: HISTORICAL LEG SURGERY; COMMENT: [place] HYSTERECTOMY PROCEDURE: HISTORICAL HYSTERECTOMY Medical History Medical History Date Comments Anemia DX:Anemia Anxiety state DX:Anxiety state Essential hypertension DX:Essent ial hypertension Abnormal cytological finding in specimen from cervix 2013 DX:Abnormal cytological find ing in specimen from cervix; COMMENT: [facility] CT Disorder of liver DX:Disorder of liver [...] Kidney Stones Bipolar disorder (CMS/HCC V2 4, [facility]/HCC V28) DX:Bipolar disorder (HCC) Rheumatoid arthritis (CMS/ C V24, [facility] V28) DX:Rheumatoid arthritis (HCC ) Pancreatitis DX:Pancreatitis [...] care for your loved ones. For example, child adolescent care or elderly care for an older adult? [...] Sign Reading Time Taken Comments Blood Pressure 115/94 05/08/2025 9:23 AM EDT Pulse 75 05/08/2025 9:23 AM EDT Temperature 36.7 C (98.1 F) 05/08/2025 9:23 AM EDT Respiratory Rate 14 04/24/2025 10:37 AM EDT Oxygen Saturation 99% 11/29/2024 1:10 PM EST Inhaled Oxygen Concentration - - Weight 109 kg (240 lb) 04/24/2025 10:37 AM EDT Height 154.9 cm (5' 1 ) 04/24/2025 10:37 AM EDT Body Mass Index 45.35 04/24/2025 10:37 AM EDT Plan of Treatment Upcoming Encounters Date Type Department Care Team (Late st Contact Info) Description 06/19/2025 10:30 AM EDT Clinical Support Adult Medicine [address] [phone] 07/17/2025 10:30 AM EDT Clinical Support Adult Medicine [address] [phone] 08/03/2025 10:10 AM EDT Appointment Radiology Department - [address] [phone] 08/06/2025 10:30 AM EDT Office Visit Adult Medicine [facility] - [address] [phone] Jocelyn Phipps PA [address] [place], [place] 11/21/2025 10:00 AM EST Office Visit Obstetrics and Gynecology - [address] [phone] Emilee Chavez CNM [address] [place] [address] Health Maintenance Due Date Last Done Comments Zoster Vaccines (1 of 2) 1993 Hepatitis B Vaccines (3 of 3 - 19+ 3-dose series) 05/21/2019 03/26/2019, 05/04/2018 Hepatitis A Vaccines (2 of 2 - Risk 2-dose series) 09/25/2019 03/26/2019 Pneumococcal Vaccine: 50+ Years (2 of 2 - PCV) 04/05/2020 04/05/2019 Breast Cancer Screening 04/26/2020 04/26/2018 Cervical Cancer Screening: Pap Smear 02/24/2021 02/24/2018, 02/24/2018, 02/24/2018, Additional history exists COVID-19 Vaccine (3 - Moderna risk series) 08/20/2021 07/23/2021, 06/29/2021 Colorectal Cancer Screening: Colonoscopy 11/09/2023 Lung Cancer Screening (Low Dose CT) 11/09/2023 Influenza Vaccine (#1) 2025 06/29/2021, 2018 Social Influencers of Health Screening 04/02/2026 04/02/2025 DTaP,Tdap,and Td Vaccines (2 - Td or Tdap) 10/10/2026 10/10/2016 Cholesterol Screening (Lipid Panel) 02/25/2030 02/25/2025, 09/08/2023 HIV Screening Completed 02/23/2018 Hepatitis C Screening Completed 02/25/2025, 018 Depression Screening Completed 04/02/2025, 07/26/20 24 HIB Vaccines Aged Out No longer eligi [...] Procedure Name Priority Date/Time Associated Diagnosis Comments EXTERNAL VASCULAR ULTRASOUND 05/18/2025 EXTERNAL VASCULAR ULTRASOUND 05/18/2025 EXTERNAL NUC MED REPORT 05/18/2025 EXTERNAL NUC MED REPORT 05/18/2025 EXTERNAL XRAY REPORT 05/18/2025 EXTERNAL XRAY REPORT 05/18/2025 INTRINSIC FACTOR BLOCKING ANTIBODY Routine 05/08/2025 9:39 AM EDT B12 deficiency HEPATITIS C VIRAL RNA QUANTITATION, GENOTYPING WITH REFLEX TO NS5A DRUG RESISTANCE Routine 05/08/2025 9:39 AM EDT Chronic hepatitis C without hepatic coma (CMS/HCC V24, CMS/HCC V28) COMPREHENSIVE METABOLIC PANEL Routine 05/08/2025 9:39 AM EDT Rheumatoid arthritis, involving unspecified site, unspecified whether rheumatoid factor present (CMS/HCC V24, CMS/HCC V28) Hepatitis C antibody positive FINE NEEDLE ASPIRATION Routine 05/08/2025 9:20 AM EDT Nodular goiter FINE NEEDLE ASPIRATION Routine 05/08/2025 9:20 AM EDT Nodular goiter FINE NEEDLE ASPIRATION Routine 05/08/2025 9:20 AM EDT Nodular goiter BIOPSY THYROID Routine 05/08/2025 9:02 AM EDT Nodular goiter US HEAD NECK SOFT TISSUE Routine 04/03/2025 3:39 PM EDT Goiter HEPATITIS C ANTIBODY Routine 02/25/2025 8:44 AM EDT Chronic hepatitis C without hepatic coma ([facility]/HCC V24, CMS/HCC V28) LIPID PANEL WITH REFLEX TO DIRECT LDL Routine 02/25/2025 8:44 AM EDT Physical exam Mixed hyperlipidemia Migraine without aura and without status migrainosus, not intractable Gastroesophageal reflux disease without esophagitis Mild intermittent asthma without complication Rheumatoid arthritis, involving unspecified site, unspecified whether rheumatoid factor present (CMS/HCC V24, CMS/HCC V28) Bipolar affective disorder, current episode mixed, current episode severity unspecified (CMS/HCC V24, CMS/HCC V28) Encounter for screening mammogram for malignant neoplasm of breast Encounter for gynecological examination without abnormal finding B12 deficiency DEPRESSION SCREENING Routine 07/26/2024 ALEA SCREENING DIGITAL Routine 04/26/2018 4:56 PM EDT Encounter for screening mammogram for malignant neoplasm of breast PAP SMEAR Routine 02/24/2018 HIV SCREENING Routine 02/23/2018 from Last 3 Months or Most Recently Relevant to Health Maintenance Results * External Vascular Ultrasound (05/18/2025) Only the most recent of2 resultswithin the time period is included. Anatomical Region Laterality Modality Ultrasound us Provider [facility] CV VASCULAR PROCEDURES F inal Result * External Xray Report (05/18/2025) Only the most recent of2 resultswithin the time period is included. Anatomical Region Laterality Modality Radiographic Tiffanie ging us Provider [facility] IMG XR PROCEDURES Final Result * External Nuc Med Report (05/18/2025) Only the most recent of2 resultswithin the time period is included. Anatomical Region Laterality Modality Nuclear Medicine Provider [facility] IM NM PROCEDURES Final Result * Hepatitis C viral RNA confirmation, genotyping with reflex to NS5A drug resistance (05/08/2025 9:39AM EDT) Pathologist [facility] Hepatitis C Quantitation HCV Not Detected IU/mL 05/16/2025 2:05 AM EDT [facility] HCV log10 05/16/2025 2:05 AM EDT [facility] Comment: Unable to calculate result since non-numeric result obtained for component test. Test Information: Note 05/16/2025 2:05 AM EDT [facility] Comment:The quantitative ran ge of this assay is 15 IU/mL to 100 million IU/mL. HCV Genotype Reflex NS5A 05/16/2025 2:05 AM EDT [facility] Comment:Not indicated Blood Venous blood specimen / Unknown Venipuncture / Unknown 05/08/2025 9:39 AM EDT 05/08/2025 9:39 AM EDT Narrative [facility] - 05/16/2025 2:05 AM EDT Performed at: 01 - [facility] [address] [place] [id number] [employer] Machine Feeder: Vic Coronado MD, Phone: [phone] Herman Smiley MD LAB BLOOD ORDERABLES Final Result [facility] * Intrinsic factor blocking antibody (05/08/2025 9:39 AM EDT) [facility] Intrinsic Factor Blocking Antibody Negative Negative 05/10/2025 1:14 PM EDT [facility] Comment: Positive in 50% of persons with pernicious anemia. Very high serum levels of vitamin B12 may give false positive results for intrinsic factor antibody. No sample should be collected from a patient who has received vitamin B12 injection therapy within the past week. Test performed at [facility], [address] , [place], [place] [id number] Diamante Colon MD, PhD - Medical Associate Blood Venous blood specimen / Unknown Venipuncture / Unknown 05/08/2025 9:39 AM EDT 05/08/2025 9:39 AM EDT Herman Smiley MD LAB BLOOD ORDERABLES Final Result [facility] [address] [place] [address] * Comprehensive metabolic panel (05/08/2025 9:39 AM EDT) [facility] Sodium 139 133 - 145 mmol/L LAB CHEMISTRY METHOD 05/08/2025 12:57 PM [facility] Potassium 4.3 3.5 - 5.5 mmol/L LAB CHEMISTRY METHOD 05/08/2025 12:57 PM [facility] Chloride 108 96 - 110 mmol/L LAB CHEMISTRY METHOD 05/08/2025 12:57 PM [facility] CO2 26 21 - 32 mmol/L LAB CHEMISTRY METHOD 05/08/2025 12:57 PM [facility] Anion Gap 5 3 - 11 LAB CHEMISTRY METHOD 05/08/2025 12:57 PM [facility] Glucose 98 70 - 100 mg/dL LAB CHEMISTRY METHOD 05/08/2025 12:57 PM [facility] BUN 12 5 - 25 mg/dL LAB CHEMISTRY METHOD 05/08/2025 12:57 PM [facility] Creatinine 1.02 0.50 - 1.10 mg/dL LAB CHEMISTRY METHOD 05/08/2025 12:57 PM [facility] eGFR 67 >=60 mL/min/1. 73m2 LAB CHEMISTRY METHOD 05/08/2025 12:57 PM [facility] Comment:Calculation based on the Chronic Kidney Disease Epidemiology Collaboration (CKD-EPI) equation refit without adjustment for race. BUN/Creatinine Ratio 11.8 LAB CHEMISTRY METHOD 05/08/2025 12:57 PM EDT [facility] Calcium 9.3 8.5 - 10.5 mg/dL LAB CHEMISTRY METHOD 05/08/2025 12:57 PM EDT [facility] AST (SGOT) 30 10 - 42 unit/L LAB CHEMISTRY METHOD 05/08/2025 12:57 PM [facility] ALT (SGPT) 38 10 - 60 unit/L LAB CHEMISTRY METHOD 05/08/2025 12:57 PM EDT [facility] Alkaline Phosphatase 97 42 - 121 unit/L LAB CHEMISTRY METHOD 05/08/2025 12:57 PM EDT [facility] Total Protein 7.6 6.0 - 8.0 g/dL LAB CHEMISTRY METHOD 05/08/2025 12:57 PM [facility] Albumin 4.2 3.2 - 5.0 g/dL LAB CHEMISTRY METHOD 05/08[facility]2025 12:[facility] Total Bilirubin 0.5 0.0 - 1.4 mg/dL LAB CHEMISTRY METHOD 05/08/2025 12:57 PM [facility] Blood Venous blood specimen / Unknown Venipuncture / Unknown 05/08/2025 9:39 AM EDT 05/08/2025 9:39 AM EDT us Herman Smiley MD LAB BLOOD ORDERABLES Final Result [facility] [address] [place] [address], * Fine needle aspiration (05/08/2025 9:20 AM EDT) Only the most recent of3 resultswithin the time period is included. Final Diagnosis A. Thyroid, left mid pole -fine needle aspirate (ThinPrep, direct smears): Malignant (Wheeler category ) Papillary Carcinoma B. Thyroid, right mid pole -fine needle aspiration, (ThinPrep, direct smears): Malignant (Wheeler category ) Papillary Carcinoma C. Thyroid, Isthmus -fine needle aspiration, (ThinPrep, direct smears): Malignant (Wheeler category ) Papillary carcinoma Histiocytes and hemosiderin-lade n macrophages consistent with cystic change 05/14/2025 2:52 PM T [facility] Clinical Information Isthmus Cytology to ThyroSeq reflexed if AUS or SFN 05/14/2025 2:52 PM T [facility] Specimen A Adequacy Satisfactory for evaluation 05/14/2025 2:52 PM [facility] Specimen B Adequacy Satisfactory for evaluation 05/14/2025 2:52 PM [facility] Specimen C Adequacy Satisfactory for evaluation 05/14/2025 2:52 PM [facility] Gross Description A. Thyroid, Left, Left mid pole thyroid: Received 30ml dark cloudy pink cytolyt ,3 air dried, 3 alc fixed B. Thyroid, Right, Right mid pole thyroid: Received 30ml dark cloudy pink cytolyt ,3 air dried, 3 alc fixed C. Thyroid, Isthmus: Received 30ml dark cloudy pink cytolyt ,2 air dried, 2 alc fixed 05/14/2025 2:52 PM EDT [facility] Microscopic Description 05/14/2025 2:52 PM EDT [facility] Disclaimer Unless otherwise specified, all tissue is 10% NB formalin fixed and paraffin embedded. Technical cytopathology services provided by [facility], at [address] [place] [id number] (CLIA # [id number]/Manuel Albrecht MD, Medical Associate.) 05/14/2025 2:52 PM [facility] Fine Needle Aspirate Thyroid structure / Unknown Non-blood Collection / Unknown 05/08/2025 9:20 AM EDT 05/08/2025 9:20 AM EDT Comment:IsthmusCytology to T hyroSeq reflexed if AUS or SFN Specimen obtained by fine needle aspiration procedure (specimen) Structure of left lobe of thyroid gland / Unknown 05/08/2025 9:20 AM EDT 05/08/2025 9:20 AM EDT Specimen obtained by fine needle aspiration procedure (specimen) Structure of right lobe of thyroid gland / Unknown 05/08/2025 9:20 AM EDT 05/08/2025 9:20 AM EDT us Grace Hastings MD LAB PATHOLOGY ORDERABLES Final Result [facility] [address] [place] [address], * Biopsy thyroid (05/08/2025 9:02 AM EDT) Narrative Grace Hastings MD - 05/08/2025 9:02 AM EDT Grace Hastings MD 05/08/2025 9:11 AM Biopsy thyroid Date/Time: 05/08/2025 9:02 AM Performed by: Grace Hastings MD Authorized by: Grace Hastings MD Local anesthesia used: yes Anesthesia: Local anesthesia used: yes Local Anesthetic: lidocaine 2% without epinephrine Anesthetic total: 8 mL Sedation: Patient sedated: no Grace Hastings MD IN CLINIC/BEDSIDE ORDERABLES F inal Result * US Head Neck Soft Tissue (04/03/2025 3:39 PM EDT) Anatomical Region Laterality Modality Head and Neck Ultrasound 04/03/2025 3:48 PM EDT Impressions 04/03/2025 3:55 PM EDT Bilateral thyroid nodules as above. One-year follow-up is recommended per ACR TI-RADS TI-RADS 2017 reference: Se FN, Kali WD, Antonio EG, et al. ACR Thyroid Imaging, Reporting and Data System (TI-RADS): White Paper of the ACR TI-RADS Committee. J Am Noman Radiol. Volume 14, Issue 5 , 587 595. http://www.jacr.org/article/[email or web address](56)31600-2/fulltext ACR TI-RADS recommendations: TR1 and TR2: No FNA or follow-up. TR3: FNA if greater than 2.4 cm, follow-up if 1.5-2.4 cm in 1, 3 and 5 years. TR4: FNA if greater than 1.4 cm, follow-up if 1.0-1.4 cm in 1, 2, 3 and 5 years. TR5: FNA if greater than 0.9 cm, follow-up if 0.5-0.9 cm every year for 5 years. TI-RADS calculator: http://tiradscalculator.com/ -------- FINAL REPORT -------- Dictated By: Noah Wyatt Dictated Date: 04/03/2025 15:48 ET Assigned Physician: Noah Wyatt Reviewed and Electronically Signed By: Noah Wyatt Signed Date: 04/03/2025 15:55 ET Workstation ID: [id number] Transcribed By: Self Edit Transcribed Date: 04/03/2025 15:48 ET Narrative 04/03/2025 3:55 PM EDT THYROID ULTRASOUND INDICATION: Goiter TECHNIQUE: Ultrasound evaluation of the thyroid gland was performed with solomon scale and color Doppler imaging. COMPARISON: None FINDINGS: ACR TI-RADS criteria was utilized for nodule description and follow-up recommendations. RIGHT THYROID: Right thyroid lobe demonstrates homogeneous echotexture measuring 3.5 x 1.9 x 1.4 cm. Nodule(s) in the right lobe (greater than or equal to 0.5 cm) are as described: 1. Nodule in lower pole is solid (2), hypoechoic (2), wmjhp-olqt-[id number] (0), with ill-defined margins (0) and with macrocalcifications (1). Nodule measures 1.2 x 1.0 x 1.1 cm. As per ACR TI-RADS nodule is categorized as TR-4. Recommendation per ACR-TIRADS: One year follow up ultrasound is recommended. LEFT THYROID: Left thyroid lobe demonstrates homogeneous echotexture measuring 3.5 x 1.2 x 1.2 cm. Nodule(s) in the left lobe (greater than or equal to 0.5 cm) are as described: 1. Nodule in upper pole is solid (2), hypoechoic (2), [id number]-rvbq (0), with ill-defined margins (0) and with macrocalcifications (1). Nodule measures 0.9 x 0.6 x 0.3 cm. As per ACR TI-RADS nodule is categorized as TR-4. Recommendation per ACR-TIRADS: No specific follow up or fine needle aspiration is recommended. ISTHMUS: The isthmus measures 0.2 cm. VASCULARITY: Color doppler demonstrates normal blood flow to thyroid gland. Procedure Note Noah Wyatt MD - 04/03/2025 THYROID ULTRASOUND INDICATION: Goiter TECHNIQUE: Ultrasound evaluation of the thyroid gland was performed withgray scale and color Doppler imaging. COMPARISON: None FINDINGS: ACR TI-RADS criteria was utilized for nodule description and follow-uprecommendations. RIGHT THYROID: Right thyroid lobe demonstrates homogeneous echotexturemeasuring 3.5 x 1.9 x 1.4 cm. Nodule(s) in the right lobe (greater than orequal to 0.5 cm) are as described: 1. Nodule in lower pole is solid (2), hypoechoic (2), hwqqg-vjgj-hcxb(0), with ill-defined margins (0) and with macrocalcifications (1). Nodulemeasures 1.2 x 1.0 x 1.1 cm. As per ACR TI-RADS nodule is categorized asTR-4. Recommendation per ACR-TIRADS: One year follow up ultrasound isrecommended. LEFT THYROID: Left thyroid lobe demonstrates homogeneous echotexturemeasuring 3.5 x 1.2 x 1.2 cm. Nodule(s) in the left lobe (greater than orequal to 0.5 cm) are as described: 1. Nodule in upper pole is solid (2), hypoechoic (2), zlcsn-vlta-dsll(0), with ill-defined margins (0) and with macrocalcifications (1). Nodulemeasures 0.9 x 0.6 x 0.3 cm. As per ACR TI-RADS nodule is categorized asTR-4. Recommendation per ACR-TIRADS: No specific follow up or fine needleaspiration is recommended. ISTHMUS: The isthmus measures 0.2 cm. VASCULARITY: Color doppler demonstrates normal blood flow to thyroidgland. IMPRESSION: Bilateral thyroid nodules as above. One-year follow-up is recommended perACR TI- RADS TI-RADS 2017 reference: Se FN, Kali WD, Antonio EG, et al. ACR Thyroid Imaging, Reportingand Data System (TI-RADS): White Paper of the ACR TI-RADS Committee. J AmColl Radiol. Volume 14, Issue 5 , 587 - 338. http://www.jacr.org/article/X0971-1102(17)29004-5/fulltext ACR TI-RADS recommendations: TR1 and TR2: No FNA or follow-up. TR3: FNA if greater than 2.4 cm, follow-up if 1.5-2.4 cm in 1, 3 and 5years. TR4: FNA if greater than 1.4 cm, follow-up if 1.0-1.4 cm in 1, 2, 3 and 5years. TR5: FNA if greater than 0.9 cm, follow-up if 0.5-0.9 cm every year for 5years. TI-RADS calculator: http://tiradscalculator.com/ -------- FINAL REPORT -------- Dictated By: Noah Wyatt Dictated Date: 04/03/2025 15:48 ET Assigned Physician: Noah Wyatt Reviewed and Electronically Signed By: Noah Wyatt Signed Date: 04/03/2025 15:55 ET Workstation ID: [id number] Transcribed By: Self Edit Transcribed Date: 04/03/2025 15:48 ET us Herman Smiley MD IMG US PROCEDURES Final Res ult * (ABNORMAL) Hepatitis C antibody (02/25/2025 8:44 AM EDT) Hepatitis C Antibody Positive (A) Negative LAB CHEMISTRY METHOD 02/25/2025 5:07 PM EDT [facility] Comment:If confirmation of t his positive HCV Ab screening test is needed, please redraw and order HCV Viral Load. Note--> This test may not be added on due to different specimen requirements. Blood Venous blood specimen / Unknown Venipuncture / Unknown 02/25/2025 8:44 AM EDT 02/25/2025 8:44 AM EDT Herman Smiley MD LAB BLOOD ORDERABLES Final Result Performing Organization Address City/[facility]/ZIP Co de Phone Number [facility] [address] [place] [address], [place] [phone] * (ABNORMAL) Lipid panel with reflex to direct LDL (02/25/2025 8:44 AM EDT) Cholesterol 208(H) 0 - 200 mg/dL LAB CHEMISTRY METHOD 02/25/2025 2:47 PM EDT [facility] Triglycerides 107 0 - 150 mg/dL LAB CHEMISTRY METHOD 02/25/2025 2:47 PM EDT [facility] HDL 55 >=40 mg/dL LAB CHEMISTRY METHOD 02/25/2025 2:47 PM EDT [facility] LDL Calculated 132(H) 0 - 100 mg/dL LAB CHEMISTRY METHOD 02/25/2025 2:47 PM EDT [facility] VLDL Cholesterol Momo 21.4 mg/dL LAB CHEMISTRY METHOD 02/25/2025 2:47 PM EDT [facility] Non HDL Chol. (LDL+VLDL) 153(H) <145 mg/dL LAB CHEMISTRY METHOD 02/25/2025 2:47 PM EDT [facility] Chol/HDL Ratio 3.8 0.0 - 4.4 LAB CHEMISTRY METHOD 02/25/2025 2:47 PM EDT [facility] Blood Venous blood specimen / Unknown Venipuncture / Unknown 02/25/2025 8:44 AM EDT 02/25/2025 8:44 AM EDT Herman Smiley MD LAB BLOOD ORDERABLES Final Result [facility] [address] [place] [address], * Depression Screening (07/26/2024) Depression Screening Abstracted us Historical Provider HEALTH MAINTENANCE Final Result * ALEA SCREENING DIGITAL (04/26/2018 4:56 PM EDT) Anatomical Region Laterality Modality Mammography 04/21/2018 8:01 AM EDT Narrative 04/26/2018 4:56 PM EDT [facility] Diagnostic Imaging Department [address] [place] [address] Patient: DRAKE RAY./Age/Sex: 1975 - 42 - F Unit#: [id number] Location/Status: SPDIMAM/REG CLI Mnemonic/Ordering Site: [facility] Ordering Physician: ARABELLA BEAR CNM Alea Screening Digital - 04/21/18 - 0849 EXAM: Alea Screening Digital EXAM DATE AND TIME: 04/21/2018 8:51 AM HISTORY: Screening. Mother, maternal grandmother and maternal cousin have had breast carcinoma. COMPARISON: 01/22/14 ([facility], [place], [place]) TECHNIQUE: CC and MLO views of both breasts were obtained using full field digital mammography. Bilateral digital breast tomosynthesis was performed in the MLO projection. Computer aided detection with the iCAD SecondLook 7.2-H was employed. TISSUE DENSITY: c. The breasts are heterogeneously dense, which may obscure small masses. FINDINGS: No suspicious masses, grouped microcalcifications, or areas of architectural distortion are seen. The skin and vascularity are unremarkable. IMPRESSION: Stable mammographic appearance of the breasts. No evidence of malignancy is seen. A negative mammogram in the presence of a clinically suspicious palpable abnormality does not preclude the possibility of malignancy or alter the indications for biopsy. BI-RADS: Category 1: Negative RECOMMENDATION(S): 1: Routine screening mammogram BILATERAL in 1 year. 20788, 43754 3341F, 7025F Dictating Physician: KATY JOHNSON MD Electronically Signed by: KATY JOHNSON MD Dic Date/Time: 04/26/181654 Sign date/Time: 04/26/181655 Procedure Note Katy Johnson MD - 09/28/2022 [facility] Diagnostic Imaging Department [address] [place] [address] Patient: FLORDRAKE De La Garza/Age/Sex: 1975 - 42 - F Unit#: [id number] [facility]Ordering Site: [facility] Ordering Physician: ARABELLA BEAR CNM Alea Screening Digital - 04/21/18 - 0849 EXAM: [facility] Screening Digital EXAM DATE AND TIME: 04/21/2018 8:51 AM HISTORY: Screening. Mother, maternal grandmother and maternal cousin havehad breast carcinoma. COMPARISON: 01/22/14 ([facility],[place], [place]) TECHNIQUE: CC and MLO views of both breasts were obtained using fullfield digital mammography. Bilateral digital breast tomosynthesis was performedin the MLO projection. Computer aided detection with the [employer] 7.2-MyTradeas employed. TISSUE DENSITY: c. The breasts are [...] Routine screening mammogram BILATERAL in 1 year. 86624, 49757 3341F, 7025F Dictating Physician: KATY JOHNSON MD Electronically Signed by: KATY JOHNSON MD Dic Date/Time: 04/26/181654 Sign date/Time: 04/26/181655 Arabella Bear CNM IMG BI PROCEDURES Final Result * Pap smear (02/24/2018) 02/24/2018 Narrative HISTORICAL TESTING LAB RESULTING AGENCY - 03/01/2018 11:50 AM EDT [id number] THINPREP PAP, IMAGED: NEGATIVE FOR SQUAMOUS INTRAEPITHELIAL LESION AND MALIGNANCY . ABUNDANT RED BLOOD CELLS ARE PRESENT. RESULT OF APTIMA HIGH RISK HPV ASSAY: NEGATIVE (SEROTYPES 16,18,31,33,35,39,45,51,52,56,58,59,66,68) SUKUMAR PATRICK(ASCP) (CASE ELECTRONICALLY SIGNED 03 01 2018) ADEQUACY: SATISFACTORY. ENDOCERVICAL/TRANSFORMATION ZONE COMPONENT ABSENT. SOURCE: THINPREP PAP HPV ANY DX: REFLEX 16 AND 18, CERVICAL, IMAGED: CLINICAL INFORMATION: HPV ANY DIAGNOSIS. PAP HX POS, LMP 5//18, Z12.4, Z11.3 Shirin Shaw CNM LAB CYTOLOGY ORDERABLES Final Result HISTORICAL TESTING LAB RESULTING AGENCY * HIV Screening (02/23/2018) Pathologist [facility] HIV Screening Abstracted us Historical Provider HEALTH MAINTENANCE Final Result from Last 3 Months or Most Recently Relevant to Health Maintenance Insurance [facility] [employer] Care Teams Manager Respiratory Care Relationship Specialty Start Date End Date Herman Smiley MD [address] [place] [address] [phone] PCP - General 03/18/23
--- OUTSIDE RECORDS SUMMARY | 2025-06-11 10:00 | XMS_ITS | Encounter Summary ---
Author Organization [facility] [place] [address] Care Team Providers Care Exchange Teller Name Role Phone Herman Smiley MD Primary Care Provider [phone] Reason for Visit * Reason Onset Date Comments letter for housing 05/21/2025 Encounter Details Date Type Department Care Team (Late st Contact Info) Description 05/21/2025 [facility]phone [facility] [address] [phone] Grace Hastings MD [address] [place] [phone] Social History Tobacco Use Types Packs/Day Years [...] care for your loved ones. For example, children's institution attendant or elderly care for an older adult? 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 She states the original letter was blank and it needs to include her recent thyroid cancer diagnosis and treatment plan. documented in this encounter Plan of Treatment Upcoming Encounters Date Type Department Care Team (Late st Contact Info) Description 06/19/2025 10:30 AM EDT Clinical Support Adult Medicine [address] [phone] 07/17/2025 10:30 AM EDT Clinical Support [address] [phone] 08/03/2025 10:10 AM EDT Appointment Radiology Department - [address] [phone] 08/06/2025 10:30 AM EDT Office Visit Adult [address] [phone] Jocelyn Phipps PA [address] [place] [address] 11/21/2025 10:00 AM EST Office Visit Obstetrics and Gynecology - [address] [phone] Emilee Chavez CNM [address] [place] [address] documented as of this encounter Visit Diagnoses Not on filedocumented in this encounter Additional Health Concerns Assessment Noted Time PHQ-9 Depression Total Score: 0 04/02/20 25 3:38 PM EDT documented as of this encounter Care Teams Exchange Teller Relationship Specialty Start Date End Date Herman Smiley MD [address] [place] [address] PCP - General 03/18/23 documented as of this encounter
--- OUTSIDE RECORDS SUMMARY | 2025-06-11 10:00 | XMS_ITS | Clinical Summary ---
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 8 Active hydrOXYzine pamoate (Vistaril) 50 MG capsule 1 capsule in the morning and 1 capsule at noon and 1 capsule in the evening. Active hydrOXYzine HCl (Atarax) 25 MG tablet Take 1 tablet by mouth every 6 (six) hours. Active lactulose (Chronulac) 10 GM/15ML solution 15 mL in the morning. 9 Active loratadine (Claritin) 10 MG tablet 1 tablet in the morning. 9 Active methadone (Methadose) 40 MG dispersible tablet Take 1 tablet by mouth at bed time. Active methadone (Dolophine) 10 MG/5ML solution 48 mL in the morning. Active mirtazapine (Remeron) 7.5 MG tablet 1 tablet in the morning. 9 Active nicotine polacrilex (Nicorette) 2 MG gum 1 piece as needed Mouth/Throat upt to 8 times per day Active prazosin (Minipress) 2 MG capsule 3 capsules. Active rOPINIRole (Requip) 0.5 MG tablet 1 tablet in the morning and 1 tablet at noon and 1 tablet in the evening. Active venlafaxine XR (Effexor XR) 75 MG 24 hr capsule 1 capsule in the morning. 9 Active prazosin (Minipress) 5 MG capsule 3 Active cloNIDine (Catapres) 0.2 MG tablet 3 Active gabapentin (Neurontin) 600 MG tablet 3 Active topiramate (Topamax) 100 MG tablet 3 Active fluticasone (Flonase) 50 MCG/ACT nasal spray 3 Active doxepin (SINEquan) 10 MG capsule 3 Active busPIRone (Buspar) 10 MG tablet 3 Active azithromycin (Zithromax) 250 MG tablet Take two tabs on day one followed by one tablet once daily from day two until gone. 6 tablet 3 Active Additional Information Patient not taking.Reported on 02/19/2025 Albuterol Sulfate (ProAir RespiClick) 108 (90 Base) MCG/ACT aerosol powder Inhale. 0 Active atorvastatin (Lipitor) 20 MG tablet Take 20 mg by mouth Once per day. 5 Active cholecalciferol (Vitamin D-3) 50 MCG (2000 UT) capsule Take 2,000 Units by mouth Once per day. 5 Active cyanocobalamin (Vitamin B-12) 1000 MCG tablet Take 1,000 mcg by mouth Once per day. 5 Active SUMAtriptan (Imitrex) 50 MG tablet Take 50 mg by mouth 1 (one) time if needed. 5 12/26/19 26 Active acetaminophen (Tylenol 8 Hour) 650 MG ER tablet Take 1 tablet (650 mg) by mouth every 8 (eight) hours if needed for mild pain. Do not crush, chew, or split. 30 tablet 5 Active ibuprofen 600 MG tabletIndication s:Alveolitis of maxilla,History of tooth extraction, unspecified edentulism class Take 1 tablet (600 mg) by mouth 3 times daily. 30 tablet 5 Active chlorhexidine (Peridex) 0.12 % solution Swish 15 mL morning and night for 1 minute. Spit, do not swallow. Do not eat or drink for 30 minutes following use. 473 mL Active Active Problems Problem Noted Date Diagnosed Date Bone spicules of jaw 02/19/2025 Alveolitis of maxilla 01/21/2025 History of tooth extraction 01/21/2025 Pain, dental 01/21/2025 Xerostomia 07/11/2024 Dental plaque 07/11/2024 Missing teeth, acquired 07/11/2024 Localized gingival recession 07/11/2024 Pain due to dental caries 07/11/2024 Tooth sensitivity 07/11/2024 Encounters Date Type Department Care Team Description 05/13/2025 Travel 03/11/[address] [facility] [address] [place] [address] Erasmo Bryan DDS rs no show visit from Last 3 Months Social History Tobacco [...] Description 06/28/2025 3:00 PM EDT Office Visit [facility] [address] [place] [address] Gerri Dowell [address] [place] [address] Health Maintenance Due Date Last Done Comments CT Colonography 1975 Colonoscopy 1975 Colorectal Cancer Screening 1975 Depression Screening 1975 FIT DNA/Cologuard 1975 FIT 1975 FOBT 1975 HIV Screening 1975 Lipid Panel 1975 SDOH Screening 1975 Sigmoidoscopy 1975 Disability Screening 1974 Alcohol/Substance Use Screening 1986 Family Planning [...] - 2023-2 5 season) 2024 07/23/2021, 06/29/2021 Lung Cancer Screening 2024 Zoster Vaccines (1 of 2) 2024 Dental Prophylaxis 01/10/2025 07/11/2024 Influenza Vaccine (#1) 2025 , 06/19/2019 Dental X-Ray: Bitewings 01/16/2026 01/16/20, 02/23/2023 Tobacco Screening 02/19/2026 02/19/2025 DTaP/Tdap/Td Vaccines [...] Procedure Name Priority Date/Time Associated Diagnosis Comments PANORAMIC RADIOGRAPHIC IMAGE Routine 01/21/2025 11:30 AM EDT BITEWING - SINGLE RADIOGRAPHIC IMAGE Routine 01/15/2025 10:00 AM EDT PROPHYLAXIS - ADULT Routine 07/11/2024 9 :00 AM EDT Xerostomia Dental plaque Dental caries COMPREHENSIVE ORAL EVALUATION - NEW OR ESTABLISHED PATIENT Routine 02/23/2023 2:00 PM EDT from Last 3 Months or Most Recently Relevant to Health Maintenance Insurance [facility] [place] ST[place] AD[place]
== END 2025-06-11 10:04 | disposition home or self-care (01) ==
LOC: HO.PMC 09:07
PROVIDERS: PCP Internal Medicine; Visit Provider Nurse Practitioner Family
DX: M79.7 Fibromyalgia (principal); M47.817 Spondylosis without myelopathy or radiculopathy, lumbosacral region; M51.369 Other intervertebral disc degeneration, lumbar region without mention of lumbar back pain or lower extremity pain; E66.01 Morbid (severe) obesity due to excess calories; M53.3 Sacrococcygeal disorders, not elsewhere classified
CPT/HCPCS: 99204

== ENCOUNTER → 2025-06-11 09:07 | Outpatient (BNVA) | payer OTHER, SELFPAY | PROVIDERS: PCP Internal Medicine; Visit Provider Nurse Practitioner Family | DX: M79.7 Fibromyalgia (principal); M47.817 Spondylosis without myelopathy or radiculopathy, lumbosacral region; M51.369 Other intervertebral disc degeneration, lumbar region without mention of lumbar back pain or lower extremity pain; E66.01 Morbid (severe) obesity due to excess calories; M53.3 Sacrococcygeal disorders, not elsewhere classified | CPT/HCPCS: 99202 ==

== ENCOUNTER 2025-07-23 06:18 | Outpatient (REF) | payer OTHER, SELFPAY ==
--- NOTE | ~2025-07-23 | FL_ITS ---
EXAMINATION: FL GUIDANCE ONLY HISTORY: M47.817 - Spondylosis without myelopathy or radiculopathy, lumbosacral... COMPARISON: None available. TECHNIQUE: Fluoroscopy time: 8.0 seconds. Cumulative Dose: 3.7504 mGy. DAP: 1.4072 Gycm2 Images: 2. FINDINGS: Fluoroscopic spot films of the lumbar spine demonstrate a needle and contrast material in the region of the right L5-S1 facet joint. FL/FL guidance in treatment room IMPRESSION: Fluoroscopy during procedure. Please see procedure report for additional information. Electronically signed by: Kyler Amaya MD 07/23/2025 03:49 PM EDT
--- OUTSIDE RECORDS SUMMARY | 2025-07-23 06:20 | XMS_ITS | Clinical Summary ---
Author Organization [address] Address [address] [place] [phone] Phone Care Team Providers Care Social Staff Worker Name Role Phone Herman Smiley MD Primary Care Provider [phone] Allergies Active Allergy Reactions Criticality Noted Date Comments Other Wheezing High 02/23/2018 Iv Contrast Dye Penicillins Swelling High 02/23/2018 Swelling throat Prednisone Other High 02/23/2018 GI Bleed Medications prazosin HCl (PRAZOSIN ORAL) Take 11 mg [...] Leeanne Coronado Active incontinence pad, liner, disp padIndications: Primary stress urinary incontinence 5 each 1 (one) time each day if needed (as neded). 150 each 11 09/21/20 24 025 Active ofloxacin (FLOXIN) 0.3 % otic solution Administer 4 drops into each ear 2 (two) times a day. 10 mL 11/29/19 25 Active senna-docusate (PERICOLACE) 8.6-50 mg per tablet Take 1 tablet by mouth 1 (one) time each day. 180 each 02/26/20 25 Active albuterol HFA (Proventil HFA) 90 mcg/actuation inhalerIndicati ons:Mild intermittent asthma without complication Inhale 2 puffs by mouth every 4 (four) hours if needed for wheezing or shortness of breath. 6.7 g 3 03/27/20 25 026 Active lactulose (CHRONULAC) solution Take 10 mL (6.6667 g total) by mouth 1 (one) time each day if needed (constipation ). 300 mL 03/27/20 25 Active chlorhexidine (PERIDEX) 0.12 % solution Swish 15 mL morning and night for 1 minute. Spit, do not swallow. Do not eat or drink for 30 minutes following use. 01/22/20 25 Active ibuprofen (ADVIL,MOTRIN) 600 mg tablet Take 1 tablet (600 mg total) by mouth. 01/22/20 25 Active Vitamin D3 50 mcg (2,000 unit) capsule TAKE 1 CAPSULE BY MOUTH DAILY 90 capsule 05/29/20 25 Active omeprazole (PriLOSEC) [address] capsule TAKE 1 CAPSULE BY MOUTH DAILY (DON'T CRUSH OR CHEW) 90 capsule 05/29/20 25 Active Pain Reliever, acetam-aspirin, 250-250-65 mg per tablet TAKE 1 TABLET BY MOUTH EVERY 6 (SIX) HOURS IF NEEDED FOR HEADACHES. 90 tablet 3 05/29/20 25 Active polyethylene glycol (PEG) 17 gram/dose oral powder DISSOLVE 17 GRAMS IN 8OZ OF LIQUID AND DRINK BY MOUTH DAILY 1530 g 05/29/20 25 Active cyanocobalamin (VITAMIN B-12) 1,000 mcg tablet TAKE 1 TABLET BY MOUTH DAILY 90 tablet 05/29/20 25 Active SUMAtriptan (IMITREX) 50 mg tablet TAKE 1 TABLET BY MOUTH ONCE NEEDED FOR MIGRAINE MAY REPEAT ONCE IN 2 HOURS IF NO RELIEF NOT TO EXCEED 2 DOSES PER 9 tablet 06/19/20 25 Active atorvastatin (LIPITOR) 20 mg tablet TAKE 1 TABLET BY MOUTH DAILY 90 tablet 06/19/20 25 Active diclofenac (VOLTAREN) 1 % topical gel APPLY 2G TOPICALLY TO AFFECTED AREA TWICE A DAY 400 g 06/19/20 25 Active fluticasone propionate (FLONASE) 50 mcg/actuation nasal spray Administer 2 sprays into each nostril 1 (one) time each day. Shake gently. Before first use, prime pump. After use, clean tip and replace cap. 48 g 1 06/28/20 25 Active cyclobenzaprine (FLEXERIL) 5 mg tablet Take 1-2 tablets (5-10 mg total) by mouth 2 (two) times a day if needed for muscle spasms. 60 tablet 3 06/28/20 25 Active gabapentin (NEURONTIN) 600 mg tablet Take 1 tablet (600 mg total) by mouth 3 (three) times a day. Prescribed by mental health provider 025 Discontinued cyclobenzaprine (FLEXERIL) 5 mg tablet TAKE 1 TABLET BY MOUTH TWICE A DAY NEEDED FOR MUSCLE SPASMS 45 tablet 3 05/29/20 25 025 Discontinued(R eorder) fluticasone propionate (FLONASE) 50 mcg/actuation nasal spray INHALE 2 SPRAYS IN EACH NOSTIRL DAILY DIRECTED 48 g 1 06/19/20 25 025 Discontinued(R eorder) cyclobenzaprine (FLEXERIL) 5 mg tablet Take 1-2 tablets (5-10 mg total) by mouth 2 (two) times a day if needed for muscle spasms. 60 tablet 3 06/26/20 25 025 Discontinued(R eorder) Hospital, Clinic, or Other Facility Administered Medication [...] disease without esophagi tis 12/24/2024 Rheumatoid arthritis ([facility]/HCC V24, CMS/HCC V28) 12/24/2024 Mild intermittent asthma without complication [...] migrainosus, not intract able 09/09/2023 Bipolar disorder ([facility] V24, [facility] V28) 10/2022 Anxiety and depression 09/09/2023 PTSD (post-traumatic stress disorder) 09/09/2023 Primary stress urinary incontinence 09/05/2023 Encounters Date Type Department Care Team Description 07/17/2025 10:30 AM EDT Clinical Support Adult [address] [phone] B12 deficiency (Primary Dx) 06/26/2025 Telephone Adult [address] [phone] Herman Smiley MD 06/19/2025 10:30 AM EDT Clinical Support [address] [phone] B12 deficiency (Primary Dx) 05/22/2025 10:30 AM EDT Clinical Support [address] [phone] B12 deficiency (Primary Dx) 05/21/2025 Telephone [facility] [address] [phone] Grace Hastings MD 05/17/2025 Telephone Adult [address] [phone] Herman Smiley MD 05/15/2025 11:40 AM EDT Telemedicine Endocrinology [address] [phone] Grace Hastings MD Thyroid cancer ([facility] V24, [facility] V28) (Primary Dx) 05/08/2025 9:30 AM EDT Lab Draw Station - [address] Rheumatoid arthritis, involving unspecified site, unspecified whether rheumatoid factor present (CMS/HCC V24, CMS/HCC V28); Hepatitis C antibody positive; Chronic hepatitis C without hepatic coma (CMS/HCC V24, CMS/HCC V28); B12 deficiency 05/08/2025 8:20 AM EDT Office Visit Endocrinology - [address] [phone] Grace Hastings MD Nodular goiter (Primary Dx) 04/24/2025 11:00 AM EDT Consult [address] [phone] Grace Hastings MD Multiple thyroid nodules 04/24/2025 10:30 AM EDT Clinical Support Adult Medicine [address] [phone] B12 deficiency (Primary Dx) from Last 3 Months Immunizations Immunization Administration Dates Next Due HepB-CpG (Heplisav-B) 18yo and older 03/26/2019 Hepatitis B (Mmnkeog-U-Avmfo , Recombivax HB-Adult) 19yo and older 05/04/2018 Pneumococcal polysaccharide 23 valent (Pneumovax 23) 2yo and older 04/05/2019 Tdap Tetanus diptheria acell ular pertussis (Boostrix; Adacel) 7yo and older 10/10/2016 Surgical History Surgery Date Site/Laterality Comments OTHER SURGICAL HISTORY 1996 PROCEDURE: DE LIG/TRNSXJ FLP TUBE ABDL/VAG APPR UNI/BI; COMMENT: [facility] CHOLECYSTECTOMY 2011 PROCEDURE: DE LAPAROSCOPY SURG CHOLECYSTECTOMY; COMMENT: CT CARPAL TUNNEL RELEASE 02/06/2018 Right PROCEDURE: DE NEUROPLASTY &/TRANSPOS MEDIAN NRV CARPAL TUNNE LEG SURGERY 06/22/2017 PROCEDURE: HISTORICAL LEG SURGERY; COMMENT: [place] HYSTERECTOMY PROCEDURE: HISTORICAL HYSTERECTOMY Medical History Medical [...] ed Within the last 3 months, ho kimmy many times did you visit the emergency [...] for your loved ones. For example, child development assistant or elderly care for an older adult? [...] Date Recorded What is your living situation? Unrecognized valu e 04/02/2025 Comments No Sex and Gender Information [...] Care Team (Late st Contact Info) Description 08/03/2025 10:10 AM EDT Appointment Radiology Department - [address] [phone] 08/06/2025 10:30 AM EDT Office Visit [address] [phone] Jocelyn Phipps PA [address] [place] [address] 08/21/2025 9:30 AM EST Clinical Support [address] [phone] 11/21/2025 10:00 AM EST Office Visit Obstetrics and Gynecology - [address] [phone] Emilee Chavez, JOHNNIE[address] Health Maintenance Due Date Last Done Comments Colorectal Cancer Screening: Colonoscopy 1975 Zoster Vaccines (1 of 2) 1993 Hepatitis [...] - Moderna risk series) 08/20/2021 07/23/2021, 06/29/2021 Lung Cancer Screening (Low Dose CT) 11/09/2023 Influenza Vaccine (#1) 2025 06/29/2021, 2018 Social Influencers of Health Screening 04/02/2026 04/02/2025 DTaP,Tdap,and Td Vaccines (2 - Td or Tdap) 10/10/2026 10/10/2016 Cholesterol Screening (Lipid Panel) 02/25/2030 02/25/2025, 09/08/2023 RSV Immunization Adult Patients (1 - 1-dose 75+ series) 2049 HIV Screening Completed 02/23/2018 Hepatitis C Screening [...] Routine 05/08/2025 9:02 AM EDT Nodular goiter HEPATITIS C ANTIBODY Routine 02/25/2025 8:44 AM EDT Chronic hepatitis C without hepatic coma (CMS/HCC V24, CMS/HCC V28) LIPID PANEL WITH REFLEX [...] Anatomical Region Laterality Modality Radiographic Tiffanie ging Provider [facility] XR PROCEDURES Final Result * External Nuc Med Report (05/18/2025) Only the most recent of2 resultswithin the time period is included. Anatomical Region Laterality Modality Nuclear Medicine Provider [facility] NM PROCEDURES Final Result * Hepatitis C viral RNA confirmation, genotyping with reflex to NS5A drug resistance (05/08/2025 9:39AM EDT) [facility] Hepatitis C Quantitation HCV Not Detected IU/mL [...] - 05/16/2025 2:05 AM EDT Performed at: [facility] [address] [id number] Gig Tender: Vic Coronado MD, Phone: [phone] Herman Smiley MD LAB BLOOD ORDERABLES Final Result [facility] * Intrinsic factor blocking antibody (05/08/2025 9:39 AM EDT) [facility] Intrinsic Factor Blocking Antibody Negative Negative 05/10/2025 1:14 PM EDT [facility] Comment: Positive in 50% of persons with pernicious anemia. Very high serum levels of vitamin B12 may give false positive results for intrinsic factor antibody. No sample should be collected from a patient who has received vitamin B12 injection therapy within the past week. Test performed at [facility], [address], [place] [address] Diamante Colon MD, PhD - Bi Architect Blood Venous blood specimen / Unknown Venipuncture / Unknown 05/08/2025 9:39 AM EDT 05/08/2025 9:39 AM EDT us Herman Smiley MD LAB BLOOD ORDERABLES Final Result [facility] [address] [place] [address] * Comprehensive metabolic panel (05/08/2025 9:39 AM EDT) Sodium 139 133 - 145 mmol/L LAB CHEMISTRY METHOD 05/08/2025 12:57 PM [facility] Potassium 4.3 3.5 - 5.5 mmol/L LAB CHEMISTRY METHOD 05/08/2025 12:57 PM [facility] Chloride 108 96 - 110 mmol/L LAB CHEMISTRY METHOD 05/08/2025 12:57 PM [facility] CO2 26 21 - 32 mmol/L LAB CHEMISTRY METHOD 05/08/2025 12:57 PM [facility] Anion Gap 5 3 - 11 LAB CHEMISTRY METHOD 05/08/2025 12:57 PM [facility] Glucose 98 70 - 100 mg/dL LAB CHEMISTRY METHOD 05/08/2025 12:57 PM [facility] BUN 12 5 - 25 mg/dL LAB CHEMISTRY METHOD 05/08/2025 12:57 PM [facility] Creatinine 1.02 0.50 - 1.10 mg/dL LAB CHEMISTRY METHOD 05/08/2025 12:57 PM [facility] eGFR 67 >=60 mL/min/1. 73m2 LAB CHEMISTRY METHOD 05/08/2025 12:57 PM [facility] Comment:Calculation based on the Chronic Kidney Disease Epidemiology Collaboration (CKD-EPI) equation refit without adjustment for race. BUN/Creatinine Ratio 11.8 LAB CHEMISTRY METHOD 05/08/2025 12:[address] [facility] Calcium 9.3 8.5 - 10.5 mg/dL LAB CHEMISTRY METHOD 05/08/2025 12:57 PM [facility] AST (SGOT) 30 10 - 42 unit/L LAB CHEMISTRY METHOD 05/08/2025 12:57 PM [facility] ALT (SGPT) 38 10 - 60 unit/L LAB CHEMISTRY METHOD 05/08/2025 12:57 PM [facility] Alkaline Phosphatase 97 42 - 121 unit/L LAB CHEMISTRY METHOD 05/08/2025 12:57 PM [facility] Total Protein 7.6 6.0 - 8.0 g/dL LAB CHEMISTRY METHOD 05/08/2025 12:57 PM [facility] Albumin 4.2 3.2 - 5.0 g/dL LAB CHEMISTRY METHOD 05/08/2025 12:57 PM [facility] Total Bilirubin 0.5 0.0 - 1.4 mg/dL LAB CHEMISTRY METHOD 05/08/2025 12:57 PM [facility] Blood Venous blood specimen / Unknown Venipuncture / Unknown 05/08/2025 9:39 AM EDT 05/08/2025 9:39 AM EDT us Herman Smiley MD LAB BLOOD ORDERABLES Final Result [facility] [address] [place] [address], * Fine needle aspiration (05/08/2025 9:20 AM EDT) Only the most recent of3 resultswithin the time period is included. Final Diagnosis A. Thyroid, left mid pole -fine needle aspirate (ThinPrep, direct smears): Malignant ([place] category ) Papillary Carcinoma B. Thyroid, right mid pole -fine needle aspiration, (ThinPrep, direct smears): Malignant ([place]leton category ) Papillary Carcinoma C. Thyroid, Isthmus -fine needle aspiration, (ThinPrep, direct smears): Malignant (Kendleton category ) Papillary carcinoma Histiocytes and hemosiderin-lade n macrophages consistent with cystic change 05/14/2025 2:52 PM [facility] Clinical Information Isthmus Cytology to ThyroSeq reflexed if AUS or SFN 05/14/2025 2:52 PM [facility] Specimen A Adequacy Satisfactory for evaluation 05/14/2025 2:52 PM [facility] Specimen B Adequacy Satisfactory for evaluation 05/14/2025 2:52 PM [facility] Specimen C Adequacy Satisfactory for evaluation 05/14/2025 2:52 PM [facility] Gross Description A. Thyroid, Left, Left mid pole thyroid: Received 30ml dark cloudy pink cytolyt ,3 air dried, 3 alc fixed B. Thyroid, Right, Right mid pole thyroid: Received 30ml dark cloudy pink cytolyt ,3 air dried, 3 alc fixed C. Thyroid, Isthmus: Received 30ml dark cloudy pink cytolyt ,2 air dried, 2 alc fixed 05/14/2025 2:[address] [facility] Microscopic Description 05/14/2025 2:52 PM [facility] Disclaimer Unless otherwise specified, all tissue is 10% NB formalin fixed and paraffin embedded. Technical cytopathology services provided by [facility], at [address] [place] [address], [place] [address] (CLIA # [id number]/Manuel Albrecht MD, Bi Architect.) 05/14/2025 2:52 PM [facility] Fine Needle Aspirate Thyroid structure [...] 9:20 AM EDT 05/08/2025 9:20 AM EDT Grace Hastings MD LAB PATHOLOGY ORDERABLES Final Result [facility] [address] [place] [address], * Biopsy thyroid (05/08/2025 9:02 AM EDT) [...] IN CLINIC/BEDSIDE ORDERABLES F inal Result * (ABNORMAL) Hepatitis C antibody (02/25/2025 8:44 AM EDT) Hepatitis C Antibody Positive (A) Negative LAB CHEMISTRY METHOD 02/25/2025 5:[address] [facility] Comment:If confirmation of t his positive HCV Ab screening test is needed, please redraw and order HCV Viral Load. Note--> This test may not be added on due to different specimen requirements. Blood Venous blood specimen / Unknown Venipuncture / Unknown 02/25/2025 8:44 AM EDT 02/25/2025 8:44 AM EDT Herman Smiley MD LAB BLOOD ORDERABLES Final Result [facility] [address] [place] [address], [place] [phone] * (ABNORMAL) Lipid panel with reflex to direct LDL (02/25/2025 8:44 AM EDT) [facility] Cholesterol 208(H) 0 - 200 mg/dL LAB CHEMISTRY METHOD 02/25/2025 2:[address] [facility] Triglycerides 107 0 - 150 mg/dL LAB CHEMISTRY METHOD 02/25/2025 2:[address] [facility] HDL 55 >=40 mg/dL LAB CHEMISTRY METHOD 02/25/2025 2:[address] [facility] LDL Calculated 132(H) 0 - 100 mg/dL LAB CHEMISTRY METHOD 02/25/2025 2:[address] [facility] VLDL Cholesterol Momo 21.4 mg/dL LAB CHEMISTRY METHOD 02/25/2025 2:[address] [facility] Non HDL Chol. (LDL+VLDL) 153(H) <145 mg/dL LAB CHEMISTRY METHOD 02/25/2025 2:[address] [facility] Chol/HDL Ratio 3.8 0.0 - 4.4 LAB CHEMISTRY METHOD 02/25/2025 2:[address] [facility] Blood Venous blood specimen / Unknown Venipuncture / Unknown 02/25/2025 8:44 AM EDT 02/25/2025 8:44 AM EDT Herman Smiley MD LAB BLOOD ORDERABLES Final Result [facility] [address] [place] [address], [place] [phone] * Depression Screening (07/26/2024) Depression Screening Abstracted us Historical Provider HEALTH MAINTENANCE Final Result * ALEA SCREENING DIGITAL (04/26/2018 4:56 PM EDT) Anatomical Region Laterality Modality Mammography 04/21/2018 8:01 AM EDT Narrative 04/26/2018 4:56 PM EDT [facility] Diagnostic Imaging Department [address] [place] [address] Patient: DRAKE RAY./Age/Sex: 1975 - 42 - F Unit#: [id number] Location/Status: SPDIMAM/REG CLI Mnemonic/Ordering Site: [facility] Ordering Physician: ARABELLA CABALLERO CNM Alea Screening Digital - 04/21/18 - 0849 EXAM: Alea Screening Digital EXAM DATE AND TIME: 04/21/2018 8:51 AM HISTORY: Screening. Mother, maternal grandmother and maternal cousin have had breast carcinoma. COMPARISON: 01/22/14 ([facility], [place], [place]) TECHNIQUE: CC and MLO views of both breasts were obtained using full field digital mammography. Bilateral digital breast tomosynthesis was performed in the MLO projection. Computer aided detection with the [employer] 7.2-H was employed. TISSUE DENSITY: c. The [...] Routine screening mammogram BILATERAL in 1 year. [address]203, 99163 3341F, 7025F Dictating Physician: KATY JOHNSON MD Electronically Signed by: KATY JOHNSON MD Dic Date/Time: 04/26/181654 Sign date/Time: 04/26/181655 Procedure Note Katy Johnson MD - 09/28/2022 [facility] Diagnostic Imaging Department [address] [place] [address] Patient: DRAKE RAY/Age/Sex: 1975 - 42 - F Unit#: [id number] [facility] Ordering Physician: ARABELLA CABALLERO CNM [facility] Screening Digital - 04/21/18848 EXAM: [facility] Screening Digital EXAM DATE AND TIME: 04/21/2018 8:51 AM HISTORY: Screening. Mother, maternal grandmother and maternal cousin havehad breast carcinoma. COMPARISON: 01/22/14 ([facility],[place], [place]) TECHNIQUE: CC and MLO views of both breasts were obtained using fullfield digital mammography. Bilateral digital breast tomosynthesis was performedin the MLO projection. Computer aided detection with the [employer] 7.2-Bre[employer] Buildingsas employed. TISSUE DENSITY: c. The breasts are [...] Routine screening mammogram BILATERAL in 1 year. [address]857, 39379 3341F, 7025F Dictating Physician: KATY JOHNSON MD Electronically Signed by: KATY JOHNSON MD Dic Date/Time: 04/26/181654 Sign date/Time: 04/26/181655 Arabella Caballero CNM IMG BI PROCEDURES Final Result * Pap smear (02/24/2018) 02/24/2018 Narrative HISTORICAL TESTING LAB RESULTING AGENCY - 03/01/2018 11:50 AM EDT [id number] THINPREP PAP, IMAGED: NEGATIVE FOR SQUAMOUS INTRAEPITHELIAL LESION AND MALIGNANCY . ABUNDANT RED BLOOD CELLS ARE PRESENT. RESULT OF APTIMA HIGH RISK HPV ASSAY: NEGATIVE (SEROTYPES 16,18,31,33,35,39,45,51,52,56,58,59,66,68) SUKUMAR PATRICK(ASCP) (CASE ELECTRONICALLY SIGNED 03 01 2018) ADEQUACY: SATISFACTORY. ENDOCERVICAL/TRANSFORMATION ZONE COMPONENT ABSENT. SOURCE: THINPREP PAP HPV ANY DX: REFLEX 16 AND 18, CERVICAL, IMAGED: CLINICAL INFORMATION: HPV ANY DIAGNOSIS. PAP HX POS, LMP //18, Z12.4, Z11.3 Shiirn Shaw CNM LAB CYTOLOGY ORDERABLES Final Result HISTORICAL TESTING LAB RESULTING AGENCY * HIV Screening (02/23/2018) HIV Screening Abstracted us Historical Provider HEALTH MAINTENANCE Final Result from Last 3 Months or Most Recently Relevant to Health Maintenance Insurance [facility] [facility] Care Teams Social Staff Worker Relationship Specialty Start Date End Date Herman Smiley MD [address] [place] [phone] PCP - General 03/18/23
== END 2025-07-23 06:19 | disposition home or self-care (01) ==
LOC: CF 06:18
PROVIDERS: Visit Provider Anesthesiology
DX: M47.817 Spondylosis without myelopathy or radiculopathy, lumbosacral region (principal)
CPT/HCPCS: 64493; A9585; J2003; J2795

== ENCOUNTER 2025-07-23 09:44 | Outpatient (AMB) | payer OTHER, SELFPAY ==
[2025-07-23 09:50] VITALS: BP 159/77; PULSE 75; RESP 16; O2SAT 98; BMI 44.6
--- NOTE | 2025-07-23 09:50 | MHC.OFFVIS ---
Vital Signs 07/23/25 09:50 Height 5 ft 1 in Weight 236 lb BMI 44.6 BP 159/77 H Blood Pressure Location Lt radial Position Sitting Respiration 16 Pulse 75 Pulse Source Pulse Oximeter Pulse Oximetry (%) 98 Oxygen Delivery Method Room Air Intake Visit Reasons: B/L DX L3-L4-DR L5 MBB w/Gadavist Contrast Allergies Iodinated Contrast Media (IV CONTRAST) Allergy (Severe, Verified 06/11/25 09:41) ANAPHYLAXIS Penicillins (PENICILLINS) Allergy (Severe, Verified 06/11/25 09:41) THROAT SWELLING vancomycin (VANCOMYCIN) Allergy (Intermediate, Verified 06/11/25 09:41) ITCHING prednisone Allergy (Unknown, Verified 06/11/25 09:49) gi bleed STEROIDS Allergy (Intermediate, Uncoded 05/18/25 09:47) GI BLEED [facility] Medical History (Updated 06/12/25 @ 10:17 by MARILUZ Arthur) Rheumatoid arthritis Primary stress urinary incontinence Migraine without status migrainosus, not intractable Hepatitis C antibody positive GERD with apnea without esophagitis Constipation Venereal disease Disorder of liver Chronic gastric ulcer Anemia Diaphragmatic hernia History of substance abuse Hx MRSA infection Arthritis Back pain DVT (deep venous thrombosis) Hepatitis Insomnia Seizure History of ETOH abuse Steatosis, liver Prediabetes GERD (gastroesophageal reflux disease) Fibromyalgia Asthma Depression Anxiety PTSD (post-traumatic stress disorder) Hypertension Morbid obesity Surgical History (Updated 06/11/25 @ 09:35 by Tash Denton) H/O: hysterectomy History of surgery on lower extremity History of carpal tunnel release History of sleeve gastrectomy History of bronchoscopy Hx of wisdom tooth extraction Hx of cholecystectomy History of total hysterectomy Hx of colonoscopy Family History Mother Diabetes Hypertension Father Alcohol abuse Brother No problems noted. Brother No problems noted. Son No problems noted. Daughter No problems noted. Social History (Updated 06/11/25 @ 09:36 by Tash Denton) Household Members: None Housing: Apartment Are you a primary client care specialist to a significant other at home: No Do you presently have visiting nurse or other home services: No Alcohol intake: former Patient Tobacco Use Status: Former Tobacco user Tobacco use type: Cigarette Years Smoked: 20 Substance Use Type: Crack/Cocaine and Former Substance User service: No Current occupational status: disabled Physical Exam Vital Signs: Last Vital Signs Pulse 75 07/23/25 09:50 Resp 16 07/23/25 09:50 BP 159/77 H 07/23/25 09:50 Pulse Ox 98 07/23/25 09:50 Oxygen Delivery Method Room Air 07/23/25 09:50 BMI result Body Mass Index 44.6 Assessment & Plan Assessment & Plan (1) Lumbosacral spondylosis: Code(s): M47.817 - Spondylosis without myelopathy or radiculopathy, lumbosacral region Category: Medical Plan Attempted medial branch block L3-L4 dorsal ramus L5 bilateral. The patient came to the operating room and was positioned prone on operating table. The lower back was prepped with ChloraPrep and draped with sterile utility towels. C-arm was brought over the operating field and sq picture of upper pelvis with demonstrated on the screen. Attempt was made to inject 1st dorsal ramus L5 medial branch however patient reported severe intractable pain on minimal stimulation with needle insertion. The patient was offered to have the procedure done under minimal sedation in the operating room. The patient will be rescheduled. Orders: Orders FL guidance in treatment room Today M47.817 - Spondylosis without myelopathy or radiculopathy, lumbosacral region Coding Level of Care Code Procedure Only Diagnoses Lumbosacral spondylosis M47.817
--- OUTSIDE RECORDS SUMMARY | 2025-07-23 10:51 | XMS_ITS | Encounter Summary ---
Author Organization [employer] Address [address] [place] [address] Care Team Providers Care Religious Assistant Name Role Phone Unavailable Primary Care Provider Unavailabl e Reason for Visit * Reason Onset Date Comments New Patient Appt 05/12/2023 Encounter Details Date Type Department Care Team (Late st Contact Info) Description 05/12/2023 Telephone [facility] MEDICINE [address], [place] [phone] Oswald Gifford MD [address] [place], [place] [phone] New Patient Appt Social History Tobacco Use [...] left voicemail to give a call at [phone]. documented in this encounter Plan of Treatment Not on file documented as of this encounter Visit Diagnoses Not on filedocumented in this encounter
--- OUTSIDE RECORDS SUMMARY | 2025-07-23 10:51 | XMS_ITS | Encounter Summary ---
Author Organization [employer] Address [address] [facility] [address] [place] [address] Care Team Providers Care Transport Engineer Name Role Phone Unavailable Primary Care Provider Unavailabl e Reason for Visit * Reason Onset Date Comments cx same day 12/28/2024 unable to post insurance 12/28/2024 Encounter Details Date Type Department Care Team (Late st Contact Info) Description 12/28/2024 Telephone [facility] [address], [place] [phone] Erasmo Bryan DDS [address], [place] [phone] cx same day ; unable to post [...]
--- OUTSIDE RECORDS SUMMARY | 2025-07-23 10:51 | XMS_ITS | Encounter Summary ---
Author Organization [employer] Address [address] [facility] [address] [place] [address] Care Team Providers Care It Support Manager Name Role Phone Unavailable Primary Care Provider Unavailabl e Reason for Visit * Reason Onset Date Comments cx and rs appt 08/14/2024 Encounter Details Date Type Department Care Team (Late st Contact Info) Description 08/14/2024 Telephone [facility]ULT [facility] [address] [place], [place] [phone] Erasmo Bryan DDS [address] [place], [place] [phone] cx and rs appt Social History Tobacco [...]
--- OUTSIDE RECORDS SUMMARY | 2025-07-23 10:51 | XMS_ITS | Encounter Summary ---
Author Organization [employer] Address [address] [facility] [address] [place] [address] Care Team Providers Care Casting House Laborer Name Role Phone Unavailable Primary Care Provider Unavailabl e Reason for Visit * Reason Onset Date Comments rs no show visit 03/11/2025 Encounter Details Date Type Department Care Team (Late st Contact Info) Description 03/11/2025 Telephone [facility] [address] [place], [place] [phone] Erasmo Bryan DDS [address] [place], [place] [phone] rs no show visit Social History Tobacco [...]
--- OUTSIDE RECORDS SUMMARY | 2025-07-23 10:51 | XMS_ITS | Encounter Summary ---
Author Organization [employer] Address [address] [facility] 7[address] [place] [address] Care Team Providers Care Outpatient Services Director Name Role Phone Unavailable Primary Care Provider Unavailabl e Reason for Visit * Reason Onset Date Comments Appointment 02/07/2023 Encounter Details Date Type Department Care Team ([facility] st Contact Info) Description 02/07/2023 Telephone [facility] ADULT DENTAL [address] [place], [place] [phone] Erasmo Bryan DDS [address] [place], [place] [phone] Appointment Social History Tobacco Use Types Packs/Day [...]
--- OUTSIDE RECORDS SUMMARY | 2025-07-23 10:51 | XMS_ITS | Encounter Summary ---
Author Organization [employer] Address [address] [place] [address] Care Team Providers Care Trailhead Construction Worker Name Role Phone Unavailable Primary Care Provider Unavailabl e Encounter Details Date Type Department Care Team (Late st Contact Info) Description 08/12/2023 Telephone [facility] [address] [place] [address] Erasmo Bryan DDS [address] [place] [address] Social History Tobacco Use Types Packs/Day Years [...]
--- OUTSIDE RECORDS SUMMARY | 2025-07-23 10:51 | XMS_ITS | Clinical Summary ---
Author Organization [employer] Address [address] [facility] [address] [place] [address] Care Team Providers Care Low Emission Automobile Designer Name Role Phone Unavailable Primary Care Provider [...] Type Department Care Team Description 05/13/2025 Travel from Last 3 Months Social History Tobacco [...] Mass Index - - Plan of Treatment Health Maintenance Due Date Last Done Comments [...] 04/05/2020 04/05/2019 Dental Oral Exam 08/27/2023 02/23/2023 Lung Cancer Screening 2024 Zoster Vaccines (1 of 2) 2024 Dental Prophylaxis 01/10/2025 07/11/2024 COVID-19 Vaccine (3 - 2024-2 6 season) 2025 07/23/2021, 06/29/2021 Influenza Vaccine (#1) 2025 , 06/19/2019 Dental X-Ray: Bitewings 01/16/2026 01/16/20 25, 02/23/2023 [...] Most Recently Relevant to Health Maintenance Insurance [facility] C3 DENTAL-[facility] MEDICAID STAND ADULT
== END 2025-07-23 10:41 | disposition home or self-care (01) ==
LOC: HO.PMCPRC 09:44
PROVIDERS: PCP Internal Medicine; Visit Provider Anesthesiology
DX: M47.817 Spondylosis without myelopathy or radiculopathy, lumbosacral region (principal)
CPT/HCPCS: 64493

== ENCOUNTER 2025-07-26 11:26 | Outpatient (AMB) | payer OTHER, SELFPAY ==
--- NOTE | 2025-07-26 11:35 | MHC.OFFVIS ---
Vital Signs 07/26/25 11:40 07/26/25 11:40 Height 5 ft 1 in Weight 236 lb BMI 44.6 BP 198/133 H 175/115 H Blood Pressure Location Rt brachial Lt radial Position Sitting Sitting Pulse 98 Pulse Source Pulse Oximeter Pulse Oximetry (%) 98 Oxygen Delivery Method Room Air Comment bp recheck Intake Visit Reasons: S/P B/L DX L3-L4-DR L5 MBB Intake Note: Pain today 06/19 Glove Pairer Required: No Accompanied by: self Allergies Iodinated Contrast Media (IV CONTRAST) Allergy (Severe, Verified 07/26/25 11:41) ANAPHYLAXIS Penicillins (PENICILLINS) Allergy (Severe, Verified 07/26/25 11:41) THROAT SWELLING vancomycin (VANCOMYCIN) Allergy (Intermediate, Verified 07/26/25 11:41) ITCHING prednisone Allergy (Unknown, Verified 07/26/25 11:41) gi bleed STEROIDS Allergy (Intermediate, Uncoded 05/18/25 09:47) GI BLEED HPI Comments Details: The patient is a 49-year-old female presenting with lumbar pain following an attempt of diagnostic bilateral lumbar medial branch blocks. The procedure was not tolerated, and the patient experienced significant pain radiating from the injection site down to the tailbone and up to the neck on the right side. The pain was exacerbated by the injections, leading to increased discomfort and swelling in the area. The patient also reports hip pain, which she describes as radiating from the back through the hip, down to the groin, and into the inner side of the leg and calf. Patient reports, this pain was not present prior to the lumbar injections and has persisted despite the application of ice and Tylenol. The patient has a history of fibromyalgia, which may contribute to her low pain tolerance and difficulty with the procedure. She has tried various interventions, including physical therapy and injections, which have not provided lasting relief. Patient is no longer interested to proceed with interventional treatments, including injections under light sedation. Past Procedures: 07/23/25: Attempted Bilateral Diagnostic L3-L4 DR L5 MBB- 0% pain relief PRIOR: The patient a 49-year-old female presenting with chronic low back pain. The pain is described as stabbing and radiating, primarily located in the lower back, extending to the hips and slightly to the groin on both sides. The pain is constant, worsens with cold weather and movements, walking, lifting, prolonged sitting and is partially alleviated by heat therapy and oral and topical medications. She has completed physical therapy in 2023 with worsening of her symptoms. The patient reports the pain affects her daily activities, personal care, and sleep, with a severity of 8/10 at night and upon awakening and 4/10 after a shower. She has tried physical therapy and injections in the past, which provided no lasting relief. The patient has a history of fibromyalgia, sleeve gastrectomy, anxiety, depression, seizures, h/o MRSA infection, bipolar disorder, PTSD, and rheumatoid arthritis, which may contribute to her overall health status. She has a history of alcohol use disorder, currently in remission for 5.5 years, and has undergone rehabilitation. The patient is currently managing her pain with gabapentin, prescribed by her Psychiatrist, and reports a history of using oxycodone and tramadol. She is allergic to steroids, which causes swelling and gastrointestinal bleeding, and is also allergic to iodine contrast. The patient has been diagnosed with degenerative disc disease and facet arthritis, as confirmed by an x-ray in February 2025. She is currently dealing with active thyroid cancer, with surgery scheduled for 08/26/25. - Onset and Timing: Chronic, constant pain, worse at night and upon waking. - Quality and Character: Stabbing, radiating, aching, hurting, burning, sharp, throbbing, pulling, twisting - Primary Location: Lower back, extending to hips and groin and buttocks - Exacerbating Factors: Cold weather, movement, walking, prolonged sitting, bending, lifting - Relieving Factors: Heat, Tylenol, cyclobenzaprine and topical medications, hot shower. - Interference: Affects daily activities, personal care, and sleep. - Affect: Pain impacts daily activities and sleep, contributing to anxiety and depression. - Analgesia: Current pain level is 8/10 at night, reduced to 4/10 after a shower; managed with gabapentin. - Adverse Effects: Allergic reactions to steroids causing swelling and gastrointestinal bleeding. - Activities of Daily Living: Pain interferes with personal care and daily functioning. - Aberrant Drug Related Behaviors: History of alcohol use disorder, currently in remission; no current misuse of prescribed medications. Oswestry Low Back Pain Disability Score=37 [facility] Medical History Rheumatoid arthritis Primary stress urinary incontinence Migraine without status migrainosus, not intractable Hepatitis C antibody positive GERD with apnea without esophagitis Constipation Venereal disease Disorder of liver Chronic gastric ulcer Anemia Diaphragmatic hernia History of substance abuse Hx MRSA infection Arthritis Back pain DVT (deep venous thrombosis) Hepatitis Insomnia Seizure History of ETOH abuse Steatosis, liver Prediabetes GERD (gastroesophageal reflux disease) Fibromyalgia Asthma Depression Anxiety PTSD (post-traumatic stress disorder) Hypertension Morbid obesity Surgical History H/O: hysterectomy History of surgery on lower extremity History of carpal tunnel release History of sleeve gastrectomy History of bronchoscopy Hx of wisdom tooth extraction Hx of cholecystectomy History of total hysterectomy Hx of colonoscopy Family History Mother Diabetes Hypertension Father Alcohol abuse Brother No problems noted. Brother No problems noted. Son No problems noted. Daughter No problems noted. Social History Household Members: None Housing: Apartment Are you a primary care support representative to a significant other at home: No Do you presently have visiting nurse or other home services: No Alcohol intake: former Patient Tobacco Use Status: Former Tobacco user Tobacco use type: Cigarette Years Smoked: 20 Substance Use Type: Crack/Cocaine and Former Substance User service: No Current occupational status: disabled Review of Systems Const All systems reviewed & are unremarkable except as noted in HPI and below Physical Exam Vital Signs: Last Vital Signs Pulse 98 07/26/25 11:40 BP 175/115 H 07/26/25 11:40 Pulse Ox 98 07/26/25 11:40 Oxygen Delivery Method Room Air 07/26/25 11:40 BMI result Body Mass Index 44.6 General: Appears afebrile. Morbidly obese. Alert and oriented. Mood and affect appropriate. Follows and participates in conversation appropriately. Respiratory effort is unlabored. No cough. Able to transition from sit to stand unassisted. Ambulates with bilaterally normal heel strike and toe off. Back/Spine/Pelvis Cervical Spine: cervical ROM normal, cervical muscular tenderness, No Cervical spine scars present and No Cervical spine tenderness Thoracic/Lumbar Spine: thoracic and lumbar spine normal to inspection, No Thoracic/lumbar spine scar(s), Lasegue's sign negative, straight leg raise negative bilaterally, pain with thoraco-lumbar ROM, paraspinal muscle tenderness, thoraco-lumbar ROM limited, No thoracic spinal tenderness, lumbar spinal tenderness (L4-S1) and other (no swelling or ecchymosis noted) Results Reviewed Results Reviewed: XR lumbar spine 2-3V 02/07/25 CLINICAL HISTORY: back pain 3 views lumbar spine Comparison: CR/NH/SR - XR LUMBAR SPINE 2-3V - 08/04/23 19:48 EDT Findings: Normal alignment. No acute fractures or dislocation. Moderate degenerative disc disease at L5-S1. Mild degenerative disc disease at L4-L5. Facet osteoarthritis at L4-L5 and L5-S1. No significant change since the prior study. IMPRESSION: No acute findings. Assessment & Plan Assessment & Plan (1) Lumbosacral spondylosis: Code(s): M47.817 - Spondylosis without myelopathy or radiculopathy, lumbosacral region Category: Medical (2) Fibromyalgia: Code(s): M79.7 - Fibromyalgia Category: Medical (3) Sacroiliac joint pain: Code(s): M53.3 - Sacrococcygeal disorders, not elsewhere classified Category: Medical Plan The plan involves not repeating the lumbar medial branch blocks under sedation due to the patient's intolerance and adverse reaction to the procedure. No swelling or bruising is noted at the attempted injection site on the right. The patient is advised to consult with her primary care physician for further management options, as the current pain management interventional strategies have been ineffective. Alternative interventions may be considered, but the patient is not a suitable candidate for further interventional procedures at this office due to her low pain tolerance and previous experiences. All questions and concerns have been answered and patient agreed with the treatment plan. Follow up as needed. Patient was informed and verbally consented to the use of an ambient scribe for clinic note documentation during this visit. Coding Level of Care Code Est Pt Level 3 (66527) Diagnoses Lumbosacral spondylosis M47.817 Fibromyalgia M79.7 Sacroiliac joint pain M53.3
[2025-07-26 11:40] VITALS: BP 175/115; BP 198/133; PULSE 98; O2SAT 98; BMI 44.6
--- OUTSIDE RECORDS SUMMARY | 2025-07-26 14:12 | XMS_ITS | Encounter Summary ---
Author Organization [employer] Address [address] [place] [address] Care Team Providers Care Talent Development Manager Name Role Phone Unavailable Primary Care Provider Unavailabl e Encounter Details Date Type Department Care Team (Late st Contact Info) Description 08/12/2023 Telephone [facility] [address] [place] [address] Erasmo Bryan DDS [address] [facility] [place] [address] Social History Tobacco Use Types Packs/Day Years [...]
--- OUTSIDE RECORDS SUMMARY | 2025-07-26 14:12 | XMS_ITS | Clinical Summary ---
Author Organization [address] Address [address] [place] [phone] Phone Care Team Providers Care Filer Finish Name Role Phone Herman Smiley MD Primary Care Provider [phone] Allergies Active Allergy Reactions Criticality Noted Date [...] needed (as neded). 150 each 11 4 025 Active ofloxacin (FLOXIN) 0.3 % otic solution Administer 4 drops into each ear 2 (two) times a day. 10 mL 5 Active senna-docusate (PERICOLACE) 8.6-50 mg per tablet Take 1 tablet by mouth 1 (one) time each day. 180 each 1 5 Active albuterol HFA (Proventil HFA) 90 mcg/actuation inhalerIndicatio ns:Mild intermittent asthma without complication Inhale 2 puffs by mouth every 4 (four) hours if needed for wheezing or shortness of breath. 6.7 g 3 5 026 Active lactulose (CHRONULAC) solution Take 10 mL (6.6667 g total) by mouth 1 (one) time each day if needed (constipation) . 300 mL 3 5 Active chlorhexidine (PERIDEX) 0.12 % solution Swish 15 mL morning and night for 1 minute. Spit, do not swallow. Do not eat or drink for 30 minutes following use. 5 Active ibuprofen (ADVIL,MOTRIN) 600 mg tablet Take 1 tablet (600 mg total) by mouth. 5 Active Vitamin D3 50 mcg (2,000 unit) capsule TAKE 1 CAPSULE BY MOUTH DAILY 90 capsule 1 5 Active omeprazole (PriLOSEC) [address] capsule TAKE 1 CAPSULE BY MOUTH DAILY (DON'T CRUSH OR CHEW) 90 capsule 1 5 Active Pain Reliever, acetam-aspirin, 250-250-65 mg per tablet TAKE 1 TABLET BY MOUTH EVERY 6 (SIX) HOURS IF NEEDED FOR HEADACHES. 90 tablet 3 5 Active polyethylene glycol (PEG) 17 gram/dose oral powder DISSOLVE 17 GRAMS IN 8OZ OF LIQUID AND DRINK BY MOUTH DAILY 1530 g 1 5 Active cyanocobalamin (VITAMIN B-12) 1,000 mcg tablet TAKE 1 TABLET BY MOUTH DAILY 90 tablet 1 5 Active SUMAtriptan (IMITREX) 50 mg tablet TAKE 1 TABLET BY MOUTH ONCE NEEDED FOR MIGRAINE MAY REPEAT ONCE IN 2 HOURS IF NO RELIEF NOT TO EXCEED 2 DOSES PER 9 tablet 5 5 Active atorvastatin (LIPITOR) 20 mg tablet TAKE 1 TABLET BY MOUTH DAILY 90 tablet 1 5 Active diclofenac (VOLTAREN) 1 % topical gel APPLY 2G TOPICALLY TO AFFECTED AREA TWICE A DAY 400 g 1 5 Active fluticasone propionate (FLONASE) 50 mcg/actuation nasal spray Administer 2 sprays into each nostril 1 (one) time each day. Shake gently. Before first use, prime pump. After use, clean tip and replace cap. 48 g 1 5 Active cyclobenzaprine (FLEXERIL) 5 mg tablet Take 1-2 tablets (5-10 mg total) by mouth 2 (two) times a day if needed for muscle spasms. 60 tablet 3 5 Active fluticasone propionate (FLONASE) 50 mcg/actuation nasal spray INHALE 2 SPRAYS IN EACH NOSTIRL DAILY DIRECTED 48 g 1 5 025 Discontin ued(Reord er) cyclobenzaprine (FLEXERIL) 5 mg tablet Take 1-2 tablets (5-10 mg total) by mouth 2 (two) times a day if needed for muscle spasms. 60 tablet 3 5 025 Discontin ued(Reord er) Hospital, Clinic, or Other Facility Administered Medication [...] disease without esophagi tis 12/24/2024 Rheumatoid arthritis ([facility] V24, [facility] V28) 12/24/2024 Mild intermittent asthma without [...] migrainosus, not intract able 09/09/2023 Bipolar disorder ([facility]/HCC V24, [facility]/HCC V28) 12/0 10/2022 Anxiety and depression 09/09/2023 PTSD (post-traumatic stress disorder) 09/09/2023 Primary stress urinary incontinence 09/05/2023 Encounters Date Type Department Care Team Description 07/17/2025 10:30 AM EDT Clinical Support [address] [phone] B12 deficiency (Primary Dx) 06/26/[address] [phone] Herman Smiley MD 06/19/2025 10:30 AM EDT Clinical Support [address] [phone] B12 deficiency (Primary Dx) 05/22/2025 10:30 AM EDT Clinical Support [address] [phone] B12 deficiency (Primary Dx) 05/21/2025 Telephone [facility] [address] [phone] Grace Hastings MD 05/17/[address] [phone] Herman Smiley MD 05/15/2025 11:40 AM EDT Telemedicine Endocrinology [address] [phone] Grace Hastings MD Thyroid cancer ([facility]/HCC V24, [facility]/HCC V28) (Primary Dx) 05/08/2025 9:30 AM EDT Lab Draw Station [address] Rheumatoid arthritis, involving unspecified site, unspecified whether rheumatoid factor present (CMS/HCC V24, CMS/HCC V28); Hepatitis C antibody positive; Chronic hepatitis C without hepatic coma (CMS/HCC V24, CMS/HCC V28); B12 deficiency 05/08/2025 8:20 AM EDT Office Visit [address] [phone] Grace Hastings MD Nodular goiter (Primary Dx) from Last 3 Months Immunizations Immunization Administration Dates Next Due HepB-CpG (Heplisav-B) 18yo and older 03/26/2019 Hepatitis B (Tfrynrw-O-Vfkul , Recombivax HB-Adult) 19yo and older 05/04/2018 Pneumococcal polysaccharide 23 valent (Pneumovax 23) 2yo and older 04/05/2019 Tdap Tetanus diptheria acell ular pertussis (Boostrix; Adacel) 7yo and older 10/10/2016 Surgical History Surgery Date Site/Laterality Comments OTHER SURGICAL HISTORY 1996 PROCEDURE: ND LIG/TRNSXJ FLP TUBE ABDL/VAG APPR UNI/BI; COMMENT: [facility] CHOLECYSTECTOMY 2011 PROCEDURE: ND LAPAROSCOPY SURG CHOLECYSTECTOMY; COMMENT: CT CARPAL TUNNEL RELEASE 02/06/2018 Right PROCEDURE: ND NEUROPLASTY &/TRANSPOS MEDIAN NRV CARPAL TUNNE LEG SURGERY 06/22/2017 PROCEDURE: HISTORICAL LEG SURGERY; COMMENT: [place] HYSTERECTOMY PROCEDURE: HISTORICAL HYSTERECTOMY Medical History Medical [...] care for your loved ones. For example, director of early childhood or elderly care for an older adult? [...] 10:10 AM EDT Appointment Radiology Department - [address] [phone] 08/06/2025 10:30 AM EDT Office Visit Adult Medicine [address] [phone] Jocelyn Phipps PA [address] [place] [address] 08/21/2025 9:30 AM EST Clinical Support Adult Medicine [address] [phone] 11/21/2025 10:00 AM EST Office Visit Obstetrics and Gynecology - [address] [phone] Emilee Chavez, JOHNNIE [address] [place] [address] Health Maintenance Due Date Last Done Comments [...] Lung Cancer Screening (Low Dose CT) 11/09/2023 RSV Immunization Adult Patients (1 - Risk 50-74 years 1-dose series) 2024 Influenza Vaccine (#1) 2025 06/29/2021, 2018 Social [...] unspecified site, unspecified whether rheumatoid factor present ([facility] V24, [facility] V28) Bipolar affective disorder, current episode mixed, current episode severity unspecified ([facility] V24, [facility] V28) Encounter for screening mammogram for malignant [...] included. Anatomical Region Laterality Modality Nuclear Medicine us Provider [facility] NM PROCEDURES Final Result * Hepatitis C viral RNA confirmation, genotyping with reflex to NS5A drug resistance (05/08/2025 9:39AM EDT) Hepatitis C Quantitation HCV Not Detected IU/mL [...] - 05/16/2025 2:05 AM EDT Performed at: [facility] [address] [place] [phone] Retail Sales Professional: Vic Coronado MD, Phone: [phone] Herman Smiley MD LAB BLOOD ORDERABLES Final Result Performing Organization Address City/[facility]/ZIP Co de Phone Number [id number] * Intrinsic factor blocking antibody (05/08/2025 9:39 AM EDT) Pathologist [facility] Intrinsic Factor Blocking Antibody Negative Negative 05/10/2025 1:14 PM EDT [facility] Comment: Positive in 50% of persons with pernicious anemia. Very high serum levels of vitamin B12 may give false positive results for intrinsic factor antibody. No sample should be collected from a patient who has received vitamin B12 injection therapy within the past week. Test performed at [facility], [address] , [place], [place] [phone] Diamante Colon MD, PhD - Cycle Counter Blood Venous blood specimen / Unknown Venipuncture / Unknown 05/08/2025 9:39 AM EDT 05/08/2025 9:39 AM EDT Herman Smiley MD LAB BLOOD ORDERABLES Final Result [facility] [address] [place] [address] * Comprehensive metabolic panel (05/08/2025 9:39 AM EDT) Pathologist [facility] Sodium 139 133 - 145 mmol/L LAB [...] 11.8 LAB CHEMISTRY METHOD 05/08/2025 12:57 PM [facility] Calcium 9.3 8.5 - 10.5 mg/dL LAB CHEMISTRY METHOD 05/08/2025 12:57 PM [facility] AST (SGOT) 30 10 - 42 unit/L LAB CHEMISTRY METHOD 05/08/2025 12:57 PM [facility] ALT (SGPT) 38 10 - 60 unit/L LAB CHEMISTRY METHOD 05/08/2025 12:57 PM [facility] Alkaline Phosphatase 97 42 - 121 unit/L LAB CHEMISTRY METHOD 05/08/2025 12:57 PM EDT [facility] Total Protein 7.6 6.0 - 8.0 g/dL LAB CHEMISTRY METHOD 05/08/2025 12:57 PM EDT [facility] Albumin 4.2 3.2 - 5.0 g/dL LAB CHEMISTRY METHOD 05/08/2025 12:57 PM EDT [facility] Total Bilirubin 0.5 0.0 - 1.4 mg/dL LAB CHEMISTRY METHOD 05/08/2025 12:57 PM EDT [facility] Blood Venous blood specimen / Unknown Venipuncture / Unknown 05/08/2025 9:39 AM EDT 05/08/2025 9:39 AM EDT us Herman Smiley MD LAB BLOOD ORDERABLES Final Result [facility] [address] [place] [address], [place] [phone] * Fine needle aspiration (05/08/2025 9:20 AM EDT) Only the most recent of3 resultswithin the time period is included. Final Diagnosis A. Thyroid, left mid pole -fine needle aspirate (ThinPrep, direct smears): Malignant ([place] category ) Papillary Carcinoma B. Thyroid, right mid pole -fine needle aspiration, (ThinPrep, direct smears): Malignant ([place] category ) Papillary Carcinoma C. Thyroid, Isthmus -fine needle aspiration, (ThinPrep, direct smears): Malignant ([place] category ) Papillary carcinoma Histiocytes and hemosiderin-lade n macrophages consistent with cystic change 05/14/2025 2:52 PM EDT [facility] Clinical Information Isthmus Cytology to ThyroSeq reflexed if AUS or SFN 05/14/2025 2:52 PM EDT [facility] Specimen A Adequacy Satisfactory for evaluation 05/14/2025 2:52 PM EDT [facility] Specimen B Adequacy Satisfactory for evaluation 05/14/2025 2:52 PM EDT [facility] Specimen C Adequacy Satisfactory for evaluation 05/14/2025 2:52 PM EDT [facility] Gross Description A. Thyroid, Left, Left mid pole thyroid: Received 30ml dark cloudy pink cytolyt ,3 air dried, 3 alc fixed B. Thyroid, Right, Right mid pole thyroid: Received 30ml dark cloudy pink cytolyt ,3 air dried, 3 alc fixed C. Thyroid, Isthmus: Received 30ml dark cloudy pink cytolyt ,2 air dried, 2 alc fixed 05/14/2025 2:52 PM EDT [facility] Microscopic Description 05/14/2025 2:52 PM EDT [facility] Disclaimer Unless otherwise specified, all tissue is 10% NB formalin fixed and paraffin embedded. Technical cytopathology services provided by [facility], at [address] [place] [address] (CLIA # [id number]/Manuel Albrecht MD, Cycle Counter.) 05/14/2025 2:52 PM EDT [facility] Fine Needle Aspirate Thyroid structure [...] Hastings MD LAB PATHOLOGY ORDERABLES Final Result [facility] [address] [place] [address], [place] [phone] * Biopsy thyroid (05/08/2025 9:02 AM EDT) [...] Hepatitis C antibody (02/25/2025 8:44 AM EDT) Pathologist [facility] Hepatitis C Antibody Positive (A) Negative LAB CHEMISTRY METHOD 02/25/2025 5:07 PM EDT [facility] Comment:If confirmation of t his positive HCV Ab screening test is needed, please redraw and order HCV Viral Load. Note--> This test may not be added on due to different specimen requirements. Blood Venous blood specimen / Unknown Venipuncture / Unknown 02/25/2025 8:44 AM EDT 02/25/2025 8:44 AM EDT Herman Smiley MD LAB BLOOD ORDERABLES Final Result [facility] [address] [place] [address], [place] [phone] * (ABNORMAL) Lipid panel with reflex to direct LDL (02/25/2025 8:44 AM EDT) Cholesterol 208(H) 0 - 200 mg/dL LAB CHEMISTRY METHOD 02/25/2025 2:47 PM EDT [facility] Triglycerides 107 0 - 150 mg/dL LAB CHEMISTRY METHOD 02/25/2025 2:47 PM EDT [facility] HDL 55 >=40 mg/dL LAB CHEMISTRY METHOD 02/25/2025 2:47 PM EDT [facility] LDL Calculated 132(H) 0 - 100 mg/dL LAB CHEMISTRY METHOD 02/25/2025 2:47 PM EDT [facility] VLDL Cholesterol Momo 21.4 mg/dL LAB CHEMISTRY METHOD 02/25/2025 2:47 PM EDT [facility] Non HDL Chol. (LDL+VLDL) 153(H) <145 mg/dL LAB CHEMISTRY METHOD 02/25/2025 2:47 PM EDT [facility] Chol/HDL Ratio 3.8 0.0 - 4.4 LAB CHEMISTRY METHOD 02/25/2025 2:47 PM EDT [facility] Blood Venous blood specimen / Unknown Venipuncture / Unknown 02/25/2025 8:44 AM EDT 02/25/2025 8:44 AM EDT Herman Smiley MD LAB BLOOD ORDERABLES Final Result [facility] [address] [place] [address], * Depression Screening (07/26/2024) Depression Screening Abstracted Historical Provider HEALTH MAINTENANCE Final Result * ALEA SCREENING DIGITAL (04/26/2018 4:56 PM EDT) Anatomical Region Laterality Modality Mammography 04/21/2018 8:01 AM EDT Narrative 04/26/2018 4:56 PM EDT [facility] Diagnostic Imaging Department [address] [place] [address] Patient: DRAKE RAY /Age/Sex: 1975 - 42 - F Unit#: [id number] Location/Status: SPDIMAM/REG CLI Mnemonic/Ordering Site: [facility] Ordering Physician: ARABELLA CABALLERO CNM Alea Screening Digital - 04/21/18 - 848 EXAM: Alea Screening Digital EXAM DATE AND TIME: 04/21/2018 8:51 AM HISTORY: Screening. Mother, maternal grandmother and maternal cousin have had breast carcinoma. COMPARISON: 01/22/14 ([facility], [place], [place]) TECHNIQUE: CC and MLO views of both breasts were obtained using full field digital mammography. Bilateral digital breast tomosynthesis was performed in the MLO projection. Computer aided detection with the WireImage 7.2-H was employed. TISSUE DENSITY: c. The [...] Routine screening mammogram BILATERAL in 1 year. [address], [address]605 3341F, 7025F Dictating Physician: KATY JOHNSON MD Electronically Signed by: KATY JOHNSON MD Dic Date/Time: 04/26/181654 Sign date/Time: 04/26/181655 Procedure Note Katy Johnson MD - 09/28/2022 [facility] Diagnostic Imaging Department [address] [place] [id number] Patient: DRAKE RAY./Age/Sex: 1975 - 42 - F Unit#: [id number] Location/Status: SPDIMAM/REG CLI Mnemonic/Ordering Site: [facility] Ordering Physician: ARABELLA CABALLERO CNM Alea Screening Digital - 04/21/18 - 0849 EXAM: Alea Screening Digital EXAM DATE AND TIME: 04/21/2018 8:51 AM HISTORY: Screening. Mother, maternal grandmother and maternal cousin havehad breast carcinoma. COMPARISON: 01/22/14 ([facility],[place], [place]) TECHNIQUE: CC and MLO views of both breasts were obtained using fullfield digital mammography. Bilateral digital breast tomosynthesis was performedin the MLO projection. Computer aided detection with the WireImage 7.2-Hwas employed. TISSUE DENSITY: c. The breasts are [...] Routine screening mammogram BILATERAL in 1 year. [address], [address] 3341F, 7025F Dictating Physician: KATY JOHNSON MD Electronically Signed by: KATY JOHNSON MD Dic Date/Time: 04/26/181654 Sign date/Time: 04/26/181655 Arabella Caballero CNM IMG BI PROCEDURES Final Result * Pap smear (02/24/2018) 02/24/2018 Narrative HISTORICAL TESTING LAB RESULTING AGENCY - 03/01/2018 11:50 AM EDT [id number] THINPREP PAP, IMAGED: NEGATIVE FOR SQUAMOUS INTRAEPITHELIAL [...] RESULTING AGENCY * HIV Screening (02/23/2018) Pathologist [facility] HIV Screening Abstracted Historical Provider HEALTH MAINTENANCE Final Result from Last 3 Months or Most Recently Relevant to Health Maintenance Insurance [facility] Care Teams Filer Finish Relationship Specialty Start Date End Date Herman Smiley MD [address] [place] [phone] PCP - General 03/18/23
--- OUTSIDE RECORDS SUMMARY | 2025-07-26 14:12 | XMS_ITS | Encounter Summary ---
Author Organization [employer] Address [address] [facility] [address] [place] [address] Care Team Providers Care Cooking Appliance Repair Technician Name Role Phone Unavailable Primary Care Provider Unavailabl e Reason for Visit * Reason Onset Date Comments cx and rs appt 08/14/2024 Encounter Details Date Type Department Care Team (Late st Contact Info) Description 08/14/2024 Telephone [facility]ULT [facility] [address] [place], [place] [phone] Erasmo Bryan DDS [address] [place], [place] [phone] cx and rs appt Social History Tobacco [...]
--- OUTSIDE RECORDS SUMMARY | 2025-07-26 14:12 | XMS_ITS | Encounter Summary ---
Author Organization [employer] Address [address] [facility] [address] [place] [address] Care Team Providers Care Mammal Keeper Name Role Phone Unavailable Primary Care Provider Unavailabl e Reason for Visit * Reason Onset Date Comments New Patient Appt 05/12/2023 Encounter Details Date Type Department Care Team (Late st Contact Info) Description 05/12/2023 Telephone [facility] [address] [place], [place] [phone] Oswald Gifford MD [address] [place], [place] [phone] New Patient Appt Social History Tobacco Use [...] left voicemail to give a call at [phone]. documented in this encounter Plan of Treatment Not on file documented as of this encounter Visit Diagnoses Not on filedocumented in this encounter
--- OUTSIDE RECORDS SUMMARY | 2025-07-26 14:12 | XMS_ITS | Encounter Summary ---
Author Organization [employer] Address [address] [facility] 7t [place] [address] Care Team Providers Care Truck Driver Heavy Name Role Phone Unavailable Primary Care Provider Unavailabl e Reason for Visit * Reason Onset Date Comments cx same day 12/28/2024 unable to post insurance 12/28/2024 Encounter Details Date Type Department Care Team (Late st Contact Info) Description 12/28/2024 Telephone [facility] ADULT D[facility]AL [address] [place], [place] [phone] Erasmo Bryan DDS [address] [place], [place] [phone] cx same day ; unable to post [...]
--- OUTSIDE RECORDS SUMMARY | 2025-07-26 14:12 | XMS_ITS | Encounter Summary ---
Author Organization [employer] Address [address] [facility] 7t [place] [address] Care Team Providers Care Hand Candy Cutter Name Role Phone Unavailable Primary Care Provider Unavailabl e Reason for Visit * Reason Onset Date Comments rs no show visit 03/11/2025 Encounter Details Date Type Department Care Team (Late st Contact Info) Description 03/11/2025 Telephone [facility] [address] [place], [place] [phone] Erasmo Bryan DDS [address] [place], [place] [phone] rs no show visit Social History Tobacco [...]
--- OUTSIDE RECORDS SUMMARY | 2025-07-26 14:13 | XMS_ITS | Encounter Summary ---
Author Organization [employer] Address [address] [facility] [address] [place] [address] Care Team Providers Care Warehouse Supervisor Name Role Phone Unavailable Primary Care Provider Unavailabl e Reason for Visit * Reason Onset Date Comments Appointment 02/07/2023 Encounter Details Date Type Department Care Team ([facility] st Contact Info) Description 02/07/2023 Telephone [facility] ADULT DENTAL [address] [place], [place] [phone] Erasmo Bryan DDS [address] [place], [place] [phone] Appointment Social History Tobacco Use Types Packs/Day [...]
--- OUTSIDE RECORDS SUMMARY | 2025-07-26 14:13 | XMS_ITS | Clinical Summary ---
Author Organization [employer] Address [address] [facility] 7[address] [place] [address] Care Team Providers Care Consulting Project Director Name Role Phone Unavailable Primary Care [...] Most Recently Relevant to Health Maintenance Insurance [facility] C3 DENTAL-[facility] MEDICAID STAND ADULT
== END 2025-07-26 11:58 | disposition home or self-care (01) ==
LOC: HO.PMC 11:27
PROVIDERS: PCP Internal Medicine; Visit Provider Nurse Practitioner Family
DX: M47.817 Spondylosis without myelopathy or radiculopathy, lumbosacral region (principal); M79.7 Fibromyalgia; M53.3 Sacrococcygeal disorders, not elsewhere classified
CPT/HCPCS: 99213

== ENCOUNTER → 2025-07-26 11:26 | Outpatient (BNVA) | payer OTHER, SELFPAY | PROVIDERS: PCP Internal Medicine; Visit Provider Nurse Practitioner Family | DX: M47.817 Spondylosis without myelopathy or radiculopathy, lumbosacral region (principal); M79.7 Fibromyalgia; M53.3 Sacrococcygeal disorders, not elsewhere classified | CPT/HCPCS: 99212 ==

== ENCOUNTER 2025-09-01 13:39 | Emergency (ER) | payer OTHER, SELFPAY ==
--- OUTSIDE RECORDS SUMMARY | 2025-08-27 12:17 | XMS_ITS | Continuity of Care Document ---
Author Organization [facility] ter Address [address] [place] [id number]- Care Team Providers Care Registered Nurses Name Role Phone Baljit ANGLIN, Herman Pink Primary Care Physician [phone] Encounter [facility] Date(s): 08/26/25 - 08/27/[address] [address] Discharge Disposition: A-D/C Home Attending Physician: Beba Malave MD Admitting Physician: Beba Malave MD Referring Physician: Beba Malave MD Encounter Type: Disch IP Allergies, Adverse Reactions, Alerts Substance Criticality Severity Reaction Reaction Severity Status penicillin V potassium throat closes Active Contrast Dye throat closes/ hives Active Suboxone 1 fluid retention/swelling Active anabolic steroids GI bleed Ac tive 1reports mouth sores Functional Status Functional Status Assessment Assessment Assessment Component Result Effecti ve Date Unspecifed Functional Status Assessment Skin abnormality typ e (observable entity) Surgical incision 08/26/25 Functional Status Assessment Assessment Assessment Component Result Effecti ve Date Unspecifed Functional Status Assessment Skin abnormality typ e (observable entity) Surgical incision 08/26/25 Functional Status Assessment Assessment Assessment Component Result Effecti ve Date Total Falls Risk Score 0 08/26 Functional Status Assessment Assessment Assessment Component Result Effecti ve Date Total score [AUDIT] 0 08/26/25 Functional Status Assessment Assessment Assessment Component Result Effecti ve Date Rodolfo scale total score 20 Functional Status Assessment Assessment Assessment Component Result Effecti ve Date Rodolfo scale total score 21 Functional Status Assessment Assessment Assessment Component Result Effecti ve Date Total Falls Risk Score 0 08/27 Functional Status Assessment Assessment Assessment Component Result Effecti ve Unspecifed Functional Status Assessment Skin abnormality typ e (observable entity) Surgical incision 08/27/25 Functional Status Assessment Assessment Assessment Component Result Effecti ve Total Falls Risk Score 13 08/26 Functional Status Assessment Assessment Assessment Component Result Effecti ve Date Disability status [CUBS] I'm Vulnerable - I sometimes or periodically have acute or chronic symptoms affecting housing, employment, social interactions, etc. 08/26/25 Do you need any additional assistance or accommodations during your visit No 08/26/25 Do you have serious difficulty walking or climbing stairs No 08/26/25 Do you have difficul ty dressing or bathing No 08/26/25 Because of a physica l, mental, or emotional condition, do you have difficulty doing errands alone such as visiting a physician's office or shopping No 08/26/25 Difficulty communica ting in usual language No 08/26/25 Difficulty Reading O r Writing No 08/26/25 Are you deaf, or do you have serious difficulty hearing No 08/26/25 Are you blind, or do you have serious difficulty seeing, even when wearing glasses No 08/26/25 Because of a physica l, mental, or emotional condition, do you have serious difficulty concentrating, remembering, or making decisions No 08/26/25 Immunizations Given and Recorded Vaccine Date Status Refusal Reason hepatitis B adult vaccine 1 05/04/18 Given 1Admin Note: Heplisav-B Medications Acetaminophen Tablet 975 mg, Tablet, By Mouth, 08/27/25 7:00:00 AM EST Start Date: 08/27/25 Stop Date: 08/27/25 Status: Completed Medication Dispense Status: Completed Total Allowed Fills: 1 Fills Dispensed: 0 Alcohol Pads See Instructions, # 200 each, Refills 5, Tot. Refills 5, Maintenance, use as directed for Type 1 Diabetes Mellitus, 08/27/25 10:52:00 AM EST, Supply, 154.9, cm, 08/27/25 4:35:00 EST, Height, 110.4, kg, 08/26/25 14:27:00 EST, Dry Weight Start Date: 08/27/25 Stop Date: 02/23/26 Status: Ordered Medication Dispense Status: Completed Quantity: 200.0 Unit: each Total Allowed Fills: 6 Fills Dispensed: 0 atorvastatin 20 mg oral tablet 1 tablet = 20 mg, By Mouth, Daily, # 30 tablet, 0 Refills, Maintenance, 05/23/25 12:08:00 PM EDT, Tablet, Partial fill upon patient request if the prescription is for a schedule II opioid drug. Start Date: 05/23/25 Status: Ordered Medication Dispense Status: Completed Quantity: 30.0 Unit: tablet Total Allowed Fills: 1 Fills Dispensed: 0 Banophen 50 mg oral capsule 1 capsule = 50 mg, By Mouth, 2 times a day, 0 Refills, Maintenance, 05/23/25 12:10:00 PM EDT, Partial fill upon patient request if the prescription is for a schedule II opioid drug. Start Date: 05/23/25 Status: Ordered Medication Dispense Status: Completed Total Allowed Fills: 1 Fills Dispensed: 0 Chloraseptic Sore Throat + Cough mucous membrane lozenge 1 lozenge, By Mouth, Every 4 hours, PRN as needed for sore throat, # 15 each, 0 Refills, Maintenance, 08/27/25 10:53:00 AM EST, Lozenge, [facility], Partial fill upon patient request ifthe prescription is for a schedule II opioid drug., 1 lozenge By Mouth Every 4 hours,PRN:as needed for sore throat, 154.9, cm, 08/27/25 4:35:00 EST, Height, 110.4, kg, 08/26/25 14:27:00 EST, Dry Weight Start Date: 08/27/25 Status: Ordered Medication Dispense Status: Completed Quantity: 15.0 Unit: each Total Allowed Fills: 1 Fills Dispensed: 0 cloNIDine 0.1 mg oral tablet 0.1 mg, 1, tablet, By Mouth, 3 times a day, Refills 0, Maintenance, 12/29/20 9:58:00 AM EDT, Partialfill upon patient request if the prescription is for a schedule II opioid drug. Start Date: 12/29/20 Status: Ordered Medication Dispense Status: Completed Total Allowed Fills: 1 Fills Dispensed: 0 Colace sodium 100 mg oral capsule 100 mg, 1, capsule, By Mouth, 2 times a day, PRN, with plenty of water, # 20 capsule, Refills 1, Tot. Refills 1, Maintenance, for constipation, 08/27/25 10:50:00 AM EST, Route to Pharmacy Electronically, [facility], Partial fill upon patient request if the prescription is for a schedule II opioid drug., 154.9, cm, 08/27/25 4:35:00 EST, Height, 110.4, kg, 08/26/25 14:27:00 EST, Dry Weight Start Date: 08/27/25 Status: Ordered Medication Dispense Status: Completed Quantity: 20.0 Unit: capsule Total Allowed Fills: 2 Fills Dispensed: 0 cyclobenzaprine 10 mg oral tablet 5 mg, Tablet, By Mouth, 08/27/25 9:00:00 AM EST Start Date: 08/27/25 Stop Date: 08/27/25 Status: Completed Medication Dispense Status: Completed Total Allowed Fills: 1 Fills Dispensed: 0 cyclobenzaprine 5 mg oral tablet 1 tablet = 5 mg, By Mouth, 3 times a day, # 90 tablet, 0 Refills, Maintenance, 07/29/25 9:21:00 AM EDT, Partial fill upon patient request if the prescription is for a schedule II opioid drug. Start Date: 07/29/25 Status: Ordered Medication Dispense Status: Completed Quantity: 90.0 Unit: tablet Total Allowed Fills: 1 Fills Dispensed: 0 fluticasone 50 mcg/inh nasal spray 1 sprays = 50 mcg, Nares, Both, 2 times a day, 0 Refills, Maintenance, 05/23/25 12:09:00 PM EDT, Partial fill upon patient request if the prescription is for a schedule II opioid drug. Start Date: 05/23/25 Status: Ordered Medication Dispense Status: Completed Total Allowed Fills: 1 Fills Dispensed: 0 gabapentin 300 mg oral capsule 600 mg, Capsule, By Mouth, 08/27/25 9:00:00 AM EST Start Date: 08/27/25 Stop Date: 08/27/25 Status: Completed Medication Dispense Status: Completed Total Allowed Fills: 1 Fills Dispensed: 0 gabapentin 600 mg oral tablet 1 tablet = 600 mg, By Mouth, 3 times a day, 0 Refills, Maintenance, 02/03/20 8:35:00 AM EDT Start Date: 02/03/20 Status: Ordered Medication Dispense Status: Completed Total Allowed Fills: 1 Fills Dispensed: 0 lactulose 10 gm/15 ml oral syrup 15 mL = 10 Gm, By Mouth, Daily, PRN as needed for constipation, 0 Refills, Maintenance, 05/23/25 12:09:00 PM EDT, Partial fill upon patient request if the prescription is for a schedule II opioid drug. Start Date: 05/23/25 Status: Ordered Medication Dispense Status: Completed Total Allowed Fills: 1 Fills Dispensed: 0 levothyroxine 175 mcg (0.175 mg) oral tablet 1 tablet = 175 mcg, By Mouth, Daily, # 60 tablet, 1 Refills, Maintenance, 08/27/25 10:50:00 AM EST,Tablet, [facility], Partial fill upon patient request if the prescription is for a schedule II opioid drug., 154.9, cm, 08/27/25 4:35:00 EST, Height, 110.4, kg, 08/26/25 14:27:00 EST, Dry Weight Start Date: 08/27/25 Status: Ordered Medication Dispense Status: Completed Quantity: 60.0 Unit: tablet Total Allowed Fills: 2 Fills Dispensed: 0 Lovenox 40 mg/0.4 mL injectable solution = 40 mg, Subcutaneous Injection, Daily, for 30 days, # 30 each, 0 Refills, Acute 09/26/25 10:51:00 AM EST, 08/27/25 10:51:00 AM EST, [facility], Partial fill upon patient request if theprescription is for a schedule II opioid drug., 154.9, cm, 08/27/25 4:35:00 EST, Height, 110.4, kg,08/26/25 14:27:00 EST, Dry Weight Start Date: 08/27/25 Stop Date: 09/26/25 Status: Ordered Medication Dispense Status: Completed Quantity: 30.0 Unit: each Total Allowed Fills: 1 Fills Dispensed: 0 omeprazole 40 mg oral enteric coated capsule 1 capsule = 40 mg, By Mouth, Daily, 0 Refills, Maintenance, 05/23/25 12:09:00 PM EDT, Partial fill upon patient request if the prescription is for a schedule II opioid drug. Start Date: 05/23/25 Status: Ordered Medication Dispense Status: Completed Total Allowed Fills: 1 Fills Dispensed: 0 oxyCODONE 5 mg oral tablet 5 mg, Tablet, By Mouth, Every 4 hours, PRN for Pain , Severe, Routine, 08/26/25 11:25:00 AM EST Start Date: 08/26/25 Stop Date: 08/27/25 Status: Discontinued Medication Dispense Status: Completed Total Allowed Fills: 1 Fills Dispensed: 0 oxyCODONE 5 mg oral tablet 5 mg, 1, tablet, By Mouth, Every 6 hours, PRN, The patient may fill in an amount not to exceed the recommended full quantity indicated., # 5 tablet, Refills 0, Tot. Refills 0, Maintenance, for pain, 08/27/25 10:50:00 AM EST, Route to Pharmacy Electronically, [facility], Partial fill upon patient request if the prescription is for a schedule II opioid drug., 154.9, cm, 08/27/25 4:35:00 EST, Height, 110.4, kg, 08/26/25 14:27:00 EST, Dry Weight Start Date: 08/27/25 Status: Ordered Medication Dispense Status: Completed Quantity: 5.0 Unit: tablet Total Allowed Fills: 1 Fills Dispensed: 0 prazosin 5 mg oral capsule 5 mg, 1, capsule, By Mouth, Daily at bedtime, # 270 capsule, Refills 0, Maintenance, 05/23/25 12:08:00 PM EDT, Partial fill upon patient request if the prescription is for a schedule II opioid drug. Start Date: 05/23/25 Status: Ordered Medication Dispense Status: Completed Quantity: 270.0 Unit: capsule Total Allowed Fills: 1 Fills Dispensed: 0 risperiDONE 1 mg oral tablet 1 mg, 1, tablet, By Mouth, 2 times a day, # 60 tablet, Refills 0, Maintenance, 05/23/25 12:08:00 PM EDT, Partial fill upon patient request if the prescription is for a schedule II opioid drug. Start Date: 05/23/25 Status: Ordered Medication Dispense Status: Completed Quantity: 60.0 Unit: tablet Total Allowed Fills: 1 Fills Dispensed: 0 SUMAtriptan 50 mg oral tablet 1 tablet = 50 mg, By Mouth, Daily, PRN for migraine headache, may repeat dose after 2 hours up to amaximum of 2, # 18 tablet, 0 Refills, Maintenance, 05/23/25 12:08:00 PM EDT, Tablet, Partial fill upon patient request if the prescription is for a schedule II opioid drug. Start Date: 05/23/25 Status: Ordered Medication Dispense Status: Completed Quantity: 18.0 Unit: tablet Total Allowed Fills: 1 Fills Dispensed: 0 topiramate 100 mg oral tablet 2 tablet = 200 mg, By Mouth, Daily at bedtime, # 30 tablet, 0 Refills, Maintenance, 12/29/20 9:58:00AM EDT, Tablet, Partial fill upon patient request if the prescription is for a schedule II opioid drug. Start Date: 12/29/20 Status: Ordered Medication Dispense Status: Completed Quantity: 30.0 Unit: tablet Total Allowed Fills: 1 Fills Dispensed: 0 Tylenol Extra Strength 500 mg oral tablet 2 tablet = 1,000 mg, By Mouth, 3 times a day, PRN for pain, # 24 tablet, 0 Refills, Maintenance, 08/27/25 10:52:00 AM EST, Tablet, [facility], Partial fill upon patient request if the prescription is for a schedule II opioid drug., 154.9, cm, 08/27/25 4:35:00 EST, Height, 110.4, kg, 08/26/25 14:27:00 EST, Dry Weight Start Date: 08/27/25 Status: Ordered Medication Dispense Status: Completed Quantity: 24.0 Unit: tablet Total Allowed Fills: 1 Fills Dispensed: 0 Ventolin HFA 108 mcg/inh inhalation aerosol with adapter 0 Refills, Maintenance, 05/23/25 12:09:00 PM EDT, Partial fill upon patient request if the prescription is for a schedule II opioid drug. Start Date: 05/23/25 Status: Ordered Medication Dispense Status: Completed Total Allowed Fills: 1 Fills Dispensed: 0 Vitamin B-12 1000 mcg oral tablet 1,000 mcg, 1, tablet, By Mouth, Daily, Refills 0, Maintenance, 05/23/25 12:09:00 PM EDT, Partial fill upon patient request if the prescription is for a schedule II opioid drug. Start Date: 05/23/25 Status: Ordered Medication Dispense Status: Completed Total Allowed Fills: 1 Fills Dispensed: 0 Vitamin D3 2000 intl units oral capsule 1 capsule = 50 mcg, By Mouth, Daily, 0 Refills, Maintenance, 05/23/25 12:09:00 PM EDT, Partial fill upon patient request if the prescription is for a schedule II opioid drug. Start Date: 05/23/25 Status: Ordered Medication Dispense Status: Completed Total Allowed Fills: 1 Fills Dispensed: 0 Problem List Condition Confirmation Course Effective Dates Status H ealth Status Informant Chronic back pain Confirmed Active Chronic deep vein thrombosis (DVT) of right lower extremity 1 Confirmed Active Chronic kidney disease (CKD) Confirmed Active The COPD (chronic obstructive pulmonary disease) Confirmed Active Excessive weight gain Confirmed Active Hepatitis C antibody test positive Confirmed Active Chronic right hip pain Confirmed Active Chronic hip pain Confirmed Active History of substance use disorder Confirmed Active Abnormal results of liver function studies Confirmed Active Chronic anticoagulation Confirmed Active Severe obesity Confirmed Active 1Gastrocnemius vein Procedures Procedure Date Related Diagnosis Body Site Status Total Thyroidectomy with milagro tral neck dissection 08/26/25 Completed Vital Signs Most recent to oldest [Reference Range]: 1 2 3 4 Height 154.9 cm (08/27/25 4:35 AM) 154.9 cm (08/26/25 10:52 PM) 154.9 cm (08/26/25 8:44 PM) Weight 110.4 kg (08/26/25 2:21 PM) 108.8 kg (08/26/25 6:30 AM) 108.8 kg (08/16/25 12:20 PM) Oxygen Saturation [94-100 %] 98 % (08/27/25 10:00 AM) 100 % (08/27/25 7:00 AM) 95 % (08/27/25 4:35 AM) Pulse Rate [55-90 bpm] 82 bpm (08/27/25 10:00 AM) 66 bpm (08/27/25 7:00 AM) 58 bpm (08/27/25 4:35 AM) Body Mass Index [18.5-24.99 kg/m2] 46.01 kg/m2 *H* (08/26/25 2:21 PM) 45.34 kg/m2 *H* (08/26/25 6:30 AM) 45.34 kg/m2 *H* (08/16/25 12:20 PM) Blood Pressure [90-138/55-84 mm Hg] 107/78mm Hg (08/27/25 10:00 AM) 113/52mm Hg (08/27/25 7:00 AM) 108/62mm Hg (08/27/25 4:35 AM) Respiratory Rate [16-30 br/min] 18 br/min (08/27/25 10:00 AM) 18 br/min (08/27/25 9:23 AM) 18 br/min (08/27/25 9:23 AM) 18 br/min (08/27/25 9:23 AM) Temperature [96.8-100.4 DegF] 97.8 DegF (08/27/25 10:00 AM) 97.2 DegF (08/27/25 7:00 AM) 97.3 DegF (08/27/25 4:35 AM) Mode of Delivery (Oxygen) Room air (08/27/25 10:00 AM) Room air (08/27/25 7:00 AM) Room air (08/27/25 4:35 AM) Blood pressure sites Arm, left (08/27/25 10:00 AM) Arm, left (08/27/25 7:00 AM) Arm, right (08/27/25 4:35 AM) Temperature Route Oral (08/27/25 10:00 AM) Oral (08/27/25 7:00 AM) Oral (08/27/25 4:35 AM) Dry Weight 110.4 kg (08/26/25 2:21 PM) 110.4 kg (08/26/25 6:30 AM) 108.8 kg (08/16/25 12:20 PM) Weight Obtained Via Patient/family stated (08/26/25 2:21 PM) Dry Weight Obtained Via Patient/family stated (08/26/25 2:21 PM) Standing scale (08/26/25 6:30 AM) Social History Social History Type Response Smoking Status Former smoker, quit more than 30 days ago entered on: 02/04/20 Sexual Orientation Self described orien tation: ; Straight or heterosexual Sex Female Sex Representation Female (finding) Social Determinants of Health Assessment Assessment Assessment Component Result Effecti ve Date Unspecifed Social Determinants of Health Assessment Housing status I have housing 08/26/25 Are you worried abou t losing your housing [PRAPARE] No 08/26/25 Have you or any fami ly members you live with been unable to get any of the following when it was really needed in past 1 year [PRAPARE] Food 08/26/25 Has lack of transportation kept you from medical appointments, meetings, work, or from getting things needed for daily living Yes, it has kept me from medical appointments or from getting my medications 08/26/25 How often do you see or talk to people that you care about and feel close to [PRAPARE] 3 to 5 times a week 08/26/25 Do you feel physical ly and emotionally safe where you currently live [PRAPARE] Yes 08/26/25 Within the last year , have you been afraid of your partner or ex-partner No 08/26/25 History and physical note * Event Display: History and Physical Hospital Authored Date: Procedure * Event Display: Cardiac Rhythm Strips Authored Date: Hospital Progress note * Gem Stallings RN: PERFORM, SIGN, VERIFY Event Display: Progress Note Hospital Authored Date: Patient: DRAKE RAY Age: 49 years Sex: Female : 1975 Associated Diagnoses: None Author: Gem Stallings RN Findings Problem Related to Alteration in Comfort : Alteration in Comfort/new 08/27/2025 9:00 EST Alteration in Comfort Related to Surgery Goals & Outcomes: Comfort Pt will report acceptable level of comfort & pain control, Pt will state importance of adhering to pain strategy regime, Pt will demonstrate necessary skills to manage pain Interventions Implemented: Comfort Assess pain using appropriate pain scale/tools, Assess aggravating factors & prevent them accordingly, Assess alleviating factors & promote them accordingly BH Goals/Interventions, Comfort Yes Comfort, Problem Start 08/26/2025 14:57 Reviewed plan with, Comfort Patient Patient Progression, Comfort Pt progressing according to plan Comfort, Problem Ongoing Yes . Evaluation P: Alteration in Comfort I: See Care Plan. E: Pt reporting 8/10 pain, medicated with scheduled Tylenol, Gabapentin and Flexeril as well as PRNOxycodone with positive effect. Pt reporting pain is exacerbated by coughing. Pt AAOx4. Vital signs stable. Pt denies numbness and tingling. Pt denies hoarseness or difficulty swallowing. Lung sounds clear to auscultation bilaterally, on room air. Pt denies shortness of breath. Pt reporting occasional productive cough with yellow sputum. +PP. +CMS. No edema. Pt denies chest pain. Pt using Sequential Compression Devices to bilateral lower extremities when resting in bed. Abdomen soft, round and non-tender. Bowel sounds active x4. Pt reports passing gas and belching. Pt denies nausea and vomiting. Pt tolerating regular diet. Last bowel movement 08/26/2025. Pt voiding clear yellow urine without difficulty. Steri strips to the anterior neck incision, clean/dry/intact. Ptambulating independently without assistive devices, states she sometimes uses a walker for longerdistances. Pt ambulated approximately 250 feet. Pt call ortega & belongings in reach. Pt able to make needs known.. Electronically Signed on 08/27/25 09:25 AM Bishop BARRETT, Gme DOUGLAS, Keerthi: PERFORM Event Display: Progress Note Hospital Authored Date: [id number] Patient: ??DRAKE RAY ? Age:??49 Years?Sex:??Female?:??1975?LOC:??[facility]?? Subjective Pain not well controlled, meds adjusted. Sore throat, but tolerating diet. Ambulating, voiding. No fevers, dysphagia, hoarseness, numbness, tingling, nausea or vomiting?? Physical Exam Vitals & Measurements T:??97.3?F?? HR:??58??(Peripheral)?? RR:??17?? BP:??108/62?? SpO2:??95%?? HT:??154.9??cm?? WT:??110.4??kg?? BMI:??46.01?? Physical Exam: Constitutional:??In no acute distress, awake, and alert HEENT: Neck incision c/d/i. Soft, flat. No skin changes. ALESSANDRA with low serosang output Respiratory: Non-labored breathing on room air Cardiovascular: Regular rate. No LE edema. Neurologic:??Alert and oriented x3.??No focal neurological deficits. Moves all extremities spontaneously Assessment/Plan 49F with PTC now s/p total thyroidectomy with central compartment lymph node dissection (Frieda, 08/27). Postop pain, meds adjusted. No hematoma. Postop PTH/ical wnl. ALESSANDRA outut low,SS and was removed by medical surgical tech. ?? Plan: - Diet - Pain ctrl prn; tyl/oxy/ice - Home meds - Levothyroxine at dc - Dispo; SW to help??arrange home services for chronic issues, DC home today with dvt ppx ?? To be discussed with Dr. Frieda FAM [id number] Intake and Output Intake and Output Results?? This visit (24 hour periods starting at 07:00 EST)? 08/27/25 *?? 08/26/25?? 08/25/25?? Total Summary?Intake mL?? --?? 640?? --?Output mL?? --?? 2,145?? --?Fluid Balance ?? --?? -1,505?? --?? Intake (1)?Oral Fluids mL?? --?? 640?? --?Total?? --?? 640?? --?? Output (2)?Toño Siddiqui Neck mL?? --?? 45?? --?Urine Voided mL?? --?? 2,100?? --?Total?? --?? 2,145?? --?? Counts (2)?Oral Fluids mL?? --?? 640?? --?Urine Voided mL?? --?? 2,100?? --? * This column has not completed the indicated time period.?? Labs Last 24 Hours CHEM GENERAL ? Event Name?? Event Result?? Date/Time?? Calcium, Ionized pH Corrected 1.21 mmol/L 08/27/25 01:57:00 ? Electronically Signed on 08/27/25 07:15 AM Keerthi Holbrook * Beba Malave MD: PERFORM Event Display: Progress Note Hospital Authored Date: [id number] Seen and evaluated today. ??Normal voice and parathyroid function. ??No neck hematoma, ALESSANDRA removed. ??Postop PTH and??calcium??WNL. Will discharge home??today, no need for outpatient calcium supplements. Levothyroxine Rx 175 mcg daily provided. 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 f/u with me in 2-3 weeks Electronically Signed on 08/27/25 12:08 PM Beba Malave MD * Char Vaughan RN: VERIFY, PERFORM, SIGN Event Display: Progress Note Hospital Authored Date: [id number] Patient: DRAKE RAY Age: 49 years Sex: Female : 1975 Associated Diagnoses: None Author: Char Vaughan RN Findings Problem Related to Alteration in Comfort : Alteration in Comfort/new 08/26/2025 19:00 EST Alteration in Comfort Related to Surgery Goals & Outcomes: Comfort Pt will report acceptable level of comfort & pain control, Pt will state importance of adhering to pain strategy regime, Pt will demonstrate necessary skills to manage pain Interventions Implemented: Comfort Assess pain using appropriate pain scale/tools, Assess aggravating factors & prevent them accordingly, Assess alleviating factors & promote them accordingly Goals/Interventions, Comfort Yes Comfort, Problem Start 08/26/2025 14:57 Reviewed plan with, Comfort Patient Patient Progression, Comfort Pt progressing according to plan Comfort, Problem Ongoing Yes . Evaluation P: Alteration in Comfort I: See interventions listed in care plan above E: Patient is alert and oriented x4. Lung sounds clear. Positive bowel sounds, abdomen is soft, round, and nontender, last bm was 08/26. Anterior neck incision closed with steri strip and open to air, ALESSANDRA drain insertion site dressing is clean, dry, and intact, small amount of sanguineous drainage in ALESSANDRA. Voids clear yellow urine. Tylenol, Flexeril, gabapentin, and oxycodone given for pain management. See CIS for complete assessment. Progressing along plan of care.. Electronically Signed on 08/26/25 11:46 PM Char Vaughan RN Note * Gem Stallings RN: PERFORM Event Display: Discharge/Transfer Note Hospital Authored Date: [id number] Nursing Discharge Note Entered On: 08/27/2025 12:17 EST Performed On: 08/27/2025 12:17 EST by Gem Stallings RN Nursing Discharge Note 2 Discharge Time : 08/27/2025 12:17 EST Discharge Level of Care at Discharge : Home/Nursing Home/Foster Care Patient Left Unit Via : Wheelchair Patient Accompanied Off Unit with : Responsible adult DC Instructions Provided & Signed by Pt : Yes Patient Understands D/C Instructions : Yes Patient Instructions Discharge Signed : Yes Did Pt have Specialty Bed or Wound Vac : No Gem Stallings RN - 08/27/2025 12:17 EST Electronically Signed on 08/27/25 12:17 PM Gem Stallings RN * Keerthi Holbrook: PERFORM Event Display: Discharge/Transfer Note Hospital Authored Date: [id number] Patient: ??DRAKE RAY ? Age:??49 Years?Sex:??Female?:??1975?LOC:??[facility]?? Admit Date Admission Date: 08/26/2025 Discharge Date 08/27/25 Discharge Diagnoses Papillary thyroid carcinoma Hospital Course 49F with history of blood clots and PTC now s/p total thyroidectomy with central compartment lymph node dissection??performed on 08/27/[address] Malave, 08/27. The patient tolerated the procedure well and was transferred to PACU in stable, clinical condition with ALESSANDRA drain in place. Postop PTH and calcium was within normal limits. Diet was advanced as tolerated.??ALESSANDRA drain was removed. Pain was controlled with medications.??Upon discharge, she was in stable clinical condition ambulating, voiding,and tolerating a diet without nausea or vomiting. She was sent home with pain medication, Levothyroxine, stool softeners, DVT ppx (x30d per preop med) and instructions to follow up with?? Dr. Malave as scheduled as well as her Cumulative Effects Analyst in 1-2 months Objective/Physical Exam on Day of Discharge Vitals & Measurements T:??97.2?F?? HR:??66??(Peripheral)?? RR:??18?? BP:??113/52?? SpO2:??100%?? HT:??154.9??cm?? WT:??110.4??kg?? BMI:??46.01?? Physical Exam: Constitutional:??In no acute distress, awake, and alert HEENT: Neck incision c/d/i. Soft, flat. No skin changes. ALESSANDRA with low serosang output Respiratory: Non-labored breathing on room air Cardiovascular: Regular rate. No LE edema. Neurologic:??Alert and oriented x3.??No focal neurological deficits. Moves all extremities spontaneously Future Appointments 2024 1:40 PM EST ?? Type: Post-Op With: Frieda ANGLIN, Beba Where: [facility] General Surgery [address] [place] [address] Drive [address] [place] [address]- Status: Pending Procedures Performed This Visit Dissection Neck Central with Thyroidectomy Total Complex Inpatient Medications Medications (20) Active SCHEDULED: (13) Acetaminophen 325 mg Tablet (Acetaminophen Tablet) ??975 mg, By Mouth, Every 6 hours Atorvastatin 20 mg Tablet (atorvastatin 20 mg oral tablet) ??20 mg, By Mouth, Daily Clonidine 0.1 mg Tablet (cloNIDine 0.1 mg oral tablet) ??0.3 mg, By Mouth, 3 times a day Cyclobenzaprine 10 mg Tablet (cyclobenzaprine 10 mg oral tablet) ??5 mg, By Mouth, 3 times a day diphenhydrAMINE 25 mg Tablet (diphenhydrAMINE 25 mg oral tablet) ??50 mg, By Mouth, 2 times a day Fluticasone Propionate 50mcg/inh Nasal [place] (fluticasone 50 mcg/inh nasal spray) ??50 mcg 1 sprays, Nares, Both, 2 times a day Gabapentin 300 mg Capsule (gabapentin 300 mg oral capsule) ??600 mg, By Mouth, 3 times a day Pantoprazole 40 mg EC Tablet (pantoprazole 40 mg oral delayed release tablet) ??40 mg, By Mouth, Daily Prazosin 5 mg Capsule (prazosin 5 mg oral capsule) ??5 mg, By Mouth, Daily at bedtime Risperidone 1 mg Tablet (risperiDONE 1 mg oral tablet) ??1 mg, By Mouth, 2 times a day Topiramate 100 mg Tablet (Topiramate Tablet) ??200 mg, By Mouth, Daily at bedtime Vitamin B-12 ??1000 mcg Tablet (Vitamin B-12 1000 mcg oral tablet) ??1,000 mcg, By Mouth, Daily Vitamin D 1000 IU Tablet (cholecalciferol 1000 intl units oral tablet) ??2,000 International_Units,By Mouth, Daily CONTINUOUS: (0) PRN: (7) Calcium Carbonate 500 mg (Calcium 200 mg) Chewable Tablet (Tums 500 mg oral tablet, chewable) ??500mg 1 tablet, Chew, Every 4 hours Chloraseptic Lozenge ??1 lozenge, By Mouth, Every 3 hours Chloraseptic Throat [place] (Chloraseptic [place]) ??1 sprays, By Mouth, Every 4 hours Ondansetron 2mg/mL Inj (2mL Vial) (Zofran Inj) ??4 mg, IV Push, Every 6 hours OxyCODONE 5 mg IR Tablet (oxyCODONE 5 mg oral tablet) ??5 mg, By Mouth, Every 4 hours Polyvinyl Alcohol 1.4% Opthalmic Solution/Artificial Tears (Artificial Tears1.4%) ??2 drops, Eyes, Both, Every 4 hours Sumatriptan 25 mg tablet (SUMAtriptan 25 mg oral tablet) ??50 mg, By Mouth, Daily Discharge Medications Acetaminophen (Tylenol Extra Strength 500 mg oral tablet)??2 tab(s) 1,000 Milligram By Mouth 3 times a day as needed for pain Atorvastatin (atorvastatin 20 mg oral tablet)??1 tab(s) 20 Milligram By Mouth Daily benzocaine/dextromethorphan/menthol topical (Chloraseptic Sore Throat + Cough mucous membrane lozenge)??1 lozenge(s) By Mouth Every 4 hours as needed as needed for sore throat Cholecalciferol (Vitamin D3 2000 intl units oral capsule)??1 capsule 50 Microgram By Mouth Daily Clonidine (cloNIDine 0.1 mg oral tablet)??0.1 Milligram 1 tablet By Mouth 3 times a day Cyanocobalamin (Vitamin B-12 1000 mcg oral tablet)??1,000 Microgram 1 tablet By Mouth Daily Cyclobenzaprine (cyclobenzaprine 5 mg oral tablet)??1 tab(s) 5 Milligram By Mouth 3 times a day DiphenhydrAMINE (Banophen 50 mg oral capsule)??1 capsule 50 Milligram By Mouth 2 times a day Docusate (Colace sodium 100 mg oral capsule)??100 Milligram 1 capsule By Mouth 2 times a day as needed with plenty of water for constipation Durable Medical Equipment (Alcohol Pads)??See Instructions for 30 Days use as directed for Type 1 Diabetes Mellitus Enoxaparin (Lovenox 40 mg/0.4 mL injectable solution)??40 Milligram Subcutaneous Injection Daily for 30 Days Fluticasone Nasal (fluticasone 50 mcg/inh nasal spray)??1 spray(s) 50 Microgram Nares, Both 2 timesa day Gabapentin (gabapentin 600 mg oral tablet)??1 tab(s) 600 Milligram By Mouth 3 times a day Lactulose (lactulose 10 gm/15 ml oral syrup)??15 Milliliter 10 gram By Mouth Daily as needed as needed for constipation Levothyroxine (levothyroxine 175 mcg (0.175 mg) oral tablet)??1 tab(s) 175 Microgram By Mouth Daily Omeprazole (omeprazole 40 mg oral enteric coated capsule)??1 capsule 40 Milligram By Mouth Daily Oxycodone (oxyCODONE 5 mg oral tablet)??5 Milligram 1 tablet By Mouth Every 6 hours as needed The patient may fill in an amount not to exceed the recommended full quantity indicated. for pain Prazosin (prazosin 5 mg oral capsule)??5 Milligram 1 capsule By Mouth Daily at bedtime Risperidone (risperiDONE 1 mg oral tablet)??1 Milligram 1 tablet By Mouth 2 times a day Sumatriptan (SUMAtriptan 50 mg oral tablet)??1 tab(s) 50 Milligram By Mouth Daily as needed for migraine headache may repeat dose after 2 hours up to a maximum of 2 Topiramate (topiramate 100 mg oral tablet)??2 tab(s) 200 Milligram By Mouth Daily at bedtime Labs Last 24 Hours CHEM GENERAL ? Event Name?? Event Result?? Date/Time?? Calcium, Ionized pH Corrected 1.21 mmol/L 08/27/25 01:57:00 ? Patient Instructions Postoperative Instructions for Thyroidectomy ?? You have undergone endocrine surgery with Dr. Malave. The instructions here should help answer common questions and guide you through the first steps of healing and recovery. ?? Activity: Get plenty of rest after surgery, however we would still like you to be active and walk several times a day.?? Increase your walking distance as you feel able.?? Continue with light activities for 1 to 2 weeks then ease yourself back into regular activities.?? No strenuous exercise until 4 weeks after surgery.? Driving: No driving until you are off pain medications and feel comfortable turning your head and neck [id number]. ?? Medication Instructions: ?? Thyroid hormone replacement: ?? -levothyroxine (???Synthroid?? ) a thyroid hormone replacement. Take levothyroxine 175mcg on an empty stomach (acidity increases absorption) one hour before breakfast. Do not take levothyroxine within 4 hours of any products that may contain iron or calcium. Do not take levothyroxine at the sametime as antacids or proton pump inhibitors ? If you were taking Methimazole or Propylthiouracil (PTU) prior to your thyroid surgery, you willno longer need the medication and should stop taking it. ?? Begin Lovenox injections TOMORROW for 30 days to prevent blood clots after surgery ?? Pain medications:?? -Tylenol: 1000mg every 6 hours for the first 2 days after surgery. After the first few days you cancontinue to take Tylenol as needed for pain.?? Opioid pain medication: Oxycodone, this is typically only needed for a few days after surgery. TakeTylenol prior to taking the opioid pain medication. Do not take it if not needed.? -Stool softener: Opioid pain medications can cause constipation so drink plenty of fluids. Take Colace or MiraLAX twice a day when on opioids to prevent constipation. If you don't have a bowel movement in 2-3 days take Milk of Magnesia 30mg twice a day until you have a bowel movement. ?? Incision care: For the first two days after surgery keep your neck elevated and apply ice to minimize swelling. Swelling is normal after surgery, and it will take several weeks for the neck to completely flatten out again. ?? -Showering: it is okay to shower and get your incision wet 1 day after surgery. Water can run over the incision and just pat the incision dry afterwards. No saunas, hot tubs, or soaking the incision until one month after surgery.? -Steri-strips: may be removed from your incision by gently pealing them off 7 days after surgery. ?? What to watch for: ?? If you develop fever, chills, increased pain, bleeding, increased swelling, increased redness or pus around the surgical site please call the office at [phone]. After hours or on weekends call [phone] and have the on-call physician paged. ?? You should have a follow-up appointment scheduled approximately 2 weeks after your surgery date. Please call the office at [phone] with any questions or concerns. ?? Please call Cumulative Effects Analyst to schedule follow up in 1-2 months?? Electronically Signed on 08/27/25 10:59 AM Keerthi Holbrook * Beba Malave MD: PERFORM Event Display: Discharge/Transfer Note Hospital Authored Date: [id number] d/c summary reviewed AJ Electronically Signed on 08/27/25 12:09 PM Beba Malave MD * Pretty BARRETT [place]: PERFORM Event Display: Patient Education/Instruction Authored Date: [id number] Inpatient Adult Discharge Instructions. [address] [address] Name: DRAKE RAY : 1975?? Visit: 08/26/2025 07:31?? Current Date: 08/27/2025 11:13 ?? Account: [id number]?? Inpatient Adult Discharge Instructions We would like to thank you for allowing us to assist you with your healthcare needs. The following includes patient education materials and information regarding your injury/illness. Our entire staffstrives to provide an excellent experience for our patients and their families. PLEASE ENSURE YOU FOLLOW-UP PER THE INSTRUCTIONS BELOW! ?? YOUR OPINION IS IMPORTANT TO US! Please complete the survey you may receive by mail or email. Your feedback will be used to make improvements to the healthcare experiences of our patients and their families. Surveys are administered by [employer] ?? If further treatment with your primary care physician or another doctor is recommended, it is important for you to keep the appointment. Call your primary care physician or return to the Emergency Department immediately if your condition worsens, fails to improve, or new symptoms develop. If you need to find a doctor, you can call [facility] for a referral at [phone] or toll free at [phone] or log in to [email or web address].. ?? [facility], in keeping with [facility] guidance, no longer requires face masks for staff, patientsor visitors in most situations. Similiar to time spent indoors at other locations, there is the chance that you were exposed to repiratory viruses during your time with us (such as flu or COVID-19). If you develop symptoms concerning for a viral respiratory infection, please seek testing (and treatment if indicated) from your medical provider or home test kit. ?? You can view and manage your care through the patient portal or by using a health care [facility] of your choosing. [employer] is a website that allows you to securely view your medical information including your hospital discharge summary, office visit summaries, medications and follow-up visits. You can also request appointments, renew medications, and request access to your medical information using a health care [facility] of your choosing, or just ask a question. You are entitled to know the individuals who participated in your treatment. This information is available within your medical record and will be provided upon your request. You can enroll at [email or web address] or register d uring your next office visit. You have been discharged from [facility], Patient Care Unit: SW6??. If you have any questions regarding these instructions, including results of studies pending, afteryou leave, please call us and we will be happy to assist you 02/05. [facility] Your Care Team Attending Physician Beba Malave MD?? Consulting Providers Beba Malave MD?? Discharging Providers Keerthi Holbrook Your Diagnosis Papillary thyroid carcinoma Tests Performed Below is a partial list of the tests performed during your hospitalization. You may have had other tests and procedures not included in this list. Please discuss all test results with your provider. Calcium Ionized PTH Intact Ionized Calcium (Calcium Ionized)?? PTH Intact?? Pathology Tissue Request ()?? Primary Care Provider Herman Smiley MD? Advance Directive Health Care Proxy on File Yes - Health Care Proxy Discharge Vitals Temperature: 97.8 DegF Height: 154.9 cm Pulse Rate: 82 bpm Weight: 110.4 kg Respiratory Rate: 18 br/min Body Mass Index:??46.01 kg/m2??High Systolic Blood Pressure: 107 mm Hg Body surface area: 2.18 Diastolic Blood Pressure: 78 mm Hg ?? Oxygen Saturation: 98 % ?? Studies Pending All studies ordered during this hospital stay have been completed unless listed below. Please discuss all pending results with your provider listed above in these instructions. ?? Pathology Tissue Request ()?? What to do next Instructions From Your Doctor Postoperative Instructions for Thyroidectomy ?? You have undergone endocrine surgery with Dr. Malave. The instructions here should help answer common questions and guide you through the first steps of healing and recovery. ?? Activity: Get plenty of rest after surgery, however we would still like you to be active and walk several times a day.?? Increase your walking distance as you feel able.?? Continue with light activities for 1 to 2 weeks then ease yourself back into regular activities.?? No strenuous exercise until 4 weeks after surgery.? Driving: No driving until you are off pain medications and feel comfortable turning your head and neck [id number]. ?? Medication Instructions: ?? Thyroid hormone replacement: ?? -levothyroxine (???Synthroid?? ) a thyroid hormone replacement. Take levothyroxine 175mcg on an empty stomach (acidity increases absorption) one hour before breakfast. Do not take levothyroxine within 4 hours of any products that may contain iron or calcium. Do not take levothyroxine at the sametime as antacids or proton pump inhibitors ? If you were taking Methimazole or Propylthiouracil (PTU) prior to your thyroid surgery, you willno longer need the medication and should stop taking it. ?? Begin Lovenox injections TOMORROW for 30 days to prevent blood clots after surgery ?? Pain medications:?? -Tylenol: 1000mg every 6 hours for the first 2 days after surgery. After the first few days you cancontinue to take Tylenol as needed for pain.?? Opioid pain medication: Oxycodone, this is typically only needed for a few days after surgery. TakeTylenol prior to taking the opioid pain medication. Do not take it if not needed.? -Stool softener: Opioid pain medications can cause constipation so drink plenty of fluids. Take Colace or MiraLAX twice a day when on opioids to prevent constipation. If you don't have a bowel movement in 2-3 days take Milk of Magnesia 30mg twice a day until you have a bowel movement. ?? Incision care: For the first two days after surgery keep your neck elevated and apply ice to minimize swelling. Swelling is normal after surgery, and it will take several weeks for the neck to completely flatten out again. ?? -Showering: it is okay to shower and get your incision wet 1 day after surgery. Water can run over the incision and just pat the incision dry afterwards. No saunas, hot tubs, or soaking the incision until one month after surgery.? -Steri-strips: may be removed from your incision by gently pealing them off 7 days after surgery. ?? What to watch for: ?? If you develop fever, chills, increased pain, bleeding, increased swelling, increased redness or pus around the surgical site please call the office at [phone]. After hours or on weekends call [phone] and have the on-call physician paged. ?? You should have a follow-up appointment scheduled approximately 2 weeks after your surgery date. Please call the office at [phone] with any questions or concerns. ?? Please call Cumulative Effects Analyst to schedule follow up in 1-2 months? Orders?? seen by SW, ??08/27/25 10:59:00 EST?? Prescriptions??, ??08/27/25 10:59:00 EST?? Scheduled Follow-Up Appointments 2024 1:40 PM EST ?? Type: Post-Op With: Beba Malave MD Where: [address] [place] [address]- Status: Pending Discharge Medications DRAKE RAY :1975 Visit Date:08/26/2025 Medications: Please continue your medications until treatment is completed or stopped by your provider. Medications not listed below should be discontinued. Discuss any questions related to medications with your provider. What How Much When Instructions Next Dose New benzocaine/ dextromethorphan/ menthol topical (Chloraseptic Sore Throat + Cough mucous membrane lozenge) 1 lozenge(s) Oral Every 4 hours as needed for as needed for sore throat Ordering Physician: Keerthi [place]up [place] [address] as needed New Docusate (Colace sodium 100 mg oral capsule) 1 capsule Oral Twice a day as needed for for constipation Refills: 1 Special Instructions: with plenty of water Ordering Physician: Keerthi Holbrook ?? Pickup at [place] [address] as needed New Durable Medical Equipment (Alcohol Pads) See instructions Duration: 30 Days Refills: 5 Special Instructions: use as directed for Type 1 Diabetes Mellitus Ordering Physician: Keerthi Holbrook ?? Pickup at [place] [address] New Enoxaparin (Lovenox 40 mg/ 0.4 mL injectable solution) 40 Milligram Subcutaneous Injection Daily Duration: 30 Days Ordering Physician: Keerthi Holbrookup at [facility] 3 as directed New Levothyroxine (levothyroxine 175 mcg (0.175 mg) oral tablet) 1 tab(s) Oral Daily Refills: 1 Ordering Physician: Keerthi Holbrookup at [place] [address] 6a New Oxycodone (oxyCODONE 5 mg oral tablet) 1 tab(s) Oral Every 6 hours as needed for for pain Special Instructions: The patient may fill in an amount not to exceed the recommended full quantityindicated. Ordering Physician: Keerthi Holbrook ?? Pickup at [facility] 3 as needed last given at 0900 Changed Acetaminophen (Tylenol Extra Strength 500 mg oral tablet) 2 tab(s) Oral 3 times a day as needed for for pain Ordering Physician: Keerthi Holbrook Pickup at [facility] 3 as needed last given at 0800 Unchanged Albuterol (Ventolin HFA 108 mcg/ inh inhalation aerosol with adapter) as directed Unchanged Atorvastatin (atorvastatin 20 mg oral tablet) 1 tab(s) Oral Daily 8a Unchanged Cholecalciferol (Vitamin D3 2000 intl units oral capsule) 1 capsule Oral Daily 8a Unchanged Clonidine (cloNIDine 0.1 mg oral tablet) 1 tab(s) Oral 3 times a day 8a 3p 8p Unchanged Cyanocobalamin (Vitamin B-12 1000 mcg oral tablet) 1 tab(s) Oral Daily 8a Unchanged Cyclobenzaprine (cyclobenzaprine 5 mg oral tablet) 1 tab(s) Oral 3 times a day 8a 3p 8p Unchanged DiphenhydrAMINE (Banophen 50 mg oral capsule) 1 capsule Oral Twice a day 8a 8p Unchanged Fluticasone Nasal (fluticasone 50 mcg/ inh nasal spray) 1 spray(s) Nares, Both Twice a day 8a 8p Unchanged Gabapentin (gabapentin 600 mg oral tablet) 1 tab(s) Oral 3 times a day 8a 3p 8p Unchanged Lactulose (lactulose 10 gm/ 15 ml oral syrup) 15 Milliliter Oral Daily as needed for as needed for constipation as needed Unchanged Omeprazole (omeprazole 40 mg oral enteric coated capsule) 1 capsule Oral Daily 8a Unchanged Prazosin (prazosin 5 mg oral capsule) 1 capsule Oral Daily at Bedtime 8p Unchanged Risperidone (risperiDONE 1 mg oral tablet) 1 tab(s) Oral Twice a day 8a 8p Unchanged Sumatriptan (SUMAtriptan 50 mg oral tablet) 1 tab(s) Oral Daily as needed for for migraine headache Special Instructions: may repeat dose after 2 hours up to a maximum of 2 ?? as needed Unchanged Topiramate (topiramate 100 mg oral tablet) 2 tab(s) Oral Daily at Bedtime 8p Pharmacy Information [facility] 3: [address], [place] [id number] [phone] Prescription Given During Visit Acetaminophen (Tylenol Extra Strength 500 mg oral tablet) - 2 tablet = 1,000 mg, By Mouth, 3 times a day, # 24 tablet, 0 Refills, [place] [address] [phone]?? Docusate (Colace sodium 100 mg oral capsule) - 1 capsule = 100 mg, By Mouth, 2 times a day, # 20 capsule, 1 Refills, with plenty of water, [place] [address] [phone]?? Durable Medical Equipment (Alcohol Pads) - , # 200 each, 5 Refills, use as directed for Type 1 Diabetes Mellitus, [place] [address] [phone]?? Enoxaparin (Lovenox 40 mg/0.4 mL injectable solution) - 40 mg, Subcutaneous Injection, Daily, # 30 each, 0 Refills, [place] [address] [phone]?? Levothyroxine (levothyroxine 175 mcg (0.175 mg) oral tablet) - 1 tablet = 175 mcg, By Mouth, Daily,# 60 tablet, 1 Refills, [place] [address] [phone]?? Oxycodone (oxyCODONE 5 mg oral tablet) - 1 tablet = 5 mg, By Mouth, Every 6 hours, # 5 tablet, 0 Refills, The patient may fill in an amount not to exceed the recommended full quantity indicated., [place] [address] [phone]?? benzocaine/dextromethorphan/menthol topical (Chloraseptic Sore Throat + Cough mucous membrane lozenge) - 1 lozenge, By Mouth, Every 4 hours, # 15 each, 0 Refills, [place] [address] [phone]?? Laboratory Results Below is a partial list of the most recent Laboratory test results done prior to this discharge. You may have had other tests and procedures not included in this list. Please discuss all test resultswith your provider. Calcium Ionized (08/27/2025) ???Calcium, Ionized pH Corrected - 1.21 mmol/L PTH Intact (08/26/2025) ???PTH, Intact - 61 pg/mL Allergies (NKA means No Known Allergies) Contrast Dye??throat closes/ hives Suboxone??fluid retention/swelling anabolic steroids??GI bleed penicillin V potassium??throat closes Problems Active Problems??(12) Abnormal results of liver function studies?? Chronic anticoagulation?? Chronic back pain?? Chronic deep vein thrombosis (DVT) of right lower extremity?? Chronic hip pain?? Chronic kidney disease (CKD)?? Chronic right hip pain?? Excessive weight gain?? Hepatitis C antibody test positive?? History of substance use disorder?? Severe obesity?? The COPD (chronic obstructive pulmonary disease)?? Education Materials Below is the list of Educational Leaflet Providered with your Discharge Instructions. Valuables and Belongings I fully understand and agree that [facility] accepts no responsibility for all my personal property including clothing, toilet articles, radios, jewelry, dentures, hearing aids, rings, money, or any other property that is in my possession or is brought to me after admission. I understand certain valuables may be placed in a hospital safe for a short period of time. I understand that the hospital is not liable for loss or damage due to accident, fire, or other natural occurrence while said property is in the safe. I accept full responsibility for any personal property that I keep with me, and will not hold the hospital responsible in case of loss or disappearance. I acknowledge that i have been encouraged to send valuables and belongings home. ?? Review of Valuable and Belonging List: With patient, With witness Disposition of Belongings: Valuables Locked Date for Pt to Sign Valuables/Belongings: 08/27/25 09:56:00 ?? Other Discharge Information ? Pulmonary Rehab Status?? Pulmonary Rehab Discharge Status?? Respiratory Rate: 18 br/min ? Common Emergency Awareness Tips IS IT A STROKE? Act FAST and Check for these signs: FACE Does the face look uneven? ARM Does one arm drift down? SPEECH Does their speech sound strange? TIME Call at any sign of stroke ?? Heart Attack Signs Chest discomfort: Most heart attacks involve discomfort in the center of the chest and lasts more than a few minutes, or goes away and comes back. It can feel like uncomfortable pressure, squeezing, fullness or pain. Discomfort in upper body: Symptoms can include pain or discomfort in one or both arms, back, neck, jaw or stomach. Shortness of breath: With or without discomfort. Other signs: Breaking out in a cold sweat, nausea, or lightheaded. Remember, MINUTES DO MATTER. If you experience any of these heart attack warning signs, call to get immediate medical attention! ?? Smoking can increase your chances of developing chronic health problems and can cause harmful effects to other family members in your house. If you smoke, you are strongly encouraged to quit. Please call [facility] at [phone] or [phone]-[phone] ([phone]) or log in to [email or web address] for referrals to smoking cessation programs. ?? 449 Suicide & Crisis Lifeline is available 02/05 if you or someone you know needs to find a reason to keep living. By calling 841 you'll be connected to a skilled, trained counselor at a crisis center in your area. INPATIENT DISCHARGE INSTRUCTIONS SIGNATURE DRAKE ROBERT Location:[facility] Registration Date and Time:08/26/2025 07:31 EST Primary Care Physician: Baljit ANGLIN, Herman Pink, Attending Physician: Frieda ANGLIN, Beba, I DRAKE RAY, have received the above patient education materials/instructions and have verbalized understanding. If ambulance or transport services are being used I further acknowledge being given a choice of service. ?? If you need to contact me, please call me at this number: . Patient/Retail Presentation Specialist Name: Patient/Retail Presentation Specialist Signature: Relationship to Patient: Witness Name/Signature: Date: Patient Care team information Care Team Personnel Name: Abraham Sneed RN Position: Srinivas RN Member Role: Primary Care Nurse Name: Herman Smiley MD Position: Reference Physician Member Role: PCP Address: [address] [place] [address] [facility] [place], [place] [address] Telecom: Name: Bernardino Victoria MD Position: Srinivas Renal Member Role: Lifetime Consulting Physician Address: [address] [place], [place] [id number] [facility] [place], [place] [address] Telecom: Name: Char Vaughan RN Position: Srinivas RN Member Role: Primary Care Nurse Care Team Related Persons Name: ARSALAN NORRIS Name: TRAVON RAY Name: ARIA RAY Name: DALLIN CORONEL Insurance Providers Guarantor name: DRAKE RAY Health Plan Information #: 1 Payer: [employer] Payer Identifier: TYRELL Member Number: [id number] Group Number: [id number] Subscriber Identifier: [id number] Relationship to Subscriber: self Coverage Type: NA Coverage Verification Date: NA Telecom: Address:
--- OUTSIDE RECORDS SUMMARY | 2025-08-28 23:59 | XMS_ITS | Continuity of Care Document ---
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 Name Role Phone Baljit ANGLIN, Herman Pink Primary Care Physician Encounter [facility] Date(s): 07/29/25 - 08/28/25 [facility] [address] [place], [place] [address] Attending Physician: Admtr, Ar8 Admitting Physician: Admtr, Ar8 Referring Physician: Admtr, Ar8 Encounter Type: Triage Allergies, Adverse Reactions, Alerts Substance Criticality Severity Reaction Reaction Severity Status penicillin V potassium throat closes Active Contrast Dye throat closes/ hives Active Suboxone 1 fluid retention/swelling Active anabolic steroids GI bleed Ac tive 1reports mouth sores Immunizations Given and Recorded Vaccine Date Status Refusal Reason hepatitis B adult vaccine 1 05/04/18 Given 1Admin Note: Heplisav-B Medications Alcohol Pads See Instructions, # 200 each, [...] Refills, Maintenance, 08/27/25 10:53:00 AM EST, [place], [facility], Partial fill upon patient request ifthe [...] 10:50:00 AM EST, Route to Pharmacy Electronically, [facility], Partial fill upon patient request if the prescription is for a schedule II opioid drug., 154.9, cm, 08/27/25 4:35:00 EST, Height, 110.4, kg, 08/26/25 14:27:00 EST, Dry Weight Start Date: 08/27/25 Status: Ordered Medication Dispense Status: Completed Quantity: 20.0 Unit: capsule Total Allowed Fills: 2 Fills Dispensed: 0 cyclobenzaprine 5 mg oral [...] 1 Refills, Maintenance, 08/27/25 10:50:00 AM EST,Tablet, [facility], Partial fill upon patient [...] 10:51:00 AM EST, 08/27/25 10:51:00 AM EST, [facility], Partial fill upon patient [...] 10:50:00 AM EST, Route to Pharmacy Electronically, [facility], Partial fill upon patient [...] Refills, Maintenance, 08/27/25 10:52:00 AM EST, Tablet, [facility], Partial fill upon patient [...] Active Severe obesity Confirmed Active 1Gastrocnemius vein Social History Social History Type Response Smoking Status Former smoker, quit more than 30 days ago entered on: 02/04/20 Sexual Orientation Self described orien tation: ; Straight or heterosexual Sex Female Sex Representation Female (finding) Patient Care team information Care Team Personnel Name: Abraham Sneed RN Position: S RN Member Role: Primary Care Nurse Name: Herman Smiley MD Position: Reference Physician Member Role: PCP Address: [address] [place] [address] [place] [address]- Telecom: Name: Bernardino Victoria MD Position: [facility] Renal MD Member Role: Lifetime Consulting Physician Address: [address] [place], [place] [id number] [facility] [place] [address]- Telecom: Name: Char Vaughan RN Position: S RN Member Role: Primary Care Nurse Care Team Related Persons Name: ARSALAN NORRIS Name: TRAVON RAY Name: ARIA RAY Name: DALLIN CORONEL Insurance Providers Guarantor name: DRAKE RAY Health Plan Information #: 1 Payer: [employer] Payer Identifier: TYRELL Member Number: [id number] Group Number: [id number] Subscriber Identifier: TYRELL Relationship to Subscriber: self Coverage Type: NA Coverage Verification Date: NA Telecom: NA Address: NA
--- NOTE | ~2025-09-01 | XR_ITS ---
CLINICAL HISTORY: pain, injury Two views of the left clavicle. COMPARISON: XR left shoulder dated 09/01/25 at 14:30 EST FINDINGS: Widening of the acromioclavicular joints and elevation of the coracoclavicular joint space consistent with a type 3 acromioclavicular joint injury. Small well corticated bone fragments present along the distal aspect of the clavicle. Visualized portions of the left lung are clear. IMPRESSION: 1. Type 3 acromioclavicular joint injury. 2. Small bone fragments present along the distal aspect of the clavicle may represent small avulsion injuries, age-indeterminate. This document has been electronically signed by: Ken To MD on 09/01/2025 15:21:55
--- NOTE | ~2025-09-01 | XR_ITS ---
CLINICAL HISTORY: pain, injury Four views of the left shoulder. COMPARISON: None provided. FINDINGS: There is widening of the acromioclavicular space measuring 1.9 cm. There is widening of the coracoclavicular space measuring 2.3 cm. Small bone fragments present along the distal aspect of the clavicle. Visualized portions of the proximal humerus and scapula appear intact. Visualized portions of the left lung are clear. IMPRESSION: 1. Type 3 acromioclavicular joint injury. 2. Small bone fragments present along the distal aspect of the clavicle may represent small avulsion injuries, age-indeterminate. This document has been electronically signed by: Ken To MD on 09/01/2025 15:19:41
--- NOTE | ~2025-09-01 | CT_ITS ---
CLINICAL HISTORY: fall, head strike, on lovenox CT head without contrast. COMPARISON: None provided. FINDINGS: The visualized paranasal sinuses are clear. The mastoid air cells are clear. No calvarial fracture. No evidence for mass or mass effect. No intracranial hemorrhage or abnormal extra-axial fluid collection. No evidence of hydrocephalus. The basilar cisterns are patent. Posterior fossa appears unremarkable. IMPRESSION: 1. No acute intracranial findings. This document has been electronically signed by: Ken To MD on 09/01/2025 17:10:07
--- NOTE | ~2025-09-01 | XR_ITS ---
CLINICAL HISTORY: pain, injury AP pelvis, Single view of the left hip. COMPARISON: None provided. FINDINGS: Pelvic ring appears intact. Pelvic phleboliths present. Visualized lower lumbar spine is unremarkable. Visualized portions of the contralateral right hip appear intact. Left hip: Visualized portions of the proximal left femur appears intact. No trabecular disruption or cortical discontinuity. Femoral head is appropriately seated in the acetabulum. IMPRESSION: 1. No radiographic evidence of acute injury to the pelvis and left hip. This document has been electronically signed by: Ken To MD on 09/01/2025 15:20:43
[2025-09-01 13:52] VITALS: BP 182/101; PULSE 98; RESP 16; TEMP 36.8; O2SAT 98; BMI 38.3
--- NOTE | 2025-09-01 13:55 | ED_ITS ---
HPI - General Adult General Chief complaint: Extremity Injury, Upper Stated complaint: Injury Time Seen by Provider: 09/01/25 16:02 Source: patient and other (patient's friend Eloina) Mode of arrival: ambulatory Limitations: no limitations History of Present Illness ED Provider: Mena Jones PA-C HPI narrative: Patient is a 49 year old assigned female at with a history of HTN, anxie ty, depression, asthma, fibromyalgia, GERD, and recent thyroidectomy for which she is on post-operative lovenox presenting to the emergency department today with left shoulder and hip pain after a slip and fall. Patient states that she was in the shower and slipped, injuring her left should and hip. Patient denies any head strike or loss of consciousness with the incident. Patient denies any other complaints at this time. Related Data Home Medications ?Medication ?Instructions ?Recorded ?Confirmed albuterol sulfate 90 mcg/actuation 2 puff inhalation Q 6H PRN Wheezing 02/25/21 03/18/25 aerosol inhaler diphenhydramine HCl 50 mg capsule 50 mg PO BEDTIME 03/18/25 prazosin 5 mg capsule 10 mg PO BEDTIME 02/25/21 clonidine HCl 0.3 mg tablet 0.3 mg PO TID 03/18/2507/04 gabapentin 600 mg tablet 600 mg PO TID 05/15/2505/15 kkihsqf-wvrfkagfbqkbj-bjidhgaf 250 tab PO 06/11/25 mg-250 mg-65 mg tablet (Pain Reliever (gvvyfnoxxbjhj-ppkoban-faxx)) atorvastatin 20 mg tablet 20 mg PO DAILY 06/11/25 cholecalciferol (vitamin D3) 50 50 mcg PO DAILY mcg (2,000 unit) capsule (Vitamin D3) diclofenac sodium 1 % topical gel topical 06/11/25 fluticasone propionate 50 spray intranasal 06/11/25 mcg/actuation nasal spray,suspension omeprazole 40 mg capsule,delayed 40 mg PO DAILY release polyethylene glycol 3350 17 17 g PO DAILY 06/11/25 gram/dose oral powder prazosin 1 mg capsule 1 mg PO BEDTIME 06/11/25 risperidone 1 mg tablet 1 mg PO BID PRN 06/11/25 sennosides 8.6 mg-docusate sodium 1 tab PO DAILY 06/11 50 mg tablet (Senna Plus) sumatriptan succinate 50 mg tablet mg PO 06/11/25 cyanocobalamin (vitamin B-12) 1,000 mcg PO DAILY 07/26 1,000 mcg tablet cyclobenzaprine 5 mg tablet mg PO 07/26/25 topiramate 100 mg tablet mg PO 07/26/25 Previous Rx's ?Medication ?Instructions ?Recorded acetaminophen 325 mg tablet 325 mg PO QID PRN pain #90 tabs 02/19/25 (Tylenol) Allergies Allergy/AdvReac Type Severity Reaction Status Date / Time Iodinated Contrast Media (IV Allergy Severe ANAPHYLAXIS Verified 09/01/25 13:55 CONTRAST) Penicillins (PENICILLINS) Allergy Severe THROAT Verified 09/01/25 13:55 SWELLING vancomycin (VANCOMYCIN) Allergy Intermediate ITCHING Verified 09/01/25 13:55 prednisone Allergy Unknown gi bleed Verified 09/01/25 13:55 STEROIDS Allergy Intermediate GI BLEED Uncoded 05/18/25 09:47 Review of Systems Constitutional: Constitutional: Reports as per HPI Eyes: Eyes: Reports as per HPI ENT: Reports as per HPI Cardiovascular: Cardiovascular: Reports as per HPI Respiratory: Respiratory: Reports as per HPI Gastrointestinal: Gastrointestinal: Reports as per HPI Genitourinary: Genitourinary: Reports as per HPI Musculoskeletal: Musculoskeletal: Reports as per HPI Integumentary/Breasts: Skin/Breast: Reports as per HPI Neurologic: Reports as per HPI Psychiatric: Psychiatric: Reports as per HPI Endocrine: Endocrine: Reports as per HPI Hematologic/Lymphatic: Hematologic/Lymphatic: Reports as per HPI Allergic/Immunologic: Allergic/Immunologic: Reports as per HPI [facility] Past Medical History Attestation statement: The following information was validated with the patient. (all information validated with the patient's friend Eloina) Source: old records reviewed, nursing notes reviewed and other (patient's friend Eloina provided additional history and confirmed the history provided by the patient. ) Medical History Rheumatoid arthritis Primary stress urinary incontinence Migraine without status migrainosus, not intractable Hepatitis C antibody positive GERD with apnea without esophagitis Constipation Venereal disease Disorder of liver Chronic gastric ulcer Anemia Diaphragmatic hernia History of substance abuse Hx MRSA infection Arthritis Back pain DVT (deep venous thrombosis) Hepatitis Insomnia Seizure History of ETOH abuse Steatosis, liver Prediabetes GERD (gastroesophageal reflux disease) Fibromyalgia Asthma Depression Anxiety PTSD (post-traumatic stress disorder) Hypertension Morbid obesity Surgical History H/O: hysterectomy History of surgery on lower extremity History of carpal tunnel release History of sleeve gastrectomy History of bronchoscopy Hx of wisdom tooth extraction Hx of cholecystectomy History of total hysterectomy Hx of colonoscopy Family History Family History Mother Diabetes Hypertension Father Alcohol abuse Brother No problems noted. Brother No problems noted. Son No problems noted. Daughter No problems noted. Social History Social History Household Members: None Housing: Apartment Are you a primary nurse healthcare manager to a significant other at home: No Do you presently have visiting nurse or other home services: No Alcohol intake: former Patient Tobacco Use Status: Former Tobacco user Tobacco use type: Cigarette Years Smoked: 20 Smoked in Last 30 Days: No Use of substances other than those prescribed or required for medical reasons: No Substance Use Type: Crack/Cocaine and Former Substance User Advance Directives: Yes Advance Directives Information Provided: Yes Advance Directives on File: No service: No Current occupational status: disabled Physical Exam ED Vital Signs: Vital Signs - 24 hr 09/01/25 13:52 Temperature 98.2 F Pulse Rate 98 Respiratory Rate 16 Blood Pressure 182/101 H Pulse Oximetry 98 Oxygen Delivery Method Room Air BMI result Body Mass Index 38.3 Const General: cooperative, no acute distress, alert and awake Nutritional Appearance: well nourished Orientation/consciousness: patient oriented x3 HENMT Head: Yes normal to inspection and Yes atraumatic Ears: hearing grossly normal bilaterally and external ears normal General nose exam: Normal external nose present, no nasal discharge noted and no epistaxis Face and sinus: Yes normal facial exam, No abrasion and No laceration Mouth: Normal oral and palatal mucosa present, no drooling and no muffled voice Eyes General: appearance normal, both eyes and all related structures Periorbital: periorbital findings normal Eyelids: Yes eyelids normal Conjunctivae: conjunctivae normal Pupils: Equal, round and reactive pupils present EOM: EOMs intact bilaterally Neck Other: surgical scar present to anterior neck s/p thyroidectomy Neck: Yes full ROM Resp Effort & Inspection: normal respiratory effort and able to speak in complete sentences Neuro General: patient oriented x3, moves all extremities and CN's II-XI intact bilaterally Cranial nerves: Yes Equal, round and reactive pupils present Cognition (Neuro): normal cognition Extrem Other: Limited ROM of the left shoulder secondary to pain General: Yes normal to inspection and Yes capillary refill normal Psych Appearance: grossly normal Mental Status: mental status grossly normal Affect: normal affect Attitude: cooperative Thought process: Normal thought process present Thought content: Normal thought content present Insight: Good insight present (Psych) Course Course Course Narrative: Rapid medical examination performed in triage by Mena Jones PA-C: Patient is a 49 year old assigned male at presenting to the emergency depa rtment with left shoulder pain after a slip and a fall. Detailed physical exam and review of systems are deferred to the electrical maintenance engineer. Imaging ordered. Patient placed back in the waiting room pending room availability and results. Medications Administered Discontinued Medications Generic Name Dose Route Start Last Admin Trade Name Freq PRN Reason Stop Dose Admin Oxycodone HCl 10 mg 09/01/25 17:26 09/01/25 17:51 Oxycodone Hcl Immed Release 5 Mg Tablet PO 09/01/25 17:27 10 mg ONCE ONE Administration Procedures Orthopedic Splinting/Casting L clavicle fracture / AC separation : Side: left Upper Extremity Injury Location: clavicle and shoulder Upper Extremity Immobilizer: sling/shoulder immobilizer Medical Decision Making Medical Decision Making MDM Narrative: Patient is a 49 year old assigned female at with a history of HTN, anxiety, depression, asthma, fibromyalgia, GERD, and recent thyroidectomy for which she is on post-operative lovenox presenting to the emergency department today with left shoulder and hip pain after a slip and fall. Patient's physical exam was as noted in the physical exam portion of this note. Patient's left shoulder and clavicle x-rays showed a type 3 acromioclavicular joint injury as well as small bone fragments present along the distal aspect of the clavicle which may be avulsion injuries (age indeterminate). Patient's left hip and pelvis x-ray showed no acute process. Given patient's history of lovenox use and recent trauma, a CT head was obtained to confirm no intracranial bleeding. Patient's CT head showed no acute process. I explained my physical exam findings as well as all test results to the patient and the patient's friend Eloina. I answered all questions asked by the patient and the patient's friend Eloina. Patient's left upper extremity was placed in a sling, without incident. Patient's PMS was intact prior to and after sling placement. I stressed the importance of the patient taking her medication as directed (either prescribed or as the over the counter packaging recommends). I stressed the importance of the patient following up with her primary care provider and the orthopedic team. I stressed the importance of the patient returning to the emergency department immediately if her symptoms were to worsen or if she were to develop any dizziness, shortness of breath, difficulty breathing, chest pain, blurry vision, loss of vision, nausea, vomiting, abdominal pain, fever, chills, back pain, or any other complaints. Patient and the patient's friend Eloina verbalized agreement and understanding with this treatment plan and discharge. Differential Diagnosis Differential Diagnoses: The differential diagnosis associated with the presentation includes Left should sprain Left shoulder strain Left clavicle fracture Left hip contusion Left hip fracture Admission/Observation Consideration of admission/observation: Escalation of care including admission/observation considered Patient would have been admitted to the hospital had her work up had any findings where hospital admission was appropriate and her clinical presentation warranted hospital admission. Independent Interpretation I performed an independent interpretation of an: Plain X-Ray (left shoulder + left clavicle + left hip / pelvis) and CT Scan (head) Interpretation: My interpretation is in agreement with the radiologist's impression of these imaging studies as written below. CLINICAL HISTORY: pain, injury Four views of the left shoulder. COMPARISON: None provided. FINDINGS: There is widening of the acromioclavicular space measuring 1.9 cm. There is widening of the coracoclavicular space measuring 2.3 cm. Small bone fragments present along the distal aspect of the clavicle. Visualized portions of the proximal humerus and scapula appear intact. Visualized portions of the left lung are clear. IMPRESSION: 1. Type 3 acromioclavicular joint injury. 2. Small bone fragments present along the distal aspect of the clavicle may re present small avulsion injuries, age-indeterminate. This document has been electronically signed by: Ken To MD on 09/01/2025 15:19:41 Dictated By: Ken To MD Signed By: Electronically signed by Ken To MD 09/01/25 1520 CLINICAL HISTORY: pain, injury AP pelvis, Single view of the left hip. COMPARISON: None provided. FINDINGS: Pelvic ring appears intact. Pelvic phleboliths present. Visualized lower lumbar spine is unremarkable. Visualized portions of the contralateral right hip appear intact. Left hip: Visualized portions of the proximal left femur appears intact. No trabecular disruption or cortical discontinuity. Femoral head is appropriately seated in the acetabulum. IMPRESSION: 1. No radiographic evidence of acute injury to the pelvis and left hip. This document has been electronically signed by: Ken To MD on 09/01/2025 15:20:43 Dictated By: Ken To MD Signed By: Electronically signed by Ken To MD 09/01/25 1521 CLINICAL HISTORY: pain, injury Two views of the left clavicle. COMPARISON: XR left shoulder dated 09/01/25 at 14:30 EST FINDINGS: Widening of the acromioclavicular joints and elevation of the coracoclavicular joint space consistent with a type 3 acromioclavicular joint injury. Small well corticated bone fragments present along the distal aspect of the clavicle. Visualized portions of the left lung are clear. IMPRESSION: 1. Type 3 acromioclavicular joint injury. 2. Small bone fragments present along the distal aspect of the clavicle may represent small avulsion injuries, age-indeterminate. This document has been electronically signed by: Ken To MD on 09/01/2025 15:21:55 Dictated By: Ken To MD Signed By: Electronically signed by Ken To MD 09/01/25 1522 CLINICAL HISTORY: fall, head strike, on lovenox CT head without contrast. COMPARISON: None provided. FINDINGS: The visualized paranasal sinuses are clear. The mastoid air cells are clear. No calvarial fracture. No evidence for mass or mass effect. No intracranial hemorrhage or abnormal extra-axial fluid collection. No evidence of hydrocephalus. The basilar cisterns are patent. Posterior fossa appears unremarkable. IMPRESSION: 1. No acute intracranial findings. This document has been electronically signed by: Ken To MD on 09/01/2025 17:10:07 Dictated By: Ken To MD Signed By: Electronically signed by Ken To MD 09/01/25 1710 Radiology Impression Discussion of test interpretation with radiology: I have reviewed the radiologist's reading. Independent Historian Clinical information obtained from an independent historian. History obtained from or confirmed by: Friend (patient's friend Eloina provided additional history and confirmed the history provided by the patient. ) Discharge Plan Discharge Clinical Impression: Separation of AC joint, type 3 Qualifiers: Encounter type: initial encounter Laterality: left Qualified Code(s): S43.102A - Unspecified dislocation of left acromioclavicular joint, initial encounter Clavicle fracture Qualifiers: Encounter type: initial encounter Clavicle location: unspecified part of clavicle Fracture type: closed Fracture alignment: displaced Laterality: left Qualified Code(s): S42.002A - Fracture of unspecified part of left clavicle, initial encounter for closed fracture Patient Disposition: Home, Self-Care Instructions: Clavicle Fracture (ED), Shoulder Sprain (ED) Additional Instructions: Your left shoulder and clavicle x-rays showed an AC joint separation (sprain) and small avulsion fractures (breaks) of the clavicle. You have been placed in a sling for these injuries. Every 1 hour for 10 minutes remove the sling and move your left ELBOW ONLY to avoid locking the joint. Follow up with the orthopedic team. IF you are prescribed home medications and/or you are taking over the counter medications at home - it is very important you continue to do so as prescribed / directed unless told otherwise by a healthcare provider. Follow up with your primary care provider. Do your best to stay well hydrated and rest. Return to the emergency department immediately if your symptoms worsen or if you develop any numbness, tingling, dizziness, shortness of breath, difficulty breathing, chest pain, blurry vision, loss of vision, nausea, vomiting, abdominal pain, fever, chills, back pain, or any other complaints. Please see the information below about our Patient Portal. If you are not yet enrolled in the [facility] Patient Portal, you will receive an enrollment email invitation following your visit to any [facility] ED setting. You may also self-enroll in the Patient Portal by visiting our website: [email or web address] The following information is required to access the Patient Portal: - Your [facility] Medical Record Number - Your personal home email address (must match what is in your electronic medical record, Registration staff can assist with this) - Name - Date of Capabilities of the Patient Portal: - Message some providers - View upcoming appointments - Access your health summary, medical history, and visit history - View current conditions and allergies - View procedure and lab results - View your medications, including guidelines, side effects, and precautions - Complete pre-appointment questionnaires requested by your provider - Ready summary reports of your office visits and procedures To access the Patient Portal Mobile [employer], follow these directions: - Search [employer] in the [employer] Store or [employer] Store - Download the [employer] - Search for [facility] - Enter your login/password Prescriptions: No Action acetaminophen [Tylenol] 325 mg tablet 325 mg PO QID PRN (Reason: pain) Qty: 90 0RF diphenhydramine HCl 50 mg capsule 50 mg PO BEDTIME prazosin 5 mg capsule 10 mg PO BEDTIME albuterol sulfate 90 mcg/actuation HFA aerosol inhaler 2 puff inhalation Q6H PRN (Reason: Wheezing) gabapentin 600 mg tablet 600 mg PO TID clonidine HCl 0.3 mg tablet 0.3 mg PO TID atorvastatin 20 mg tablet 20 mg PO DAILY prazosin 1 mg capsule 1 mg PO BEDTIME sennosides-docusate sodium [Senna Plus] 8.6-50 mg tablet 1 tab PO DAILY sumatriptan succinate 50 mg tablet PO omeprazole 40 mg capsule,delayed release(DR/EC) 40 mg PO DAILY polyethylene glycol 3350 17 gram/dose powder 17 g PO DAILY fluticasone propionate 50 mcg/actuation spray,suspension intranasal risperidone 1 mg tablet 1 mg PO BID PRN exjpinu-mvmrmcntiriwt-vilqbhun [Pain Reliever (acetam-aspirin)] 250-250-65 mg tablet PO diclofenac sodium 1 % gel topical cholecalciferol (vitamin D3) [Vitamin D3] 50 mcg (2,000 unit) capsule 50 mcg PO DAILY cyanocobalamin (vitamin B-12) 1,000 mcg tablet 1,000 mcg PO DAILY cyclobenzaprine 5 mg tablet PO topiramate 100 mg tablet PO Referrals: [facility] Orthopedic Surgeons [Provider Group] Referral Note: Call to establish and follow up with the orthopedic team for your left clavicle fracture / break and your AC joint separation. Herman Smiley MD [Primary Care Provider, Internal Medicine] Print Language: Malay
--- OUTSIDE RECORDS SUMMARY | 2025-09-01 16:18 | XMS_ITS | Encounter Summary ---
Author Organization [employer] Address [address] [place] [address] Care Team Providers Care Vice President Quality Assurance Name Role Phone Unavailable Primary Care Provider Unavailabl e Encounter Details Date Type Department Care Team (Late st Contact Info) Description 08/12/2023 Telephone [facility] [address] [place] [address] Erasmo Bryan DDS [address] [address] Social History Tobacco Use Types Packs/Day Years [...]
--- OUTSIDE RECORDS SUMMARY | 2025-09-01 16:18 | XMS_ITS | Clinical Summary ---
Author Organization [address] Address [address] [place] [phone] Phone Care Team Providers Care Supplies Packer Name Role Phone Herman Smiley MD Primary Care Provider [phone] Allergies Active Allergy Reactions Criticality Noted Date [...] times a day. 10 mL 5 Active albuterol HFA (Proventil HFA) 90 mcg/actuation inhalerIndicatio ns:Mild intermittent asthma without complication Inhale 2 puffs by mouth every 4 (four) hours if needed for wheezing or shortness of breath. 6.7 g 3 5 026 Active lactulose (CHRONULAC) solution Take 10 mL (6.6667 g total) by mouth 1 (one) time each day if needed (constipation) . 300 mL 3 5 Active polyethylene glycol (PEG) 17 gram/dose oral powder DISSOLVE 17 GRAMS IN 8OZ OF LIQUID AND DRINK BY MOUTH DAILY 1530 g 1 5 Active fluticasone propionate (FLONASE) 50 mcg/actuation nasal spray Administer 2 sprays into each nostril 1 (one) time each day. Shake gently. Before first use, prime pump. After use, clean tip and replace cap. 48 g 1 5 Active diclofenac (VOLTAREN) 1 % topical gel Apply 4 g topically 2 (two) times a day. 400 g 1 5 Active chlorhexidine (PERIDEX) 0.12 % solution Swish 15 mL morning and night for 1 minute. Spit, do not swallow. Do not eat or drink for 30 minutes following use. 120 mL 1 5 Active senna-docusate (PERICOLACE) 8.6-50 mg per tablet Take 1 tablet by mouth 1 (one) time each day. 180 each 1 5 Active acetaminophen (Tylenol 8 Hour) 650 mg 8 hr tablet Take 1 tablet (650 mg total) by mouth every 8 (eight) hours if needed for mild pain. Do not crush, chew, or split. 90 tablet 1 5 Active atorvastatin (LIPITOR) 20 mg tablet Take 1 tablet (20 mg total) by mouth 1 (one) time each day. 90 tablet 1 5 Active cyanocobalamin (VITAMIN B-12) 1,000 mcg tablet Take 1 tablet (1,000 mcg total) by mouth 1 (one) time each day. 90 tablet 1 5 Active cyclobenzaprine (FLEXERIL) 5 mg tablet Take 1-2 tablets (5-10 mg total) by mouth 2 (two) times a day if needed for muscle spasms. 60 tablet 3 5 Active cholecalciferol (Vitamin D3) 50 mcg (2,000 unit) capsule Take 1 capsule (2,000 Units total) by mouth 1 (one) time each day. 90 capsule 1 5 Active SUMAtriptan (IMITREX) 50 mg tablet Take 1 tablet (50 mg total) by mouth 1 (one) time if needed for migraine. May repeat dose once in 2 hours if no relief. Do not exceed 2 doses in 24 hours. 12 tablet 5 5 Active omeprazole (PriLOSEC) [address] capsule Take 1 capsule (40 mg total) by mouth 1 (one) time each day. Do not crush or chew. 90 capsule 1 5 Active senna-docusate (PERICOLACE) 8.6-50 mg per tablet Take 1 tablet by mouth 1 (one) time each day. 180 each 1 5 025 Discontin ued(Reord er) chlorhexidine (PERIDEX) 0.12 % solution Swish 15 mL morning and night for 1 minute. Spit, do not swallow. Do not eat or drink for 30 minutes following use. 5 025 Discontin ued(Reord er) ibuprofen (ADVIL,MOTRIN) 600 mg tablet Take 1 tablet (600 mg total) by mouth. 5 025 Discontin ued(Presc riber Discontin ued) Vitamin D3 50 mcg (2,000 unit) capsule TAKE 1 CAPSULE BY MOUTH DAILY 90 capsule 1 5 025 Discontin ued(Reord er) omeprazole (PriLOSEC) [address] capsule TAKE 1 CAPSULE BY MOUTH DAILY (DON'T CRUSH OR CHEW) 90 capsule 1 5 025 Discontin ued(Reord er) Pain Reliever, acetam-aspirin, 250-250-65 mg per tablet TAKE 1 TABLET BY MOUTH EVERY 6 (SIX) HOURS IF NEEDED FOR HEADACHES. 90 tablet 3 5 025 Discontin ued(Alter oscar therapy) cyanocobalamin (VITAMIN B-12) 1,000 mcg tablet TAKE 1 TABLET BY MOUTH DAILY 90 tablet 1 5 Discontin ued(Reord er) SUMAtriptan (IMITREX) 50 mg tablet TAKE 1 TABLET BY MOUTH ONCE NEEDED FOR MIGRAINE MAY REPEAT ONCE IN 2 HOURS IF NO RELIEF NOT TO EXCEED 2 DOSES PER 9 tablet 5 5 Discontin ued(Reord er) atorvastatin (LIPITOR) 20 mg tablet TAKE 1 TABLET BY MOUTH DAILY 90 tablet 1 5 025 Discontin ued(Reord er) diclofenac (VOLTAREN) 1 % topical gel APPLY 2G TOPICALLY TO AFFECTED AREA TWICE A DAY 400 g 1 5 Discontin ued(Reord er) cyclobenzaprine (FLEXERIL) 5 mg tablet Take 1-2 tablets (5-10 mg total) by mouth 2 (two) times a day if needed for muscle spasms. 60 tablet 3 5 Discontin ued(Reord er) cyclobenzaprine (FLEXERIL) 5 mg tablet Take 1-2 tablets (5-10 mg total) by mouth 2 (two) times a day if needed for muscle spasms. 60 tablet 3 5 Discontin ued(Reord er) acetaminophen (Tylenol 8 Hour) 650 mg 8 hr tablet Take 1 tablet (650 mg total) by mouth every 8 (eight) hours if needed for mild pain. Do not crush, chew, or split. 90 tablet 1 5 025 Discontin ued(Reord er) SUMAtriptan (IMITREX) 50 mg tablet Take 1 tablet (50 mg total) by mouth 1 (one) time if needed for migraine. May repeat dose once in 2 hours if no relief. Do not exceed 2 doses in 24 hours. 12 tablet 5 5 Discontin ued(Reord er) Hospital, Clinic, or Other [...] disease without esophagi tis 12/24/2024 Rheumatoid arthritis ([employer] V24, [employer] V28) 12/24/2024 Mild intermittent asthma without complication [...] migrainosus, not intract able 09/09/2023 Bipolar disorder ([employer] V24, [employer] V28) 1210/2022 Anxiety and depression 09/09/2023 PTSD (post-traumatic stress disorder) 09/09/2023 Primary stress urinary incontinence 09/05/2023 Encounters Date Type Department Care Team Description 08/29/2025 Telephone Adult Medicine [address] [phone] Herman Smiley MD 08/28/2025 [facility]phone [facility] [place] [phone] Grace Hastings MD 08/28/2025 Telephone Adult Medicine [address] [phone] Herman Smiley MD 08/07/2025 Telephone [facility] [address] [place] [phone] Remy Flores 08/07/2025 Telephone [facility] [address] [place] [phone] Remy Flores 08/07/2025 Referral Triage [facility] Health Worker [address] [phone] Remy Flores 08/06/2025 10:30 AM EDT Office Visit Adult Medicine [address] [phone] Jocelyn Phipps PA Papillary thyroid carcinoma (CMS/HCC V24, CMS/HCC V28) (Primary Dx); Bipolar affective disorder, current episode mixed, current episode severity unspecified (CMS/HCC V24, CMS/HCC V28); Migraine without aura and without status migrainosus, not intractable; B12 deficiency; Chronic right-sided low back pain without sciatica; Gastroesophageal reflux disease without esophagitis; Mild intermittent asthma without complication 08/06/2025 Telephone Adult [address] [phone] Herman Smiley MD 07/17/2025 10:30 AM EDT Clinical Support [address] [phone] B12 deficiency (Primary Dx) 06/26/[address] [phone] Herman Smiley MD 06/19/2025 10:30 AM EDT Clinical Support [address] [phone] B12 deficiency (Primary Dx) from Last 3 Months Immunizations Immunization Administration Dates Next Due HepB-CpG (Heplisav-B) 18yo and older 03/26/2019 Hepatitis B (Tshdymw-S-Zuuxl , Recombivax HB-Adult) 19yo and older 05/04/2018 Pneumococcal polysaccharide 23 valent (Pneumovax 23) 2yo and older 04/05/2019 Tdap Tetanus diptheria acell ular pertussis (Boostrix; Adacel) 7yo and older 10/10/2016 Surgical History Surgery Date Site/Laterality Comments OTHER SURGICAL HISTORY 1996 PROCEDURE: [place] LIG/TRNSXJ FLP TUBE ABDL/VAG APPR UNI/BI; COMMENT: [facility] CHOLECYSTECTOMY 2011 PROCEDURE: SD LAPAROSCOPY SURG CHOLECYSTECTOMY; COMMENT: CT CARPAL TUNNEL RELEASE 02/06/2018 Right PROCEDURE: [place] NEUROPLASTY &/TRANSPOS MEDIAN NRV CARPAL TUNNE LEG SURGERY 06/22/2017 PROCEDURE: HISTORICAL LEG SURGERY; COMMENT: [place] HYSTERECTOMY PROCEDURE: HISTORICAL HYSTERECTOMY Medical History Medical [...] months you may not have stable housing? No 08/07/2025 Food Access & Nutrition Answer Date Rec orded Do you have access to a vari ety of food including fruits and vegetables? Yes 08/07/2025 Access to Healthcare Answer Date Record ed Within the last 3 months, cherelle w many times did you visit the emergency department for your medical care? 0 08/07/2025 Health Literacy Answer Date Recorded How often do you need to hav e someone help you when you read instructions, pamphlets, or other written material from your doctor or pharmacy? Never 08/07/2025 Caregiver: How often do you need to have someone help you when you read instructions, pamphlets, or other written material from your doctor or pharmacy? Not on file 08/07/2025 Financial Risk Answer Date Recorded How hard is it for you to pa y for the very basics like food, housing, medical care, and air conditioning / heating? Not very hard 08/07/2025 Transportation Answer Date Recorded Has the lack of transportati on kept you from meetings, work, or from getting things needed for daily living? Yes Has the lack of transportati on kept you from medical appointments or from getting medications? Yes 08/07/2025 Social Isolation Answer Date Recorded How often do you feel lonely or isolated from ose around you? Never 08/07/2025 Food Risk Answer Date Recorded Within the past 12 months we worried whether our food would run out before we got money to buy more. Never true 08/07/2025 Within the past 12 months th e food we bought just didn't last and we didn't have money to get more. Never true 08/07/2025 Dependent Care Answer Date Recorded Do you need help finding or paying for care for your loved ones. For example, child protective services social worker or elderly care for an older adult? No 08/07/2025 Education Answer Date Recorded Do you think completing more education or training, like finishing a GED, going to college, or learning a trade, would be helpful for you? No 08/07/2025 Employment and Income Answer Date Recor ded During the last four weeks, have you been actively looking for work? No 08/07/2025 Living Situation Answer Date Recorded What is your living situation? Unrecognized valu e 08/07/2025 Comments No Sex and Gender Information Value Date Recorded Sex Assigned at Not on file Legal Sex Female 7:54 PM EST Gender Identity Not on file Sexual Orientation Not on file Obstetrics History Last Filed Vital Signs Vital Sign Reading Time Taken Comments Blood Pressure 138/86 08/06/2025 10:29 AM EDT Pulse 74 08/06/2025 9:58 AM EDT Temperature 36.2 C (97.1 F) 08/06/2025 9:58 AM EDT Respiratory Rate 18 08/06/2025 9:58 AM EDT Oxygen Saturation 99% 11/29/2024 1:10 PM EST Inhaled Oxygen Concentration - - Weight 111 kg (244 lb) 08/06/2025 9:58 AM EDT Height 154.9 cm (5' 1 ) 08/06/2025 9:58 AM EDT Body Mass Index 46.1 08/06/2025 9:58 AM EDT Plan of Treatment Upcoming Encounters Date Type Department Care Team (Late st Contact Info) Description 09/04/2025 9:30 AM EST Office Visit Adult Medicine [address] [phone] Herman Smiley MD [address] [place] [address] 09/19/2025 10:40 AM EST Office Visit Endocrinology [address] [phone] Grace Hastings MD [address] [place] [address] 11/07/2025 10:00 AM EST Office Visit Adult [address] [phone] Herman Smiley MD [address] [place] [address] 11/21/2025 10:00 AM EST Office Visit Obstetrics and Gynecology [address] [phone] Emilee Chavez [address] Health Maintenance Due Date Last Done Comments Colorectal Cancer Screening: Colonoscopy 1975 Zoster Vaccines (1 of 2) 1993 Hepatitis B Vaccines (3 of 3 - 19+ 3-dose series) 05/21/2019 03/26/2019, 05/04/2018 Hepatitis A Vaccines (2 of 2 - Risk 2-dose series) 09/25/2019 03/26/2019 Breast Cancer Screening 04/26/2020 04/26/2018 Cervical Cancer Screening: Pap Smear 02/24/2021 02/24/2018, 02/24/2018, 02/24/2018, Additional history exists COVID-19 Vaccine (3 - Moderna risk series) 08/20/2021 07/23/2021, 06/29/2021 Lung Cancer Screening (Low Dose CT) 11/09/2023 RSV Immunization Adult Patients (1 - Risk 50-74 years 1-dose series) 2024 Pneumococcal Vaccine: 50+ Years (2 of 2 - PCV) 12/11/2025 04/05/2019 Postponed from 04/05/2020 (Patient Refused) Influenza Vaccine (#1) 2025 06/29/2021, 2018 Postponed from 06/10/2025 (Patient Refused) Social Influencers of Health Screening 08/07/2026 08/07/2025 DTaP,Tdap,and Td Vaccines (2 - Td or [...] Procedure Name Priority Date/Time Associated Diagnosis Comments HEPATITIS C ANTIBODY Routine 02/25/2025 8:44 AM EDT Chronic hepatitis C without hepatic coma ([facility]/HCC V24, [facility] V28) LIPID PANEL WITH REFLEX TO DIRECT LDL Routine 02/25/2025 8:44 AM EDT Physical exam Mixed hyperlipidemia Migraine without aura and without status migrainosus, not intractable Gastroesophageal reflux disease without esophagitis Mild intermittent asthma without complication Rheumatoid arthritis, involving unspecified site, unspecified whether rheumatoid factor present ([facility]/HCC V24, [facility] V28) Bipolar affective disorder, current episode mixed, current episode severity unspecified ([facility] V24, [facility] V28) Encounter for screening mammogram for malignant neoplasm of breast Encounter for gynecological examination without abnormal finding B12 deficiency DEPRESSION SCREENING Routine 07/26/2024 ALEA SCREENING DIGITAL Routine 04/26/2018 4:56 PM EDT Encounter for screening mammogram for malignant neoplasm of breast PAP SMEAR Routine 02/24/2018 HIV SCREENING Routine 02/23/2018 from Last 3 Months or Most Recently Relevant to Health Maintenance Results * (ABNORMAL) Hepatitis C antibody (02/25/2025 8:44 AM EDT) Hepatitis C Antibody Positive (A) Negative LAB CHEMISTRY METHOD 02/25/2025 5:07 PM EDT [facility] Comment:If confirmation of t his positive HCV Ab screening test is needed, please redraw and order HCV Viral Load. Note--> This test may not be added on due to different specimen requirements. Blood Venous blood specimen / Unknown Venipuncture / Unknown 02/25/2025 8:44 AM EDT 02/25/2025 8:44 AM EDT us Herman Smiley MD LAB BLOOD ORDERABLES Final Result [facility] [address] [place] [address], [place] [phone] * (ABNORMAL) Lipid panel with reflex to direct LDL (02/25/2025 8:44 AM EDT) Cholesterol 208(H) 0 - 200 mg/dL LAB CHEMISTRY METHOD 02/25/2025 2:47 PM EDT [facility] Triglycerides 107 0 - 150 mg/dL LAB CHEMISTRY METHOD 02/25/2025 2:47 PM EDT [facility] HDL 55 >=40 mg/dL LAB CHEMISTRY METHOD 02/25/2025 2:47 PM EDT [facility] LDL Calculated 132(H) 0 - 100 mg/dL LAB CHEMISTRY METHOD 02/25/2025 2:47 PM EDT [facility] VLDL Cholesterol Momo 21.4 mg/dL LAB CHEMISTRY METHOD 02/25/2025 2:47 PM EDT [facility] Non HDL Chol. (LDL+VLDL) 153(H) <145 mg/dL LAB CHEMISTRY METHOD 02/25/2025 2:47 PM EDT [facility] Chol/HDL Ratio 3.8 0.0 - 4.4 LAB CHEMISTRY METHOD 02/25/2025 2:47 PM EDT [facility] Blood Venous blood specimen / Unknown Venipuncture / Unknown 02/25/2025 8:44 AM EDT 02/25/2025 8:44 AM EDT Herman Smiley MD LAB BLOOD ORDERABLES Final Result [facility] [address] [place] [address], [place] [phone] * Depression Screening (07/26/2024) Pathologist [facility] Depression Screening Abstracted Historical Provider HEALTH MAINTENANCE Final Result * ALEA SCREENING DIGITAL (04/26/2018 4:56 PM EDT) Anatomical Region Laterality Modality Mammography 04/21/2018 8:01 AM EDT Narrative 04/26/2018 4:56 PM EDT [facility] Diagnostic Imaging Department [address] [place] [address] Patient: DRAKE RAY /Age/Sex: 1975 - 42 - F Unit#: [id number] [facility] Ordering Physician: ARABELLA CABALLERO CNM Alea Screening Digital - 04/21/18848 EXAM: [facility] Screening Digital EXAM DATE AND TIME: 04/21/2018 8:51 AM HISTORY: Screening. Mother, maternal grandmother and maternal cousin have had breast carcinoma. [facility] [place] TECHNIQUE: CC and MLO views of both breasts were obtained using full field digital mammography. Bilateral digital breast tomosynthesis was performed in the MLO projection. Computer aided detection with the [employer] 7.2-H was employed. TISSUE DENSITY: c. The [...] Routine screening mammogram BILATERAL in 1 year. [address]8540, 39914 2701F, 9952F Dictating Physician: KATY JOHNSON MD Electronically Signed by: KATY JOHNSON MD Dic Date/Time: 04/26/181654 Sign date/Time: 04/26/181655 Procedure Note Katy Johnson MD - 09/28/2022 [facility] Diagnostic Imaging Department [address] [place], [place] [id number] Patient: DRAKE RAY D.O.B./Age/Sex: 1975 - 42 - F Unit#: [id number] Location/Status: [facility]/REG CLI Mnemonic/Ordering Site: [facility] Ordering Physician: ARABELLA CABALLERO CNM [facility] Screening Digital - 04/21/18 - 0849 EXAM: [facility] Screening Digital EXAM DATE AND TIME: 04/21/2018 8:51 AM HISTORY: Screening. Mother, maternal grandmother and maternal cousin havehad breast carcinoma. COMPARISON: 01/22/14 ([facility], [place]) TECHNIQUE: CC and MLO views of both breasts were obtained using fullfield digital mammography. Bilateral digital breast tomosynthesis was performedin the MLO projection. Computer aided detection with the [employer] 7.2-Hwas employed. TISSUE DENSITY: c. The breasts [...] Routine screening mammogram BILATERAL in 1 year. 48428, 43475 3341F, 7025F Dictating Physician: KATY JOHNSON MD Electronically Signed by: KATY JOHNSON MD Dic Date/Time: 04/26/181654 Sign date/Time: 04/26/181655 Arabella Caballero CNM IMG BI PROCEDURES Final Result * Pap smear (02/24/2018) 02/24/2018 Narrative HISTORICAL TESTING LAB RESULTING AGENCY - 03/01/2018 11:50 AM EDT [id number] THINPREP PAP, IMAGED: NEGATIVE FOR SQUAMOUS INTRAEPITHELIAL [...] * HIV Screening (02/23/2018) HIV Screening Abstracted Historical Provider HEALTH MAINTENANCE Final Result from Last 3 Months or Most Recently Relevant to Health Maintenance Insurance [facility] Care Teams Supplies Packer Relationship Specialty Start Date End Date Herman Smiley MD [address] [place] [phone] PCP - General 03/18/23
--- OUTSIDE RECORDS SUMMARY | 2025-09-01 16:18 | XMS_ITS | Encounter Summary ---
Author Organization [facility] [place] [address] Care Team Providers Care Regulatory Manager Name Role Phone Herman Smiley MD Primary Care Provider [phone] Reason for Visit * Reason Onset Date Comments Thyroid cancer surgery update 08/28/2025 Encounter Details Date Type Department Care Team (Late st Contact Info) Description 08/28/2025 Telephone [facility] [address] [phone] Grace Hastings MD [address] [place] [phone] Social History Tobacco Use Types Packs/Day Years [...] do you feel lonely or isolated from th ose around you? Never 08/07/2025 Food Risk [...] for your loved ones. For example, child welfare counselor or elderly care for an older adult? [...] as of this encounter Progress Notes * Juan Mendes MD - 08/30/2025 4:16 PM EST Called patient. She reports that she has not taken her temperature but has been having cold sweats, her throat hurts near her tonsils and not near the thyroidectomy incision, has a productive cough, and sinus pressure. She has no chest pain, dyspnea, or dysphagia. I discussed with patient that her symptoms appear to be more consistent with an upper respiratory infection. She said that she did reach out to her primary care physician's office and she will call them back on Tuesday to see if she needs any further testing or antibiotics. I advised her to go to the ER over the weekend if she starts to experience symptoms of dysphagia, dyspnea, or chest pain. Patient verbalized understanding. * Miranda Brown RN - 08/30/2025 3:44 PM EST Called patient She had surgery on 08/26 d/c 08/27 Pt sts she dev sym on 08/27: + prod cough yellow/green mucous + ear/facial pressure + sore throat + swollen tonsils Denies fever/+ chills Pt able to speak in full sentences, no audible wheeze/stridor noted Taking OTC throat lozenges Advised to place call to surgeons office which she has, awaiting call back Please advise in provider's absence * Yolis Diaz - 08/28/2025 12:18 PM EST Endocrine Call Primary endocrine provider: Dr. Grace Hastings MD Is the endocrine provider in the office toady?: yes Who is calling? The patient. If not the patient or parent/guardian please check for authorization to share/verbal release. Why is the person calling? Symptoms/side effects. Pt is calling to update Dr Hastings on how she's been doing since her thyroid surgery, she states she's coughing up a lot of mucus, has a swollen tongue and has no taste. documented in this encounter Plan of Treatment Upcoming Encounters Date Type Department Care Team (Late st Contact Info) Description 09/04/2025 9:30 AM EST Office Visit Adult [address] [phone] Herman Smiley MD [address] [place] [address] 09/19/2025 10:40 AM EST Office Visit Endocrinology - [address] [phone] Grace Hastings MD [address] [place] [address] 11/07/2025 10:00 AM EST Office Visit Adult Medicine [place] - [address] [phone] Herman Smiley MD [address] [place] [address] 11/21/2025 10:00 AM EST Office Visit Obstetrics and Gynecology - [address] [phone] Emilee Chavez [address] documented as of this encounter Visit Diagnoses Not on filedocumented in this encounter Additional Health Concerns Assessment Noted Time PHQ-9 Depression Total Score: 0 04/02/20 25 3:38 PM EDT documented as of this encounter Care Teams Regulatory Manager Relationship Specialty Start Date End Date Herman Smiley MD [address] [place] [address] PCP - General 03/18/23 documented as of this encounter
--- OUTSIDE RECORDS SUMMARY | 2025-09-01 16:18 | XMS_ITS | Encounter Summary ---
Author Organization [place] [address] Care Team Providers Care Pick Up Operator Name Role Phone Herman Smiley MD Primary Care Provider [phone] Encounter Details Date Type Department Care Team ([facility] st Contact Info) Description 08/07/2025 Referral Triage [facility] [address] [place] [phone] Remy Flores Social History Tobacco Use Types Packs/Day Years [...] on file documented as of this encounter Plan of Treatment Upcoming Encounters Date Type Department Care Team (Late st Contact Info) Description 09/04/2025 9:30 AM EST Office Visit Adult Medicine [address] [phone] Herman Smiley MD [address] [place] [address] 09/19/2025 10:40 AM EST Office Visit [address] [phone] Grace Hastings MD [address] [place] [address] 11/07/2025 10:00 AM EST Office Visit [facility] [place] - [address] [phone] Herman Smiley MD [address] [place] [address] 11/21/2025 10:00 AM EST Office Visit Obstetrics and Gynecology - [address] [phone] Emilee Chavez CNM [address] [place] [address] documented as of this encounter Visit Diagnoses Not on filedocumented in this encounter Additional Health Concerns Assessment Noted Time PHQ-9 Depression Total Score: 0 04/02/20 25 3:38 PM EDT documented as of this encounter Care Teams Pick Up Operator Relationship Specialty Start Date End Date Hermna Smiley MD [address] [place] [address] PCP - General 03/18/23 documented as of this encounter
--- OUTSIDE RECORDS SUMMARY | 2025-09-01 16:18 | XMS_ITS | Encounter Summary ---
Author Organization [employer] Address [address] [facility] [address] [place] [address] Care Team Providers Care Safety Advisor Name Role Phone Unavailable Primary Care Provider Unavailabl e Reason for Visit * Reason Onset Date Comments New Patient Appt 05/12/2023 Encounter Details Date Type Department Care Team (Late st Contact Info) Description 05/12/2023 Telephone [facility] [address] [place], [place] [phone] Oswald Gifford MD [address] [place], [place] [phone] New Patient Appt Social History Tobacco Use [...] left voicemail to give a call at [phone]. documented in this encounter Plan of Treatment Not on file documented as of this encounter Visit Diagnoses Not on filedocumented in this encounter
--- OUTSIDE RECORDS SUMMARY | 2025-09-01 16:18 | XMS_ITS | Encounter Summary ---
Author Organization [employer] Address [address] [facility] 7t [place] [address] Care Team Providers Care Steam Bone Press Tender Name Role Phone Unavailable Primary Care Provider Unavailabl e Reason for Visit * Reason Onset Date Comments Appointment 02/07/2023 Encounter Details Date Type Department Care Team ([facility] st Contact Info) Description 02/07/2023 Telephone C ADULT DENTAL [address] [place], [place] [phone] Erasmo Bryan DDS [address] [place], [place] [phone] Appointment Social History Tobacco Use Types Packs/Day [...]
--- OUTSIDE RECORDS SUMMARY | 2025-09-01 16:18 | XMS_ITS | Encounter Summary ---
Author Organization [employer] Address [address] [facility] 7 [place] [address] Care Team Providers Care Rn Surgery Name Role Phone Unavailable Primary Care Provider Unavailabl e Reason for Visit * Reason Onset Date Comments cx and rs appt 08/14/2024 Encounter Details Date Type Department Care Team (Late st Contact Info) Description 08/14/2024 Telephone [facility] ADULT DENTAL [address] [place], [place] [phone] Erasmo Bryan DDS [address] [place], [place] [phone] cx and rs appt Social History Tobacco [...]
--- OUTSIDE RECORDS SUMMARY | 2025-09-01 16:18 | XMS_ITS | Encounter Summary ---
Author Organization [employer] Address [address] [facility] 7t [place] [address] Care Team Providers Care Regulatory Agency Director Name Role Phone Unavailable Primary Care Provider Unavailabl e Reason for Visit * Reason Onset Date Comments rs no show visit 03/11/2025 Encounter Details Date Type Department Care Team (Late st Contact Info) Description 03/11/2025 Telephone [facility] ADULT DENTAL 230 [place], [place] [phone] Erasmo Bryan DDS [address] [place], [place] [phone] rs no show visit Social History Tobacco [...]
--- OUTSIDE RECORDS SUMMARY | 2025-09-01 16:18 | XMS_ITS | Encounter Summary ---
Author Organization [facility] [place] [address] Care Team Providers Care Molasses Preparer Name Role Phone Herman Smiley MD Primary Care Provider [phone] Reason for Visit * Reason Onset Date Comments Thyroid Problem 08/28/2025 Encounter Details Date Type Department Care Team ([facility] st Contact Info) Description 08/28/2025 Telephone Adult Medicine [address] [phone] Herman Smiley MD [address] [place] [address] Social History Tobacco Use Types Packs/Day Years [...] for your loved ones. 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 Pt is going to start radiation, not sure of the date, Pt has another procedure , and states she has a back issue, and wants to get this taken care of. She is trying to get a home health aid to come in and assist . Hosp f/u appt booked pt agreed to date and time * Darleen Pete - 08/28/2025 9:31 AM EST Patient call requires triage: Symptoms patient is presenting: Patient had thyroid cancer removal surgery on 08/26/2025 at [facility] with Dr. Beba Malave Patient stated during surgery only some of the cancer was removed and the cancer has spread more. Another surgery will be getting booked soon. Would like to see Dr. Smiley sooner than 11/07/25 appointment. Please advise and call [phone] How long has patient had these symptoms?: 3 months ago For ALL patients calling to schedule any [...] traveled recently to another state outside of [place], [place], [place], [place], [place], [place], [place]? no o If yes, did you quarantine [...] of accident/Injury: No If yes, gather 3rd republican insurance information [employer] Alliance Party Information: not applicable PCP: Herman Smiley MD Payor: [employer] HEALTH PLAN / Plan: [facility] MEDICAID / Product Type: *No Product type* / documented in this encounter Plan of Treatment Upcoming Encounters Date Type Department Care Team (Late st Contact Info) Description 09/04/2025 9:30 AM EST Office Visit Adult Medicine [address] [phone] Herman Smiley MD [address] [place] [address] 09/19/2025 10:40 AM EST Office Visit Endocrinology - [address] [phone] Grace Hastings MD [address] [place] [address] 11/07/2025 10:00 AM EST Office Visit Adult Medicine [facility] - [address] [phone] Herman Smiley MD [address] [place] [address] 11/21/2025 10:00 AM EST Office Visit Obstetrics and Gynecology - [address] [phone] Emilee Chavez, [id number] documented as of this encounter Visit Diagnoses Not on filedocumented in this encounter Additional Health Concerns Assessment Noted Time PHQ-9 Depression Total Score: 0 04/02/20 25 3:38 PM EDT documented as of this encounter Care Teams Molasses Preparer Relationship Specialty Start Date End Date Herman Smiley MD [address] [place] [address] PCP - General 03/18/23 documented as of this encounter
--- OUTSIDE RECORDS SUMMARY | 2025-09-01 16:18 | XMS_ITS | Encounter Summary ---
Author Organization [employer] Address [address] [facility] 7t [place] [address] Care Team Providers Care Fire Extinguisher Sprinkler Inspector Name Role Phone Unavailable Primary Care Provider Unavailabl e Reason for Visit * Reason Onset Date Comments cx same day 12/28/2024 unable to post insurance 12/28/2024 Encounter Details Date Type Department Care Team (Late st Contact Info) Description 12/28/2024 Telephone [facility] ADULT DENTAL [address] [place], [place] [phone] Erasmo Bryan DDS [address] [place], [place] [phone] cx same day ; unable to post [...] Miscellaneous Notes * Telephone Encounter - Farzaneh Liar - 01/07/2025 8:55 AM EDT Patient is [...]
--- OUTSIDE RECORDS SUMMARY | 2025-09-01 16:19 | XMS_ITS | Encounter Summary ---
Author Organization [facility] [place] [address] Care Team Providers Care Clinical Systems Educator Name Role Phone Herman Smiley MD Primary Care Provider [phone] Reason for Visit * Reason Onset Date Comments Earache 08/29/2025 Sore Throat 08/29/2025 Cough 08/29/2025 Encounter Details Date Type Department Care Team ([facility] Contact Info) Description 08/29/2025 Telephone [facility] [address] [place] [address] Herman Smiley MD [address] [place], [place] Social History Tobacco Use Types Packs/Day Years [...] your loved ones. 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 [...] as of this encounter Progress Notes * Elsa Miranda, ARNOLD - 08/29/2025 4:22 PM EST Pt has surgery on Tuesday now C/O pain in both ears with drainage, sore throat and cough no chest wall pain with deep breath and cough, denies SOB, able to speak in full sentences and has no audible wheezing, using home care as directed with no relief, cough is productive for thick Sputum, denies fever (has not taken temp) able to take PO with no difficulty, denies N/V/D, Pt to go to [facility] now Advised home care following the cough Protocol. RN reinforced telephone consultation and advice. Reviewed with the patient the signs and symptoms to watch for that would require immediate attention. If symptoms change, worsen or increase in intensity, to call back immediately. Appointment * Patricia Chiu - 08/29/2025 11:13 AM EST Patient would like a call as soon as possible. * Guerda Ortiz - 08/29/2025 8:33 AM EST Patient call requires triage: Symptoms patient is presenting: Patient states she had thyroid cancer removal on Tuesday and todayhas ear pain, sore throat and cough - she is requesting a call back from a nurse to discuss further How long has patient had these symptoms?: started yesterday and worsening today For ALL patients calling to schedule any [...] traveled recently to another state outside of [place], [place], [place], [place], [place], [place], [place]? no o If yes, did you quarantine [...] of accident/Injury: No If yes, gather 3rd democrat insurance information Third Democrat Information: not applicable PCP: Herman Smiley MD Payor: [employer] PLAN / Plan: [employer] MEDICAID / Product Type: *No Product type* / documented in this encounter Plan of Treatment Upcoming Encounters Date Type Department Care Team (Late st Contact Info) Description 09/04/2025 9:30 AM EST Office Visit Adult [address] [phone] Herman Smiley MD [address] [place] [address] 09/19/2025 10:40 AM EST Office Visit Endocrinology - [address] [phone] Grace Hastings MD [address] [place] [address] 11/07/2025 10:00 AM EST Office Visit Adult Medicine [address] [phone] Herman Smiley MD [address] [place] [address] 11/21/2025 10:00 AM EST Office Visit Obstetrics and Gynecology - [address] [phone] Emilee Chavez [address] documented as of this encounter Visit Diagnoses Not on filedocumented in this encounter Additional Health Concerns Assessment Noted Time PHQ-9 Depression Total Score: 0 04/02/20 25 3:38 PM EDT documented as of this encounter Care Teams Clinical Systems Educator Relationship Specialty Start Date End Date Herman Smiley MD [address] [place] [address] PCP - General 03/18/23 documented as of this encounter
--- OUTSIDE RECORDS SUMMARY | 2025-09-01 16:19 | XMS_ITS | Clinical Summary ---
Author Organization [employer] Address [address] [facility] 7t [place] [address] Care Team Providers Care Gas Derrick Operator Name Role Phone Unavailable Primary Care [...] to dental caries 07/11/2024 Tooth sensitivity 07/11/2024 Social History Tobacco Use Types Packs/Day Years [...] Exam 08/27/2023 02/23/2023 Lung Cancer Screening 2024 RSV Patients and Patients Aged 60 years or older (1 - Risk 50-74 years 1-dose series) 2024 Zoster Vaccines (1 of 2) 2024 Dental Prophylaxis 01/10/2025 07/11/2024 COVID-19 Vaccine (3 - 2024-2 6 season) 2025 07/23/2021, 06/29/2021 Influenza Vaccine (#1) 2025 , 06/19/2019 Dental X-Ray: Bitewings 01/16/2026 01/16/20, 02/23/2023 Tobacco Screening 02/19/2026 02/19/2025 DTaP/Tdap/Td Vaccines (2 - T d or Tdap) 10/10/2026 10/10/2016 Dental X-Ray: Full Mouth 01/23/2028 025, 02/23/2023 HIB Vaccines Aged Out No longer eligi [...]
[2025-09-01] MEDS: oxyCODONE HCl Immed Release 5 MG TABLET 10 MG PO (17:51)
[2025-09-01 18:11] VITALS: BP 180/112; PULSE 80; RESP 18; TEMP 36.6; O2SAT 98
[2025-09-01 18:13] VITALS: BP 180/112; PULSE 80; RESP 18; TEMP 36.6; O2SAT 98
== END 2025-09-01 18:57 | disposition home or self-care (01) ==
PROVIDERS: Emergency Provider Emergency Medicine; PCP Internal Medicine
DX: S43.102A Unspecified dislocation of left acromioclavicular joint, initial encounter (principal); S42.002A Fracture of unspecified part of left clavicle, initial encounter for closed fracture; M25.512 Pain in left shoulder; R51.9 Headache, unspecified; R10.22 Pelvic and perineal pain left side; X58.XXXA Exposure to other specified factors, initial encounter; W18.2XXA Fall in (into) shower or empty bathtub, initial encounter; Y93.9 Activity, unspecified; Y92.9 Unspecified place or not applicable; Y99.8 Other external cause status; Z79.899 Other long term (current) drug therapy
CPT/HCPCS: 70450; 73000; 73030; 73502; 99284

== ENCOUNTER → 2025-09-01 13:56 | Outpatient (BNV) | payer OTHER, SELFPAY | PROVIDERS: Visit Provider Radiology Diagnostic Radiology | DX: S09.90XA Unspecified injury of head, initial encounter (principal); S79.912A Unspecified injury of left hip, initial encounter; S43.122A Dislocation of left acromioclavicular joint, 100%-200% displacement, initial encounter; Z04.3 Encounter for examination and observation following other accident | CPT/HCPCS: 70450; 73000; 73030; 73502 ==